=== PATIENT | female | born 1970 | race Caucasian/White ===

== ENCOUNTER → 2024-10-24 | Outpatient (CLI) | payer OTHER, SELFPAY ==
--- OUTSIDE RECORDS SUMMARY | 2024-10-24 08:54 | XMS RPT_ITS | CCD ---
Author Organization [facility] CliniSyhi Care Team Providers Care Hair Dresser Name Role Phone Dami Dawn Unavailable Unavailable Dami Dawn Unavailable Unavailable Madiha Caballero Unavailable Unavailable Madiha Caballero Unavailable Unavailable Dami Dawn Unavailable Unavailable Dami Dawn Unavailable Unavailable Dami Dawn Unavailable [phone] Dami Dawn Primary Care Provider Inocencio Ashton Unavailable Unavailable Unavailable Dami Dawn Unavailable Inocencio Ashton Unavailable Unavailable Jonathon Coronel Unavailable Inocencio Ashton CNP Primary Care Provider [phone] Stentbrigid, Parag Unavailable Inocencio Ashton CNP Primary Care Provider Inocencio Ashton Unavailable Stentz, Parag Unavailable Akash Wilburn Unavailable Unavailable KODAK VARGAS Admitting Unavailable KODAK VARGAS Referring Unavailable INOCENCIO ASHTON Primary Care Unavailable KODAK VARGAS Attending Unavailable INOCENCIO ASHTON Primary Care Unavailable INOCENCIO ASHTON Primary Care Unavailable KODAK VARGAS Attending Unavailable TASHA CAMARGO Admitting Unavailable TASHA CAMARGO Referring Unavailable BINU GRAY Attending Unavailable INOCENCIO ASHTON Primary Care Unavailable [facility], Other Primary Care Prov ider Ms. Inocencio Ashton Primary Care Unav ailable STENTZ, Mr. TUTTLE Attending Unavailable STENTZ, Mr. TUTTLE Referring Unavailable STENTZ, Mr. TUTTLE Primary Care Unavailable STENTZ, Mr. TUTTLE Referring Unavailable STENTZ, Mr. TUTTLE Attending Unavailable STENTZ, Mr. TUTTLE Primary Care Unavailable STENTZ, MrRajendra TUTTLE Referring Unavailable STENTZ, Mr. TUTTLE Attending Unavailable STENTZ, Mr. PARAG Referring Unavailable STENTZ, MrRajendra TUTTLE Attending Unavailable STENTZ, Mr. PARAG Primary Care Unavailable STENTZ, Mr. PARAG Referring Unavailable STENTZ, Mr. TUTTLE Attending Unavailable STENTZ, Mr. PARAG Primary Care Unavailable STENTZ, Mr. PARAG Referring Unavailable STENTZ, Mr. TUTTLE Attending Unavailable STENTZ, Mr. PARAG Primary Care Unavailable STENTZ, MrRajendra TUTTLE Referring Unavailable STENTZ, Mr. PARAG Primary Care Unavailable Acmargo, Ms. Tasha Francois Attending Unavailabl e STENTZ, Mr. PARAG Primary Care Unavailable Camargo, Ms. Tasha M Referring Unavailabl e Camargo, Ms. Tasha M Attending Unavailabl e STENTZ, . PARAG Primary Care Unavailable Ohliger III, Dr. Yang Attending Unavailab le Camargo, MsRajendra Cordova M Referring Unavailabl e STENTZ, Mr. TUTTLE Referring Unavailable STENTZ, Mr. TUTTLE Attending Unavailable STENTZ, Mr. TUTTLE Primary Care Unavailable Stentz Parag RAHMAN Primary Care Provider [facility], Other Primary Care Prov ider [facility], OTHER Primary Care U navailable GUTIERREZ, GURU L Referring Unavailable GUTIERREZ, GURU L Attending Unavailable GUTIERREZ, GURU L Admitting Unavailable [facility], OTHER Primary Care U navailable GUTIERREZ, GURU L Referring Unavailable GUTIERREZ, GURU L Attending Unavailable Stentz, Mr. Tuttle Attending Unavailable Stentz, Mr. Tuttle Primary Care Unavailable AKASH WILBURN Attending Unavailabl e Stentz, Mr. Tuttle Primary Care Unavailable Stentz, Mr. Tuttle Primary Care Unavailable Stentz, Mr. Tuttle Attending Unavailable SUHAS, SHARLA A Referring Unavailable [facility], OTHER Primary Care U navailable SUHAS, SHARLA A Attending Unavailable [facility], OTHER Primary Care U navailable GUTIERREZ, GURU L Attending Unavailable SUHAS, SHARLA A Referring Unavailable [facility], OTHER Primary Care U navailable SUHAS, SHARLA A Attending Unavailable SELF, SELF Referring Unavailable SUHAS, SHARLA A Referring Unavailable SUHAS, SHARLA A Attending Unavailable [facility], OTHER Primary Care U navailable SUHAS, SHARLA A Referring Unavailable SUHAS, SHARLA A Attending Unavailable [facility], OTHER Primary Care U [facility] SUHAS, SHARLA A Referring Unavailable GURU GUTIERREZ Attending Unavailable [facility], OTHER Primary Care U [facility], SHARLA A Referring Unavailable SUHAS, SHARLA A Attending Unavailable [facility], OTHER [facility], OTHER Primary Care U [facility] SUHAS, SHARLA A Referring Unavailable SUHAS, SHARLA A Attending Unavailable [facility], OTHER Primary Care U [facility] [employer] MAINTAINER OPERATOR-STORE CONSULTANT, Deion Francois Unavailable [phone] STENTZ, PARAG Primary Care Unavailable AMOL BAE Attending Unavailable STENTZ, PARAG Referring Unavailable STENTZ, PARAG Primary Care Unavailable STENTZ, PARAG Primary Care Unavailable Daisha MAINTAINER OPERATOR-STORE CONSULTANTInocencio Unavailable STENTZ, PARAG Primary Care Unavailable SALENA SMITH Attending Unavailable STENTZ, PARAG Referring Unavailable STENTZ, PARAG Primary Care Unavailable STENTZ, PARAG Referring Unavailable STENTZ, PARAG Primary Care Unavailable STENTZ, PARAG Referring Unavailable STENTZ, PARAG Primary Care Unavailable STENTZ, PARAG Referring Unavailable STENTZ, PARAG Primary Care Unavailable STENTZ, PARAG Referring Unavailable STENTZ, PARAG Primary Care Unavailable STENTZ, PARAG Referring Unavailable STENTZ, PARAG Primary Care Unavailable STENTZ, PARAG Referring Unavailable STENTZ, PARAG Primary Care Unavailable SEDRICK FLORES Attending Unavailable MACARENA SANDOVAL Referring Unavailable STENTZ, PARAG Primary Care Unavailable STENTZ, PARAG Referring Unavailable STENTZ, PARAG Primary Care Unavailable STENTZ, PARAG Referring Unavailable STENTZ, PARAG Primary Care Unavailable Stentz JOSIAH Parag Primary Care Provider Melltebarak MAINTAINER OPERATOR-STORE CONSULTANTDeion Unavailable STENTZ, PARAG Attending Unavailable STENTZ, PARAG Referring Unavailable STENTZ, PARAG Primary Care Unavailable DEION PELAYO Attending Unavailable STENTZ, PARAG Referring Unavailable STENTZ, PARAG Primary Care Unavailable STENTZ, PARAG Attending Unavailable STENTZ, PARAG Referring Unavailable STENTZ, PARAG Primary Care Unavailable STENTZ, PARAG Attending Unavailable STENTZ, PARAG Primary Care Unavailable GERALDO MARTÍNEZ Attending Unavailable STENTZ, PARAG Primary Care Unavailable GERALDO MARTÍNEZ Attending Unavailable STENTZ, PARAG Primary Care Unavailable STENTZ, PARAG Attending Unavailable STENTZ, PARAG Primary Care Unavailable CLAUDIA GIBBONS Attending Unavailable STENTZ, PARAG Primary Care Unavailable Kimberlyn Yin Attending Provider Sandi VELARDE, Dr. James Attending Provider Jacob Junior Attending Unavailable Kimberlyn Patel Attending Unavailable Allergies Allergy Classification Reported Allergen(s) Allergy Type Date of Onset Reaction(s) Facility (20 sources) Latex; Translations: [LATEX] Propensity to adverse reactions to drug 6 Rash [facility] (20 sources) ADHESIVE TAPE-SILICONES; Translations: [ADHESIVE TAPE-SILICONES] Propensity to adverse reactions to drug 6 Unknown [facility] (20 sources) NYLON; Translations: [NYLON] Propensity to adverse reactions to drug 4 [facility] (8 sources) OINTMENT BASE NO.147 (BULK); Translations: [OINTMENT BASE NO.147 (BULK)] Propensity to adverse reactions to drug 6 [facility] (20 sources) natural latex rubber Allergy to substance (finding) Rash [facility] Work Phone: (4 sources) *Adhesive Tape Propensity to adverse reactions [address] [facility] (4 sources) Nylon Propensity to adverse reactions to drug [address] [facility] (2 sources) *Sutures Propensity to adverse reactions [address] [facility] (3 sources) Adhesive Tape; Translations: [adhesive tape] Propensity to adverse reactions [address] [facility] (1 source) Latex Drug allergy (disorder) [address] [facility] Repository Medications Current Medications Medication Drug Class(es) Dates Sig (Normalized) Sig (Original) acetaminophen 325 mg / HYDROcodone bitartrate 5 mg oral tablet (15 sources) Opioid Agonist Start: 09-27-2022 End: 10-04-2022 take 1-2 tablets by mouth every four hours as needed hydroCODone-aceta minophen 5-325 MG tablet Indications: Post-op pain Take 1-2 tablets by mouth every 4 hours as needed for up to 7 days. 25 tablet 0 09/27/2022 Active Start: 02-07-2021 take 1 tablet by rebekah th every six hours HYDROcodone-acetaminophen (NORCO) 5-325 mg per tablet Take 1 tablet by mouth every 6 (six) hours . 0 02/07/2021 Active Start: 02-01-2021 End: 02-03-2021 take 1 tablet by mouth every six hours [place] 5 mg-325 mg oral tablet ; 1 tab(s) orally every 6 hours Quantity: 12 Refills: 0 Ordered: 01-Feb-2021 Jonathon Coronel Start: 01-Feb-2021 End: 03-Feb-2021 Status: Other Generic Substitution Allowed Comments: Caution federal law prohibits the transfer of this drug to any person other than the person for whom it was prescribed.May cause drowsiness. Alcohol may intensify this effect. Use care when operating dangerous machinery.This product contains acetaminophen. Do not use with any other product containing acetaminophen to prevent possible liver damage.Using more of this medication than prescribed may cause serious breathing problems. Comment on above: Caution [place] law prohibits the transfer of this drug to any person other than the person for whom it was prescribed.May cause drowsiness. Alcohol may intensify this effect. Use care when operating dangerous machinery.This product contains acetaminophen. Do not use with any other product containing acetaminophen to prevent possible liver damage.Using more of this medication than prescribed may cause serious breathing problems. 200 actuat albuterol 0.09 mg/actuat metered dose inhaler (3 sources) beta2-Adrenergic Agonist Start: 02-14-2018 albuterol (VENTOLIN HFA) 90 mcg/actuation inhaler 1-2 inhalations every 4-6 hours as needed for wheezing. Dispense spacer as needed. 0 02/14/2018 Active Start: 02-14-2018 End: 02-14-2019 albuterol (VENTOLIN HFA) 90 mcg/actuation inhaler 1-2 inhalations every 4-6 hours as needed for wheezing. Dispense spacer as needed. 02/14/2018 02/14/2019 Active Start: 02-14-2018 End: 02-06-2021 albuterol (VENTOLIN HFA) 90 mcg/actuation inhaler 1-2 inhalations every 4-6 hours as needed for wheezing. Dispense spacer as needed. 0 02/14/2018 02/06/2021 Discontinued (Discontinued by another clinician) amoxicillin 875 mg / clavulanate 125 mg oral tablet (6 sources) Penicillin-class Antibacterial Start: 03-20-2024 End: 03-30-2024 take 1 tablet by mouth twice daily amoxicillin-pot clavulanate (Augmentin) 875-125 mg tablet Indications: Acute non-recurrent pansinusitis Take 1 tablet (875 mg) by mouth 2 times a day for 10 days. 20 tablet 03/20/2024 03/30/2024 Active Start: 02-07-2024 End: 02-17-2024 take 1 tablet by mouth twice daily amoxicillin-pot clavulanate (Augmentin) 875-125 mg tablet Indications: Acute non-recurrent pansinusitis Take 1 tablet (875 mg) by mouth 2 times a day for 10 days. 20 tablet 02/07/2024 02/17/2024 Active Start: 09-07-2021 take 1 tablet by rebekah th every twelve hours Amoxicillin-Pot Clavulanate 875-125 MG Oral Tablet TAKE 1 TABLET Every twelve hours for 7 days Quantity: 14 Refills: 0 Ordered: 07-Sep-2021 Parag Herrera PA-C Start : 07-Sep-2021 Active Start: 02-25-2018 End: 02-06-2021 amoxicillin-clavulanate (AUG MENTIN) 875-125 mg per tablet Start: 02-25-2018 amoxicillin-cl avulanate (AUGMENTIN) 875-125 mg per tablet atropine sulfate 0.025 mg / diphenoxylate hydrochloride 2.5 mg oral tablet (2 sources) Anticholinergic, Cholinergic Muscarinic Antagonist, Antidiarrheal Start: 08-21-2023 End: 08-30-2023 take 1 tablet by mouth four times daily as needed for diarrhea diphenoxylate-atropine (Lomotil) 2.5-0.025 mg tablet Indications: Diarrhea, unspecified type Take 1 tablet by mouth 4 times a day as needed for diarrhea for up to 3 days. 12 tablet 08/21/2023 08/30/2023 Discontinued (Med List Cleanup) benzonatate 200 mg oral capsule (2 sources) Non-narcotic Antitussive Start: 02-04-2024 End: 03-20-2024 take 1 capsule by mouth every eight hours as needed benzonatate (Tessalon) 200 mg capsule Take 1 capsule (200 mg) by mouth every 8 hours if needed for cough. 02/04/2024 03/20/2024 Discontinued (Med List Cleanup) ciprofloxacin 500 mg oral tablet (3 sources) Quinolone Antimicrobial Start: 01-15-2022 End: 01-24-2022 take 1 tablet by mouth twice daily Cipro 500 mg oral tablet ; 1 tab(s) orally 2 times a day Quantity: 20 Refills: 0 Ordered: 15-Jan-2022 Akash Wilburn Start: 15-Jan-2022 End: 24-Jan-2022 Generic Substitution Allowed Comments: Avoid prolonged or excessive exposure to direct and/or artificial sunlight while taking this medication.Check with your doctor before becoming .Do not take dairy products, antacids, or iron preparations within one hour of this medication.Finish all this medication unless otherwise directed by prescriber.Medication should be taken with plenty of water. Start: 08-09-2017 End: 12-05-2017 take 1 tablet by mouth twice daily ciprofloxacin HCl (CIPRO) 250 MG tablet Indications: Dysuria Take 1 (one) tablet (250 mg total) by mouth 2 (two) times a day. 10 tablet 0 08/09/2017 12/05/2017 Discontinued Comment on above: Avoid prolonged or e xcessive exposure to direct and/or artificial sunlight while taking this medication.Check with your doctor before becoming .Do not take dairy products, antacids, or iron preparations within one hour of this medication.Finish all this medication unless otherwise directed by prescriber.Medication should be taken with plenty of water. cyclobenzaprine hydrochloride 10 mg oral tablet (17 sources) Muscle Relaxant Start: 08-29-19 End: 03-20-20 cyclobenzaprine (Flexeril) 10 mg tablet Indications: Chronic right-sided low back pain, unspecified whether sciatica present Take 1 tablet (10 mg) by mouth as needed at bedtime for muscle spasms. 30 tablet 1 08/30/2023 03/20/2024 Discontinued (Med List Cleanup) diclofenac sodium 0.01 mg/mg topical gel (11 sources) Nonsteroidal Anti-inflammatory Drug Start: 08-29-19 End: 03-05-20 diclofenac sodium (Voltaren) 1 % gel gel Indications: Pain of left heel Apply 4g topically 4 times daily as needed. 100 g 1 08/28/2022 03/05/2023 Discontinued (Therapy completed) Start: 08-28-2022 Diclofenac sod ium 1 % Gel gel Apply FOUR grams FOUR TIMES DAILY NEEDED 0 08/28/2022 Active Start: 08-28-2022 Diclofenac sod ium 1 % Gel gel Apply 4g topically 4 times daily as needed. 0 08/28/2022 Active Start: 11-23-2021 End: 02-21-2022 Diclofenac Sodium 1 % Manager Valuation al Gel Apply to affected area up to 4 times daily 2 grams. Quantity: 1 Refills: 1 Ordered: 23-Nov-2021 Parag Herrera PA-C Start : 23-Nov-2021 End : 21-Feb-2022 Complete estrogens, conjugated (longterm) 0.3 mg oral tablet (20 sources) Estrogen Start: 06-19-2022 End: 06-19-2023 take 1 tablet by mouth once daily estrogens, conjugated, (Premarin) 0.3 mg tablet Indications: Hot flashes, menopausal Take 1 tablet (0.3 mg) by mouth once daily. 90 tablet 3 06/19/2022 03/05/2023 Discontinued (Therapy completed) Start: 12-06-2020 End: 06-19-2022 take 1 tablet by mouth once daily estrogens, conjugated, (Premarin) 0.625 mg tablet Take 1 tablet (0.625 mg) by mouth once daily. 0 12/06/2020 06/19/2022 Discontinued (Dose adjustment) Start: 12-06-2020 take 1 tablet by rebekah th once daily Premarin 0.45 MG Oral Tablet TAKE 1 TABLET DAILY. Quantity: 90 Refills: 0 Ordered: 22-May-2022 Parag Herrera PA-C Start : 06-Dec-2020 Active Start: 12-06-2020 take 1 tablet by rebekah th once daily Premarin 0.3 MG Oral Tablet TAKE 1 TABLET DAILY DIRECTED. Quantity: 30 Refills: 2 Ordered: 06-Dec-2020 Inocencio Givens Start : 06-Dec-2020 Active ESTROGENS CONJUG ATED PO Take by mouth daily. 0 Active ESTROGENS CONJUG ATED PO Take by mouth. 0 Active Premarin Quantit y: 0 Refills: 0 Ordered: 15-Jan-2022 Rocco Alisha Generic Substitution Allowed estrogens, conju gated (PREMARIN ORAL) Take by mouth . 0 Active ferrous sulfate 325 mg oral tablet (4 sources) Start: 09-25-2024 take 1 tablet by mouth once daily Ferrous Sulfate 325 mg (65 mg iron) tablet Active 325 mg PO daily September 25, 2024 12:00am End: 04-17-2022 Ferrous Sulfate Dried (BECKA US SULFATE CR PO) Take by mouth. 0 04/17/2022 Discontinued (Medication Reconciliation (suppress cancel msg)) End: 12-05-2017 ferrous sulfate 325 (65 FE) MG tablet Take by mouth. 12/05/2017 Discontinued gabapentin 100 mg oral capsule (4 sources) Anti-epileptic Agent Start: 08-30-2023 End: 10-29-2023 take 1 capsule by mouth three times daily as needed for pain gabapentin (Neurontin) 100 mg capsule Indications: Fibromyalgia muscle pain Take 1 capsule (100 mg) by mouth 3 times a day as needed (fibro pain). 90 capsule 1 08/30/2023 10/29/2023 Active meclizine hydrochloride 25 mg oral tablet (1 source) Antiemetic Start: 07-31-2022 End: 08-10-2022 take 1 tablet by mouth three times daily as needed for dizziness meclizine (Antivert) 25 mg tablet Indications: Dizziness Take 1 tablet (25 mg) by mouth 3 times a day as needed for dizziness for up to 10 days. 30 tablet 0 07/31/2022 08/10/2022 Active meloxicam 7.5 mg oral tablet (2 sources) Nonsteroidal Anti-inflammatory Drug Start: 01-16-2024 End: 02-15-2024 take 1 tablet by mouth once daily meloxicam (Mobic) 7.5 mg tablet Indications: Strain of right shoulder, initial encounter Take 1 tablet (7.5 mg) by mouth once daily. 30 tablet 01/16/2024 02/15/2024 Active methocarbamol 500 mg oral tablet (1 source) Muscle Relaxant Start: 09-25-2024 take 1 tablet by mouth three times daily as needed for pain Methocarbamol 500 mg tablet Active 500 mg PO THREE TIMES A DAY as needed for pain/spasms September 25, 2024 12:00am Multiple Vitamin (Multi-Vitamin) tablet (3 sources) Multiple Vitamin (Multi-Vitamin) tablet Take 1 tablet by mouth. 0 Active Multivitamin Tablet (2 sources) take 1 tablet by mouth once daily multivitamin (multivitamin) per tablet Take 1 tablet by mouth daily. Active omeprazole 40 mg delayed release oral capsule (20 sources) Proton Pump Inhibitor Start: 11-28-2023 End: 11-27-2024 take 1 capsule by mouth twice daily Omeprazole 40 mg capsule,delayed release(DR/EC) Active 40 mg PO TWICE A DAY September 25, 2024 12:00am Start: 03-13-2022 End: 09-17-2024 take 1 capsule by mouth once daily in the morning, then take 1-2 capsules by mouth once daily before mealtime omeprazole (PriLOSEC) [address] capsule Indications: Gastroesophageal reflux disease, unspecified whether esophagitis present Take 1 capsule (40 mg) by mouth once daily in the morning. Take before meals. Take 1-2 capsules daily. 90 capsule 3 09/18/2023 09/17/2024 Active ondansetron 4 mg disintegrating oral tablet (6 sources) Serotonin-3 Receptor Antagonist Start: 08-30-2023 End: 10-29-2023 take 1 tablet by mouth twice daily as needed for nausea ondansetron ODT (Zofran-ODT) 4 mg disintegrating tablet Indications: Nausea and vomiting, unspecified vomiting type Take 1 tablet (4 mg) by mouth 2 times a day as needed for nausea or vomiting. 60 tablet 1 08/30/2023 10/29/2023 Active Start: 02-01-2021 take 1 tablet by [facility] three times daily for nausea and vomiting Zofran 8 mg oral tablet ; 1 tab(s) orally 3 times a day -for nausea and vomiting Quantity: 12 Refills: 0 Ordered: 01-Feb-2021 Jonathon Coronel Start: 01-Feb-2021 Status: Other Generic Substitution Allowed 24 hr oxybutynin chloride 5 mg extended release oral tablet (16 sources) Cholinergic Muscarinic Antagonist Start: 09-25-2024 take 1 tablet by mouth once daily Oxybutynin Chloride 5 mg tablet extended release 24hr Active 5 mg PO daily September 25, 2024 12:00am Start: 08-30-2023 End: 08-29-2024 take 1 tablet by mouth once daily oxybutynin XL (Ditropan-XL) 5 mg 24 hr tablet Indications: Overactive bladder Take 1 tablet (5 mg) by mouth once daily. Do not crush, chew, or split. 90 tablet 3 08/30/2023 08/29/2024 Active Start: 06-06-2023 End: 12-03-2023 take 1 tablet by mouth once daily oxybutynin XL (Ditropan-XL) 10 mg 24 hr tablet Indications: Overactive bladder Take 1 tablet (10 mg) by mouth once daily. Do not crush, chew, or split. 90 tablet 1 06/06/2023 08/30/2023 Discontinued (Reorder) Start: 03-05-2023 End: 06-06-2023 take 1 tablet by mouth once daily oxybutynin XL (Ditropan-XL) 5 mg 24 hr tablet Indications: Overactive bladder Take 1 tablet (5 mg) by mouth once daily. Do not crush, chew, or split. 90 tablet 1 04/25/2023 06/06/2023 Discontinued (Reorder) phenazopyridine hydrochlorid e 200 mg oral tablet (12 sources) Start: 02-09-2021 phenazopyridin e (PYRIDIUM) 200 MG tablet Take 1 Unspecified by mouth . 0 02/09/2021 Active Start: 02-09-2021 take 1 tablet by rebekah th three times daily as needed for pain Phenazopyridine HCl - 200 MG Oral Tablet TAKE 1 TABLET 3 TIMES DAILY NEEDED FOR PAIN. Quantity: 9 Refills: 1 Ordered: 09-Feb-2021 Addie Rosario Start : 09-Feb-2021 Active Start: 08-09-2017 End: 08-09-2018 take 1 tablet by mouth three times daily as needed phenazopyridine (PYRIDIUM) 200 MG tablet Indications: Dysuria Take 1 (one) tablet (200 mg total) by mouth 3 (three) times a day as needed. 10 tablet 0 08/09/2017 08/09/2018 Active phentermine hydrochloride 37.5 mg oral tablet (11 sources) Sympathomimetic Amine Anorectic Start: 05-05-2024 End: 06-04-2024 take 40-44.9 tablets by mouth once daily before mealtime phentermine (Adipex-P) 37.5 mg tablet Indications: Class 3 severe obesity due to excess calories without serious comorbidity with body mass index (BMI) of 40.0 to 44.9 in adult Take 1 tablet (37.5 mg) by mouth once daily in the morning. Take before meals. 30 tablet 06/02/2024 Active Start: 05-22-2022 End: 08-30-2022 take 1 tablet by mouth once daily phentermine (Adipex-P) 37.5 mg tablet Indications: Morbid obesity with BMI of 40.0-44.9, adult (CMS/[facility]) Take 1 tablet (37.5 mg) by mouth once daily. 30 tablet 0 06/19/2022 07/19/2022 Active predniSONE 10 mg oral tablet (2 sources) Start: 02-04-2024 End: 03-20-2024 take 1 tablet by mouth in the morning predniSONE (Deltasone) 10 mg tablet Take 1 tablet (10 mg) by mouth early in the morning.. 02/04/2024 03/20/2024 Discontinued (Therapy completed) semaglutide 0.25 mg or 0.5 mg (2 mg/3 mL) pen injector (7 sources) Start: 03-05-2023 inject 0.25 mg by subcutaneous injection every week, then inject 0.5 mg by subcutaneous injection every week, then inject 1 mg by subcutaneous injection every week semaglutide 0.25 mg or 0.5 mg (2 mg/3 mL) pen injector Indications: Class 2 obesity due to excess calories without serious comorbidity with body mass index (BMI) of 38.0 to 38.9 in adult Inject 0.25 mg under the skin 1 (one) time per week for 30 days, THEN 0.5 mg 1 (one) time per week for 30 days, THEN 1 mg 1 (one) time per week. 12 mL 03/05/2023 Active Start: 03-05-2023 inject 0.25 mg by crandall bcutaneous injection every week, then inject 0.5 mg by subcutaneous injection every week, then inject 1 mg by subcutaneous injection every week semaglutide 0.25 mg or 0.5 mg (2 mg/3 mL) pen injector Indications: Class 2 obesity due to excess calories without serious comorbidity with body mass index (BMI) of 38.0 to 38.9 in adult Inject 0.25 mg under the skin 1 (one) time per week for 30 days, THEN 0.5 mg 1 (one) time per week for 30 days, THEN 1 mg 1 (one) time per week. 12 mL 0 03/05/2023 Active Start: 03-05-2023 End: 06-03-2023 inject 0.25 mg by subcutaneous injection every week, then inject 0.5 mg by subcutaneous injection every week, then inject 1 mg by subcutaneous injection every week semaglutide 0.25 mg or 0.5 mg (2 mg/3 mL) pen injector Indications: Class 2 obesity due to excess calories without serious comorbidity with body mass index (BMI) of 38.0 to 38.9 in adult Inject 0.25 mg under the skin 1 (one) time per week for 30 days, THEN 0.5 mg 1 (one) time per week for 30 days, THEN 1 mg 1 (one) time per week. 12 mL 0 03/05/2023 06/03/2023 Active sulfamethoxazole 800 mg / trimethoprim 160 mg oral tablet (10 sources) Dihydrofolate Reductase Inhibitor Antibacterial, Sulfonamide Antimicrobial Start: 02-09-2021 take 1 tablet by mouth every twelve hours sulfamethoxazole-trimethoprim (BACTRIM DS,SEPTRA DS) 800-160 mg per tablet Take 1 Unspecified by mouth every 12 (twelve) hours . 0 02/09/2021 Active Start: 02-09-2021 take 1 tablet by rebekah th twice daily Sulfamethoxazole-Trimethoprim 800-160 MG Oral Tablet TAKE 1 TABLET TWICE DAILY. Quantity: 20 Refills: 1 Ordered: 09-Feb-2021 Addie Rosario Start : 09-Feb-2021 Active traZODone hydrochloride 50 mg oral tablet (16 sources) Serotonin Reuptake Inhibitor Start: 04-21-2024 End: 04-21-2025 take 1 tablet by mouth once daily at bedtime traZODone (Desyrel) 50 mg tablet Indications: Insomnia, unspecified type Take 1 tablet (50 mg) by mouth once daily at bedtime. 90 tablet 3 04/21/2024 04/21/2025 Active Start: 08-28-2022 End: 01-31-2024 take 1 tablet by mouth once daily at bedtime traZODone (Desyrel) 50 mg tablet Indications: Insomnia, unspecified type Take 1 tablet (50 mg) by mouth once daily at bedtime. 90 tablet 3 01/31/2023 Active Completed/Discontinued Medications Medication Drug Class(es) Dates Sig (Normalized) Sig (Original) acetaminophen 1000 mg oral tablet (4 sources) End: 02-06-2021 ACETAMINOPHEN (TYLENOL ORAL) Take 1,000 mg by mouth as needed . 0 02/06/2021 Discontinued (Discontinued by another clinician) amoxicillin 875 mg oral tablet (10 sources) Penicillin-class Antibacterial Start: 02-01-2021 End: 02-07-2021 take 1 tablet by mouth every twelve hours amoxicillin 875 mg oral tablet ; 1 tab(s) orally every 12 hours Quantity: 14 Refills: 0 Ordered: 01-Feb-2021 Jonathon Coronel Start: 01-Feb-2021 End: 07-Feb-2021 Status: Other Generic Substitution Allowed Comments: Finish all this medication unless otherwise directed by prescriber. Start: 02-01-2021 Amoxicillin 87 5 MG Oral Tablet Quantity: 14 Refills: 0 Ordered: 01-Feb-2021 DO Start : 01-Feb-2021 Active Comment on above: Finish all this medi cation unless otherwise directed by prescriber. clobetasol propionate 0.0005 mg/mg topical ointment (1 source) Corticosteroid Start: 09-22-2021 Clobetasol Propionate 0.05 % External Ointment APPLY AND GENTLY MASSAGE INTO AFFECTED AREA(S) TWICE DAILY. Quantity: 1 Refills: 0 Ordered: 22-Sep-2021 Parag Herrera PA-C Start : 22-Sep-2021 Active diphenhydrAMINE (20 sources) Histamine-1 Receptor Antagonist Start: 07-01-2002 End: 02-06-2021 DIPHENHYDRAMINE HCL (BENADRYL ALLERGY ORAL) as necessary 0 07/01/2002 02/06/2021 Discontinued (Discontinued by another clinician) Start: 07-01-2002 DIPHENHYDRAMIN E HCL (BENADRYL ALLERGY ORAL) as necessary 0 07/01/2002 Active Start: 07-01-2002 DIPHENHYDRAMIN E HCL (BENADRYL ALLERGY ORAL) as necessary 07/01/2002 Active End: 02-21-2022 take 1 tablet by mouth at bedtime Benadryl TABS TAKE 1 TABLET AT BEDTIME. Quantity: 0 Refills: 0 Ordered: 21-Feb-2022 DO End : 21-Feb-2022 Complete take 1 tablet by rebekah th at bedtime Benadryl TABS TAKE 1 TABLET AT BEDTIME. Quantity: 0 Refills: 0 Ordered: 06-Dec-2020 DO Active esomeprazole 20 mg delayed release oral capsule (19 sources) Proton Pump Inhibitor End: 02-21-2022 take 1 capsule by mouth once daily NexIUM 20 MG Oral Capsule Delayed Release TAKE 1 CAPSULE ONCE DAILY. Quantity: 30 Refills: 11 Ordered: 21-Feb-2022 DO End : 21-Feb-2022 Complete fluconazole 200 mg oral tablet (6 sources) Azole Antifungal Start: 02-10-2021 take 1 tablet by mouth once daily Fluconazole 200 MG Oral Tablet TAKE 1 TABLET DAILY DIRECTED. Quantity: 14 Refills: 0 Ordered: 10-Feb-2021 Inocencio Page Start : 10-Feb-2021 Active fluocinonide 0.5 mg/ml topical cream (1 source) Corticosteroid Start: 07-01-2002 End: 12-05-2017 fluocinonide (LIDEX) 0.05 % cream ,prn 07/01/2002 12/05/2017 Discontinued hydrOXYzine hydrochloride 25 mg oral tablet (1 source) Antihistamine Start: 09-22-2021 take 1 tablet by mouth four times daily as needed hydrOXYzine HCl - 25 MG Oral Tablet TAKE 1 TABLET 4 TIMES DAILY NEEDED. Quantity: 40 Refills: 0 Ordered: 22-Sep-2021 Parag Herrera PA-C Start : 22-Sep-2021 Active iohexol (OMNIPaque) 12 mg iodine/mL oral contrast 500 mL (1 source) Start: 09-17-2023 End: 09-17-2023 500 mL, oral, Once in imaging, Starting on Sat09/17/23 at 0941, For 1 dose, Administer over 20-60 minutes as directed by imaging protocol and/or imaging provider. CONTRAST - for procedural imaging use only. iohexol (OMNIPaque) 350 mg iodine/mL solution 68 mL (1 source) Start: 09-17-2023 End: 09-17-2023 68 mL, intravenous, Once in imaging, Starting on Sat09/17/23 at 0941, For 1 dose methylPREDNISolone 4 MG Oral Tablet Therapy Pack (2 sources) Start: 11-30-2021 methylPREDNISolone 4 MG Oral Tablet Therapy Pack Take daily as directed until prescription complete. Quantity: 1 Refills: 0 Ordered: 30-Nov-2021 Tasha Simpson Start : 30-Nov-2021 Active 24 hr mirabegron 50 mg extended release oral tablet (1 source) beta3-Adrenergic Agonist Start: 12-04-2016 End: 12-05-2017 take 1 tablet by mouth once daily MYRBETRIQ 50 mg Tb24 Take 1 (one) tablet (50 mg total) by mouth daily. 30 tablet 11 12/04/2016 12/05/2017 Discontinued multivitamin (multivitamin) per tablet (2 sources) End: 02-06-2021 take 1 tablet by mouth once daily multivitamin (multivitamin) per tablet Take 1 tablet by mouth daily. 0 02/06/2021 Discontinued (Discontinued by another clinician) take 1 tablet by mouth once chava y multivitamin (multivitamin) per tablet Take 1 tablet by mouth daily. 0 Active mupirocin 0.02 mg/mg topical ointment (8 sources) RNA Synthetase Inhibitor Antibacterial Start: 02-07-2021 Mupirocin 2 % External Ointment APPLY A SMALL AMOUNT 3 TIMES DAILY DIRECTED. Quantity: 1 Refills: 1 Ordered: 07-Feb-2021 Inocencio Page Start : 07-Feb-2021 Active nitrofurantoin, macrocrystals 25 mg / nitrofurantoin, monohydrate 75 mg oral capsule (1 source) Nitrofuran Antibacterial Start: 07-04-2017 End: 12-05-2017 nitrofurantoin, macrocrystal-monohydr ate, (MACROBID) 100 MG capsule PARoxetine hydrochloride 10 mg oral tablet (19 sources) Serotonin Reuptake Inhibitor Start: 12-06-2020 take 1 tablet by mouth once daily PARoxetine HCl - 10 MG Oral Tablet TAKE 1 TABLET DAILY DIRECTED. Quantity: 30 Refills: 5 Ordered: 06-Dec-2020 Inocencio Page Start : 06-Dec-2020 Active PAROXETINE HCL P O Take by mouth. 0 Active paroxetine HCl ( PAXIL ORAL) Take by mouth . 0 Active 1000 ml sodium chloride 9 mg/ml injection (1 source) Start: 09-27-2022 End: 09-27-2022 Sodium chloride 0.9% IV solu tion UNABLE TO FIND (12 sources) Start: 07-11-2023 End: 01-16-2024 UNABLE TO FIND Indications: Morbid obesity with BMI of 40.0-44.9, adult (Multi) Semaglutide/Cyanocobalamin 5mg-0.4mg/mL. Inject 0.2mL weekly for 4 weeks. Then inject 0.4mL weekly from then on. 1 each 07/11/2023 01/16/2024 Discontinued (Med List Cleanup) Start: 07-11-2023 UNABLE TO FIND Indications: Morbid obesity with BMI of 40.0- 44.9, adult (Multi) Semaglutide/Cyanocobalamin 5mg-0.4mg/mL. Inject 0.2mL weekly for 4 weeks. Then inject 0.4mL weekly from then on. 1 each 07/11/2023 Active Start: 06-06-2023 End: 01-16-2024 UNABLE TO FIND Indications: Morbid obesity with BMI of 40.0- 44.9, adult (Multi) Semaglutide/Cyanocobalamin 2mg-0.4mg/mL. Inject 0.125mL weekly for 4 weeks, then inject 0.25mL weekly for 4 weeks. 1 each 06/06/2023 01/16/2024 Discontinued (Med List Cleanup) Start: 06-06-2023 UNABLE TO FIND Indications: Morbid obesity with BMI of 40.0- 44.9, adult (Multi) Semaglutide/Cyanocobalamin 2mg-0.4mg/mL. Inject 0.125mL weekly for 4 weeks, then inject 0.25mL weekly for 4 weeks. 1 each 06/06/2023 Active Problems Active Problems Problem Classification Problem Date Documented Da te Episodic/Chronic Conditions associated with dizziness or vertigo (1 source) Dizziness; Translations: [Dizziness and giddiness] 07-31-2022 Episodic Deficiency and other anemia (2 sources) Anemia; Translations: [Anemia, unspecified] 09-25-2024 Episodic E Codes: Natural/environment (3 sources) Dog bite 02-01-2021 Comment on above: DOG BITE Esophageal disorders (20 sources) Gastroesophageal reflux disease; Translations: [Esophageal reflux] Onset: 2 05-27-2022 Chronic Genitourinary symptoms and ill-defined conditions (20 sources) Wisam hematuria; Translations: [Dysuria] Onset: 6 Resolved: 8 02-02-2018 Episodic Joint disorders and dislocations; trauma-related (3 sources) 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; Translations: [Other articular cartilage disorders, left wrist] Onset: 3 Chronic Menopausal disorders (20 sources) Menopausal flushing; Translations: [Symptomatic menopausal or female climacteric states] Onset: 3 05-27-2022 Chronic Miscellaneous mental health disorders (2 sources) Primary insomnia; Translations: [Primary insomnia] 06-06-2023 Chronic Mycoses (14 sources) Candidiasis of skin; Translations: [Candidiasis of skin and nails] Episodic Open wounds of head; neck; and trunk (20 sources) Dog bite - wound; Translations: [Open wound(s) (multiple) of unspecified site(s), without mention of complication] 02-01-2021 Episodic Other connective tissue disease (12 sources) Pain in left lower limb; Translations: [Pain in limb] Episodic Other connective tissue disease (1 source) Pain of left hand; Translations: [Pain in left hand] Episodic Other connective tissue disease (1 source) Fibromyalgia; Translations: [Fibromyalgia] 08-30-2023 Episodic Other diseases of bladder and urethra (16 sources) Overactive bladder; Translations: [Overactive bladder] Onset: 4 03-05-2023 Chronic Other diseases of bladder and urethra (1 source) Overactive bladder; Translations: [Overactive bladder] Onset: 4 Chronic Other gastrointestinal disorders (1 source) Hemorrhagic diarrhea ; Translations: [Diarrhea] Episodic Other nervous system disorders (16 sources) Bilateral carpal tunnel syndrome; Translations: [Carpal tunnel syndrome, bilateral upper limbs] Onset: 3 Chronic Other nervous system disorders (4 sources) Carpal tunnel syndrome, bilateral upper limbs; Translations: [Carpal tunnel syndrome, bilateral upper limbs] Onset: 2 Chronic Other nervous system disorders (2 sources) Other chronic pain; Translations: [Other chronic pain] Onset: 3 Chronic Other nervous system disorders (1 source) Numbness of hand; Translations: [Anesthesia of skin] Episodic Other nervous system disorders (1 source) Postoperative pain ; Translations: [Other acute postprocedural pain] 09-27-2022 Episodic Other nervous system disorders (2 sources) Other acute postprocedural pain; Translations: [Other acute postprocedural pain] Onset: 3 Episodic Other nervous system disorders (2 sources) Anesthesia of skin; Translations: [Anesthesia of skin] Onset: 3 Episodic Other non-traumatic joint disorders (6 sources) Pain in wrist; Translations: [Pain in joint, forearm] Episodic Other non-traumatic joint disorders (1 source) Bilateral wrist pain; Translations: [Pain in right wrist] Episodic Other nutritional; endocrine; and metabolic disorders (4 sources) Morbid obesity; Translations: [Obesity, Class III, BMI 40-49.9 (morbid obesity) (HCC)] Onset: 8 12-05-2017 Chronic Other nutritional; endocrine; and metabolic disorders (20 sources) Body mass index 40+ - severely obese; Translations: [Morbid (severe) obesity due to excess calories] Onset: 8 12-05-2017 Chronic Other nutritional; endocrine; and metabolic disorders (2 sources) Obesity caused by energy imbalance; Translations: [Other obesity due to excess calories] 01-31-2023 Chronic Other nutritional; endocrine; and metabolic disorders (2 sources) Other obesity due to excess calories; Translations: [Other obesity due to excess calories] Onset: 3 Chronic Other nutritional; endocrine; and metabolic disorders (2 sources) Body mass index (BMI) 39.0-39.9, adult; Translations: [Body mass index (BMI) 39.0-39.9, adult] Onset: 3 Chronic Other nutritional; endocrine; and metabolic disorders (1 source) Severe obesity; Translations: [Class 3 severe obesity due to excess calories without serious comorbidity with body mass index (BMI) of 40.0 to 44.9 in adult] 05-05-2024 Chronic Other nutritional; endocrine; and metabolic disorders (2 sources) Morbid (severe) obesity due to excess calories; Translations: [Morbid (severe) obesity due to excess calories (Multi)] Onset: 5 Chronic Other nutritional; endocrine; and metabolic disorders (2 sources) Body mass index (BMI) 40.0-44.9, adult; Translations: [Body mass index (BMI) 40.0-44.9, adult (Multi)] Onset: 5 Chronic Other nutritional; endocrine; and metabolic disorders (2 sources) Obesity, unspecified; Translations: [Obesity, unspecified] Onset: 4 Chronic Other nutritional; endocrine; and metabolic disorders (2 sources) Body mass index (BMI) 38.0-38.9, adult; Translations: [Body mass index (BMI) 38.0-38.9, adult] Onset: 4 Chronic Other skin disorders (3 sources) Localized swelling, mass and lump, lower limb; Translations: [Localized superficial swelling, mass, or lump] Episodic Other skin disorders (9 sources) Disorder of left lower extremity; Translations: [Localized superficial swelling, mass, or lump] Episodic Other skin disorders (7 sources) Eruption; Translations: [Rash and other nonspecific skin eruption] Episodic Residual codes; unclassified (1 source) H/O: injury; Translations: [Other specified health status] Episodic Residual codes; unclassified (2 sources) Other specified postprocedural states; Translations: [Other specified postprocedural states] Onset: 3 Episodic Rheumatoid arthritis and related disease (1 source) Ankylosing spondylitis of unspecified sites in spine; Translations: [Ankylosing spondylitis of unspecified sites in spine] Onset: 2 Chronic Unclassified (7 sources) Patient encounter status; Translations: [Well adult exam] Onset: 6 Resolved: 8 12-08-2015 Unclassified (2 sources) PAINFUL URINATION 01-15-2022 Comment on above: PAINFUL URINATION Unclassified (1 source) 6 MONTHS 09-07-2021 Comment on above: 6 MONTHS Unclassified (1 source) Burning with urination 01-15-2022 Unclassified (1 source) Costovertebral angle pain 01-15-2022 Unclassified (1 source) Obesity, class 3; Translations: [Obesity, class 3] Onset: 5 Unclassified (2 sources) Low back pain, unspecified; Translations: [Low back pain, unspecified] Onset: Urinary tract infections (15 sources) Urinary tract infectious disease; Translations: [Urinary tract infection, site not specified] Episodic Viral infection (1 source) Disease caused by 2019-nCoV; Translations: [Other specified viral infection] Episodic Past or Other Problems Problem Classification Problem Date Documented Da te Episodic/Chronic Abdominal pain (9 sources) Generalized abdominal pain; Translations: [Generalized abdominal pain] Onset: 08-30-2023 08-30-2023 Episodic Diabetes mellitus without complication (7 sources) Glycosuria; Translations: [Glycosuria] Onset: 01-17-2016 Resolved: 02-02-2018 02-02-2018 Episodic E Codes: Natural/environment (2 sources) Bitten by dog, initial encounter; Translations: [Bitten by dog, initial encounter] Onset: 02-22-2021 Episodic Fever of unknown origin (1 source) Fever, unspecified; Translations: [Fever, unspecified] Onset: 01-15-2022 Episodic Fracture of upper limb (20 sources) Fracture of hand; Translations: [Closed fracture of metacarpal bone(s), site unspecified] Onset: 05-27-2022 05-27-2022 Episodic Genitourinary symptoms and ill-defined conditions (7 sources) Urge incontinence of urine; Translations: [Urge incontinence] Onset: 12-08-2015 Resolved: 12-05-2017 12-05-2017 Chronic Malaise and fatigue (3 sources) Fatigue; Translations: [Other fatigue] Onset: 10-31-2023 08-05-2024 Episodic Nausea and vomiting (10 sources) Nausea and vomiting; Translations: [Nausea with vomiting, unspecified] Onset: 08-30-2023 08-30-2023 Episodic Open wounds of extremities (4 sources) Dog bite of hand; Translations: [Open bite of left hand, initial encounter] Onset: 02-22-2021 Episodic Other and unspecified benign neoplasm (1 source) Tubular adenoma of colon; Translations: [Benign neoplasm of colon, unspecified] 10-04-2023 Episodic Other connective tissue disease (2 sources) Pain in left hand; Translations: [Pain in left hand] Onset: 04-17-2022 Episodic Other connective tissue disease (13 sources) Pain of left heel; Translations: [Pain in left foot] Onset: 08-28-2022 08-28-2022 Episodic Other connective tissue disease (2 sources) Fibromyalgia; Translations: [Fibromyalgia] Onset: 08-30-2023 Episodic Other gastrointestinal disorders (4 sources) Diarrhea; Translations: [Diarrhea, unspecified] 08-21-2023 Episodic Other gastrointestinal disorders (4 sources) Diarrhea, unspecified; Translations: [Diarrhea, unspecified] Onset: 08-21-2023 Episodic Other nervous system disorders (20 sources) Paresthesia of hand ; Translations: [Disturbance of skin sensation] Onset: 05-27-2022 Episodic Other non-traumatic joint disorders (20 sources) Wrist joint pain; Translations: [Pain in joint, forearm] Onset: 05-27-2022 05-27-2022 Episodic Other non-traumatic joint disorders (3 sources) Pain in unspecified wrist; Translations: [Pain in unspecified wrist] Onset: 11-23-2021 Episodic Other non-traumatic joint disorders (1 source) Pain in left wrist; Translations: [Pain in left wrist] Onset: 11-23-2021 Episodic Other screening for suspected conditions (not mental disorders or infectious disease) (19 sources) Patient encounter status; Translations: [Encounter for screening for other suspected endocrine disorder] Onset: 03-01-2023 01-31-2023 Episodic Other upper respiratory infections (20 sources) Pharyngitis; Translations: [Sore throat symptom] Onset: 03-22-2016 Resolved: 02-02-2018 02-02-2018 Episodic Residual codes; unclassified (3 sources) Kidney donor; Translations: [Kidney donors] Onset: 08-20-2002 05-31-2022 Episodic Residual codes; unclassified (2 sources) Other specified health status; Translations: [Other specified health status] Onset: 04-17-2022 Episodic Residual codes; unclassified (14 sources) Insomnia; Translations: [Insomnia, unspecified] Onset: 08-28-2022 01-31-2023 Episodic Spondylosis; intervertebral disc disorders; other back problems (17 sources) Backache; Translations: [Backache, unspecified] Onset: 08-28-2022 01-15-2022 Episodic Sprains and strains (17 sources) Triangular fibrocartilage tear; Translations: [Other specified sprain of left wrist, initial encounter] Onset: 04-24-2022 Episodic Unclassified (15 sources) Onset: 07-31-2022 Resolved: 05-05-2024 07-31-2022 Unclassified (1 source) Obesity, class 3; Translations: [Obesity, class 3] Onset: 05-05-2024 Unclassified (1 source) Low back pain, unspecified; Translations: [Low back pain, unspecified] Onset: 08-30-2023 Results Test Name Value Interpretation Reference Range Facility L/S Spine Min 4 Viewson 09-07 L/S Spine Min 4 Views [facility] [address] [place], [place] [address] L/S Spine Min 4 Views MR#: [id number] Acct: [id number] Name: TEDDY FIGUEROA Rep #: [id number] : 1970 F 54 From: Roger Bolaños MD PCP: Status: DEP AMB Study: L/S Spine Min 4 Views Date of Exam: 09/25/24 Exam# [id number] Ordering Dr: Kimberlyn Patel EXAM: XR Lumbosacral Spine Flexion/Extension Only, 2 or 3 Views CLINICAL INDICATION: PAIN TECHNIQUE: Lateral flexion/extension views of the lumbar spine and sacrum. COMPARISON: No relevant prior studies available. FINDINGS: VERTEBRAE: Grade 1 anterior spondylolisthesis of L3 over L4. Moderate endplate degenerative changes, disc disease, and facet arthropathy of L3-S1. No acute fracture. SACRUM/COCCYX: Unremarkable as visualized. No acute fracture. DISC SPACES: No acute findings. No significant narrowing. SOFT TISSUES: Unremarkable. OTHER FINDINGS: No significant dynamic instability. RAD/L/S Spine Min 4 Views IMPRESSION: 1. No acute fracture. 2. Grade 1 anterior spondylolisthesis of L3 over L4. 3. Degenerative changes as above. 4. No significant dynamic instability. Reading Location: [id number] CC: CHUCK Anrold Roll Icer Machine: Signed Normal [facility] Orthopedic Visit Reporton Orthopedic Visit Report [facility] [address] [place] [address] OFFICE VISIT Date of Service: 09/25/24 MR#: [id number] Acct: [id number] Name: TEDDY FIGUEROA Rep #: [id number] : 1970 Provider: CHUCK Arnold Age/Sex: 54/F Location: [facility].JULI[facility] Status: Signed Intake Vital Signs 09/25/24 08:07 Height 4 ft 10 in Weight: 209 lb 6 oz BMI 43.7 Intake Visit Reasons: LUMBAR SPINE Chief Complaint: Lumbar Spine Pain Accompanied by: Self Is patient in pain?: Yes Pain scale (1-10): 3 Allergies latex Allergy (Verified 09/25/24 08:08) Other adhesive tape (plastic tape) Adverse Reaction (Verified 09/25/24 08:08) Other Medications ???Medication ???Instructions ???Recorded ???Confirmed ???Type ferrous sulfate 325 mg (65 mg 325 mg PO QDAY 09/25/24 09/25/24 H istory iron) tablet methocarbamol 500 mg tablet 500 mg PO TID PRN pain/spasms #30 09/25/24 09/25/24 Rx tabs omeprazole 40 mg capsule,delayed 40 mg PO BID 09/25/24 09/25/24 His tory release oxybutynin chloride 5 mg 5 mg PO QDAY 09/25/24 09/25/24 His tory tablet,extended release 24 hr PFSH Medical History History of rectocele Surgical History History of foot surgery History of hysterectomy History of bladder surgery History of kidney donation Family History (Updated 09/25/24 @ 08:11 by Kandi Lopez) Other Heart disease Social History (Updated 09/25/24 @ 08:11 by Kandi Lopez) household members: spouse and none Smoking Status: Never smoker alcohol intake: current alcohol intake frequency: holidays/special occasions only HPI LUMBAR SPINE Details: This documentation accurately reflects the service provided and the decisions made by , CHUCK Arnold 09/25/24 0805. Part of today???s visit was documented by Kandi Mejia ATC, acting as scribe. TEDDY FIGUEROA is a 54 year old F here today for lumbar spine pain. Patient donated a kidney in [id number] and after the surgery she noticed her back started bothering her. She states it has progressively gotten worse and it is to the point now that she can't exercise or do a lot of walking. She describes the pain over the left side of the lumbar spine and pain down the left leg. She will occasionally get numbness/tingling in the left leg down to her foot. This extends down the back of her left leg to her calf and into her foot. Occasionally she will have pain on the right side of the lumbar spine but main complaint is the left. She states she can wake up in the morning she almost loses her balance because she can't feel her leg. Sitting improves the pain. She states the pain is worse at night. She states walking long distances is really difficult, she says that when her pain increases with walking she just has to power through and walk through the pain. Her pain also increases with activity and says that she has had to stop doing what she wishes to do such as running and working out which she used to be very active due to the pain. She denies any injections and states she is not interested in them due to having personality changes from steroids. Since she donated her kidney she is unable to take Ibuprofen. Kidney removed on the left side. She will take Tylenol with only some mild improvement. She states she will only take it a few times a year. She denies any physical therapy or surgery. She has been given exercises from her family doctor. No benefit. Pain increases her pain. No cane or walker. No diabetes, no heart or lung issues, no blood thinners. Abdominal scar from kidney donation. History of MTHFR gene mutation. Ortho Exam General General: Yes no acute distress Neurologic: Yes alert and Yes oriented x3 Spine SPINE TESTING CERVICAL THORACIC LUMBAR Musculoskeletal Strength 0=absent - 5=normal Details: Neurological exam of the lower extremities shows 5x5 power. Increased low back pain with left hip flexion. Normal sensations across all dermatomes. No hyperreflexia. There is a generalized mild tenderness over the midline and paraspinal bilaterally. Coding Level of Care Code Off vis,new,level 4 Diagnoses Lumbar radiculopathy M54.16 Degenerative disc disease (DDD) of lumbar region with discogenic back pain and leg pain M51.362 Spondylolisthesis at L3-L4 level M43.16 Assessment and Plan Assessment and Plan (1) Lumbar radiculopathy: Status: Acute (2) Degenerative disc disease (DDD) of lumbar region with discogenic back pain and leg pain: Status: Acute (3) Spondylolisthesis at L3-L4 level: Status: Acute Orders: Orders L/S Spine Min 4 Views Today M54.50 - Low back pain, unspecified Spine Lumbar (Routine) Today M51.362 - Other intervertebral (more content not included)... Normal [facility] POCT UA Automated manually r esultedon 08-05-2024 Appearance (U) Clear Clear [facility] Work Phone: [phone] Glucose Test strip (U) [Mass/Vol] Negative NEGATIVE mg/dl [facility] Work Phone: [phone] Hemoglobin Ql (U) Negative NEGATIVE [facility] Work Phone: [phone] Interpretation and review of laboratory results Normal [facility] Work Phone: [phone] Leukocyte esterase Test strip Ql (U) Negative NEGATIVE [facility] Work Phone: [phone] Nitrite Ql (U) Negative NEGATIVE [facility] Work Phone: )[phone] pH (U) 6.5 [pH] No Reference Range Established [facility] Work Phone: [phone] POC Bil[facility], Urine [facility] [phone] POC Color, Urine Yellow Straw, Yellow, Light-Yellow [facility] Work Phone: )[phone] POC Ketones, Urine Negative NEGATIVE mg/dl [facility] Work Phone: [phone] POC Protein, Urine Negative NEGATIVE mg/dl [facility] Work Phone: [phone] POC Specific [place], Urine 1.010 1.005 - 1.035 [facility] Work Phone: [phone] POC Urobilinogen, Urine 0.2 0.2, 1.0 EU/DL [facility] Work Phone: [facility] Work Phone: CBC (H/H, RBC, INDICES, WBC, PLT)on 05-06-2024 Erythrocyte distribution width (RBC) [Ratio] 14.8 % Normal 11.0-15.0 [facility] Comment on above: Performed By: #### 1 7306, 927, 1759, 7600, 32774, #### [facility] [place] [address] [employer] Installer: Jaime Thapa MD Hematocrit (Bld) [Volume fraction] 39.8 % Normal 35.0-45.0 [facility] Comment on above: Performed By: #### 1 7306, 927, 1759, 7600, 49462, 66308 #### [facility] [place] [address] [employer] Installer: Jaime Thapa MD Hemoglobin (Bld) [Mass/Vol] 12.0 g/dL Normal 11.7-15.5 [facility] Comment on above: Performed By: #### 1 7306, 927, 1759, 7600, 23537, #### [facility] [place] [address] [employer] Installer: Jaime Thapa MD MCH (RBC) [Entitic mass] 26.4 pg Low 27.0-33.0 [facility] Comment on above: Performed By: #### 1 7306, 927, 1759, 7600, 74511, #### [facility] [place] [address] [employer] Installer: Jaime Thapa MD MCHC (RBC) [Mass/Vol] 30.2 g/dL Low 32.0-36.[address] [facility] Comment on above: Result Comment: For adults, a slight decrease in the calculated MCHC value (in the range of 30 to 32 g/dL) is most likely not clinically significant; however, it should be interpreted with caution in correlation with other red cell parameters and the patient's clinical condition. Performed By: #### 1 7306, 927, 1759, 7600, 31523, 57835 #### [facility] of [address], [address] [place] [address] [employer] Installer: Jaime Thapa MD MCV (RBC) [Entitic vol] 87.7 fL Normal 80.0-100.0 [facility] Comment on above: Performed By: #### 1 7306, 927, 1759, 7600, 55307, 71172 #### [facility] of [address], [address] [place] [address] [employer] Installer: Jaime Thapa MD Platelet mean volume (Bld) [Entitic vol] 9.8 fL Normal 7.5-12.5 [facility] Comment on above: Performed By: #### 1 7306, 927, 1759, 7600, 23964, 54453 #### [facility] of [address], [address] [place] [address] [employer] Installer: Jaime Thapa MD Platelets (Bld) [#/Vol] 302 10*3/uL Normal 140-400 [facility] Comment on above: Performed By: #### 1 7306, 927, 1759, 7600, 87042, 03941 #### [facility] of [address], [address] [place] [address] [employer] Installer: Jaime Thapa MD RBC (Bld) [#/Vol] 4.54 10*6/uL Normal 3.80-5.10 [facility] Comment on above: Performed By: #### 1 7306, 927, 1759, 7600, 21706, 34699 #### [facility] of [place] [address] [employer] Installer: Jaime Thapa MD WBC (Bld) [#/Vol] 6.6 10*3/uL Normal 3.8-10.8 [facility] Comment on above: Performed By: #### 1 7306, 927, 1759, 7600, 35380, 93228 #### [facility] of [place] [address] [employer] Installer: Jaime Thapa MD COMPREHENSIVE METABOLIC PANE L W/ANION GAPon 05-06-2024 Albumin [Mass/Vol] 4.1 g/dL Normal 3.6-5.1 [facility] Comment on above: Performed By: #### 1 7306, 927, 1759, 7600, 00661, 89632 #### [facility] of [place] [address] [employer] Installer: Jaime Thapa MD ALP [Catalytic activity/Vol] 113 U/L Normal 37-153 [facility] Comment on above: Performed By: #### 1 7306, 927, 1759, 7600, 05602, 96942 #### [facility] of [place] [address] [employer] Installer: Jaime Thapa MD ALT [Catalytic activity/Vol] 26 U/L Normal 6-29 [facility] Comment on above: Performed By: #### 1 7306, 927, 1759, 7600, 62995, 24444 #### [facility] of [place] [address] [employer] Installer: Jaime Thapa MD AST [Catalytic activity/Vol] 22 U/L Normal 10-35 [facility] Comment on above: Performed By: #### 1 7306, 927, 1759, 7600, 88856, 51058 #### [facility] of [place] [address] [employer] Installer: Jaime Thapa MD Bilirubin [Mass/Vol] 0.3 mg/dL Normal 0.2-1.2 [facility] Comment on above: Performed By: #### 1 7306, 927, 1759, 7600, 85303, 78266 #### [facility] of [place] [address] [employer] Installer: Jaime Thapa MD Calcium [Mass/Vol] 9.4 mg/dL Normal 8.6-10.4 [facility] Comment on above: Performed By: #### 1 7306, 927, 1759, 7600, 34390, 61019 #### [facility] [place] [address] [employer] Installer: Jaime Thapa MD Chloride [Moles/Vol] 104 mmol/L Normal 98-110 [facility] Comment on above: Performed By: #### 1 7306, 927, 1759, 7600, 82093, 86752 #### [facility] [place] [address] [employer] Installer: Jaime Thapa MD CO2 [Moles/Vol] 28 mmol/L Normal 20-32 [facility] Comment on above: Performed By: #### 1 7306, 927, 1759, 7600, 68025, 51467 #### [facility] [place] [address] [employer] Installer: Jaime Thapa MD Creatinine [Mass/Vol] 0.71 mg/dL Normal 0.50-1.[address] [facility] Comment on above: Performed By: #### 1 7306, 927, 1759, 7600, 57460, 70997 #### [facility] [place] [address] [employer] Installer: Jaime Thapa MD ELECTROLYTE BALANCE 10 mmol/L (calc) Normal 7-17 [facility] Comment on above: Performed By: #### 1 7306, 927, 1759, 7600, 17528, 44539 #### [facility] of [place] [address] [employer] Installer: Jaime Thapa MD GFR/1.73 sq M.predicted among non-blacks MDRD (S/P/Bld) [Vol rate/Area] 100 mL/min/{1.73_m2} Normal > OR = 60 [facility] Comment on above: Performed By: #### 1 7306, 927, 1759, 7600, 24375, 07490 #### [facility] of [place] [address] [employer] Installer: Jaime Thapa MD Glucose [Mass/Vol] 84 mg/dL Normal 65-99 [facility] Comment on above: Result Comment: Fasting reference interval Performed By: #### 1 7306, 927, 1759, 7600, 35128, 94018 #### [facility] of [place] [address] [employer] Installer: Jaime Thapa MD Potassium [Moles/Vol] 4.2 mmol/L Normal 3.5-5.[address] [facility] Comment on above: Performed By: #### 1 7306, 927, 1759, 7600, 67436, 57454 #### [facility] of [place] [address] [employer] Installer: Jaime Thapa MD Protein [Mass/Vol] 6.9 g/dL Normal 6.1-8.1 [facility] Comment on above: Performed By: #### 1 7306, 927, 1759, 7600, 84265, 08139 #### [facility] of [place] [address] [employer] Installer: Jaime Thapa MD Sodium [Moles/Vol] 142 mmol/L Normal 135-146 [facility] Comment on above: Performed By: #### 1 7306, 927, 1759, 7600, 23912, 98552 #### [facility] of [place] [address] [employer] Installer: Jaime Thapa MD Urea nitrogen [Mass/Vol] 12 mg/dL Normal 7-25 [facility] Comment on above: Performed By: #### 1 7306, 927, 1759, 7600, 74713, 65655 #### [facility] of [place] [address] [employer] Installer: Jaime Thapa MD LIPID PANEL, [facility] 04-09 Cholesterol [Mass/Vol] 202 mg/dL High <200 [facility] Comment on above: Performed By: #### 1 7306, 927, 1759, 7600, 40046, 39140 #### [facility] [place] [id number] [employer] Installer: Jaime Thapa MD Cholesterol in HDL [Mass/Vol] 73 mg/dL Normal > OR = 50 [facility] Comment on above: Performed By: #### 1 7306, 927, 1759, 7600, 84882, 59317 #### [facility] [place] [id number] [employer] Installer: Jaime Thapa MD Cholesterol in LDL [Mass/Vol] 108 mg/dL High [facility] Comment on above: Result Comment: Refe rence range: <100 Desirable range <100 mg/dL for primary prevention; <70 mg/dL for patients with CHD or diabetic patients with > or = 2 CHD risk factors. LDL-C is now calculated using the Rosa calculation, which is a validated novel method providing better accuracy than the Friedewald equation in the estimation of LDL-C. Rudolph CAMPUZANO et al. DENISSE. 2013;310(19): 6839-5996 (http://education.[employer]/faq/XJJ198) Performed By: #### 1 7306, 927, 1759, 7600, 02042, 63124 #### [facility] [address] [employer] Installer: Jaime Thapa MD Cholesterol.total/Choles terol in HDL [Mass ratio] 2.8 {ratio} Normal <5.0 [facility] Comment on above: Performed By: #### 1 7306, 927, 1759, 7600, 52692, 61253 #### [facility] [place] [id number] [employer] Installer: Jaime Thapa MD NON HDL CHOLESTEROL 129 mg/dL (calc) Normal <130 [facility] Comment on above: Result Comment: For patients with diabetes plus 1 major ASCVD risk factor, treating to a non-HDL-C goal of <100 mg/dL (LDL-C of <70 mg/dL) is considered a therapeutic option. Performed By: #### 1 7306, 927, 1759, 7600, 67592, 08903 #### [facility] [place] [address] [employer] Installer: Jaime Thapa MD Triglyceride [Mass/Vol] 111 mg/dL Normal <150 [facility] Comment on above: Performed By: #### 1 7306, 927, 1759, 7600, 61086, 98476 #### [facility] [place] [address] [employer] Installer: Jaime Thapa MD TSH W/REFLEX TO FT4on 2024 TSH W/REFLEX TO FT4 2.08 mIU/L Normal 0.40-4.50 [facility] Comment on above: Performed By: #### 1 7306, 927, 1759, 7600, 08400, 36925 #### [facility] [place] [address] [employer] Installer: Jaime Thapa MD VITAMIN B12on 05-06-2024 Cobalamin (Vitamin B12) [Mass/Vol] 1225 pg/mL High 200-1100 [facility] Comment on above: Performed By: #### 1 7306, 927, 1759, 7600, 11412, 34182 #### [facility] [place] [address] [employer] Installer: Jaime Thapa MD VITAMIN D,25-OH,TOTAL,IAon 0 05-06-2024 VITAMIN D,25-OH,TOTAL,IA 59 ng/mL Normal 30-100 [facility] Comment on above: Result Comment: Elizabeth min D Status 25-OH Vitamin D: Deficiency: <20 ng/mL Insufficiency: 20 - 29 ng/mL Optimal: > or = 30 ng/mL For 25-OH Vitamin D testing on patients on D2-supplementation and patients for whom quantitation of D2 and D3 fractions is required, the QuestAssureD(TM) 25-OH VIT D, (D2,D3), LC/MS/MS is recommended: order code 84504 (patients >2yrs). See Note 1 Note 1 For additional information, please refer to http://education.[employer]/faq/PTH394 (This link is being provided for informational/ educational purposes only.) Performed By: #### 1 7306, 927, 1759, 7600, 39209, 92599 #### [facility] [address] [facility], [address] [place] [address] [employer] Installer: Jaime Thapa MD COLONOSCOPYon 09-30-2023 Colonoscopy Table formatting fro m the original result was not included. Impression Mild erythematous mucosa in the terminal ileum; performed cold forceps biopsy Diverticulosis of moderate severity Small hemorrhoids Small hypertrophied anal papillae 2 subcentimeter polyps in the proximal ascending colon were removed with cold snare Performed pancolonic forceps biopsies to rule out colitis Findings Mild erythematous mucosa in the terminal ileum; performed cold forceps biopsy; Pancolonic diverticula of moderate severity with no inflammation External small hemorrhoids Small hypertrophied anal papillae Two sessile polyps measuring from 6 mm in the proximal ascending colon; performed cold snare with complete en bloc removal and retrieved specimen Performed random pancolonic forceps biopsies to rule out colitis Recommendation Await pathology results Repeat colonoscopy in 5 years Adult scope used Suspect a component of IBS, start metamucil 2 tbsp daily, gas-X 3-4 times a day as needed Indication Screening for colon cancer Staff Staff Role Amol Bae MD Proceduralist Medications See Anesthesia Record. Preprocedure A history and physical has been performed, and patient medication allergies have been reviewed. The patient's tolerance of previous anesthesia has been reviewed. The risks and benefits of the procedure and the sedation options and risks were discussed with the patient. All questions were answered and informed consent obtained. Details of the Procedure The patient underwent monitored anesthesia care, which was administered by an anesthesia professional. The patient's blood pressure, ECG, ETCO2, heart rate, level of consciousness, oxygen and respirations were monitored throughout the procedure. A digital rectal exam was performed. The scope was introduced through the anus and advanced to the terminal ileum. Retroflexion was performed in the rectum. The quality of bowel preparation was evaluated using the [place] Bowel Preparation Scale with scores of: right colon = 2, transverse colon = 3, left colon = 3. The total BBPS score was 8. Bowel prep was adequate. The patient experienced no blood loss. The procedure was not difficult. The patient tolerated the procedure well. There were no apparent adverse events. Events Procedure Events Event Event Time ENDO SCOPE IN TIME 09/18/2023 8:41 AM ENDO SCOPE OUT TIME 09/18/2023 8:49 AM ENDO SCOPE IN TIME 09/18/2023 8:53 AM ENDO CECUM REACHED 09/18/2023 8:57 AM ENDO SCOPE OUT TIME 09/18/2023 9:25 AM Specimens ID Type Source Tests Collected by Time 1 : r/o Celiac Tissue DUODENUM SECOND PART BIOPSY SURGICAL PATHOLOGY EXAM Violeta Mao MA 09/18/2023 0842 2 : Gastric Bx for H Pylori Tissue STOMACH BODY/CORPUS BIOPSY SURGICAL PATHOLOGY EXAM Violeta Mao MA 09/18/2023 0844 3 : Bx GE Junction r/o Barretts Tissue ESOPHAGOGASTRIC JUNCTION BIOPSY SURGICAL PATHOLOGY EXAM Violeta Mao MA 09/18/2023 0846 4 : Bx Ileum r/o Ileitis Tissue TERMINAL ILEUM BIOPSY SURGICAL PATHOLOGY EXAM Violeta Mao MA 09/18/2023 0859 5 : polyp x2 Tissue COLON - ASCENDING POLYP SURGICAL PATHOLOGY EXAM Cee Aguilera MA 09/18/2023 0904 6 : Bx Right Colon r/o Colitis Tissue COLON - ASCENDING BIOPSY SURGICAL PATHOLOGY EXAM Violeta Mao MA 09/18/2023 0909 7 : Bx Left Colon r/o Colitis Tissue COLON - DESCENDING BIOPSY SURGICAL PATHOLOGY EXAM Cee Aguilera MA 09/18/2023 0913 Procedure Location [facility] External Facility [facility] [id number] [facility] [address] Referring Provider Parag Herrera PA-C Procedure Provider Amol Bae MD Table formatting from the original result was not included. Impression Mild erythematous mucosa in the terminal ileum; performed cold forceps biopsy Diverticulosis of moderate severity Small hemorrhoids Small hypertrophied anal papillae 2 subcentimeter polyps in the proximal ascending colon were removed with cold snare Performed pancolonic forceps biopsies to rule out colitis Findings Mild erythematous mucosa in the terminal ileum; performed cold forceps biopsy; Pancolonic diverticula of moderate severity with no inflammation External small hemorrhoids Small hypertrophied anal papillae Two sessile polyps measuring from 6 mm in the proximal ascending colon; performed cold snare with complete en bloc removal and retrieved specimen Performed random pancolonic forceps biopsies to rule out colitis Recommendation Await pathology results Repeat colonoscopy in 7 years Adult scope used Suspect a component of IBS, start metamucil 2 tbsp daily, gas-X 3-4 times a day as needed Indication Screening for colon cancer Staff Staff Role Amol Bae MD Proceduralist Medications See Anesthesia Record. Preprocedure A history and physical has been performed, and patient medication allergies have been reviewed. The patient's tolerance of previous anesthesia has been reviewed. The risks and benefits of the procedure a (more content not included)... [facility] Colonoscopy studyon 09-18-19 24 Table formatting fro m the original result was not included. Impression Mild erythematous mucosa in the terminal ileum; performed cold forceps biopsy Diverticulosis of moderate severity Small hemorrhoids Small hypertrophied anal papillae 2 subcentimeter polyps in the proximal ascending colon were removed with cold snare Performed pancolonic forceps biopsies to rule out colitis Findings Mild erythematous mucosa in the terminal ileum; performed cold forceps biopsy; Pancolonic diverticula of moderate severity with no inflammation External small hemorrhoids Small hypertrophied anal papillae Two sessile polyps measuring from 6 mm in the proximal ascending colon; performed cold snare with complete en bloc removal and retrieved specimen Performed random pancolonic forceps biopsies to rule out colitis Recommendation Await pathology results Repeat colonoscopy in 5 years Adult scope used Suspect a component of IBS, start metamucil 2 tbsp daily, gas-X 3-4 times a day as needed Indication Screening for colon cancer Staff Staff Role Amol Bae MD Proceduralist Medications See Anesthesia Record. Preprocedure A history and physical has been performed, and patient medication allergies have been reviewed. The patient's tolerance of previous anesthesia has been reviewed. The risks and benefits of the procedure and the sedation options and risks were discussed with the patient. All questions were answered and informed consent obtained. Details of the Procedure The patient underwent monitored anesthesia care, which was administered by an anesthesia professional. The patient's blood pressure, ECG, ETCO2, heart rate, level of consciousness, oxygen and respirations were monitored throughout the procedure. A digital rectal exam was performed. The scope was introduced through the anus and advanced to the terminal ileum. Retroflexion was performed in the rectum. The quality of bowel preparation was evaluated using the [place] Bowel Preparation Scale with scores of: right colon = 2, transverse colon = 3, left colon = 3. The total BBPS score was 8. Bowel prep was adequate. The patient experienced no blood loss. The procedure was not difficult. The patient tolerated the procedure well. There were no apparent adverse events. Events Procedure Events Event Event Time ENDO SCOPE IN TIME 09/18/2023 8:41 AM ENDO SCOPE OUT TIME 09/18/2023 8:49 AM ENDO SCOPE IN TIME 09/18/2023 8:53 AM ENDO CECUM REACHED 09/18/2023 8:57 AM ENDO SCOPE OUT TIME 09/18/2023 9:25 AM Specimens ID Type Source Tests Collected by Time 1 : r/o Celiac Tissue DUODENUM SECOND PART BIOPSY SURGICAL PATHOLOGY EXAM Violeta Mao MA 09/18/2023 0842 2 : Gastric Bx for H Pylori Tissue STOMACH BODY/CORPUS BIOPSY SURGICAL PATHOLOGY EXAM Violeta Mao MA 09/18/2023 0844 3 : Bx GE Junction r/o Barretts Tissue ESOPHAGOGASTRIC JUNCTION BIOPSY SURGICAL PATHOLOGY EXAM Violeta Mao MA 09/18/2023 0846 4 : Bx Ileum r/o Ileitis Tissue TERMINAL ILEUM BIOPSY SURGICAL PATHOLOGY EXAM Violeta Mao MA 09/18/2023 0859 5 : polyp x2 Tissue COLON - ASCENDING POLYP SURGICAL PATHOLOGY EXAM Cee Aguilera MA 09/18/2023 0904 6 : Bx Right Colon r/o Colitis Tissue COLON - ASCENDING BIOPSY SURGICAL PATHOLOGY EXAM Violeta Mao MA 09/18/2023 0909 7 : Bx Left Colon r/o Colitis Tissue COLON - DESCENDING BIOPSY SURGICAL PATHOLOGY EXAM Cee Aguilera MA 09/18/2023 0913 Procedure Location [facility] External Facility [facility] [id number] [facility] [id number] Referring Provider Parag Herrera PA-C Procedure Provider Amol Bae MD [facility] Work Phone: [facility] Work Phone: Radiology Study observation (narrative) [facility] Work Phone: EGDon 09-18-2023 Esophagogastroduodenosco py Table formatting from the original result was not included. Impression Small hiatal hernia Mild erythematous mucosa; performed cold forceps biopsies The duodenal bulb, 1st part of the duodenum and 2nd part of the duodenum appeared normal. Performed random biopsy to rule out celiac disease. Findings Z-line 34 cm from the incisors Small hiatal hernia without Tylor lesions present. Hill grade II hiatal hernia Mild erythematous mucosa in the GE junction; performed cold forceps biopsy to rule out Donahue's esophagus; Mild erythematous mucosa in the body of the stomach and antrum; performed cold forceps biopsy to rule out H. pylori; The duodenal bulb, 1st part of the duodenum and 2nd part of the duodenum appeared normal. Performed random biopsy using biopsy forceps to rule out celiac disease. Recommendation Await pathology results Start omeprazole 40 mg daily 30 min before breakfast for 2 months, then as needed afterwards please elevate the head of the bed 6 to 8 inches, have an early dinner at least 3 hours before sleep, have small frequent meals (5 small meals per day), avoid lying down after meals, avoid spices juices soda tomatoes chika oranges caffeine, other caffeinated beverages, chocolate alcohol NSAIDs smoking fatty food peppermint among others Indication Nausea and vomiting, unspecified vomiting type Staff Staff Role Amol Bae MD Proceduralist Medications See Anesthesia Record. Preprocedure A history and physical has been performed, and patient medication allergies have been reviewed. The patient's tolerance of previous anesthesia has been reviewed. The risks and benefits of the procedure and the sedation options and risks were discussed with the patient. All questions were answered and informed consent obtained. Details of the Procedure The patient underwent monitored anesthesia care, which was administered by an anesthesia professional. The patient's blood pressure, ECG, ETCO2, heart rate, level of consciousness, oxygen and respirations were monitored throughout the procedure. The scope was introduced through the mouth and advanced to the second part of the duodenum. Retroflexion was performed in the cardia. The patient experienced no blood loss. The procedure was not difficult. The patient tolerated the procedure well. There were no apparent adverse events. Events Procedure Events Event Event Time ENDO SCOPE IN TIME 09/18/2023 8:41 AM ENDO SCOPE OUT TIME 09/18/2023 8:49 AM Specimens ID Type Source Tests Collected by Time 1 : r/o Celiac Tissue DUODENUM SECOND PART BIOPSY SURGICAL PATHOLOGY EXAM Violeta Mao MA 09/18/2023 0842 2 : Gastric Bx for H Pylori Tissue STOMACH BODY/CORPUS BIOPSY SURGICAL PATHOLOGY EXAM Violeta Mao MA 09/18/2023 0844 3 : Bx GE Junction r/o Barretts Tissue ESOPHAGOGASTRIC JUNCTION BIOPSY SURGICAL PATHOLOGY EXAM Violeta Mao MA 09/18/2023 0846 Procedure Location [facility] External Facility [facility] [id number] [facility] [address] Referring Provider Parag Herrera PA-C Procedure Provider Amol Bae MD [facility] EGD Study observation Narrat sasha 09-18-2023 Table formatting fro m the original result was not included. Impression Small hiatal hernia Mild erythematous mucosa; performed cold forceps biopsies The duodenal bulb, 1st part of the duodenum and 2nd part of the duodenum appeared normal. Performed random biopsy to rule out celiac disease. Findings Z-line 34 cm from the incisors Small hiatal hernia without Tylor lesions present. Hill grade II hiatal hernia Mild erythematous mucosa in the GE junction; performed cold forceps biopsy to rule out Donahue's esophagus; Mild erythematous mucosa in the body of the stomach and antrum; performed cold forceps biopsy to rule out H. pylori; The duodenal bulb, 1st part of the duodenum and 2nd part of the duodenum appeared normal. Performed random biopsy using biopsy forceps to rule out celiac disease. Recommendation Await pathology results Start omeprazole 40 mg daily 30 min before breakfast for 2 months, then as needed afterwards please elevate the head of the bed 6 to 8 inches, have an early dinner at least 3 hours before sleep, have small frequent meals (5 small meals per day), avoid lying down after meals, avoid spices juices soda tomatoes chika oranges caffeine, other caffeinated beverages, chocolate alcohol NSAIDs smoking fatty food peppermint among others Indication Nausea and vomiting, unspecified vomiting type Staff Staff Role Amol Bae MD Proceduralist Medications See Anesthesia Record. Preprocedure A history and physical has been performed, and patient medication allergies have been reviewed. The patient's tolerance of previous anesthesia has been reviewed. The risks and benefits of the procedure and the sedation options and risks were discussed with the patient. All questions were answered and informed consent obtained. Details of the Procedure The patient underwent monitored anesthesia care, which was administered by an anesthesia professional. The patient's blood pressure, ECG, ETCO2, heart rate, level of consciousness, oxygen and respirations were monitored throughout the procedure. The scope was introduced through the mouth and advanced to the second part of the duodenum. Retroflexion was performed in the cardia. The patient experienced no blood loss. The procedure was not difficult. The patient tolerated the procedure well. There were no apparent adverse events. Events Procedure Events Event Event Time ENDO SCOPE IN TIME 09/18/2023 8:41 AM ENDO SCOPE OUT TIME 09/18/2023 8:49 AM Specimens ID Type Source Tests Collected by Time 1 : r/o Celiac Tissue DUODENUM SECOND PART BIOPSY SURGICAL PATHOLOGY EXAM Violeta Mao MA 09/18/2023 0842 2 : Gastric Bx for H Pylori Tissue STOMACH BODY/CORPUS BIOPSY SURGICAL PATHOLOGY EXAM Violeta Mao MA 09/18/2023 0844 3 : Bx GE Junction r/o Barretts Tissue ESOPHAGOGASTRIC JUNCTION BIOPSY SURGICAL PATHOLOGY EXAM Violeta Mao MA 09/18/2023 0846 Procedure Location [facility] External Facility [facility] [address] [facility] [id number] Referring Provider Parag Herrera PA-C Procedure Provider Amol Bae MD [facility] Work Phone: [facility] Work Phone: Radiology Study observation (narrative) [facility] Work Phone: Surgical pathology studyon 0 09-18-2023 Surgical pathology study Pathology repor t.total SEE COMMENT Surgical Pathology Case: [id number] Authorizing Provider: Amol Bae MD Collected: 09/18/2023 0842 Ordering Location: [facility] Received: 09/19/2023 0920 Pathologist: Jacqui Katz MD Specimens: A) - DUODENUM SECOND PART BIOPSY, r/o Celiac B) - STOMACH BODY/CORPUS BIOPSY, Gastric Bx for H Pylori C) - ESOPHAGOGASTRIC JUNCTION BIOPSY, Bx GE Junction r/o Barretts D) - TERMINAL ILEUM BIOPSY, Bx Ileum r/o Ileitis E) - COLON - ASCENDING POLYP, polyp x2 F) - COLON - ASCENDING BIOPSY, Bx Right Colon r/o Colitis G) - COLON - DESCENDING BIOPSY, Bx Left Colon r/o Colitis Path report.final diagnosis SEE COMMENT A. DUODENUM SECOND PART BIOPSY: Duodenal mucosa with intact villi, no significant histopathologic abnormalities. B. STOMACH BODY/CORPUS BIOPSY: Gastric fundic type mucosa with mild chronic inflammation. Comment: No H. pylori-like organisms identified on routine sections. No intestinal metaplasia or dysplasia identified. C. ESOPHAGOGASTRIC JUNCTION BIOPSY: Squamo-gastric junctional mucosa with chronic inflammation and reactive epithelial changes. No intestinal metaplasia identified. D. TERMINAL ILEUM BIOPSY: Ileal mucosa with no diagnostic changes seen. E. COLON - ASCENDING POLYP: Tubular adenoma. Colonic mucosa with focal hyperplastic change. F. COLON - ASCENDING BIOPSY: Colonic mucosa with no significant histopathologic abnormalities. G. COLON - DESCENDING BIOPSY: Colonic mucosa with no significant histopathologic abnormalities. Laboratory comment By the signature on this report, the individual or group listed as making the Final Interpretation/Diagnos is certifies that they have reviewed this case. Path report.gross observation SEE COMMENT A: Received in formalin, labeled with the patient's name and hospital number and duodenal 2 bx r/o celiac, are multiple fragments of gray soft tissue aggregating to 1.2 x 0.3 x 0.2 cm. The specimen is wrapped in tissue paper and entirely submitted in one cassette. B: Received in formalin, labeled with the patient's name and hospital number and gastric bx for H pylori, are multiple fragments of gray soft tissue aggregating to 1.0 x 0.3 x 0.3 cm. The specimen is wrapped in tissue paper and entirely submitted in one cassette. C: Received in formalin, labeled with the patient's name and hospital number and bx GE Junction r/o Barretts, are multiple fragments of gray soft tissue aggregating to 0.9 x 0.4 x 0.2 cm. The specimen is wrapped in tissue paper and entirely submitted in one cassette. D: Received in formalin, labeled with the patient's name and hospital number and Bx Ileum r/o Ileitis, are multiple fragments of gray soft tissue aggregating to 1.1 x 0.4 x 0.2 cm. The specimen is wrapped in tissue paper and entirely submitted in one cassette. E: Received in formalin, labeled with the patient's name and hospital number and ascending polyp x2, are multiple fragments of gray soft tissue aggregating to 1.9 x 0.9 x 0.4 cm. The specimen is wrapped in tissue paper and entirely submitted in two cassettes. F: Received in formalin, labeled with the patient's name and hospital number and Bx Right Colon r/o colitis, are multiple fragments of gray soft tissue aggregating to 1.1 x 0.5 x 0.2 cm. The specimen is wrapped in tissue paper and entirely submitted in one cassette. G: Received in formalin, labeled with the patient's name and hospital number and Bx Left Colon r/o Colitis, are multiple fragments of gray soft tissue aggregating to 1.0 x 0.6 x 0.2 cm. The specimen is wrapped in tissue paper and entirely submitted in two cassettes. [facility] CT ABDOMEN PELVIS W IV CONTR Sanya 09-17-2023 CT ABDOMEN PELVIS W IV CONTRAST Interpreted By: Juan Dumas, STUDY: CT ABDOMEN PELVIS W IV CONTRAST; 09/17/2023 9:39 am INDICATION: Signs/Symptoms:abdomin al pain. COMPARISON: 09/20/2017 ACCESSION NUMBER(S): [id number] ORDERING CLINICIAN: PARAG HERRERA TECHNIQUE: Contiguous axial images were obtained through the abdomen and pelvis following the intravenous administration of 68 cc of Omnipaque 350. Coronal and sagittal reconstructions were performed. FINDINGS: LOWER CHEST: Images through the lung bases demonstrate minimal atelectasis. ABDOMEN AND PELVIS: LIVER: Within normal limits. BILE DUCTS: Not abnormally dilated. GALLBLADDER: No calcified stones. No wall thickening. PANCREAS: Appears unremarkable. SPLEEN: Appears unremarkable. ADRENAL GLANDS: Appear unremarkable. KIDNEYS, URETERS, AND BLADDER: Status post left nephrectomy. Right kidney appears unremarkable. The urinary bladder appears grossly unremarkable. BOWEL: Colonic diverticulosis. No evidence of diverticulitis. Small bowel loops appear normal in thickness and caliber. There is no evidence of a bowel obstruction. Appendix is normal in caliber. Although CT has limited sensitivity and specificity for gastric pathology, the stomach appears grossly unremarkable. RETROPERITONEUM, VESSELS: There is no aneurysmal dilatation of the abdominal aorta. The IVC is within normal limits. No pathologically enlarged retroperitoneal lymph nodes are noted. PERITONEUM: There is no evidence of pneumoperitoneum. No ascites or loculated fluid collection noted. No pathologically enlarged mesenteric lymph nodes are identified. ABDOMINAL WALL, SOFT TISSUES: Tiny fat containing umbilical hernia. Tiny fat containing inguinal hernias, larger on the left. No acute process. SKELETON: Degenerative changes. No acute process. IMPRESSION: No CT evidence of an acute intra-abdominal or pelvic process. Status post left nephrectomy. Colonic diverticulosis. MACRO: None. Signed by: Juan Dumas 09/17/2023 12:58 PM Dictation workstation: [id number] [facility] CT Abdomen and Pelvis W cont rast Mahnaz 09-17-[address] evidence of an acute intra-abdominal or pelvic process. Status post left nephrectomy. Colonic diverticulosis. MACRO: None. Signed by: Juan Dumas 09/17/2023 12:58 PM Dictation workstation: [id number] MMODAL Interpreted By: Juan Dumas, STUDY: CT ABDOMEN PELVIS W IV CONTRAST; 09/17/2023 9:39 am INDICATION: Signs/Symptoms:abdomin al pain. COMPARISON: 09/20/2017 ACCESSION NUMBER(S): [id number] ORDERING CLINICIAN: PARAG HERRERA TECHNIQUE: Contiguous axial images were obtained through the abdomen and pelvis following the intravenous administration of 68 cc of Omnipaque 350. Coronal and sagittal reconstructions were performed. FINDINGS: LOWER CHEST: Images through the lung bases demonstrate minimal atelectasis. ABDOMEN AND PELVIS: LIVER: Within normal limits. BILE DUCTS: Not abnormally dilated. GALLBLADDER: No calcified stones. No wall thickening. PANCREAS: Appears unremarkable. SPLEEN: Appears unremarkable. ADRENAL GLANDS: Appear unremarkable. KIDNEYS, URETERS, AND BLADDER: Status post left nephrectomy. Right kidney appears unremarkable. The urinary bladder appears grossly unremarkable. BOWEL: Colonic diverticulosis. No evidence of diverticulitis. Small bowel loops appear normal in thickness and caliber. There is no evidence of a bowel obstruction. Appendix is normal in caliber. Although CT has limited sensitivity and specificity for gastric pathology, the stomach appears grossly unremarkable. RETROPERITONEUM, VESSELS: There is no aneurysmal dilatation of the abdominal aorta. The IVC is within normal limits. No pathologically enlarged retroperitoneal lymph nodes are noted. PERITONEUM: There is no evidence of pneumoperitoneum. No ascites or loculated fluid collection noted. No pathologically enlarged mesenteric lymph nodes are identified. ABDOMINAL WALL, SOFT TISSUES: Tiny fat containing umbilical hernia. Tiny fat containing inguinal hernias, larger on the left. No acute process. SKELETON: Degenerative changes. No acute process. MMODAL Juan Dumas MD - 09/17/2023 Interpreted By: Juan Dumas, STUDY: CT ABDOMEN PELVIS W IV CONTRAST; 09/17/2023 9:39 am INDICATION: Signs/Symptoms:abdomin al pain. COMPARISON: 09/20/2017 ACCESSION NUMBER(S): [id number] ORDERING CLINICIAN: PARAG HERRERA TECHNIQUE: Contiguous axial images were obtained through the abdomen and pelvis following the intravenous administration of 68 cc of Omnipaque 350. Coronal and sagittal reconstructions were performed. FINDINGS: LOWER CHEST: Images through the lung bases demonstrate minimal atelectasis. ABDOMEN AND PELVIS: LIVER: Within normal limits. BILE DUCTS: Not abnormally dilated. GALLBLADDER: No calcified stones. No wall thickening. PANCREAS: Appears unremarkable. SPLEEN: Appears unremarkable. ADRENAL GLANDS: Appear unremarkable. KIDNEYS, URETERS, AND BLADDER: Status post left nephrectomy. Right kidney appears unremarkable. The urinary bladder appears grossly unremarkable. BOWEL: Colonic diverticulosis. No evidence of diverticulitis. Small bowel loops appear normal in thickness and caliber. There is no evidence of a bowel obstruction. Appendix is normal in caliber. Although CT has limited sensitivity and specificity for gastric pathology, the stomach appears grossly unremarkable. RETROPERITONEUM, VESSELS: There is no aneurysmal dilatation of the abdominal aorta. The IVC is within normal limits. No pathologically enlarged retroperitoneal lymph nodes are noted. PERITONEUM: There is no evidence of pneumoperitoneum. No ascites or loculated fluid collection noted. No pathologically enlarged mesenteric lymph nodes are identified. ABDOMINAL WALL, SOFT TISSUES: Tiny fat containing umbilical hernia. Tiny fat containing inguinal hernias, larger on the left. No acute process. SKELETON: Degenerative changes. No acute process. IMPRESSION: No CT evidence of an acute intra-abdominal or pelvic process. Status post left nephrectomy. Colonic diverticulosis. MACRO: None. Signed by: Juan Dumas 09/17/2023 12:58 PM Dictation workstation: [id number] [facility] Work Phone: Radiology Study observation (narrative) [facility] Work Phone: CT Abdomen and Pelvis W cont rast IVOrdered By: Juan Dumas on 09-17-2023 [facility] Work Phone: C reactive proteinon 024 CRP [Mass/Vol] 1.39 mg/dL High <1.00 [facility] Comment on above: Performed By: #### 1 988-5 #### MUKESH WEBB ([id number]) [facility] ([facility]) [address] [place] [address] ESR Westergren method (Bld) [Velocity]on 08-30-2023 ESR (Bld) [Velocity] 39 mm/h High 0-30 [facility] Comment on above: Performed By: #### 4 537-7 #### MUKESH WEBB ([id number]) [facility] ([facility]) [address] [place] [address]17[address] Gliadin peptide Ab.IgAon Gliadin peptide IgA IA Qn (S) <1.0 Normal <15.0 [facility] Comment on above: Result Comment: Fals e negative Deamidated Gliadin Peptide Antibody, IgA results can occur in patients already adhering to a gluten-free diet or patients with IgA deficiency. Tissue Transglutaminase Antibody, IgA is the preferred test for screening patients with suspected Celiac Disease. ??? Performed By: #### 6 3453-5 #### CEE Herron ([id number]) [facility] ([facility]) [address] [place] [address] Gliadin peptide Ab.IgGon Gliadin peptide IgG IA Qn (S) <0.56 Normal 0.00-4.99 [facility] Comment on above: Result Comment: INTE RPRETIVE INFORMATION: Deamidated Gliadin Peptide (DGP) Ab, IgG In individuals with low or deficient IgA, testing for tissue transglutaminase (tTG) and deamidated Gliadin (DGP) antibodies of the IgG isotype is performed. Positive tTG and/or DGP IgG antibody results indicate celiac disease; however, small intestinal biopsy is required to establish a diagnosis due to the lower accuracy of these markers, especially in patients without IgA deficiency. Performed By: [facility] [address] [place] [address] Field Laboratory Operator: Sherman Mc MD, PhD CLIA Number: [id number] Performed By: #### 2 4323-8 #### MUKESH WEBB ([id number]) [facility] ([facility]) [address] [place] [address] Tissue transglutaminase Ab.I gAon 08-30-2023 tTG IgA IA Qn (S) <1.0 Normal <15.0 [facility] Comment on above: Result Comment: Malina ac disease is unlikely. False negative Tissue Transglutaminase Antibody, IgA results can occur in approximately 10% of patients with celiac disease, patients already adhering to a gluten-free diet, or patients with IgA deficiency. Performed By: #### 4 6128-5 #### CEE Herron ([id number]) [facility] ([facility]) [address] [place] [address] Tissue transglutaminase Ab.I gGon 08-30-2023 tTG IgG IA Qn (S) <0.82 Normal 0.00-4.99 [facility] Comment on above: Result Comment: INTE RPRETIVE INFORMATION: Tissue Transglutaminase Ab, IgG In individuals with low or deficient IgA, testing for tissue transglutaminase (tTG) and deamidated Gliadin (DGP) antibodies of the IgG isotype is performed. Positive tTG and/or DGP IgG antibody results indicate celiac disease; however, small intestinal biopsy is required to establish a diagnosis due to the lower accuracy of these markers, especially in patients without IgA deficiency. Performed By: [facility] [address] [place] [address] Field Laboratory Operator: Sherman Mc MD, PhD CLIA Number: [id number] Performed By: #### 2 4323-8 #### MUKESH WEBB ([id number]) [facility] ([facility]) [address] [place] [address] Bacteria identifiedon 2023 Bacteria identified Cx Nom (U) Test: Urine Culture Specimen Source: Clean Catch/Voided Specimen Type: Urine Specimen Date: 08/21/2023 1235 Result Date: 08/22/2023 2318 Result Status: Final result Abnormal: No Resulting Lab: [facility] [address] [place] [address] CULTURE No significant growth Normal [facility] Comment on above: Performed By: #### 6 30-4 #### CEE Herron ([id number]) [facility] ([facility]) [id number] [place] [address] C. difficile toxin A+B tcdA+ tcdB genes RAFI+probe Ql (Stl)Ordered By: Augustina Cardoza on 08-21-2023 Interpretation and review of laboratory results Normal [facility] This test is an FDA-cleared real-time PCR assay for detection of toxigenic C. difficile DNA from unprocessed liquid or unformed stool specimens that have not undergone nucleic acid extraction in symptomatic patients with potential C. difficile infection (CDI). A positive result may indicate colonization, and clinical assessment is required for the diagnosis of CDI. This test cannot be performed on formed stools or used as a test of cure, and should not be performed more than once per 7 days. [facility] C. difficile, PCROrdered By: Augustina Cardoza on 08-21-2023 C. difficile toxin A+B tcdA+tcdB genes RAFI+probe Ql (Stl) Not detected Not Detected [facility] CBC W Auto Differential pane l (Bld)on 08-21-2023 Basophils (Bld) [#/Vol] 0.05 10*3/uL [facility] Basophils/100 WBC (Bld) 0.6 % 0.0 - 2.0 % [facility] Eosinophils (Bld) [#/Vol] 0.14 10*3/uL [facility] Eosinophils/100 WBC (Bld) 1.8 % 0.0 - 6.0 % [facility] Erythrocyte distribution width (RBC) [Ratio] 14.8 % High 11.5 - 14.5 % [facility] Hematocrit (Bld) [Volume fraction] 44.4 % 36.0 - 46.0 % [facility] Hemoglobin (Bld) [Mass/Vol] 14.4 g/dL 12.0 - 16.0 g/dL [facility] Immature granulocytes (Bld) [#/Vol] 0.02 10*3/uL [facility] Immature granulocytes/100 WBC (Bld) 0.3 % 0.0 - 0.9 % [facility] Comment on above: Immature Granulocyte Count (IG) includes promyelocytes, myelocytes and metamyelocytes but does not include bands. Percent differential counts (%) should be interpreted in the context of the absolute cell counts (cells/UL). Interpretation and review of laboratory results Abnormal [facility] Lymphocytes (Bld) [#/Vol] 3.25 10*3/uL [facility] Lymphocytes/100 WBC (Bld) 41.9 % 13.0 - 44.0 % [facility] MCH (RBC) [Entitic mass] 27.1 pg 26. 0 - 34.0 pg [facility] MCHC (RBC) [Mass/Vol] 32.4 g/dL 32.0 - 36.0 g/dL [facility] MCV (RBC) [Entitic vol] 84 fL 80 - 100 fL [facility] Monocytes (Bld) [#/Vol] 0.60 10*3/uL [facility] Monocytes/100 WBC (Bld) 7.7 % 2.0 - 10.0 % [facility] Neutrophils (Bld) [#/Vol] 3.70 10*3/uL [facility] Comment on above: Percent differential counts (%) should be interpreted in the context of the absolute cell counts (cells/uL). Neutrophils/100 WBC (Bld) 47.7 % 40.0 - 80.0 % [facility] Nucleated RBC/100 WBC (Bld) [Ratio] 0.0 % [facility] Platelets (Bld) [#/Vol] 286 10*3/uL [facility] RBC (Bld) [#/Vol] 5.32 10*6/uL [facility] WBC (Bld) [#/Vol] 7.8 10*3/uL [facility] Basophils (Bld) [#/Vol] 0.05 x10*3/uL Normal 0.00-0.10 [facility] Comment on above: Performed By: #### 5 7021-8 #### MUKESH WEBB ([id number]) [facility] ([facility]) [address] [place] [address] Basophils/100 WBC (Bld) 0.6 % Normal 0.0-2.0 [facility] Comment on above: Performed By: #### 5 7021-8 #### MUKESH WEBB ([id number]) [facility] ([facility]) [address] [place] [address] 61537 Eosinophils (Bld) [#/Vol] 0.14 x10*3/uL Normal 0.00-0.70 [facility] Comment on above: Performed By: #### 5 7021-8 #### MUKESH WEBB ([id number]) [facility] ([facility]) [address] [place] [address] 22912 Eosinophils/100 WBC (Bld) 1.8 % Normal 0.0-6.0 [facility] Comment on above: Performed By: #### 5 7021-8 #### MUKESH WEBB ([id number]) [facility] ([facility]) [address] [place] [address] 45999 Erythrocyte distribution width (RBC) [Ratio] 14.8 % High 11.5-14.5 [facility] Comment on above: Performed By: #### 5 7021-8 #### MUKESH WEBB ([id number]) [facility] ([facility]) [address] [place] [address]3760 Hematocrit (Bld) [Volume fraction] 44.4 % Normal 36.0-46.0 [facility] Comment on above: Performed By: #### 5 7021-8 #### MUKESH WEBB ([id number]) [facility] ([facility]) [address] [place] [address] 95599 Hemoglobin (Bld) [Mass/Vol] 14.4 g/dL Normal 12.0-16.0 [facility] Comment on above: Performed By: #### 5 7021-8 #### MUKESH WEBB ([id number]) [facility] ([facility]) [address] [place] [address] 53514 Immature granulocytes (Bld) [#/Vol] 0.02 x10*3/uL Normal 0.00-0.70 [facility] Comment on above: Performed By: #### 5 7021-8 #### MUKESH WEBB ([id number]) [facility] ([facility]) [address] [place] [address] 12716 Immature granulocytes/100 WBC (Bld) 0.3 % Normal 0.0-0.9 [facility] Comment on above: Result Comment: Geno ture Granulocyte Count (IG) includes promyelocytes, myelocytes and metamyelocytes but does not include bands. Percent differential counts (%) should be interpreted in the context of the absolute cell counts (cells/UL). Performed By: #### 5 7021-8 #### MUKESH WEBB ([id number]) [facility] ([facility]) [address] [place] [address] 82296 Lymphocytes (Bld) [#/Vol] 3.25 x10*3/uL Normal 1.20-4.80 [facility] Comment on above: Performed By: #### 5 7021-8 #### MUKESH WEBB ([id number]) [facility] ([facility]) [address] [place] [address] 08472 Lymphocytes/100 WBC (Bld) 41.9 % Normal 13.0-44.0 [facility] Comment on above: Performed By: #### 5 7021-8 #### MUKESH WEBB ([id number]) [facility] ([facility]) [address] [place] [address] 61638 MCH (RBC) [Entitic mass] 27.1 pg Normal 26.0-34.0 [facility] Comment on above: Performed By: #### 5 7021-8 #### MUKESH WEBB ([id number]) [facility] ([facility]) [address] [place] [address] 45766 MCHC (RBC) [Mass/Vol] 32.4 g/dL Normal 32.0-36.0 [facility] Comment on above: Performed By: #### 5 7021-8 #### MUKESH WEBB ([id number]) [facility] ([facility]) [address] [place] [address] 98012 MCV (RBC) [Entitic vol] 84 fL Normal 80-100 [facility] Comment on above: Performed By: #### 5 7021-8 #### MUKESH WEBB ([id number]) [facility] ([facility]) [address] [place] [address] 66557 Monocytes (Bld) [#/Vol] 0.60 x10*3/uL Normal 0.10-1.00 [facility] Comment on above: Performed By: #### 5 7021-8 #### MUKESH WEBB ([id number]) [facility] ([facility]) [address] [place] [address] 63322 Monocytes/100 WBC (Bld) 7.7 % Normal 2.0-10.0 [facility] Comment on above: Performed By: #### 5 7021-8 #### MUKESH WEBB ([id number]) [facility] ([facility]) [address] [place] [address] 77923 Neutrophils (Bld) [#/Vol] 3.70 x10*3/uL Normal 1.20-7.70 [facility] Comment on above: Result Comment: Perc ent differential counts (%) should be interpreted in the context of the absolute cell counts (cells/uL). Performed By: #### 5 7021-8 #### MUKESH WEBB ([id number]) [facility] ([facility]) [address] [place] [address] 36293 Neutrophils/100 WBC (Bld) 47.7 % Normal 40.0-80.0 [facility] Comment on above: Performed By: #### 5 7021-8 #### MUKESH WEBB ([id number]) [facility] ([facility]) [address] [place] [address] 06699 Nucleated RBC/100 WBC (Bld) [Ratio] 0.0 /100 WBCs Normal 0.0-0.0 [facility] Comment on above: Performed By: #### 5 7021-8 #### MUKESH WEBB ([id number]) [facility] ([facility]) [address] [place] [address] Platelets (Bld) [#/Vol] 286 x10*3/uL Normal 150-450 [facility] Comment on above: Performed By: #### 5 7021-8 #### MUKESH WEBB ([id number]) [facility] ([facility]) [address] [place] [address] RBC (Bld) [#/Vol] 5.32 x10*6/uL High 4.00-5.20 [facility] Comment on above: Performed By: #### 5 7021-8 #### MUKESH WEBB ([id number]) [facility] ([facility]) [address] [place] [address] WBC (Bld) [#/Vol] 7.8 x10*3/uL Normal 4.4-11.3 [facility] Comment on above: Performed By: #### 5 7021-8 #### MUKESH WEBB ([id number]) [facility] ([facility]) [address] [place] [address] Clostridioides difficile tox in A+B tcdA+tcdB geneson 08-21-2023 C. difficile toxin A+B tcdA+tcdB genes RAFI+probe Ql (Stl) Clostridioides difficile toxin A+B tcdA+tcdB genes Not Detected Normal Not Detected [facility] Comment on above: Order Comment: This test is an FDA-cleared real-time PCR assay for detection of toxigenic C. difficile DNA from unprocessed liquid or unformed stool specimens that have not undergone nucleic acid extraction in symptomatic patients with potential C. difficile infection (CDI). A positive result may indicate colonization, and clinical assessment is required for the diagnosis of CDI. This test cannot be performed on formed stools or used as a test of cure, and should not be performed more than once per 7 days. Performed By: #### 8 0685-1 #### MUKESH WEBB ([id number]) [facility] ([facility]) [address] [place] [address] Comprehensive metabolic 2000 panelon 08-21-2023 Albumin BCP dye [Mass/Vol] 4.2 g/dL 3.4 - 5.0 g/dL [facility] ALP [Catalytic activity/Vol] 90 U/L 33 - 110 U/L [facility] ALT With P-5'-P [Catalytic activity/Vol] 19 U/L 7 - 45 U/L [facility] Comment on above: Patients treated wit h Sulfasalazine may generate falsely decreased results for ALT. Anion gap [Moles/Vol] 10 mmol/L 10 - 2 0 mmol/L [facility] AST With P-5'-P [Catalytic activity/Vol] 19 U/L 9 - 39 U/L [facility] Bilirubin [Mass/Vol] 0.4 mg/dL 0.0 - 1 .2 mg/dL [facility] Calcium [Mass/Vol] 9.7 mg/dL 8.6 - 10. 3 mg/dL [facility] Chloride [Moles/Vol] 106 mmol/L 98 - 10 7 mmol/L [facility] CO2 [Moles/Vol] 24 mmol/L 21 - 32 mmol/L [facility] Creatinine [Mass/Vol] 0.88 mg/dL 0.50 - 1.05 mg/dL [facility] GFR/1.73 sq M.predicted among non-blacks MDRD (S/P/Bld) [Vol rate/Area] 78 mL/min/{1.73_m2} - PINF [facility] Comment on above: Calculations of salina mated GFR are performed using the 2020 CKD-EPI Study Refit equation without the race variable for the IDMS-Traceable creatinine methods. https://jasn.asnjournals.org/content//ASN.932 0820134 Glucose [Mass/Vol] 103 mg/dL High 74 - 99 mg/dL [facility] Interpretation and review of laboratory results Abnormal [facility] Potassium [Moles/Vol] 4.3 mmol/L 3.5 - 5.3 mmol/L [facility] Protein [Mass/Vol] 7.3 g/dL 6.4 - 8.2 g/dL [facility] Sodium [Moles/Vol] 136 mmol/L 136 - 145 mmol/L [facility] Urea nitrogen [Mass/Vol] 14 mg/dL 6 - 23 mg/d L [facility] Albumin BCP dye [Mass/Vol] 4.2 g/dL Normal 3.4-5.0 [facility] Comment on above: Performed By: #### 2 4323-8 #### MUKESH WEBB ([id number]) [facility] ([facility]) [address] [place] [address] ALP [Catalytic activity/Vol] 90 U/L Normal 33-110 [facility] Comment on above: Performed By: #### 2 4323-8 #### MUKESH WEBB ([id number]) [facility] ([facility]) [address] [place] [address] ALT With P-5'-P [Catalytic activity/Vol] 19 U/L Normal 7-45 [place] Comment on above: Result Comment: Sonia ents treated with Sulfasalazine may generate falsely decreased results for ALT. Performed By: #### 2 4323-8 #### MUKESH WEBB ([id number]) [facility] ([facility]) [address] [place] [address] Anion gap [Moles/Vol] 10 mmol/L Normal 10-20 [facility] Comment on above: Performed By: #### 2 432-8 #### MUKESH WEBB ([id number]) [facility] ([facility]) [address] [place] [address] 96028 AST With P-5'-P [Catalytic activity/Vol] 19 U/L Normal 9-39 [place] Comment on above: Performed By: #### 2 4323-8 #### MUKESH WEBB ([id number]) [facility] ([facility]) [address] [place], [place] [address] Bilirubin [Mass/Vol] 0.4 mg/dL Normal 0.0-1.2 [facility] Comment on above: Performed By: #### 2 4323-8 #### MUKESH WEBB ([id number]) [facility] ([facility]) [address] [place] [address] Calcium [Mass/Vol] 9.7 mg/dL Normal 8.6-10.3 [facility] Comment on above: Performed By: #### 2 4323-8 #### MUKESH WEBB ([id number]) [facility] ([facility]) [address] [place] [address] Chloride [Moles/Vol] 106 mmol/L Normal 98-107 [facility] Comment on above: Performed By: #### 2 4323-8 #### MUKESH WEBB ([id number]) [facility] ([facility]) [address] [place] [address] CO2 [Moles/Vol] 24 mmol/L Normal 21-32 [facility] Comment on above: Performed By: #### 2 4323-8 #### MUKESH WEBB ([id number]) [facility] ([facility]) [address] [place] [address] 33761 Creatinine [Mass/Vol] 0.88 mg/dL Normal 0.50-1.05 [facility] Comment on above: Performed By: #### 2 4323-8 #### MUKESH WEBB ([id number]) [facility] ([facility]) [address] [place] [address] 74780 Glomerular filtration rate/1.73 sq M.predicted 78 mL/min/1.73m*2 Normal >60 [facility] Comment on above: Result Comment: Calc ulations of estimated GFR are performed using the 2020 CKD-EPI Study Refit equation without the race variable for the IDMS-Traceable creatinine methods. https://jasn.asnjournals.org/content/early/ASN.086 1101352 Performed By: #### 2 4323-8 #### MUKESH WEBB ([id number]) [facility] ([facility]) [address] [place] [address] Glucose [Mass/Vol] 103 mg/dL High 74-99 [facility] Comment on above: Performed By: #### 2 4323-8 #### MUKESH WEBB ([id number]) [facility] ([facility]) [facility] [place] [address] Potassium [Moles/Vol] 4.3 mmol/L Normal 3.5-5.3 [facility] Comment on above: Performed By: #### 2 4323-8 #### MUKESH WEBB ([id number]) [facility] ([facility]) [address] [place] [address] 15186 Protein [Mass/Vol] 7.3 g/dL Normal 6.4-8.2 [facility] Comment on above: Performed By: #### 2 4323-8 #### MUKESH WEBB ([id number]) [facility] ([facility]) [address] [place] [address] 43032 Sodium [Moles/Vol] 136 mmol/L Normal 136-145 [facility] Comment on above: Performed By: #### 2 4323-8 #### MUKESH WEBB ([id number]) [facility] ([facility]) [address] [place] [address] 43855 Urea nitrogen [Mass/Vol] 14 mg/dL Normal 6-23 [facility] Comment on above: Performed By: #### 2 4323-8 #### MUKESH WEBB ([id number]) [facility] ([facility]) [address] [place] [address] 40256 Lactateon 08-21-2023 Lactate [Moles/Vol] 0.8 mmol/L 0.4 - 2. 0 mmol/L [facility] Lactate [Moles/Vol] 0.8 mmol/L Normal 0.4-2.0 [facility] Comment on above: Order Comment: Venip uncture immediately after or during the administration of Metamizole may lead to falsely low results. Testing should be performed immediately prior to Metamizole dosing. Performed By: #### 2 524-7 #### MUKESH WEBB ([id number]) [facility] ([facility]) [address] [place] [address] 23978 Lactate [Moles/Vol]on 2023 Interpretation and review of laboratory results Normal [facility] Venipuncture immediately after or during the administration of Metamizole may lead to falsely low results. Testing should be performed immediately prior to Metamizole dosing. [facility] Lipaseon 08-21-2023 Lipase [Catalytic activity/Vol] 32 U/L U/L [facility] Lipase [Catalytic activity/V ol]on 08-21-2023 Interpretation and review of laboratory results Normal [facility] Venipuncture immediately after or during the administration of Metamizole may lead to falsely low results. Testing should be performed immediately prior to Metamizole dosing. [facility] No Panel Informationon 08-20 Interpretation and review of laboratory results Abnormal [facility] Triacylglycerol lipaseon Lipase [Catalytic activity/Vol] 32 U/L Normal [facility] Comment on above: Order Comment: Venip uncture immediately after or during the administration of Metamizole may lead to falsely low results. Testing should be performed immediately prior to Metamizole dosing. Performed By: #### 3 040-3 #### MAYORGA JON ([id number]) [facility] ([facility]) [address] [place] [address] Urinalysis complete W Reflex Culture panel (U)on 08-21-2023 Appearance (U) Hazy Abnormal Clear [facility] Bilirubin (U) [Mass/Vol] Negative NEGATIVE [facility] Color (U) Yellow Straw, Yellow [facility] Glucose Auto test strip (U) [Mass/Vol] Negative NEGATIVE mg/dL [facility] Ketones (U) [Mass/Vol] Negative NEGAT KHOI mg/dL [facility] Leukocyte esterase Auto test strip Ql (U) TRACE Abnormal NEGATIVE [facility] Nitrite Auto test strip Ql (U) Negative NEGATIVE [facility] pH (U) 5.0 [pH] 5.0, 5.5, 6.0, 6.5, 7.0, 7.5, 8.0 [facility] Protein (U) [Mass/Vol] Negative NEGAT KHOI mg/dL [facility] RBC (U) [#/Vol] Negative NEGATIVE [facility] Specific gravity (U) [Rel density] 1.019 1.005 - 1.035 [facility] Urobilinogen (U) [Mass/Vol] mg/dL NINF - 2.0 mg/dL [facility] Appearance (U) Hazy Normal Clear [facility] Comment on above: Performed By: #### 5 8077-9 #### MUKESH WEBB ([id number]) [facility] ([facility]) [address] [place] [address] 31210 Bilirubin (U) [Mass/Vol] Negative Normal NEGATIVE [facility] Comment on above: Performed By: #### 5 8077-9 #### MUKESH WEBB ([id number]) [facility] ([facility]) [address] [place], [place] [address] Color (U) Yellow Normal Straw, Yellow [facility] Comment on above: Performed By: #### 5 8077-9 #### MUKESH WEBB ([id number]) [facility] ([facility]) [address] [place], [place] [address] Glucose Auto test strip (U) [Mass/Vol] Negative Normal NEGATIVE [facility] Comment on above: Performed By: #### 5 8077-9 #### MUKESH WEBB ([id number]) [facility] ([facility]) [address] [place] [address] 49186 Ketones (U) [Mass/Vol] Negative Normal [facility]: Performed By: #### 5 8077-9 #### MUKESH WEBB ([id number]) [facility] ([facility]) [address] [place] [address] 16321 Leukocyte esterase Auto test strip Ql (U) TRACE Abnormal NEGATIVE [facility] Comment on above: Performed By: #### 5 8077-9 #### MUKESH WEBB ([id number]) [facility] ([facility]) [address] [place] [address] 37214 Nitrite Auto test strip Ql (U) Negative Normal NEGATIVE [facility] Comment on above: Performed By: #### 5 8077-9 #### MUKESH WEBB ([id number]) [facility] ([facility]) [address] [place] [address] 28274 pH (U) 5.0 [pH] Normal 5.0, 5.5, 6.0, 6.5, 7.0, 7.5, 8.0 [facility] Comment on above: Performed By: #### 5 8077-9 #### MUKESH WEBB ([id number]) [facility] ([facility]) [address] [place], [place] [address] Protein (U) [Mass/Vol] Negative Normal NEGATIVE [facility] Comment on above: Performed By: #### 5 8077-9 #### MUKESH WEBB ([id number]) [facility] ([facility]) [address] [place] [address] RBC (U) [#/Vol] Negative Normal NEGATIVE [facility] Comment on above: Performed By: #### 5 8077-9 #### MUKESH WEBB ([id number]) [facility] ([facility]) [address] [place] [address] Specific gravity (U) [Rel density] 1.019 Normal 1.005-1.035 [facility] Comment on above: Performed By: #### 5 8077-9 #### MUKESH WEBB ([id number]) [facility] ([facility]) [address] [place] [address] Urobilinogen (U) [Mass/Vol] mg/dL Normal <2.0 [facility] Comment on above: Performed By: #### 5 8077-9 #### MUKESH WEBB ([id number]) [facility] ([facility]) [address] [place] [address] 41743 Urinalysis microscopic panel Auto Ql (U)on 08-21-2023 Bacteria Auto (Urine sed) [#/Area] 1+ Abnormal NONE SEEN /HPF [facility] Epithelial cells.squamous Auto (Urine sed) [#/Area] 1-9 (SPARSE) Reference range not established. /HPF [facility] Mucus Auto (Urine sed) [#/Area] 1+ Reference range not established. /LPF [facility] RBC Auto (Urine sed) [#/Area] 3-5 NONE, 1-2, 3-5 /HPF [facility] WBC Auto (Urine sed) [#/Area] 1-5 1-5, NONE /HPF [facility] Bacteria Auto (Urine sed) [#/Area] 1+ /HPF Abnormal NONE SEEN [facility] Comment on above: Performed By: #### 5 6635-8 #### MUKESH WEBB ([id number]) [facility] ([facility]) [address] [place] [address] Epithelial cells.squamous Auto (Urine sed) [#/Area] 1-9 (SPARSE) Normal Reference range not established. [facility] Comment on above: Performed By: #### 5 0635-8 #### MUKESH WEBB ([id number]) [facility] ([facility]) [address] [place] [address] Mucus Auto (Urine sed) [#/Area] 1+ /LPF Normal Reference range not established. [facility] Comment on above: Performed By: #### 5 7075-8 #### MUKESH WEBB ([id number]) [facility] ([facility]) [address] [place] [address] RBC Auto (Urine sed) [#/Area] 3-5 Normal NONE, 1-2, 3-5 [facility] Comment on above: Performed By: #### 5 8475-8 #### MUKESH WEBB ([id number]) [facility] ([facility]) [address] [place], [place] [address] WBC Auto (Urine sed) [#/Area] 1-5 Normal 1-5, NONE [facility] Comment on above: Performed By: #### 5 4875-8 #### MUKESH WEBB ([id number]) [facility] ([facility]) [address] [place] [address] CBC panel Auto (Bld)on 03-01 Erythrocyte distribution width (RBC) [Ratio] 14.6 % High 11.5-14.5 [facility] Comment on above: Performed By: #### 5 8410-2 #### MUKESH WEBB ([id number]) [facility] ([facility]) [address] [place] [address] 58312 Hematocrit (Bld) [Volume fraction] 39.6 % Normal 36.0-46.0 [facility] Comment on above: Performed By: #### 5 8410-2 #### MUKESH WEBB ([id number]) [facility] ([facility]) [address] [place] [address] 79533 Hemoglobin (Bld) [Mass/Vol] 12.3 g/dL Normal 12.0-16.0 [facility] Comment on above: Performed By: #### 5 8410-2 #### MUKESH WEBB ([id number]) [facility] ([facility]) [address] [place] [address] 24665 MCH (RBC) [Entitic mass] 26.5 pg Normal 26.0-34.0 [facility] Comment on above: Performed By: #### 5 8410-2 #### MUKESH WEBB ([id number]) [facility] ([facility]) [address] [place] [address] 36251 MCHC (RBC) [Mass/Vol] 31.1 g/dL Low 32.0-36.0 [facility] Comment on above: Performed By: #### 5 8410-2 #### MUKESH WEBB ([id number]) [facility] ([facility]) [address] [place] [address] 98918 MCV (RBC) [Entitic vol] 85 fL Normal 80-100 [facility] Comment on above: Performed By: #### 5 8410-2 #### MUKESH WEBB ([id number]) [facility] ([facility]) [address] [place] [address] 34649 Nucleated RBC/100 WBC (Bld) [Ratio] 0.0 /100 WBCs Normal 0.0-0.0 [facility] Comment on above: Performed By: #### 5 8410-2 #### MUKESH WEBB ([id number]) [facility] ([facility]) [address] [place] [address] 45898 Platelets (Bld) [#/Vol] 283 x10*3/uL Normal 150-450 [facility] Comment on above: Performed By: #### 5 8410-2 #### MUKESH WEBB ([id number]) [facility] ([facility]) [address] [place] [address] 15823 RBC (Bld) [#/Vol] 4.65 x10*6/uL Normal 4.00-5.20 [facility] Comment on above: Performed By: #### 5 8410-2 #### MUKESH WEBB ([id number]) [facility] ([facility]) [address] [place] [address] 52215 WBC (Bld) [#/Vol] 6.7 x10*3/uL Normal 4.4-11.3 [facility] Comment on above: Performed By: #### 5 8410-2 #### MUKESH WEBB ([id number]) [facility] ([facility]) [address] [place] [address] Calcidiolon 03-01-2023 25-hydroxyvitamin D3 [Mass/Vol] 28 ng/mL Low 30-100 [facility] Comment on above: Order Comment: Defic iency: < 20 ng/ml Insufficiency: 20-29 ng/ml Sufficiency: 30-100 ng/ml This assay accurately quantifies the sum of Vitamin D3, 25-Hydroxy and Vitamin D2,25-Hydroxy. Performed By: #### 1 989-3 #### MUKESH WEBB ([id number]) [facility] ([facility]) [address] [place] [address] 73819 Cobalaminson 03-01-2023 Cobalamin (Vitamin B12) [Mass/Vol] 272 pg/mL Normal 211-911 [facility] Comment on above: Performed By: #### 2 132-9 #### MUKESH WEBB ([id number]) [facility] ([facility]) [address] [place] [address] 77027 Comprehensive metabolic 2000 panelon 03-01-2023 Albumin BCP dye [Mass/Vol] 3.8 g/dL Normal 3.4-5.0 [facility] Comment on above: Performed By: #### 2 4323-8 #### MUKESH WEBB ([id number]) [facility] ([facility]) [address] [place] [address] ALP [Catalytic activity/Vol] 94 U/L Normal 33-110 [facility] Comment on above: Performed By: #### 2 432-8 #### MUKESH WEBB ([id number]) [facility] ([facility]) [address] [place] [address] 99486 ALT With P-5'-P [Catalytic activity/Vol] 17 U/L Normal 7-45 [facility] Comment on above: Result Comment: Sonia ents treated with Sulfasalazine may generate falsely decreased results for ALT. Performed By: #### 2 4322-8 #### MUKESH WEBB ([id number]) [facility] ([facility]) [address] [place] [address] 60807 Anion gap [Moles/Vol] 11 mmol/L Normal 10-20 [facility] Comment on above: Performed By: #### 2 4322-8 #### MUKESH WEBB ([id number]) [facility] ([facility]) [address] [place] [address] 63812 AST With P-5'-P [Catalytic activity/Vol] 18 U/L Normal 9-39 [facility] Comment on above: Performed By: #### 2 4322-8 #### MUKESH WEBB ([id number]) [facility] ([facility]) [address] [place] [address] 34326 Bilirubin [Mass/Vol] 0.3 mg/dL Normal 0.0-1.2 [facility] Comment on above: Performed By: #### 2 4322-8 #### MUKESH WEBB ([id number]) [facility] ([facility]) [address] [place] [address] 29982 Calcium [Mass/Vol] 8.9 mg/dL Normal 8.6-10.3 [facility] Comment on above: Performed By: #### 2 4322-8 #### MUKESH WEBB ([id number]) [facility] ([facility]) [address] [place] [address] Chloride [Moles/Vol] 109 mmol/L High 98-107 [facility] Comment on above: Performed By: #### 2 4323-8 #### MUKESH WEBB ([id number]) [facility] ([facility]) [address] [place] [address] CO2 [Moles/Vol] 24 mmol/L Normal 21-32 [facility] [place] Comment on above: Performed By: #### 2 4323-8 #### MUKESH WEBB ([id number]) [facility] ([facility]) [address] [place] [address]1979 Creatinine [Mass/Vol] 0.77 mg/dL Normal 0.50-1.05 [facility] Comment on above: Performed By: #### 2 4323-8 #### MUKESH WEBB ([id number]) [facility] ([facility]) [address] [place] [address] 48567 GFR/1.73 sq M.predicted MDRD (S/P/Bld) [Vol rate/Area] mL/min/{1.73_m2} Normal >60 [facility] Comment on above: Result Comment: Calc ulations of estimated GFR are performed using the 2020 CKD-EPI Study Refit equation without the race variable for the IDMS-Traceable creatinine methods. https://jasn.asnjournals.org/content//ASN.315 0476940 Performed By: #### 2 4323-8 #### MUKESH WEBB ([id number]) [facility] ([facility]) [facility] [place] [address] Glucose [Mass/Vol] 91 mg/dL Normal 74-99 [facility] Comment on above: Performed By: #### 2 4323-8 #### MUKESH WEBB ([id number]) [facility] ([facility]) [facility] [place] [address] Potassium [Moles/Vol] 4.0 mmol/L Normal 3.5-5.3 [facility] Comment on above: Performed By: #### 2 4323-8 #### MUKESH WEBB ([id number]) [facility] ([facility]) [facility] [place] [address] Protein [Mass/Vol] 6.7 g/dL Normal 6.4-8.2 [facility] Comment on above: Performed By: #### 2 4323-8 #### MUKESH WEBB ([id number]) [facility] ([facility]) [address] [place] [address] 32601 Sodium [Moles/Vol] 140 mmol/L Normal 136-145 [facility] Comment on above: Performed By: #### 2 4323-8 #### MUKESH WEBB ([id number]) [facility] ([facility]) [address] [place] [address] 77467 Urea nitrogen [Mass/Vol] 14 mg/dL Normal 6-23 [facility] Comment on above: Performed By: #### 2 4323-8 #### MUKESH WEBB ([id number]) [facility] ([facility]) [address] [place] [address] 84504 Lipid 1996 panelon 3 Cholesterol [Mass/Vol] 174 mg/dL Normal 0-199 [facility] Comment on above: Result Comment: Age Desirable Borderline High High 0-19 Y 0 - 169 170 - 199 >/= 200 20-24 Y 0 - 189 190 - 224 >/= 225 >24 Y 0 - 199 200 - 239 >/= 240 All ranges are based on fasting samples. Specific therapeutic targets will vary based on patient-specific cardiac risk. Pediatric guidelines reference:Pediatrics 2011, 128(S5).Adult guidelines reference: NCEP ATPIII Guidelines,DENISSE 2001, 258:2486-97 Venipuncture immediately after or during the administration of Metamizole may lead to falsely low results. Testing should be performed immediately prior to Metamizole dosing. Performed By: #### 2 4331-1 #### MUKESH WEBB ([id number]) [facility] ([facility]) [address] [place] [address] 66514 Cholesterol in HDL [Mass/Vol] 68.0 mg/dL Normal [facility] Comment on above: Result Comment: Age Very Low Low Normal High 0-19 Y < 35 < 40 40-45 ---- 20-24 Y ---- < 40 >45 ---- >24 Y ---- < 40 40-60 >60 Performed By: #### 2 4331-1 #### MUKESH WEBB ([id number]) [facility] ([facility]) [address] [place] [address] 93704 Cholesterol in LDL [Mass/Vol] 89 mg/dL Normal <=99 [facility] Comment on above: Result Comment: Near Borderline AGE Desirable Optimal High High Very High 0-19 Y 0 - 109 --- 110-129 >/= 130 ---- 20-24 Y 0 - 119 --- 120-159 >/= 160 ---- >24 Y 0 - 99 100-129 130-159 160-189 >/=190 Performed By: #### 2 4331-1 #### MUKESH WEBB ([id number]) [facility] ([facility]) [address] [place] [address] 72321 Cholesterol in VLDL [Mass/Vol] 17 mg/dL Normal 0-40 [facility] Comment on above: Performed By: #### 2 4331-1 #### MUKESH WEBB ([id number]) [facility] ([facility]) [address] [place] [address] 13869 CHOLESTEROL/HDL RATIO 2.6 Normal [facility] Comment on above: Result Comment: Ref Values Desirable < 3.4 High Risk > 5.0 Performed By: #### 2 4331-1 #### MUKESH WEBB ([id number]) [facility] ([facility]) [address] [place] [address] 01271 NON HDL CHOLESTEROL 106 mg/dL Normal 0-149 [facility] Comment on above: Result Comment: Age Desirable Borderline High High Very High 0-19 Y 0 - 119 120 - 144 >/= 145 >/= 160 20-24 Y 0 - 149 150 - 189 >/= 190 ---- >24 Y 30 mg/dL above LDL Cholesterol goal Performed By: #### 2 4331-1 #### MUKESH WEBB ([id number]) [facility] ([facility]) [address] [place] [address] Triglyceride [Mass/Vol] 87 mg/dL Normal 0-149 [facility] Comment on above: Result Comment: Age Desirable Borderline High High Very High 0 D-90 D 19 - 174 ---- ---- ---- 91 D- 9 Y 0 - 74 75 - 99 >/= 100 ---- 10-19 Y 0 - 89 90 - 129 >/= 130 ---- 20-24 Y 0 - 114 115 - 149 >/= 150 ---- >24 Y 0 - 149 150 - 199 200- 499 >/= 500 Venipuncture immediately after or during the administration of Metamizole may lead to falsely low results. Testing should be performed immediately prior to Metamizole dosing. Performed By: #### 2 4331-1 #### MAYORGA JON ([id number]) [facility] ([facility]) [address] [place] [address] 17182 TSH WITH REFLEX TO FREE T4 I F ABNORMALon 03-01-2023 TSH Qn 0.76 m[IU]/L Normal 0.44-3.98 [facility] Comment on above: Order Comment: TSH t esting is performed using different testing methodology at [facility] than at other [facility]. Direct result comparisons should only be made within the same method. Performed By: #### T SUMANS #### MUKESH WEBB ([id number]) [facility] ([facility]) [facility] [place] [address] HOMOCYSTEINEon 10-23-2022 HOMOCYSTEINE 10.66 umol/L Normal 5.00 - 13.90 [facility] Comment on above: Result Comment: Refe rence values apply to fasting specimens only. Non-fasting specimens produce slightly higher and likely clinically insignificant changes in homocysteine levels. Performed By: #### [facility] #### [facility] [address] [place] [address] HOMOCYSTEINEon 10-22-[address]22 Lab Spec[address] Normal [facility] Comment on above: Performed By: #### [facility] #### [facility] [address] [place] [address] METHYLENE THF REDUCTASE DEFI CIENCYon 10-22-2022 MTHFR MUTATION (C677T, [id number]) SEE COMMENT [facility] Comment on above: Result Comment: HETE ROZYGOUS for c.665C>T (C677T) NEGATIVE for c.1286A>C (N2469N) . Only two MTHFR gene variants c.665C>T ([id number]) and c.1286A>C ([id number]) are tested. Diagnostic errors can occur due to rare sequence variations. DNA was extracted from the specimen provided and analyzed using allele-specific TaqMan MGB probes following PCR. This laboratory developed test was developed and its analytical performance characteristics have been determined by [facility]. This test has not been cleared or approved by the FDA; however, the FDA has determined that such approval is not necessary. The [facility] is CAP accredited and certified under the Clinical Laboratory Improvement Amendments of 1988 (CLIA-88) as qualified to perform high complexity testing. Performed By: #### M THF2 #### [facility] [address] [place] [address] METHYLENE THF REDUCTASE DEFI [facility] 10-17-2022 Lab Specimen Source [facility] Comment on above: Performed By: #### M THF2 #### [facility] [address] [place] [address] OPIATE/OPIOID/BENZO EXTENDED PRESCRIPTION COMPLIANCEon 05-25-2022 6-ACETYLMORPHINE <25 Normal Cutoff <25 [facility] Comment on above: Performed By: #### D SBOP #### [facility] [address] [facility] [place] [address] 7-AMINOCLONAZEPAM <25 Normal Cutoff <25 [facility] [place] Comment on above: Performed By: #### D SBOP #### [facility] [address] [place] [address] ALPHA-HYDROXYALPRAZOLAM <25 Normal Cutoff <25 [facility] Comment on above: Performed By: #### D SBOP #### [facility] [address] [place] [address] ALPHA-HYDROXYMIDAZOLAM <25 Normal Cutoff <25 [facility] Comment on above: Performed By: #### D SBOP #### [facility] [address] [place] [address] ALPRAZOLAM <25 Normal Cutoff <25 [facility] Comment on above: Performed By: #### D SBOP #### [facility] [address] [place] [address] CHLORDIAZEPOXIDE <25 Normal Cutoff <25 [facility] Comment on above: Performed By: #### D SBOP #### [facility] [address] [place] [address] CLONAZEPAM <25 Normal Cutoff <25 [facility] Comment on above: Performed By: #### D SBOP #### [facility] [address] [place] [address] CODEINE <50 Normal Cutoff <50 [facility] Comment on above: Performed By: #### D SBOP #### [facility] [address] [place] [address] DIAZEPAM <25 Normal Cutoff <25 [facility] Comment on above: Performed By: #### D SBOP #### [facility] [address] [place] [address] EDDP,U <25 Normal Cutoff <25 [facility] Comment on above: Result Comment: The performance characteristics of the Methadone Confirmation, Urine has been validated by the individual laboratory site where testing is performed. It has not been cleared or approved by the FDA. However the FDA has determined that such clearance or approval is not necessary. Our Laboratory is certified under the Clinical Laboratory Improvement Amendments of 1988 (CLIA) as qualified to perform high complexity clinical laboratory testing. Performed By: #### D SBOP #### [facility] [address] [place] [address] FENTANYL CONFIRM,U <2.5 Normal Cutoff<2.5 [facility] Comment on above: Performed By: #### D SBOP #### [facility] [address] [place] [address] HYDROCODONE <25 Normal Cutoff <25 [facility] Comment on above: Performed By: #### D SBOP #### [facility] [address] [place] [address] HYDROMORPHONE <25 Normal Cutoff <25 [facility] Comment on above: Performed By: #### D SBOP #### [facility] [address] [place] [address] LORAZEPAM <25 Normal Cutoff <25 [facility] Comment on above: Performed By: #### D SBOP #### [facility] [address] [place] [address] METHADONE,U <25 Normal Cutoff <25 [facility] Comment on above: Performed By: #### D SBOP #### [facility] [address] [place] [address] MIDAZOLAM <25 Normal Cutoff <25 [facility] Comment on above: Performed By: #### D SBOP #### [facility] [address] [place] [address] MORPHINE <50 Normal Cutoff <50 [facility] Comment on above: Performed By: #### D SBOP #### [facility] [address] [place] [address] NORDIAZEPAM <25 Normal Cutoff <25 [facility] Comment on above: Performed By: #### D SBOP #### [facility] [address] [place] [address] NORFENTANYL CONFIRM,U <2.5 Normal Cutoff<2.5 [facility] Comment on above: Result Comment: The performance characteristics of the Fentanyl Confirmation, Urine has been validated by the individual laboratory site where testing is performed. It has not been cleared or approved by the FDA. However the FDA has determined that such clearance or approval is not necessary. Our Laboratory is certified under the Clinical Laboratory Improvement Amendments of 1988 (CLIA) as qualified to perform high complexity clinical laboratory testing. Performed By: #### D SBOP #### [facility] [address] [place] [address] NORHYDROCODONE <25 Normal Cutoff <25 [facility] Comment on above: Performed By: #### D SBOP #### [facility] [address] [place] [address] NOROXYCODONE <25 Normal Cutoff <25 [facility] Comment on above: Performed By: #### D SBOP #### [facility] [address] [place] [address] O-DESMETHYLTRAMADOL,U <50 Normal Cutoff <50 [facility] Comment on above: Result Comment: The performance characteristics of the Tramadol Confirmation, Urine has been validated by the individual laboratory site where testing is performed. It has not been cleared or approved by the FDA. However the FDA has determined that such clearance or approval is not necessary. Our Laboratory is certified under the Clinical Laboratory Improvement Amendments of 1988 (CLIA) as qualified to perform high complexity clinical laboratory testing. Performed By: #### D SBOP #### [facility] [address] [place] [address] OXAZEPAM <25 Normal Cutoff <25 [facility] Comment on above: Performed By: #### D SBOP #### [facility] [address] [place] [address] OXYCODONE <25 Normal Cutoff <25 [facility] Comment on above: Performed By: #### D SBOP #### [facility] [address] [place] [address] OXYMORPHONE <25 Normal Cutoff <25 [facility] Comment on above: Result Comment: The performance characteristics of the Opiate Confirmation, Urine has been validated by the individual laboratory site where testing is performed. It has not been cleared or approved by the FDA. However the FDA has determined that such clearance or approval is not necessary. Our Laboratory is certified under the Clinical Laboratory Improvement Amendments of 1988 (CLIA) as qualified to perform high complexity clinical laboratory testing. Performed By: #### D SBOP #### [facility] [address] [place] [address] TEMAZEPAM <25 Normal Cutoff <25 [facility] Comment on above: Result Comment: The performance characteristics of the Benzodiazepine Confirmation, Urine has been validated by the individual laboratory site where testing is performed. It has not been cleared or approved by the FDA. However the FDA has determined that such clearance or approval is not necessary. Our Laboratory is certified under the Clinical Laboratory Improvement Amendments of 1988 (CLIA) as qualified to perform high complexity clinical laboratory testing. Performed By: #### D SBOP #### [facility] [address] [place] [address] TRAMADOL CONFIRM,U <50 Normal Cutoff <50 [facility] Comment on above: Performed By: #### D SBOP #### [facility] [address] [place] [address] ZOLPIDEM METABOLITE[ZCA] ,U <25 Normal Cutoff <25 [facility] Comment on above: Result Comment: The performance characteristics of the Zolpidem Confirmation, Urine has been validated by the individual laboratory site where testing is performed. It has not been cleared or approved by the FDA. However the FDA has determined that such clearance or approval is not necessary. Our Laboratory is certified under the Clinical Laboratory Improvement Amendments of 1988 (CLIA) as qualified to perform high complexity clinical laboratory testing. Performed By: #### D SBOP #### [facility] [address] [place] [address] ZOLPIDEM,URINE <25 Normal Cutoff <25 [facility] Comment on above: Performed By: #### D SBOP #### [facility] [address] [place] [address] Laboratory - Chemistry and C hemistry - challengeon 05-22-2022 Creatinine (Body fld) [Mass/Vol] 172.7 mg/dL [facility] Work Phone: Comment on above: A urine creatinine r esult >= 20 mg/dL is considered valid without suspicion of dilution. Samples with results below this range will automatically reflex to specific gravity testing to verify specimen integrity. Laboratory - Drug toxicology on 05-22-2022 1-Hydroxymidazolam Confirm (U) [Mass/Vol] <25 Cutoff <25 [facility] Work Phone: 1-Enkyjwlfsw-3,5-Dimethy l-3,3-Diphenylpyrrolidin e (EDDP) Confirm (U) [Mass/Vol] <25 Cutoff <25 [facility] Work Phone: Comment on above: The performance nitza acteristics of the Methadone Confirmation, Urine has been validated by the individual laboratory site where testing is performed. It has not been cleared or approved by the FDA. However the FDA has determined that such clearance or approval is not necessary. Our Laboratory is certified under the Clinical Laboratory Improvement Amendments of 1988 (CLIA) as qualified to perform high complexity clinical laboratory testing. 6-Monoacetylmorphine (6-ROCIO) Confirm (U) [Mass/Vol] <25 Cutoff <25 [facility] Work Phone: 7-Aminoclonazepam Confirm (U) [Mass/Vol] <25 Cutoff <25 [facility] Work Phone: [phone] Alpha hydroxyalprazolam Confirm (U) [Mass/Vol] <25 Cutoff <25 [facility] Work Phone: [phone] ALPRAZolam Confirm (U) [Mass/Vol] <25 Cutoff <25 [facility] Work Phone: Amphetamines Screen Ql (U) Negative NEGATIVE [facility] Work Phone: Comment on above: CUTOFF LEVEL: 500 NG /ML Cross-reactivity has been reported with high concentrations of the following drugs: buproprion, chloroquine, chlorpromazine, ephedrine, mephentermine, fenfluramine, phentermine, phenylpropanolamine, pseudoephedrine, and propranolol. Barbiturates Screen Ql (U) Negative NEGATIVE [facility] Work Phone: Comment on above: CUTOFF LEVEL: 200 NG /ML Benzoylecgonine Screen Ql (U) Negative NEGATIVE [facility] Work Phone: Comment on above: CUTOFF LEVEL: 150 NG /ML Cannabinoids Screen Ql (U) Negative NEGATIVE [facility] Work Phone: Comment on above: CUTOFF LEVEL: 50 NG/ ML chlordiazePOXIDE Confirm (U) [Mass/Vol] <25 Cutoff <25 [facility] Work Phone: clonazePAM Confirm (U) [Mass/Vol] <25 Cutoff <25 [facility] Work Phone: [phone] Codeine Confirm (U) [Mass/Vol] <50 Cutoff <50 [facility] Work Phone: diazePAM Confirm (U) [Mass/Vol] <25 Cutoff <25 [facility] Work Phone: fentaNYL Confirm (U) [Mass/Vol] <2.5 Cutoff<2.5 [facility] Work Phone: HYDROcodone Confirm (U) [Mass/Vol] <25 Cutoff <25 [facility] Work Phone: HYDROmorphone Confirm (U) [Mass/Vol] <25 Cutoff <25 [facility] Work Phone: LORazepam Confirm (U) [Mass/Vol] <25 Cutoff <25 [facility] Work Phone: Methadone Confirm (U) [Mass/Vol] <25 Cutoff <25 [facility] Work Phone: Midazolam Confirm (U) [Mass/Vol] <25 Cutoff <25 [facility] Work Phone: Morphine Confirm (U) [Mass/Vol] <50 Cutoff <50 [facility] Work Phone: Nordiazepam Confirm (U) [Mass/Vol] <25 Cutoff <25 [facility] Work Phone: Norfentanyl Confirm (U) [Mass/Vol] <2.5 Cutoff<2.5 [facility] Work Phone: Comment on above: The performance nitza acteristics of the Fentanyl Confirmation, Urine has been validated by the individual laboratory site where testing is performed. It has not been cleared or approved by the FDA. However the FDA has determined that such clearance or approval is not necessary. Our Laboratory is certified under the Clinical Laboratory Improvement Amendments of 1988 (CLIA) as qualified to perform high complexity clinical laboratory testing. Norhydrocodone Confirm (U) [Mass/Vol] <25 Cutoff <25 [facility] Work Phone: Noroxycodone Confirm (U) [Mass/Vol] <25 Cutoff <25 [facility] Work Phone: Nortramadol (U) [Mass/Vol] <50 Cutoff <50 [facility] Work Phone: Comment on above: The performance nitza acteristics of the Tramadol Confirmation, Urine has been validated by the individual laboratory site where testing is performed. It has not been cleared or approved by the FDA. However the FDA has determined that such clearance or approval is not necessary. Our Laboratory is certified under the Clinical Laboratory Improvement Amendments of 1988 (CLIA) as qualified to perform high complexity clinical laboratory testing. Oxazepam Confirm (U) [Mass/Vol] <25 Cutoff <25 [facility] Work Phone: oxyCODONE Confirm (U) [Mass/Vol] <25 Cutoff <25 [facility] Work Phone: oxyMORphone Confirm (U) [Mass/Vol] <25 Cutoff <25 [facility] Work Phone: Comment on above: The performance nitza acteristics of the Opiate Confirmation, Urine has been validated by the individual laboratory site where testing is performed. It has not been cleared or approved by the FDA. However the FDA has determined that such clearance or approval is not necessary. Our Laboratory is certified under the Clinical Laboratory Improvement Amendments of 1988 (CLIA) as qualified to perform high complexity clinical laboratory testing. Phencyclidine Ql (U) Negative NEGATIVE [facility] Work Phone: Comment on above: CUTOFF LEVEL: 25 NG/ ML Cross-reactivity has been reported with dextromethorphan. Temazepam Confirm (U) [Mass/Vol] <25 Cutoff <25 [facility] Work Phone: Comment on above: The performance nitza acteristics of the Benzodiazepine Confirmation, Urine has been validated by the individual laboratory site where testing is performed. It has not been cleared or approved by the FDA. However the FDA has determined that such clearance or approval is not necessary. Our Laboratory is certified under the Clinical Laboratory Improvement Amendments of 1988 (CLIA) as qualified to perform high complexity clinical laboratory testing. traMADol Confirm (U) [Mass/Vol] <50 Cutoff <50 [facility] Work Phone: Zolpidem (U) [Mass/Vol] <25 Cutoff <25 [facility] Work Phone: No Panel Informationon 05-22 <25 Cutoff <25 [facility] Work Phone: Comment on above: The performance nitza acteristics of the Zolpidem Confirmation, Urine has been validated by the individual laboratory site where testing is performed. It has not been cleared or approved by the FDA. However the FDA has determined that such clearance or approval is not necessary. Our Laboratory is certified under the Clinical Laboratory Improvement Amendments of 1988 (CLIA) as qualified to perform high complexity clinical laboratory testing. SEE BELOW [facility] Work Phone: Comment on above: Drug screen results are presumptive and should not be used to assess compliance with prescribed medication. Definitive confirmatory drug testing has been added to this sample for any positive screen result and will be reported separately. .Toxicology screening results are reported qualitatively. The concentration must be greater than or equal to the cutoff to be reported as positive. The concentration at which the screening test can detect an individual drug or metabolite varies. The absence of expected drug(s) and/or drug metabolite(s) may indicate non-compliance, inappropriate timing of specimen collection relative to drug administration, poor drug absorption, diluted/adulterated urine, or limitations of testing. For medical purposes only; not valid for forensic use. .Interpretive questions should be directed to the laboratory medical directors. OPIATE/OPIOID/BENZO EXTENDED PRESCRIPTION COMPLIANCEon 05-22-2022 AMPHETAMINE SCREEN,U Negative Normal NEGATIVE [facility] Comment on above: Result Comment: CUTO FF LEVEL: 500 NG/ML Cross-reactivity has been reported with high concentrations of the following drugs: buproprion, chloroquine, chlorpromazine, ephedrine, mephentermine, fenfluramine, phentermine, phenylpropanolamine, pseudoephedrine, and propranolol. Performed By: #### D SBOP #### [facility] [address] [place] [address] BARBITURATES SCREEN,U Negative Normal NEGATIVE [facility] Comment on above: Result Comment: CUTO FF LEVEL: 200 NG/ML Performed By: #### D SBOP #### [facility] [address] [place] [address] CANNABINOIDS SCREEN,U Negative Normal NEGATIVE [facility] Comment on above: Result Comment: CUTO FF LEVEL: 50 NG/ML Performed By: #### D SBOP #### [facility] [address] [place] [address] COCAINE METABOLITE SCREEN,U Negative Normal NEGATIVE [facility] Comment on above: Result Comment: CUTO FF LEVEL: 150 NG/ML Performed By: #### D SBOP #### [facility] [address] [place] [address] Creatinine [Mass/Vol] 172.7 mg/dL Normal [facility] Comment on above: Result Comment: A ur ine creatinine result >= 20 mg/dL is considered valid without suspicion of dilution. Samples with results below this range will automatically reflex to specific gravity testing to verify specimen integrity. Performed By: #### D SBOP #### [facility] [address] [place] [address] DRUG SCREEN COMMENT. SEE BELOW Normal [facility] Comment on above: Result Comment: Drug screen results are presumptive and should not be used to assess compliance with prescribed medication. Definitive confirmatory drug testing has been added to this sample for any positive screen result and will be reported separately. . Toxicology screening results are reported qualitatively. The concentration must be greater than or equal to the cutoff to be reported as positive. The concentration at which the screening test can detect an individual drug or metabolite varies. The absence of expected drug(s) and/or drug metabolite(s) may indicate non-compliance, inappropriate timing of specimen collection relative to drug administration, poor drug absorption, diluted/adulterated urine, or limitations of testing. For medical purposes only; not valid for forensic use. . Interpretive questions should be directed to the laboratory medical directors. Performed By: #### D SBOP #### [facility] [address] [place] [address] PCP SCREEN,U Negative Normal NEGATIVE [facility] Comment on above: Result Comment: CUTO FF LEVEL: 25 NG/ML Cross-reactivity has been reported with dextromethorphan. Performed By: #### D SBOP #### [facility] [address] [place] [address] Office Visit (Family [facility] ivey)on 05-22-2022 Follow-up visit Diagnoses/Problems Morbid obesity with BMI of 40.0-44.9, adult (278.01,V85.41) (E66.01,Z68.41) GERD (gastroesophageal reflux disease) (530.81) (K21.9) Hot flashes, menopausal (627.2) (N95.1) Left hand paresthesia (782.0) (R20.2) Orders GERD (gastroesophageal reflux disease) Renew: Omeprazole 40 MG Oral Capsule Delayed Release; TAKE 1-2 CAPSULES DAILY Hot flashes, menopausal Renew: Premarin 0.45 MG Oral Tablet; TAKE 1 TABLET DAILY Morbid obesity with BMI of 40.0-44.9, adult Start: Phentermine HCl - 37.5 MG Oral Tablet; TAKE 1 TABLET DAILY Follow-up visit in 1 month Outpatient Follow-up Status: Hold For - Scheduling Requested for: [id number] OPIATE/OPIOID/BENZO [EXTENDED] PRESCRIPTION COMPLIANCE; Status:In Progress - Specimen/Data Collected; Done: [id number] Provider Impressions Decrease premarin to 0.45mg daily. Start Adipex, [place]RS reviewed and appropriate, urine drug screen obtained, controlled substance agreement signed. Weight check in 1 month. Chief Complaint 2 month med check, GERD. History of Present Illness I have personally reviewed the [place]AR[place] report for TEDDY FIGUEROA. I have considered the risks of abuse, dependence, addiction and diversion. Last urine drug screening date/ordered today: 05/22/22 Controlled Substance Agreement: I have printed this form and reviewed each line item with the patient and the patient has verbalized understanding. Date of the last Controlled Substance Agreement: 05/22/22 [place] What is the patient?s goal of therapy? weight loss. Before starting treatment: I have assessed the patient?s continuing efforts to lose weight, I have assessed the patient?s dedication to the treatment program and the response to treatment and I have assessed the presence or absence of contraindications, adverse effects, and indicators of possible substance abuse that would necessitate cessation of treatment utilizing controlled substance. For continuation treatment: TEDDY has demonstrated continued efforts to lose weight, is dedicated to the treatment program and the response to treatment and I have assessed for the presence or absence of contraindications, adverse effects, and indicators of possible substance abuse that would necessitate cessation of treatment utilizing controlled substance. Activities of Daily Living: Yes, it is my opinion that this patient is benefitting from anorexiant therapy . Physical functioning: Better Family relationships: Better Social relationships: Better Mood: Better Sleep patterns: Better Overall functioning: Better 52 YOF presents for follow up. MENOPAUSAL HOT FLASHES: Premarin effective, stable. Would like to start weaning off of this. WRIST PAIN: Has seen Dr. Matt Blackman following. Currently casted for ulnar nerve entrapment, will operate if not relief after casting. GERD: Omeprazole effective, usually only taking 40mg daily. Upper GI normal 03/20/22. OBESITY: Counts calories, less than 2000 daily. Paints and cleans for exercise, has not been able to lose weight with current regimen. Hx of nephrectomy 19 years ago. She does not get mammograms. She does not want Shingrix. She does not want colon cancer screening at this time. 05/28/22: Urine drug screen results as expected.1 1 Amended By: Parag Herrera; May 28 2022 7:22 AM ESTReview of Systems Review of Systems: Constitutional: no fever, no unintentional weight change Eye: no recent visual problem Respiratory: no shortness of breath Cardiac: no chest pain GI: no reflux, no nausea, no vomiting, no diarrhea, no constipation, no heartburn, no abdominal pain Neurological: no headache Active Problems Arthralgia of left wrist (719.43) (M25.532) GERD (gastroesophageal reflux disease) (530.81) (K21.9) Hot flashes, menopausal (627.2) (N95.1) Left hand fracture (815.00) (S62.92XA) Left hand paresthesia (782.0) (R20.2) Morbid obesity with BMI of 40.0-44.9, adult (278.01,V85.41) (E66.01,Z68.41) Right hand paresthesia (782.0) (R20.2) Surgical History History of Bladder surgery 43, 45, 47 History of Hernia repair History of Hysterectomy 47 yr History of Kidney donation procedure History of Nose surgery 16 yrs History of Rectocele repair 47 yr Family History Family history of congenital heart disease (V19.5) (Z82.79) Family history of hypertension (V17.49) (Z82.49) Family history of liver cancer (V16.0) (Z80.0) Social History Never a smoker No advance directives (V49.89) (Z78.9) Allergies Latex Rash; Recorded By: Brook Galdamez; 12/06/2020 1:34:59 PM Current Meds Medication NameInstructionReason Omeprazole 40 MG Oral Capsule Delayed ReleaseTAKE 1-2 CAPSULES DAILY.GERD (gastroesophageal reflux disease) Premarin 0.625 MG Oral TabletTAKE 1 TABLET DAILY.Hot flashes, menopausal Vitals Vital Signs Recorded: [id number] 08:43AM Heart Rate80 Oplkokxb912 Nzcxtizcz99 Height4 ft 11 in Ggtycj851 lb 15.86 oz BMI Calculat (more content not included)... Normal [employer] Tobacco Screening.on 023 Adult depression screening assessment No [facility] Work Phone: Fall risk assessment a) No falls within the last year [facility] Work Phone: Tobacco use status [facility] b) No [facility] Work Phone[facility] Follow-up visit Diagnoses/Problems COVID (079.89) (U07.1) Bloody diarrhea (787.91) (R19.7) Orders COVID Stop: Paxlovid (300/100) 20 x 150 MG AND 10 x 100MG Oral Tablet Therapy Pack Provider Impressions She is feeling better today than yesterday in regards to GI symptoms. Since this is a virtual visit I am unable to examine her, I advised her if symptoms/bloody diarrhea persists to go to the emergency room to be evaluated. I offered stool testing and labs, but she is self isolating d/t COVID infection currently. Follow up prn. Chief Complaint pt c/o having rectal bleeding with every BM, abdominal pain, temp 100 f, sore throat. An interactive audio and video telecommunication system which permits real time communications between the patient (at the originating site) and provider (at the distant site) was utilized to provide this telehealth service. History of Present Illness 52 YOF presents virtually for acute visit. COVID: Started Paxlovid 03/27/22, 1 day later diarrhea started, there is mucous/blood in stool, 15 episodes of diarrhea yesterday, about 5 episodes today. She did have one episode last night of near syncope/diaphoresis, and she thinks she may have had hypotension. She has a low grad fever as well and some mild diffuse abdominal pain. She stopped taking the Paxlovid yesterday. Never had colonoscopy, has never had hemorrhoids in the past. Review of Systems Review of Systems: Constitutional: low grade fever, no unintentional weight change Eye: no recent visual problem Respiratory: no shortness of breath Cardiac: no chest pain GI: no reflux, no nausea, no vomiting, diarrhea, no constipation, no heartburn, abdominal pain Neurological: no headache Active Problems Arthralgia of left wrist (719.43) (M25.532) COVID (079.89) (U07.1) Dog bite, initial encounter (879.8,E906.0) (W54.0XXA) GERD (gastroesophageal reflux disease) (530.81) (K21.9) Hot flashes, menopausal (627.2) (N95.1) Left hand fracture (815.00) (S62.92XA) Left hand paresthesia (782.0) (R20.2) Morbid obesity with BMI of 40.0-44.9, adult (278.01,V85.41) (E66.01,Z68.41) Right hand paresthesia (782.0) (R20.2) Surgical History History of Bladder surgery 43, 45, 47 History of Hernia repair History of Hysterectomy 47 yr History of Kidney donation procedure History of Nose surgery 16 yrs History of Rectocele repair 47 yr Family History Family history of congenital heart disease (V19.5) (Z82.79) Family history of hypertension (V17.49) (Z82.49) Family history of liver cancer (V16.0) (Z80.0) Social History Never a smoker No advance directives (V49.89) (Z78.9) Allergies Latex Rash; Recorded By: Brook Galdamez; 12/06/2020 1:34:59 PM Current Meds Medication NameInstructionReason Paxlovid (300/100) 20 x 150 MG AND 10 x 100MG Oral Tablet Therapy Pack1 dose twice daily for 5 days.COVID Omeprazole 40 MG Oral Capsule Delayed ReleaseTAKE 1-2 CAPSULES DAILY.GERD (gastroesophageal reflux disease) Premarin 0.625 MG Oral TabletTAKE 1 TABLET DAILY.Hot flashes, menopausal Physical Exam Unable to perform d/t nature of visit. 'Scores and Scales' Signatures Electronically signed by : Parag Herrera PA-C; Mar 29 2022 2:23PM EST (Author) Normal [facility] Office Visit ([facility])on 03-27-2022 Follow-up visit Diagnoses/Problems COVID (079.89) (U07.1) Rx Paxlovid Advised continue otc symtpomatic control, rest, hydrate Advised self isolate for 10 days Follow up prn Orders COVID Start: Paxlovid (300/100) 20 x 150 MG AND 10 x 100MG Oral Tablet Therapy Pack; 1 dose twice daily for 5 days Chief Complaint pt started having elevated temp yesterday 103.5, tested positive for COVID , c/o sinus pain, teeth hurt, JACKMAN, low grade fever. An interactive audio and video telecommunication system which permits real time communications between the patient (at the originating site) and provider (at the distant site) was utilized to provide this telehealth service. History of Present Illness 52 YOF presents virtually for acute visit. COVID: Home positive test yesterday. Symptoms started 1 day ago and include fever, nausea, sinus pressure, JACKMAN, congestion. Tylenol has been able to bring fever down from 103.5 to 100. Not COVID vaccinated. She seems to be doing better today than yesterday. Review of Systems Review of Systems: Constitutional: no fever, no unintentional weight change Eye: no recent visual problem Respiratory: no shortness of breath Cardiac: no chest pain GI: no reflux, nausea, no vomiting, no diarrhea, no constipation, no heartburn, no abdominal pain Neurological: headache Active Problems Arthralgia of left wrist (719.43) (M25.532) Dog bite, initial encounter (879.8,E906.0) (W54.0XXA) GERD (gastroesophageal reflux disease) (530.81) (K21.9) Hot flashes, menopausal (627.2) (N95.1) Left hand fracture (815.00) (S62.92XA) Left hand paresthesia (782.0) (R20.2) Morbid obesity with BMI of 40.0-44.9, adult (278.01,V85.41) (E66.01,Z68.41) Right hand paresthesia (782.0) (R20.2) Surgical History History of Bladder surgery 43, 45, 47 History of Hernia repair History of Hysterectomy 47 yr History of Kidney donation procedure History of Nose surgery 16 yrs History of Rectocele repair 47 yr Family History Family history of congenital heart disease (V19.5) (Z82.79) Family history of hypertension (V17.49) (Z82.49) Family history of liver cancer (V16.0) (Z80.0) Social History Never a smoker No advance directives (V49.89) (Z78.9) Allergies Latex Rash; Recorded By: Brook Galdamez; 12/06/2020 1:34:59 PM Current Meds Medication NameInstructionReason Omeprazole 40 MG Oral Capsule Delayed ReleaseTAKE 1-2 CAPSULES DAILY.GERD (gastroesophageal reflux disease) Premarin 0.625 MG Oral TabletTAKE 1 TABLET DAILY.Hot flashes, menopausal Physical Exam Unable to per d/t nature of visit. 'Scores and Scales' Signatures Electronically signed by : Parag Herrera PA-C; Mar 27 2022 1:04PM EST (Author) Normal [facility] GI TRACT, UPPER W/KUBon - GI TRACT, UPPER W/KUB Patient Name: TEDDY FIGUEROA STUDY: GI TRACT, UPPER W/KUB; ; 03/20/2022 9:34 am INDICATION: gerd K21.9: GERD (gastroesophageal reflux disease). COMPARISON: None. ACCESSION NUMBER(S): [id number] ORDERING CLINICIAN: PARAG HERRERA TECHNIQUE: The patient was examined in the upright and prone positions under fluoroscopy followed by overhead spot films. Fluoroscopic time: 1.5 minutes. FINDINGS: The swallowing mechanism is normal. The esophagus normal in size, peristalsis and mucosal pattern. No hiatal hernia or gastroesophageal reflux. The stomach and duodenum are normal in size, peristalsis and mucosal pattern. No ulceration is seen. The duodenal bulb is normal in size and shape. The mucosa of the visualized jejunum is also within limits.. IMPRESSION: Normal upper GI series. Electronically signed by: DAY NIELSON MD Normal [facility] No Panel Informationon 03-20 Normal [facility] Work Phone: CBC AND DIFFERENTIALon 03-13 % AUTOMATED IMMATURE GRAN 0.1 % Normal 0.0 - 0.9 [facility] Comment on above: Result Comment: Geno ture Granulocyte Count (IG) includes promyelocytes, myelocytes and metamyelocytes but does not include bands. Percent differential counts (%) should be interpreted in the context of the absolute cell counts (cells/L). Performed By: #### C BCDF #### [address] [address] Basophils (Bld) [#/Vol] 0.05 10*3/uL Normal 0.00 - 0.1 0 [facility] Comment on above: Performed By: #### C BCDF #### [address] [address] Basophils/100 WBC (Bld) 0.6 % Normal 0.0 - 2.0 [facility] Comment on above: Performed By: #### C BCDF #### [address] [address] Eosinophils (Bld) [#/Vol] 0.17 10*3/uL Normal 0.00 - 0.70 [facility] Comment on above: Performed By: #### C BCDF #### [address] [address] Eosinophils/100 WBC (Bld) 2.2 % Normal 0.0 - 6.0 [facility] Comment on above: Performed By: #### C BCDF #### [address] [address] Erythrocyte distribution width (RBC) [Ratio] 14.2 % Normal 11.5 - 14.5 [facility] Comment on above: Performed By: #### C BCDF #### [address] [address] Hematocrit (Bld) [Volume fraction] 42.1 % Normal 36.0 - 46.0 [facility] Comment on above: Performed By: #### C BCDF #### [address] [address] Hemoglobin (Bld) [Mass/Vol] 12.9 g/dL Normal 12.0 - 16.0 [facility] Comment on above: Performed By: #### C BCDF #### [address] [address] Lymphocytes (Bld) [#/Vol] 3.06 10*3/uL Normal 1.20 - 4.80 [facility] Comment on above: Performed By: #### C BCDF #### [address] [address] Lymphocytes/100 WBC (Bld) 38.9 % Normal 13.0 - 44.0 [facility] Comment on above: Performed By: #### C BCDF #### [address] [address] MCHC (RBC) [Mass/Vol] 30.6 g/dL Low 32.0 - 36.0 [facility] Comment on above: Performed By: #### C BCDF #### [address] [address] MCV (RBC) [Entitic vol] 86 fL Normal 80 - 100 [facility] Comment on above: Performed By: #### C BCDF #### [address] [address] Monocytes (Bld) [#/Vol] 0.55 10*3/uL Normal 0.10 - 1.0 0 [facility] Comment on above: Performed By: #### C BCDF #### [address] [address] Monocytes/100 WBC (Bld) 7.0 % Normal 2.0 - 10.0 [facility] Comment on above: Performed By: #### C BCDF #### [address] [address] Neutrophils (Bld) [#/Vol] 4.02 10*3/uL Normal 1.20 - 7.70 [facility] Comment on above: Result Comment: Perc ent differential counts (%) should be interpreted in the context of the absolute cell counts (cells/L). Performed By: #### C BCDF #### [address] [address] Neutrophils/100 WBC (Bld) 51.2 % Normal 40.0 - 80.0 [facility] Comment on above: Performed By: #### C BCDF #### [address] [address] Platelets (Bld) [#/Vol] 352 10*3/uL Normal 150 - 450 [facility] Comment on above: Performed By: #### C BCDF #### [address] [address] RBC 4.87 x10E12/L Normal 4.00 - 5.20 [facility] Comment on above: Performed By: #### C BCDF #### [address] [address] WBC (Bld) [#/Vol] 7.9 10*3/uL Normal 4.4 - 11.3 [facility] Comment on above: Performed By: #### C BCDF #### [address] [address] COMPREHENSIVE PANELon 2021 Albumin [Mass/Vol] 3.8 g/dL Normal 3.4 - 5.0 [facility] Comment on above: Performed By: #### C MP #### [address] [address] ALP [Catalytic activity/Vol] 102 U/L Normal 33 - 110 [facility] Comment on above: Performed By: #### C MP #### [address] [address] ALT [Catalytic activity/Vol] 16 U/L Normal 7 - 45 [facility] Comment on above: Result Comment: Sonia ents treated with Sulfasalazine may generate falsely decreased results for ALT. Performed By: #### C MP #### [address] [address] Anion gap [Moles/Vol] 11 mmol/L Normal 10 - 20 [facility] Comment on above: Performed By: #### C MP #### [address] [address] AST [Catalytic activity/Vol] 17 U/L Normal 9 - 39 [facility] Comment on above: Performed By: #### C MP #### [address] [address] Bilirubin [Mass/Vol] 0.2 mg/dL Normal 0.0 - 1.2 [facility] Comment on above: Performed By: #### C MP #### [address] [address] Calcium [Mass/Vol] 9.6 mg/dL Normal 8.6 - 10.3 [facility] Comment on above: Performed By: #### C MP #### [address] [address] Chloride [Moles/Vol] 102 mmol/L Normal 98 - 107 [facility] Comment on above: Performed By: #### C MP #### [address] [address] Creatinine [Mass/Vol] 0.80 mg/dL Normal 0.50 - 1.05 [facility] Comment on above: Performed By: #### C MP #### [address] [address] GFR/1.73 sq M.predicted among non-blacks MDRD (S/P/Bld) [Vol rate/Area] 87 mL/min/{1.73_m2} Normal >90 [facility] Comment on above: Result Comment: CALC ULATIONS OF ESTIMATED GFR ARE PERFORMED USING THE 2020 CKD-EPI STUDY REFIT EQUATION WITHOUT THE RACE VARIABLE FOR THE IDMS-TRACEABLE CREATININE METHODS. https://jasn.asnjournals.org/content//ASN.926 6340063 Performed By: #### C MP #### [address] [address] Glucose [Mass/Vol] 87 mg/dL Normal 74 - 99 [facility] Comment on above: Performed By: #### C MP #### [address] [address] HCO3 (Bld) [Moles/Vol] 30 mmol/L Normal 21 - 32 [facility] Comment on above: Performed By: #### C MP #### [address] [address] Potassium [Moles/Vol] 4.0 mmol/L Normal 3.5 - 5.3 [facility] Comment on above: Performed By: #### C MP #### [address] [address] Protein [Mass/Vol] 7.0 g/dL Normal 6.4 - 8.2 [facility] Comment on above: Performed By: #### C MP #### [address] [address] Sodium [Moles/Vol] 139 mmol/L Normal 136 - 145 [facility] Comment on above: Performed By: #### C MP #### [address] [address] Urea nitrogen [Mass/Vol] 16 mg/dL Normal 6 - 23 [facility] Comment on above: Performed By: #### C MP #### [address] [address] Complete Blood Count + Diffe alexandr 03-13-2022 Basophils/100 WBC (Bld) 0.6 % 0.0 - 2.0 [facility] Work Phone: [phone] Erythrocyte distribution width (RBC) [Ratio] 14.2 % See Below [facility] Work Phone: [phone] Comment on above: Reference Range: 11. 5 - 14.5 Hematocrit (Bld) [Volume fraction] 42.1 % See Below [facility] Work Phone: [phone] Comment on above: Reference Range: 36. 0 - 46.0 Hemoglobin (Bld) [Mass/Vol] 12.9 g/dL See Below [facility] Work Phone: [phone] Comment on above: Reference Range: 12. 0 - 16.0 Lymphocytes/100 WBC (Bld) 38.9 % See Below [facility] Work Phone: [phone] Comment on above: Reference Range: 13. 0 - 44.0 MCHC (RBC) [Mass/Vol] 30.6 g/dL below low threshold See Below [facility] Work Phone: [phone] Comment on above: Reference Range: 32. 0 - 36.0 MCV (RBC) [Entitic vol] 86 fL 80 - 100 [facility] Work Phone: [phone] Monocytes/100 WBC (Bld) 7.0 % 2.0 - 10.0 [facility] Work Phone: [phone] Neutrophils/100 WBC (Bld) 51.2 % See Below [facility] Work Phone: [phone] Comment on above: Reference Range: 40. 0 - 80.0 Platelets (Bld) [#/Vol] 352 10*3/uL 150 - 450 [facility] Work Phone: [phone] RBC (Bld) [#/Vol] 4.87 {x10E12/L} See Below [facility] Work Phone: [phone] Comment on above: Reference Range: 4.0 0 - 5.20 WBC (Bld) [#/Vol] 7.9 10*3/uL 4.4 - 11.3 [facility] Work Phone: [phone] Complete Blood Count + Differential 0.05 {x10E9/L} See Below [facility] Work Phone: [phone] Comment on above: Reference Range: 0.0 0 - 0.10 Complete Blood Count + Differential 0.17 {x10E9/L} See Below [facility] Work Phone: [phone] Comment on above: Reference Range: 0.0 0 - 0.70 Complete Blood Count + Differential 0.55 {x10E9/L} See Below [facility] Work Phone: Comment on above: Reference Range: 0.1 0 - 1.00 Complete Blood Count + Differential 3.06 {x10E9/L} See Below [facility] Work Phone: Comment on above: Reference Range: 1.2 0 - 4.80 Complete Blood Count + Differential 4.02 {x10E9/L} See Below [facility] Work Phone: Comment on above: Reference Range: 1.2 0 - 7.70 Percent differential counts (%) should be interpreted in the context of the absolute cell counts (cells/L). Complete Blood Count + Differential 2.2 % 0.0 - 6.0 [facility] Work Phone: Complete Blood Count + Differential 0.1 % 0.0 - 0.9 [facility] Work Phone: Comment on above: Immature Granulocyte Count (IG) includes promyelocytes, myelocytes and metamyelocytes but does not include bands. Percent differential counts (%) should be interpreted in the context of the absolute cell counts (cells/L). LIPID PANEL (CORONARY RISK 2 )on 03-13-2022 Cholesterol [Mass/Vol] 173 mg/dL Normal 0 - 199 [facility] Comment on above: Result Comment: . AGE DESIRABLE BORDERLINE HIGH HIGH 0-19 Y 0 - 169 170 - 199 >/= 200 20-24 Y 0 - 189 190 - 224 >/= 225 >24 Y 0 - 199 200 - 239 >/= 240 All ranges are based on fasting samples. Specific therapeutic targets will vary based on patient-specific cardiac risk. . Pediatric guidelines reference:Pediatrics 2011, 128(S5). Adult guidelines reference: NCEP ATPIII Guidelines, DENISSE 2001, 258:2486-97 . Venipuncture immediately after or during the administration of Metamizole may lead to falsely low results. Testing should be performed immediately prior to Metamizole dosing. Performed By: #### L IPID #### [place] [address] Cholesterol in HDL [Mass/Vol] 72.0 mg/dL Normal [facility] Comment on above: Result Comment: . AGE VERY LOW LOW NORMAL HIGH 0-19 Y < 35 < 40 40-45 ---- 20-24 Y ---- < 40 >45 ---- >24 Y ---- < 40 40-60 >60 . Performed By: #### L IPID #### [address] [address] Cholesterol in LDL [Mass/Vol] 69 mg/dL Normal 0 - 99 [facility] Comment on above: Result Comment: . NEAR BORD AGE DESIRABLE OPTIMAL HIGH HIGH VERY HIGH 0-19 Y 0 - 109 --- 110-129 >/= 130 ---- 20-24 Y 0 - 119 --- 120-159 >/= 160 ---- >24 Y 0 - 99 100-129 130-159 160-189 >/=190 . Performed By: #### L IPID #### [address] [address] Cholesterol in VLDL [Mass/Vol] 32 mg/dL Normal 0 - 40 [facility] Comment on above: Performed By: #### L IPID #### [address] [address] Cholesterol.total/Choles terol in HDL [Mass ratio] 2.4 {ratio} Normal [facility] Comment on above: Result Comment: REF VALUES DESIRABLE < 3.4 HIGH RISK > 5.0 Performed By: #### L IPID #### [address] [address] Triglyceride [Mass/Vol] 159 mg/dL High 0 - 149 [facility] Comment on above: Result Comment: . AGE DESIRABLE BORDERLINE HIGH HIGH VERY HIGH 0 D-90 D 19 - 174 ---- ---- ---- 91 D- 9 Y 0 - 74 75 - 99 >/= 100 ---- 10-19 Y 0 - 89 90 - 129 >/= 130 ---- 20-24 Y 0 - 114 115 - 149 >/= 150 ---- >24 Y 0 - 149 150 - 199 200- 499 >/= 500 . Venipuncture immediately after or during the administration of Metamizole may lead to falsely low results. Testing should be performed immediately prior to Metamizole dosing. Performed By: #### L IPID #### [facility] [address] [place] [address] Laboratory - Chemistry and C hemistry - challengeon 03-13-2022 Albumin BCP dye [Mass/Vol] 3.8 g/dL 3.4 - 5.0 [facility] Work Phone: [phone] ALP [Catalytic activity/Vol] 102 U/L 33 - 110 [facility] Work Phone: [phone] ALT With P-5'-P [Catalytic activity/Vol] 16 U/L 7 - 45 [facility] Work Phone: [phone] Comment on above: Patients treated wit h Sulfasalazine may generate falsely decreased results for ALT. Anion gap [Moles/Vol] 11 mmol/L 10 - 20 [facility] Work Phone: [phone] AST With P-5'-P [Catalytic activity/Vol] 17 U/L 9 - 39 [facility] Work Phone: [phone] Bilirubin [Mass/Vol] 0.2 mg/dL 0.0 - 1.2 [facility] Work Phone: [phone] Calcium [Mass/Vol] 9.6 mg/dL 8.6 - 10.3 [facility] Work Phone: [phone] Chloride [Moles/Vol] 102 mmol/L 98 - 107 [facility] Work Phone: [phone] CO2 [Moles/Vol] 30 mmol/L 21 - 32 [facility] Work Phone: [phone] Creatinine [Mass/Vol] 0.80 mg/dL See Below [facility] Work Phone: [phone] Comment on above: Reference Range: 0.5 0 - 1.05 Glucose [Mass/Vol] 87 mg/dL 74 - 99 [facility] Work Phone: [phone] Potassium [Moles/Vol] 4.0 mmol/L 3.5 - 5.3 [facility] Work Phone: Protein [Mass/Vol] 7.0 g/dL 6.4 - 8.2 [facility] Work Phone: Sodium [Moles/Vol] 139 mmol/L 136 - 145 [facility] Work Phone: TSH Qn 1.31 m[IU]/L See Below [facility] Work Phone: Comment on above: Reference Range: 0.4 4 - 3.98 TSH testing is performed using different testing methodology at [facility] than at other [facility]. Direct result comparisons should only be made within the same method. Urea nitrogen [Mass/Vol] 16 mg/dL 6 - 23 [facility] Work Phone: Lipid Panelon 03-13-2022 Cholesterol [Mass/Vol] 173 mg/dL 0 - 199 [facility] Work Phone: Comment on above: . AGE DESIRABLE BORD BENITO HIGH HIGH 0-19 Y 0 - 169 170 - 199 >/= 200 20-24 Y 0 - 189 190 - 224 >/= 225 >24 Y 0 - 199 200 - 239 >/= 240 All ranges are based on fasting samples. Specific therapeutic targets will vary based on patient-specific cardiac risk.. Pediatric guidelines reference:Pediatrics 2011, 128(S5). Adult guidelines reference: NCEP ATPIII Guidelines, DENISSE 2001, 258:2486-97. Venipuncture immediately after or during the administration of Metamizole may lead to falsely low results. Testing should be performed immediately prior to Metamizole dosing. Cholesterol in HDL [Mass/Vol] 72.0 mg/dL [facility] Work Phone: Comment on above: . AGE VERY LOW LOW N ORMAL HIGH 0-19 Y < 35 < 40 40-45 ---- 20-24 Y ---- < 40 >45 ---- >24 Y ---- < 40 40-60 >60. Cholesterol in LDL [Mass/Vol] 69 mg/dL 0 - 99 [facility] Work Phone: Comment on above: . NEAR BORD AGE SHADY RABLE OPTIMAL HIGH HIGH VERY HIGH 0-19 Y 0 - 109 --- 110-129 >/= 130 ---- 20-24 Y 0 - 119 --- 120-159 >/= 160 ---- >24 Y 0 - 99 100-129 130-159 160-189 >/=190. Cholesterol.total/Choles terol in HDL [Mass ratio] 2.4 {ratio} [facility] Work Phone: Comment on above: REF VALUESDESIRABLE < 3.4HIGH RISK > 5.0 Triglyceride [Mass/Vol] 159 mg/dL above hi gh threshold 0 - 149 [facility] Work Phone: Comment on above: . AGE DESIRABLE BORD BENITO HIGH HIGH VERY HIGH 0 D-90 D 19 - 174 ---- ---- ----91 D- 9 Y 0 - 74 75 - 99 >/= 100 ---- 10-19 Y 0 - 89 90 - 129 >/= 130 ---- 20-24 Y 0 - 114 115 - 149 >/= 150 ---- >24 Y 0 - 149 150 - 199 200- 499 >/= 500. Venipuncture immediately after or during the administration of Metamizole may lead to falsely low results. Testing should be performed immediately prior to Metamizole dosing. Lipid Panel 32 mg/dL 0 - 40 [facility] Work Phone: No Panel Informationon 03-13 87 {mL/min/1.73m2} >90 [facility] Work Phone: Comment on above: CALCULATIONS OF SALINA MATED GFR ARE PERFORMED USING THE 2020 CKD-EPI STUDY REFIT EQUATION WITHOUT THE RACE VARIABLE FOR THE IDMS-TRACEABLE CREATININE METHODS.https://jasn.asnjournals.org/content/ /ASN.7286952983 Office Visit (Family Bronson ivey)on 03-13-2022 Follow-up visit Diagnoses/Problems Hot flashes, menopausal (627.2) (N95.1) Morbid obesity with BMI of 40.0-44.9, adult (278.01,V85.41) (E66.01,Z68.41) GERD (gastroesophageal reflux disease) (530.81) (K21.9) Left hand paresthesia (782.0) (R20.2) Right hand paresthesia (782.0) (R20.2) Orders GERD (gastroesophageal reflux disease) Start: Omeprazole 40 MG Oral Capsule Delayed Release; TAKE 1-2 CAPSULES DAILY Xray Upper GI with KUB; Status:Hold For - Scheduling; Requested for:[id number]; Radiologist to Determine Optimal Study : Y What are the patient's signs and symptoms? : gerd Follow-up visit in 2 months Outpatient Follow-up Status: Hold For - Scheduling Requested for: [id number] Hot flashes, menopausal Renew: Premarin 0.625 MG Oral Tablet; TAKE 1 TABLET DAILY Morbid obesity with BMI of 40.0-44.9, adult Complete Blood Count + Differential; Status:Active; Requested for:[id number]; Comprehensive Metabolic Panel; Status:Active; Requested for:[id number]; Lipid Panel; Status:Active; Requested for:[id number]; TSH WITH REFLEX TO FREE T4 IF ABNORMAL; Status:Active; Requested for:[id number]; Unlinked Orthopedic - General Referral Evaluation and Treatment Evaluate AND Treat Status: Canceled Pt does not wish to schedule appointment at this time. ORDER GIVEN TO PT TO SCHEDULE Provider Impressions Refilled premarin. Rx omeprazole 40mg 1-2 daily, Upper GI ordered, will reassess after this results Continue w/ortho for L wrist pain Fasting labs ordered today Follow up 2 months or sooner prn. Chief Complaint 6 month med check, would like to discuss GERD sx. History of Present Illness 52 YOF presents for med check. MENOPAUSAL HOT FLASHES: Premarin effective, needs refill. WRIST PAIN: Has seen ortho for L wrist pain, EMG was done BL, R side showed abnormality, surgeon would like to do R carpal tunnel release, her pain is mainly L wrist, she is getting second opinion [facility]. GERD: Taking Nexium otc 20mg daily, some days she needs 40mg d/t breakthrough symptoms. Has not tried raising HOB, she does know her trigger foods and tries to avoid them. - heartburn: Y - regurgitation: Y - chest pain: N - dysphagia: Sometimes - odynophagia: N - hypersalivation/water brash: Sometimes - globus sensation: N - cough: N - hoarseness: N - wheezing: N - nausea: N - persistent vomiting: N - hematemesis, melena, hematochezia; N Hx of nephrectomy 19 years ago. She does not get mammograms. She does not want Shingrix. She does not want colon cancer screening at this time. 03/20/22: Upper GI unremarkable. Will continue with omeprazole and if still having symptoms may consider scope.1 1 Amended By: Parag Herrera; Mar 20 2022 1:10 PM ESTReview of Systems Review of Systems: Constitutional: no fever, no unintentional weight change Eye: no recent visual problem Respiratory: no shortness of breath Cardiac: no chest pain GI: no reflux, no nausea, no vomiting, no diarrhea, no constipation, no heartburn, no abdominal pain Neurological: no headache Active Problems Arthralgia of left wrist (719.43) (M25.532) Dog bite, initial encounter (879.8,E906.0) (W54.0XXA) Hot flashes, menopausal (627.2) (N95.1) Left hand fracture (815.00) (S62.92XA) Left hand paresthesia (782.0) (R20.2) Morbid obesity with BMI of 40.0-44.9, adult (278.01,V85.41) (E66.01,Z68.41) Right hand paresthesia (782.0) (R20.2) Surgical History History of Bladder surgery 43, 45, 47 History of Hernia repair History of Hysterectomy 47 yr History of Kidney donation procedure History of Nose surgery 16 yrs History of Rectocele repair 47 yr Family History Family history of congenital heart disease (V19.5) (Z82.79) Family history of hypertension (V17.49) (Z82.49) Family history of liver cancer (V16.0) (Z80.0) Social History Never a smoker No advance directives (V49.89) (Z78.9) Allergies Latex Rash; Recorded By: Brook Galdamez; 12/06/2020 1:34:59 PM Current Meds Medication NameInstructionReason Premarin 0.625 MG Oral TabletTAKE 1 TABLET DAILY.Hot flashes, menopausal Vitals Vital Signs Recorded: [id number] 09:05AM Heart Rate72 Uiqgtedf035 Lgpxpuwkz51 Height4 ft 11 in Wnqwhb465 lb 15.98 oz BMI Kesgycmqys75.22 kg/m2 BSA Calculated1.9 Tobacco Useb) No Falls Screening (Age 18+)a) No falls within the last year Physical Exam General: Alert and oriented. No acute distress Eye: Normal conjunctiva HENT: Normocephalic, oral mucosa is moist, no pharyngeal erythema, neck supple, no LAD, no thyromegaly Respiratory: Lungs clear to auscultation, respirations not labored Cardiovascular: Normal rate, regular rhythm, no murmur, no gallop, no edema Gastrointestinal: Soft, nontender, normal bowel sounds, nondistended Genitourinary: No costovertebral angle tenderness Integumentary: Warm, dry, pink Psychiatric: Cooperative, good affect, eye contact, judgment, insight, voice 'Scores and Scales' Signatures (more content not included)... Normal [facility] TSH WITH REFLEX TO FREE T4 I F ABNORMALon 03-13-2022 TSH Qn 1.31 m[IU]/L Normal 0.44 - 3.98 [facility] Comment on above: Result Comment: TSH testing is performed using different testing methodology at [facility] than at other [facility]. Direct result comparisons should only be made within the same method. Performed By: #### T HYDS #### [facility] [address] [place] [address] Tobacco Screening.on 022 Fall risk assessment a) No falls within the last year [facility] Work Phone: Tobacco use status [facility] b) No M [facility] Work Phone: Tobacco Screening.on 022 Fall risk assessment a) No falls within the last year [facility] 300 Work Phone: Tobacco use status [facility] b) No M [facility] Orth[facility] 300 Work Phone: Provider Note - ED v3on 01-06 Provider Note - ED v3 Provider Note: Chart Review ED NOTES ED NOTES: Patient presents for evaluation of fever, dysuria, hematuria and CVA tenderness that has been ongoing for the past few days. Patient states she has a history of kidney infections. States she only has 1 kidney. Denies vaginal discharge/lesions, n/v/d, fatigue, body aches, abdominal pains, chest pains, sob or any other associated symptoms or complaints. HISTORY OF PRESENTING ILLNESS TEDDY is a 51 year old Female and was seen by me at 15-Jan-2022 13:11. Triage Information: Most recent Vital Sign Value Date PAST MEDICAL HISTORY ALLERGIES/INTOLERANCES : No Known Allergies HEALTH HISTORY: No documented data. OUTPATIENT MEDICATIONS: Home Medications Review Status for Reconciliation: Complete Med Status: Patient Currently Takes Medications Drug Name: Premarin Instructions: null Drug Name: Cipro 500 mg oral tablet Instructions: 1 tab(s) orally 2 times a day SIGNIFICANT EVENTS: Immunizations Description:Tdap Past Medical History Description:Hysterecto my [employer] WORK[employer]: Is : no Is : no REVIEW OF SYSTEMS All other systems reviewed and are negative REVIEW OF SYSTEMS: Comments See HPI PHYSICAL EXAM CONSTITUTIONAL: Well appearing, well nourished, awake, alert, oriented to person, place, time/situation and in no apparent distress. GASTROINTESTINAL: Abdomen soft, non-distended, no rebound, no guarding, no suprapubic tenderness. Bowel sounds normal in all 4 quadrants. GENITOURINARY: No discharge, no lesions per pt report. Bilateral CVA tenderness on exam. NEUROLOGICAL: Alert and oriented, no focal deficits, no motor or sensory deficits. SKIN: Skin normal color for race, warm, dry and intact. No evidence of trauma. PSYCHIATRIC: Alert and oriented to person, place, time/situation. normal mood and affect. No apparent risk to self or others. CRITICAL CARE VITAL SIGNS: T PRBP SpO2O2(LPM) %FiO2 Method 15-Jan-2022 13:08:[id number] 4 96 MDM MDM/ED COURSE: Differential Diagnosis: pelvic inflammatory disease, pyelonephritis and urinary tract infection Discussed Findings with: patient Data Reviewed: vital signs Treatment Plan: Rx Cipro. Urinalysis with small leukocytes, positive nitrites, urobilinogen 0.2, protein 100 mg/dL, pH 6.0, large blood, 1.025 specific gravity, negative ketones, negative bilirubin, negative glucose. Urine sent for culture. Encouraged patient increase water intake, avoid caffeine/energy drinks, void after intercourse, wipe front to back after voiding and bowel movements, avoid baths/hot tubs/pools, avoid tight fitting garments, empty bladder frequently. Patient's clinical presentation is otherwise unremarkable at this time. Patient is discharged with instructions to follow-up with primary care or seek emergency medical attention for worsening symptoms or any new concerns. DISPOSITION Diagnosis/Annotation: ED Dx Name:Burning with urination Code:R30.0 Name:Costovertebral angle pain Code:M54.9 Disposition: discharged Type: home CONSULT CRITICAL CARE TIME Is this a critically ill patient: no Electronic Signatures for Addendum Section: Laurie Meyers ([facility]) (Signed Addendum 20-Jan-2022 14:41) Reviewed urine culture result with patient - infection sensitive to Cipro. Patient states is feeling a lot better, although sxs not completely resolved yet - still has a little frequency/urgency. Advised should finish antibiotic as discussed, push fluids, and f/u with PCP if sxs not resolving over the next 2-3 days. Patient stated understanding; no questions/concerns verbalized. Electronic Signatures: Akash Wilburn ([facility]) (Signed 15-Jan-2022 13:25) Authored: ED Notes, HPI, PMH, ROS, PE, Results/Vital Signs, MDM/ED Course, Clinical Impression, Attestation, Chart Review, Scores Laurie Meyers ([facility]) (Signature Pending) Authored: PE, Attestation Last Updated: 20-Jan-2022 14:41 by Laurie Meyers ([facility]) Normal [facility] Provider Note - ED v3 This report has be en cancelled. Normal [facility] URINE CULTURE,BACTERIALon URINE CULTURE,BACTERIAL PATIENT: TEDDY FIGUEROA LOCATION: [facility] BILL#: [id number] : 66 AGE: SEX: F ORDERED BY: AKASH WILBURN SOURCE: URINE COLLECTED: 01/15/22 13:22 ANTIBIOTICS AT TREVON.: RECEIVED : 01/16/22 00:22 SITE: Clean Catch/Voided R E S U L T S URINE CULTURE,BACTERIAL FINAL 01/18/22 11:17 ISOLATE1 : Escherichia coli >100,000 CFU/ML Organism E coli Antibiotic BP INTRP Ampicillin S Ceftriaxone S Cefazolin S Ciprofloxacin S Nitrofurantoin S Gentamicin S Levofloxacin S Piperc/Tazobact S Trimeth/Sulfa S S=SUSCEPTIBLE I=INTERMEDIATE R=RESISTANT SDD=SUSCEPTIBLE DOSE DEPENDENT NS=NONSUSCEPTIBLE X=REPORTED IN ERROR Normal [facility] Comment on above: Performed By: #### [facility] #### [facility] [address] [place] [address] Established Visit (Orthopaed ic Surgery)on 12-14-2021 Established Visit (Orthopaedic Surgery) Diagnoses/Problems Assessed Right hand paresthesia (782.0) (R20.2) Left hand paresthesia (782.0) (R20.2) Wrist pain (719.43) (M25.539) Orders Left hand paresthesia, Right hand paresthesia, Wrist pain EMG and Nerve Conduction; Status:Hold For - Scheduling; Requested for:14Dec2021; Electrodiagnostic Physician to determine whether Neuromuscular Ultrasound to be performed for optimal study : Yes Electrodiagnostic Physician to determine optimal study : Yes Patient is unable to stand or is >300lbs? : No Additional Clinical Information: : sx x several yrs, progressively worse, losing strength L hand Laterality : Bilateral EMG Indication : Carpal Tunnel Syndrome (CTS) Patient Discussion/Summary Discussed continuing home exercises most days of the week and shaking hands and wrists out for numb tingling and pain. Patient instructed on Tylenol on a as needed basis And diclofenac gel. Discussed obtaining EMG for further diagnostic of level of involvement of the wrists, patient is interested in pursuing this at this time. I will request EMG studies of bilateral upper extremities. I did advise her if insurance declines for any reason, we will start formal OT for strengthening and I will offer cortisone injection for symptom control. She is agreeable with this plan of care. Plan is to follow-up after EMG complete to review findings. And sooner for any changes or concerns. This note was generated using [employer] software. It may contain errors in wording, punctuation or spelling. Provider Impressions Hx bilateral carpal tunnel with Left wrist flare. Patient is wishing to pursue surgical intervention. Chief Complaint Follow-up) for re-evaluation of left wrist pain and left hand paresthesia. She states she is still symptomatic at this time. Condition is relatively unchanged. History of Present Illness Agree with CC as documented per GABBIE. Keyur is a pleasant 51-year-old female here for follow-up of bilateral hand paresthesias with left being more symptomatic. Patient states she feels she is about 50% improved in strength versus her last visit here, she did get some relief with the Medrol Dosepak. She is bracing at night and on occasion with repetitive activity. Patient states she has not noticed any improvement in pain or paresthesias that occur both day and nighttime with awakening. Patient states she is had bilateral numbness and tingling for years with the left one being more severe than the right. She has sought out massage therapy for treatment up till recently, she is interested in further intervention. Review of Systems Constitutional: no fever, no chills, not feeling tired, no recent weight gain, no recent weight loss and not feeling poorly. Eyes: no eyesight problems. ENT: no nosebleeds. Cardiovascular: no chest pain. Respiratory: no shortness of breath and no cough. Gastrointestinal: no abdominal pain, no nausea, no vomiting and no diarrhea. The patient presents with complaints of bilateral wrist arthralgias. Integumentary: no rashes and no skin wound. Neurological: no headache. Psychiatric: no depression and no sleep disturbances. Endocrine: no muscle weakness and no muscle cramps. Hematologic/Lymphatic: swollen glands, but no tendency for easy bruising. Active Problems Problems Arthralgia of left wrist (719.43) (M25.532) Cutaneous candidiasis (112.3) (B37.2) Dog bite, initial encounter (879.8,E906.0) (W54.0XXA) Hot flashes, menopausal (627.2) (N95.1) Left hand fracture (815.00) (S62.92XA) Left hand paresthesia (782.0) (R20.2) Localized swelling, mass, or lump of left lower extremity (782.2) (R22.42) Morbid obesity with BMI of 40.0-44.9, adult (278.01,V85.41) (E66.01,Z68.41) Pain in posterior left lower extremity (729.5) (M79.605) Rash (782.1) (R21) URI, acute (465.9) (J06.9) Urinary urgency (788.63) (R39.15) UTI (urinary tract infection) (599.0) (N39.0) Wrist pain (719.43) (M25.539) Surgical History Problems History of Bladder surgery 43, 45, 47 History of Hernia repair History of Hysterectomy 47 yr History of Kidney donation procedure History of Nose surgery 16 yrs History of Rectocele repair 47 yr Family History Father Family history of congenital heart disease (V19.5) (Z82.79) Family history of hypertension (V17.49) (Z82.49) Maternal Grandmother Family history of liver cancer (V16.0) (Z80.0) Social History Problems Never a smoker No advance directives (V49.89) (Z78.9) Allergies NonMedication Latex Rash; Recorded By: Brook Galdamez; 12/06/2020 1:34:59 PM Current Meds Medication NameInstruction Benadryl TABSTAKE 1 TABLET AT BEDTIME. Diclofenac Sodium 1 % External GelApply to affected area up to 4 times daily 2 grams. NexIUM 20 MG Oral Capsule Delayed ReleaseTAKE 1 CAPSULE ONCE DAILY. Premarin 0.625 MG Oral TabletTAKE 1 TABLET DAILY. Vitals Vital Signs Recorded: 14Dec2021 08:06AM Qmfhhqomjqz26.4 C Height4 ft 11 in Qrqfuf413 l (more content not included)... Normal [facility] Tobacco Screening.on Fall risk assessment a) No falls within the last year [facility] 300 Work Phone: [phone] Tobacco use status [facility] b) No M [facility] 300 Work Phone: [phone] Initial Visit (Orthopaedic S urgery)on 11-30-2021 Initial Visit (Orthopaedic Surgery) Diagnoses/Problems Assessed Arthralgia of left wrist (719.43) (M25.532) Left hand paresthesia (782.0) (R20.2) Orders Arthralgia of left wrist, Left hand paresthesia Start: methylPREDNISolone 4 MG Oral Tablet Therapy Pack; Take daily as directed until prescription complete Patient Discussion/Summary We discussed attempting conservative measures for treatment including Medrol Dosepak (which has been tolerated well in the past), bracing at night and as needed daytime for symptom aggravation as well as home exercise sheet was provided for use most days of the week. Also instructed on stretching and shaking it out motions for symptom control. Discussed conservative measures of OT and or home exercises, patient is going to perform the home exercises at this time to start. We did discuss additional testing such as EMG if symptoms fail to improve or worsen. Patient was discussing how soon a surgery could take place, she was advised that our surgeon, Dr. Vega, will be leaving the practice in February of this year and I can offer referral to either another Ortho surgeon or hand specialist at any time. Patient does wish to pursue treatment here locally, plan will be to follow-up here in 2 to 3 weeks, sooner for changes or concerns to monitor effect of conservative measures. If there is no symptom improvement or any worsening, we will pursue the EMG for further diagnostic. She is agreeable with this plan of care. This note was generated using [employer] software. It may contain errors in wording, punctuation or spelling. Provider Impressions Hx bilateral carpal tunnel with Left wrist flare. Patient is wishing to pursue surgical intervention. Chief Complaint \ PT HERE FOR LEFT WRIST PAIN. STATES DOG BITE 10 MTHS AGO. HAS NOTICED INCREASED PAIN OVER THE PAST WEEK. NUMBNESS AND TINGLING ARE CONSTANT. DIFFICULTY GRASPING OBJECTS. SWELLING IS MAINLY ON THE OUTSIDE OF THE WRIST. CLICKING AND POPPING. XRAYS DONE. REFERRED PARAG HERRERA. History of Present Illness Teddy is a pleasant 51-year-old female presenting today with left wrist pain with numbness and tingling. Patient states she did have a dog bite injury where she broke her hand approximately 10 months ago. She was supposed to have a surgery for debriding but did conservative care on her own; patient states she was treated in a half cast to allow for frequent wound care and dressing changes. Patient states she had numb and tingling sensations prior to this episode and symptoms are about the same as they were. Patient states she believes she has bilateral carpal tunnel syndrome over the last 2 years, she has been doing conservative measures and massage therapy. Patient does use an Gideon wrap at night with minimal relief. She notices pain is worse with lifting and is able to modify her activity. She does get intermittent swelling. She is right-hand dominant. Pain is rated as moderate at a 4 out of 10 at the worst. Patient is using OTC Tylenol and attempted ice x1 but did not help, unable to take NSAIDs due to single kidney (history of kidney donation). Patient was referred by her PCP for evaluation. Patient is interested in pursuing carpal tunnel work-up and surgical release if that is an option. Review of Systems Constitutional: no fever, no chills, not feeling tired, no recent weight gain, no recent weight loss and not feeling poorly. Eyes: no eyesight problems. ENT: no nosebleeds. Cardiovascular: no chest pain. Respiratory: no shortness of breath and no cough. Gastrointestinal: no abdominal pain, no nausea, no vomiting and no diarrhea. The patient presents with complaints of bilateral wrist arthralgias. Integumentary: no rashes and no skin wound. Neurological: no headache. Psychiatric: no depression and no sleep disturbances. Endocrine: no muscle weakness and no muscle cramps. Hematologic/Lymphatic: no swollen glands and no tendency for easy bruising. All other systems have been reviewed and are negative for complaint. Active Problems Problems Cutaneous candidiasis (112.3) (B37.2) Dog bite, initial encounter (879.8,E906.0) (W54.0XXA) Hot flashes, menopausal (627.2) (N95.1) Left hand fracture (815.00) (S62.92XA) Localized swelling, mass, or lump of left lower extremity (782.2) (R22.42) Morbid obesity with BMI of 40.0-44.9, adult (278.01,V85.41) (E66.01,Z68.41) Pain in posterior left lower extremity (729.5) (M79.605) Rash (782.1) (R21) URI, acute (465.9) (J06.9) Urinary urgency (788.63) (R39.15) UTI (urinary tract infection) (599.0) (N39.0) Wrist pain (719.43) (M25.539) Surgical History Problems History of Bladder surgery 43, 45, 47 History of Hernia repair History of Hysterectomy 47 yr History of Kidney donation procedure History of Nose surgery 16 yrs History of Rectocele repair 47 yr Family History Father Family history of congenital heart disease (V19.5) (Z82.79) Family history of hypertension (V17.49) (Z82.49) Maternal Grandmother (more content not included)... Normal [facility] CBC AND DIFFERENTIALon 11-23 Basophils (Bld) [#/Vol] 0.10 10*3/uL Normal 0.00 - 0.1 0 [facility] Comment on above: Performed By: #### C BCDF #### [address] [address] Basophils/100 WBC (Bld) 0.7 % Normal 0.0 - 2.0 [facility] Comment on above: Performed By: #### C BCDF #### [address] [address] Eosinophils (Bld) [#/Vol] 0.20 10*3/uL Normal 0.00 - 0.70 [facility] Comment on above: Performed By: #### C BCDF #### [address] [address] Eosinophils/100 WBC (Bld) 2.3 % Normal 0.0 - 6.0 [facility] Comment on above: Performed By: #### C BCDF #### [address] [address] Erythrocyte distribution width (RBC) [Ratio] 15.9 % High 11.5 - 14.5 [facility] Comment on above: Performed By: #### C BCDF #### [address] [address] Hematocrit (Bld) [Volume fraction] 39.6 % Normal 36.0 - 46.0 [facility] Comment on above: Performed By: #### C BCDF #### [address] [address] Hemoglobin (Bld) [Mass/Vol] 12.7 g/dL Normal 12.0 - 16.0 [facility] Comment on above: Performed By: #### C BCDF #### [address] [address] Lymphocytes (Bld) [#/Vol] 3.10 10*3/uL Normal 1.20 - 4.80 [facility] Comment on above: Performed By: #### C BCDF #### [address] [address] Lymphocytes/100 WBC (Bld) 35.3 % Normal 13.0 - 44.0 [facility] Comment on above: Performed By: #### C BCDF #### [address] [address] MCHC (RBC) [Mass/Vol] 32.0 g/dL Normal 32.0 - 36.0 [facility] Comment on above: Performed By: #### C BCDF #### [address] [address] MCV (RBC) [Entitic vol] 83 fL Normal 80 - 100 [facility] Comment on above: Performed By: #### C BCDF #### [address] [address] Monocytes (Bld) [#/Vol] 0.60 10*3/uL Normal 0.10 - 1.0 0 [facility] Comment on above: Performed By: #### C BCDF #### [address] [address] Monocytes/100 WBC (Bld) 7.0 % Normal 2.0 - 10.0 [facility] Comment on above: Performed By: #### C BCDF #### [address] [address] Neutrophils (Bld) [#/Vol] 4.80 10*3/uL Normal 1.20 - 7.70 [facility] Comment on above: Result Comment: Perc ent differential counts (%) should be interpreted in the context of the absolute cell counts (cells/L). Performed By: #### C BCDF #### [address] [address] Neutrophils/100 WBC (Bld) 54.7 % Normal 40.0 - 80.0 [facility] Comment on above: Performed By: #### C BCDF #### [address] [address] Platelets (Bld) [#/Vol] 303 10*3/uL Normal 150 - 450 [facility] Comment on above: Performed By: #### C BCDF #### [address] [address] RBC 4.75 x10E12/L Normal 4.00 - 5.20 [facility] Comment on above: Performed By: #### C BCDF #### [address] [address] WBC (Bld) [#/Vol] 8.8 10*3/uL Normal 4.4 - 11.3 [facility] Comment on above: Performed By: #### C BCDF #### [address] [address] Complete Blood Count + Diffe roney 11-23-2021 Basophils/100 WBC (Bld) 0.7 % 0.0 - 2.0 [facility] Work Phone: Erythrocyte distribution width (RBC) [Ratio] 15.9 % above high threshold See Below [facility] Work Phone: [phone] Comment on above: Reference Range: 11. 5 - 14.5 Hematocrit (Bld) [Volume fraction] 39.6 % See Below [facility] Work Phone: [phone] Comment on above: Reference Range: 36. 0 - 46.0 Hemoglobin (Bld) [Mass/Vol] 12.7 g/dL See Below [facility] Work Phone: [phone] Comment on above: Reference Range: 12. 0 - 16.0 Lymphocytes/100 WBC (Bld) 35.3 % See Below [facility] Work Phone: [phone] Comment on above: Reference Range: 13. 0 - 44.0 MCHC (RBC) [Mass/Vol] 32.0 g/dL See Below [facility] Work Phone: [phone] Comment on above: Reference Range: 32. 0 - 36.0 MCV (RBC) [Entitic vol] 83 fL 80 - 100 M [facility] Work Phone: [phone] Monocytes/100 WBC (Bld) 7.0 % 2.0 - 10.0 [facility] Work Phone: [phone] Neutrophils/100 WBC (Bld) 54.7 % See Below [facility] Work Phone: [phone] Comment on above: Reference Range: 40. 0 - 80.0 Platelets (Bld) [#/Vol] 303 10*3/uL 150 - 450 [facility] Work Phone: [phone] RBC (Bld) [#/Vol] 4.75 {x10E12/L} See Below [facility] Work Phone: [phone] Comment on above: Reference Range: 4.0 0 - 5.20 WBC (Bld) [#/Vol] 8.8 10*3/uL 4.4 - 11.3 [facility] Work Phone: [phone] Complete Blood Count + Differential 0.10 {x10E9/L} See Below [facility] Work Phone: [phone] Comment on above: Reference Range: 0.0 0 - 0.10 Complete Blood Count + Differential 0.20 {x10E9/L} See Below [facility] Work Phone: Comment on above: Reference Range: 0.0 0 - 0.70 Complete Blood Count + Differential 0.60 {x10E9/L} See Below [facility] Work Phone: Comment on above: Reference Range: 0.1 0 - 1.00 Complete Blood Count + Differential 3.10 {x10E9/L} See Below [facility] Work Phone: Comment on above: Reference Range: 1.2 0 - 4.80 Complete Blood Count + Differential 4.80 {x10E9/L} See Below [facility] Work Phone: Comment on above: Reference Range: 1.2 0 - 7.70 Percent differential counts (%) should be interpreted in the context of the absolute cell counts (cells/L). Complete Blood Count + Differential 2.3 % 0.0 - 6.0 [facility] Work Phone: Office Visit ([facility])on 11-23-2021 Follow-up visit Diagnoses/Problems Wrist pain (719.43) (M25.539) Xray L wrist CBC Volteran gel prn, advised to wear wrist splint, ice, rest Referral to Dr. Vega's office and thank you Orders Wrist pain Start: Diclofenac Sodium 1 % External Gel; Apply to affected area up to 4 times daily 2 grams Complete Blood Count + Differential; Status:Active; Requested for:[id number]; Orthopedic - General Referral Evaluation and Treatment Evaluate AND Treat Status: Active Requested for: [id number] Pt does not wish to schedule appointment at this time. ORDER GIVEN TO PT TO SCHEDULE Xray Wrist Complete Min 3 View; Status:Hold For - Scheduling; Requested for:[id number]; Laterality : Left Radiologist to Determine Optimal Study : Y What are the patient's signs and symptoms? : pain Chief Complaint pt c/o left hand pain, hx of dog bite 10 months ago. History of Present Illness 51 YOF presents for acute visit. WRIST PAIN: History of severe dog bite 10 months ago to L hand which caused fractures and numerous lacerations, it was suggested she have surgery, but surgery was never performed. Currently 2 days of L wrist pain on the medial side, opposite side of original fracture from dog bite. No injury/trauma to area currently. She did get a wrist massage, but this did not help. She has not iced/heat/wrap. She does endorse some mild warmth to the area as well as edema, no color change, there is some clicking in her wrist when she moves it certain ways. She does not tolerate NSAIDS d/t solitary kidney. No other concerns. 11/27/21: CBC showed white count WNL, Xray wrist was unremarkable. Continue with current plan.1 1 Amended By: Parag Herrera; Nov 27 2021 7:19 AM ESTReview of Systems Review of Systems: Constitutional: no fever, no unintentional weight change Eye: no recent visual problem Respiratory: no shortness of breath Cardiac: no chest pain GI: no reflux, no nausea, no vomiting, no diarrhea, no constipation, no heartburn, no abdominal pain Neurological: no headache Active Problems Cutaneous candidiasis (112.3) (B37.2) Dog bite, initial encounter (879.8,E906.0) (W54.0XXA) Hot flashes, menopausal (627.2) (N95.1) Left hand fracture (815.00) (S62.92XA) Localized swelling, mass, or lump of left lower extremity (782.2) (R22.42) Morbid obesity with BMI of 40.0-44.9, adult (278.01,V85.41) (E66.01,Z68.41) Pain in posterior left lower extremity (729.5) (M79.605) Rash (782.1) (R21) URI, acute (465.9) (J06.9) Urinary urgency (788.63) (R39.15) UTI (urinary tract infection) (599.0) (N39.0) Surgical History History of Bladder surgery 43, 45, 47 History of Hernia repair History of Hysterectomy 47 yr History of Kidney donation procedure History of Nose surgery 16 yrs History of Rectocele repair 47 yr Family History Family history of congenital heart disease (V19.5) (Z82.79) Family history of hypertension (V17.49) (Z82.49) Family history of liver cancer (V16.0) (Z80.0) Social History Never a smoker No advance directives (V49.89) (Z78.9) Allergies Latex Rash; Recorded By: Brook Galdamez; 12/06/2020 1:34:59 PM Current Meds Medication NameInstructionReason Benadryl TABSTAKE 1 TABLET AT BEDTIME.Health Maintenance NexIUM 20 MG Oral Capsule Delayed ReleaseTAKE 1 CAPSULE ONCE DAILY.Health Maintenance Premarin 0.625 MG Oral TabletTAKE 1 TABLET DAILY.Hot flashes, menopausal Vitals Vital Signs Recorded: [id number] 01:49PM Gkjoqxsfytr51.56 C Heart Rate80 Petccymh540 Usiakyfxx28 Height4 ft 11 in Ataalz713 lb 15.79 oz BMI Ykcnvpmdhg62.42 kg/m2 BSA Calculated1.88 Tobacco Useb) No PHQ-2 #1. Over the last 2 weeks have you felt down, depressed or hopeless? (If yes, answer PHQ-9 below)No PHQ-2 #2. Over the last 2 weeks have you felt little interest or pleasure in doing things? (If yes, answer PHQ-9 below)No Falls Screening (Age 18+)a) No falls within the last year Physical Exam General: Alert and oriented. No acute distress Eye: Normal conjunctiva HENT: Normocephalic Respiratory: Respirations not labored Cardiovascular: Normal rate, no edema Gastrointestinal: Nondistended MSK: L wrist mild pain with wrist flexion/extension/abdu ction/adduction, mild edema noted to ulnar side of wrist, there is clicking felt during palpation and movement of ulnar aspect of wrist, no color change noted, mild warmth to area Integumentary: Warm, dry, pink Psychiatric: Cooperative, good affect, eye contact, judgment, insight, voice 'Scores and Scales' Signatures Electronically signed by : Parag Herrera PA-C; Nov 27 2021 7:19AM EST (Author) Normal [facility] 11-[facility]2021 XR Wrist - bilateral 3 Views Please click on the link to view the study images Normal [facility] Work Phone: XR Wrist - bilateral 3 Views Normal [facility] [address] Work Phone: Tobacco Screening.on 022 Adult depression screening assessment No [facility] Work Phone: Fall risk assessment a) No falls within the last year [facility] Work Phone: Tobacco use status [facility] b) No M [facility] Work Phone: WRIST COMPLT MIN 3 VIEWSon 0 11-23-2021 WRIST COMPLT MIN 3 VIEWS Patient Name: TEDDY FIGUEROA STUDY: WRIST COMPLT; MIN 3 VIEWS INDICATION: pain M25.539: Wrist pain. COMPARISON: None ACCESSION NUMBER(S): [id number] ORDERING CLINICIAN: PARAG HERRERA FINDINGS: No osseous, articular, or soft tissue abnormality. IMPRESSION: Normal radiographs left wrist. Electronically signed by: ABBEY HERRING MD Normal [facility] Office Visit ([facility])on 09-22-2021 Follow-up visit Diagnoses/Problems Rash (782.1) (R21) Most likely reactive dermatitis Clobetasol ointment Hydroxyzine for pruritis Advised to call if rash worsens or does not improve Follow up prn Orders Rash Start: Clobetasol Propionate 0.05 % External Ointment; APPLY AND GENTLY MASSAGE INTO AFFECTED AREA(S) TWICE DAILY Start: hydrOXYzine HCl - 25 MG Oral Tablet; TAKE 1 TABLET 4 TIMES DAILY NEEDED Chief Complaint pt c/o itchy rash on shoulders and back x2 days. History of Present Illness 51 YOF presents for acute visit. 2 days ago noticed her shoulder was itching, when she got out of shower this morning she noticed a very itchy rash upper back shoulders chest and some spots on her arms. No recent travel, exposures out of the normal. No changes in detergent or soap recently. Was at her cousins recently and endorses thinking some no see ums or small bugs bit her arms. She took a Benadryl last night which helped a mildly with the itching. Review of Systems Review of Systems: Constitutional: no fever, no unintentional weight change Eye: no recent visual problem Respiratory: no shortness of breath Cardiac: no chest pain GI: no reflux, no nausea, no vomiting, no diarrhea, no constipation, no heartburn, no abdominal pain Neurological: no headache Active Problems Cutaneous candidiasis (112.3) (B37.2) Dog bite, initial encounter (879.8,E906.0) (W54.0XXA) Hot flashes, menopausal (627.2) (N95.1) Left hand fracture (815.00) (S62.92XA) Localized swelling, mass, or lump of left lower extremity (782.2) (R22.42) Morbid obesity with BMI of 40.0-44.9, adult (278.01,V85.41) (E66.01,Z68.41) Pain in posterior left lower extremity (729.5) (M79.605) URI, acute (465.9) (J06.9) Urinary urgency (788.63) (R39.15) UTI (urinary tract infection) (599.0) (N39.0) Surgical History History of Bladder surgery 43, 45, 47 History of Hernia repair History of Hysterectomy 47 yr History of Kidney donation procedure History of Nose surgery 16 yrs History of Rectocele repair 47 yr Family History Family history of congenital heart disease (V19.5) (Z82.79) Family history of hypertension (V17.49) (Z82.49) Family history of liver cancer (V16.0) (Z80.0) Social History Never a smoker No advance directives (V49.89) (Z78.9) Allergies Latex Rash; Recorded By: Brook Galdamez; 12/06/2020 1:34:59 PM Current Meds Medication NameInstructionReason Benadryl TABSTAKE 1 TABLET AT BEDTIME.Health Maintenance NexIUM 20 MG Oral Capsule Delayed ReleaseTAKE 1 CAPSULE ONCE DAILY.Health Maintenance Premarin 0.625 MG Oral TabletTAKE 1 TABLET DAILY.Hot flashes, menopausal Vitals Vital Signs Recorded: 22Sep2021 03:40PM Ueclusbdtqb63.56 C Heart Rate72 Pzzgskjy011 Qmcrjaile93 Height4 ft 11 in Nwfwah343 lb 15.82 oz BMI Sooeufhloi25.81 kg/m2 BSA Calculated1.87 Tobacco Useb) No Physical Exam General: Alert and oriented. No acute distress Eye: Normal conjunctiva HENT: Normocephalic Respiratory: Respirations not labored Cardiovascular: Normal rate, no edema Gastrointestinal: Nondistended Integumentary: Warm, dry, pink. Upper back, bilateral shoulders, bilateral upper extremities, upper chest with erythematous papular rash, she is scratching rash during visit, no dermatomal delineation noted, Psychiatric: Cooperative, good affect, eye contact, judgment, insight, voice 'Scores and Scales' Signatures Electronically signed by : Parag Herrera PA-C; Sep 22 2021 4:05PM EST (Author) Normal [facility] Tobacco Screening.on 022 Tobacco use status [facility] b) No M [facility] Work Phone: [facility] Visit ([facility])on 09-07-2021 Follow-up visit Diagnoses/Problems URI, acute (465.9) (J06.9) Hot flashes, menopausal (627.2) (N95.1) Morbid obesity with BMI of 40.0-44.9, adult (278.01,V85.41) (E66.01,Z68.41) Orders Hot flashes, menopausal Stop: PARoxetine HCl - 10 MG Oral Tablet Renew: Premarin 0.625 MG Oral Tablet; TAKE 1 TABLET DAILY URI, acute Start: Amoxicillin-Pot Clavulanate 875-125 MG Oral Tablet; TAKE 1 TABLET Every twelve hours for 7 days Follow-up visit in 6 months Outpatient Follow-up Status: Hold For - Scheduling Requested for: 07Sep2021 Provider Impressions URI: Augmentin x7 days, flonase, otc antihistamine HOT FLASHES: Increase Premarin to 0.625mg daily. Continue 5mg paxel every other day for 2 weeks, then discontinue. Follow up 6 months or sooner prn. Chief Complaint med check, pt c/o cough, sneezing,fatigue 1 week. History of Present Illness 51 YOF presents for med check. Just got back from [place], has been sick, has been running low grade fever for about a week, sore throat in morning but improves as day goes, 2 negative home COVID tests, mild nonproductive cough, ear fullness, sinus congestion, runny nose. Has Flonase at home, does benadryl at bedtime. Still with sever hot flashes at nighttime, wakes up soaked with sweat, menopausal symptoms controlled well on premarin throughout the day. Would like increase in premarin. She feels paroxetine has made her feel weird she would like to discontinue, she has been taking 5mg daily for 6 months now. She would not like an alternative SSRI at this time. Review of Systems Review of Systems: Constitutional: no fever, no unintentional weight change Eye: no recent visual problem Respiratory: no shortness of breath Cardiac: no chest pain GI: no reflux, no nausea, no vomiting, no diarrhea, no constipation, no heartburn, no abdominal pain Neurological: no headache Active Problems Cutaneous candidiasis (112.3) (B37.2) Dog bite, initial encounter (879.8,E906.0) (W54.0XXA) Hot flashes, menopausal (627.2) (N95.1) Left hand fracture (815.00) (S62.92XA) Localized swelling, mass, or lump of left lower extremity (782.2) (R22.42) Pain in posterior left lower extremity (729.5) (M79.605) Urinary urgency (788.63) (R39.15) UTI (urinary tract infection) (599.0) (N39.0) Surgical History History of Bladder surgery 43, 45, 47 History of Hernia repair History of Hysterectomy 47 yr History of Kidney donation procedure History of Nose surgery 16 yrs History of Rectocele repair 47 yr Family History Family history of congenital heart disease (V19.5) (Z82.79) Family history of hypertension (V17.49) (Z82.49) Family history of liver cancer (V16.0) (Z80.0) Social History Never a smoker No advance directives (V49.89) (Z78.9) Allergies Latex Rash; Recorded By: Brook Galdamez; 12/06/2020 1:34:59 PM Current Meds Medication NameInstructionReason Benadryl TABSTAKE 1 TABLET AT BEDTIME.Health Maintenance NexIUM 20 MG Oral Capsule Delayed ReleaseTAKE 1 CAPSULE ONCE DAILY.Health Maintenance PARoxetine HCl - 10 MG Oral TabletTAKE 1 TABLET DAILY DIRECTED.Hot flashes, menopausal Premarin 0.45 MG Oral TabletTAKE 1 TABLET DAILY.Hot flashes, menopausal Vitals Vital Signs Recorded: 07Sep2021 01:00PM Dxgakongrkn88.17 C Heart Rate72 Uiwdwboh591 Mdlpdalad13 Height4 ft 11 in Nqnqev292 lb 15.82 oz BMI Kbpbwucbiq01.81 kg/m2 BSA Calculated1.87 Tobacco Useb) No PHQ-2 #1. Over the last 2 weeks have you felt down, depressed or hopeless? (If yes, answer PHQ-9 below)No PHQ-2 #2. Over the last 2 weeks have you felt little interest or pleasure in doing things? (If yes, answer PHQ-9 below)No Fall Screeninga) No falls within the last year Physical Exam General: Alert and oriented. No acute distress Eye: Normal conjunctiva HENT: Normocephalic, oral mucosa is moist, no pharyngeal erythema, neck supple, no LAD, no thyromegaly Respiratory: Lungs clear to auscultation, respirations not labored Cardiovascular: Normal rate, regular rhythm, no murmur, no gallop, no edema Gastrointestinal: Soft, nontender, normal bowel sounds, nondistended Genitourinary: No costovertebral angle tenderness Integumentary: Warm, dry, pink Psychiatric: Cooperative, good affect, eye contact, judgment, insight, voice 'Scores and Scales' Signatures Electronically signed by : Parag Herrera PA-C; Sep 07 2021 1:27PM EST (Author) Normal [facility] Tobacco Screening.on Adult depression screening assessment No [facility] Work Phone: Fall risk assessment a) No falls within the last year [facility] Work Phone: Tobacco use status [facility] b) No M [facility] Work Phone: XR FINGER(S) LEFT 2+ VIEWSon 02-22-2021 XR FINGER(S) LEFT 2+ VIEWS EXAMINATION: XR FINGER(S) LEFT 2+ VIEWS. HISTORY: ORDERING SYSTEM PROVIDED HISTORY: Dog bite. TECHNOLOGIST PROVIDED HISTORY: Injury/Trauma Reason for exam: Dog bite with pain AND swelling late Jan 2021 Cancer History: u Surgery, RadiationHistory: u Encounter Type: Subsequent/Follow-up Mechanism of injury: Dog bite with pain AND swelling late Jan 2021 ORDERING SYSTEM PROVIDED DIAGNOSIS CODES: W54.0XXA Dog bite COMPARISON: 10/25/2020. FINDINGS: Three views of the left thumb. Questionable nondisplaced fracture at the ulnar aspect of the 1st metatarsal shaft. No additional fractures. Normal joint alignment. No radiopaque foreign body. No soft tissue emphysema. IMPRESSION: Questionable nondisplaced fracture of the 1st metatarsal shaft. Short-term follow-up could be considered. No soft tissue emphysema or radiopaque foreign body. ST/alt Workstation ID: [id number] Dictated by: NEMO THIBODEAUX on SatFeb 24, 2021 3:49:38 PM EST Transcribed by: SALLIE BRASWELL on SatFeb 24, 2021 4:00:10 PM EST Finalized by: NEMO THIBODEAUX on SatFeb 24, 2021 9:41:08 PM EST Normal [facility] Comment on above: Order Comment: Injur y/Trauma or Illness?:Injury/Trauma How long have you had these symptoms (acute/chronic)?:Acute Reason for exam?:dog bite with pain AND swelling late jan 2021 History of cancer?:u Surgeries, chemotherapy, or radiation?:u Type of Exam?:Subsequent/Follow-up Mechanism of injury?:dog bite with pain AND swelling late jan 2021 Tobacco Screening.on 021 Tobacco use status [facility] b) No M [facility] Work Phone: [phone] Cult, Urineon 02-09-2021 Bacteria identified Cx Nom (U) Abnormal [facility] Work Phone: IO UA (automated w/o microsc opy)on 02-09-2021 Protein (U) [Mass/Vol] 300 mg/dL [facility] Work Phone: [phone] IO UA (automated w/o microscopy) (+++)large - 80 [facility] Work Phone: [phone] IO UA (automated w/o microscopy) Positive [facility] Work Phone: [phone] IO UA (automated w/o microscopy) 4 mg/dl [facility] Work Phone: [phone] IO UA (automated w/o microscopy) 5.0 1 [facility] Work Phone: IO UA (automated w/o microscopy) (++)moderate - 40 [facility] Work Phone: IO UA (automated w/o microscopy) 1.020 1 [facility] Work Phone: IO UA (automated w/o microscopy) (+)small - 15 [facility] Work Phone: IO UA (automated w/o microscopy) (++)moderate [facility] Work Phone: [phone] IO UA (automated w/o microscopy) 250 mg/dl [facility] Work Phone: IO UA (automated w/o microscopy) Clear [facility] Work Phone: IO UA (automated w/o microscopy) Other [facility] Work Phone: Tobacco Screening.on Tobacco use status [facility] b) No M [facility] Work Phone: Cult, Misc + smearon Bacteria identified Cx Nom (Unsp spec) Abnormal [facility] Work Phone: Tobacco Screening.on Tobacco use status [facility] b) No M [facility] Work Phone: No Panel Informationon 02-01 Normal [facility] Work Phone: Radiologyon 02-01-2021 XR Hand 3 Views Normal [facility] Work Phone: Tobacco Screening.on Tobacco use status [facility] b) No M [facility] Work Phone: Laboratory - Chemistry and C hemistry - challengeon 12-06-2020 Albumin BCP dye [Mass/Vol] 4.4 g/dL 3.4 - 5.0 [facility] Work Phone: ALP [Catalytic activity/Vol] 102 U/L 33 - 110 [facility] Work Phone: ALT With P-5'-P [Catalytic activity/Vol] 18 U/L 7 - 45 [facility] Work Phone: [phone] Comment on above: Patients treated wit h Sulfasalazine may generate falsely decreased results for ALT. Anion gap [Moles/Vol] 12 mmol/L 10 - 20 [facility] Work Phone: AST With P-5'-P [Catalytic activity/Vol] 20 U/L 9 - 39 [facility] Work Phone: [phone] Bilirubin [Mass/Vol] 0.4 mg/dL 0.0 - 1.2 [facility] Work Phone: [phone] Calcium [Mass/Vol] 9.6 mg/dL 8.6 - 10.3 [facility] Work Phone: Chloride [Moles/Vol] 103 mmol/L 98 - 107 [facility] Work Phone: CO2 [Moles/Vol] 28 mmol/L 21 - 32 [facility] Work Phone: Creatinine [Mass/Vol] 0.87 mg/dL See Below [facility] Work Phone: [phone] Comment on above: Reference Range: 0.5 0 - 1.05 Glucose [Mass/Vol] 86 mg/dL 74 - 99 [facility] Work Phone: [phone] Potassium [Moles/Vol] 4.2 mmol/L 3.5 - 5.3 [facility] Work Phone: [phone] Protein [Mass/Vol] 7.7 g/dL 6.4 - 8.2 [facility] Work Phone: [phone] Sodium [Moles/Vol] 139 mmol/L 136 - 145 [facility] Work Phone: [phone] TSH Qn 0.86 m[IU]/L See Below [facility] Work Phone: Comment on above: Reference Range: 0.4 4 - 3.98 TSH testing is performed using different testing methodology at [facility] than at other [facility]. Direct result comparisons should only be made within the same method. Urea nitrogen [Mass/Vol] 14 mg/dL 6 - 23 [facility] Work Phone: Lipid Panelon 12-06-2020 Cholesterol [Mass/Vol] 200 mg/dL above hig h threshold 0 - 199 [facility] Work Phone: Comment on above: . AGE DESIRABLE BORD BENITO HIGH HIGH 0-19 Y 0 - 169 170 - 199 >/= 200 20-24 Y 0 - 189 190 - 224 >/= 225 >24 Y 0 - 199 200 - 239 >/= 240 All ranges are based on fasting samples. Specific therapeutic targets will vary based on patient-specific cardiac risk.. Pediatric guidelines reference:Pediatrics 2011, 128(S5). Adult guidelines reference: NCEP ATPIII Guidelines, DENISSE 2001, 258:2486-97. Venipuncture immediately after or during the administration of Metamizole may lead to falsely low results. Testing should be performed immediately prior to Metamizole dosing. Cholesterol in HDL [Mass/Vol] 63.0 mg/dL [facility] Work Phone: Comment on above: . AGE VERY LOW LOW N ORMAL HIGH 0-19 Y < 35 < 40 40-45 ---- 20-24 Y ---- < 40 >45 ---- >24 Y ---- < 40 40-60 >60. Cholesterol in LDL [Mass/Vol] 118 mg/dL above high threshold 0 - 99 [facility] Work Phone: Comment on above: . NEAR BORD AGE SHADY RABLE OPTIMAL HIGH HIGH VERY HIGH 0-19 Y 0 - 109 --- 110-129 >/= 130 ---- 20-24 Y 0 - 119 --- 120-159 >/= 160 ---- >24 Y 0 - 99 100-129 130-159 160-189 >/=190. Cholesterol.total/Choles terol in HDL [Mass ratio] 3.2 {ratio} [facility] Work Phone: Comment on above: REF VALUESDESIRABLE < 3.4HIGH RISK > 5.0 Triglyceride [Mass/Vol] 95 mg/dL 0 - 149 [facility] Work Phone: Comment on above: . AGE DESIRABLE BORD BENITO HIGH HIGH VERY HIGH 0 D-90 D 19 - 174 ---- ---- ----91 D- 9 Y 0 - 74 75 - 99 >/= 100 ---- 10-19 Y 0 - 89 90 - 129 >/= 130 ---- 20-24 Y 0 - 114 115 - 149 >/= 150 ---- >24 Y 0 - 149 150 - 199 200- 499 >/= 500. Venipuncture immediately after or during the administration of Metamizole may lead to falsely low results. Testing should be performed immediately prior to Metamizole dosing. Lipid Panel 19 mg/dL 0 - 40 [facility] Work Phone: No Panel Informationon 12-06 >60 >60 [facility] Work Phone: Comment on above: CALCULATIONS OF SALINA MATED GFR ARE PERFORMED USING THE MDRD STUDY EQUATION FOR THE IDMS-TRACEABLE CREATININE METHODS. CLIN CHEM 2007;53:766-72 Tobacco Screening.on 021 Tobacco use status [facility] b) No M [facility] Work Phone: Auto Diffon 12-16-2018 Basophils (Bld) [#/Vol] 0.1 E3/mcL Normal 0.0-0.2 [facility] Comment on above: Order Comment: Order Added by Discern Expert. Performed By: #### 2 [id number] #### [employer] [address] [place] [address] Basophils/100 WBC (Bld) 0.7 % Normal 0.0-2.0 [facility] Comment on above: Order Comment: Order Added by Discern Expert. Performed By: #### 2 [id number] #### [employer] [address] [place] [address] Eos Absolute 0.2 E3/mcL Normal 0.0-0.7 [facility] Comment on above: Order Comment: Order Added by Discern Expert. Performed By: #### 2 [id number] #### [employer] [address] [place] [address] Eosinophils/100 WBC (Bld) 2.2 % Normal 0.0-11.0 [facility] Comment on above: Order Comment: Order Added by Discern Expert. Performed By: #### 2 [id number] #### [employer] [address] [place] [address] Lymphocytes (Bld) [#/Vol] 2.8 E3/mcL Normal 1.2-3.4 [facility] Comment on above: Order Comment: Order Added by Discern Expert. Performed By: #### 2 [id number] #### [employer] [address] [place] [address] Lymphocytes/100 WBC (Bld) 35.5 % Normal 20.0-55.0 [facility] Comment on above: Order Comment: Order Added by Discern Expert. Performed By: #### 2 680245 #### [facility] [address] [place] [address] [place] Absolute 0.5 E3/mcL Normal 0.0-0.7 [facility] Comment on above: Order Comment: Order Added by Discern Expert. Performed By: #### 2 [id number] #### [employer] [address] [place] [address] Monocytes/100 WBC (Bld) 6.5 % Normal 0.0-10.0 [facility] Comment on above: Order Comment: Order Added by Discern Expert. Performed By: #### 2 [id number] #### [facility] [address] [place] [address] Neutro Absolute 4.3 E3/mcL Normal 1.4-6.5 [facility] Comment on above: Order Comment: Order Added by Discern Expert. Performed By: #### 2 [id number] #### [facility] [address] [place] [address] Neutro Auto 55.1 % Normal 37.0-75.0 [facility] Comment on above: Order Comment: Order Added by Discern Expert. Performed By: #### 2 536552 #### [employer] [address] [place] [address] CBC w/ Auto Diffon 9 Erythrocyte distribution width (RBC) [Ratio] 14.6 % High 11.5-14.5 [facility] Comment on above: Performed By: #### 2 [id number] #### [employer] [address] [place] [address] Hematocrit (Bld) [Volume fraction] 40.2 % Normal 36.0-48.0 [facility] Comment on above: Performed By: #### 2 [id number] #### [employer] [address] [place] [address] Hemoglobin (Bld) [Mass/Vol] 13.3 g/dL Normal 12.0-16.0 [facility] Comment on above: Performed By: #### 2 959526 #### [facility] [employer] [facility] [place] [address] MCH (RBC) [Entitic mass] 28.2 pg Normal 27.0-31.0 [facility] Comment on above: Performed By: #### 2 061375 #### [facility] [employer] [facility] [place] [address] MCHC (RBC) [Mass/Vol] 33.0 g/dL Normal 33.0-37.0 [facility] Comment on above: Performed By: #### 2 691514 #### [facility] [employer] [facility] [place] [address] MCV (RBC) [Entitic vol] 85.6 fL Normal 78.0-100.0 [facility] Comment on above: Performed By: #### 2 615185 #### [employer] [address] [place] [address] Platelet mean volume (Bld) [Entitic vol] 7.9 fL Normal 7.4-11.0 [facility] Comment on above: Performed By: #### 2 457070 #### [employer] [address] [place] [address] Platelets (Bld) [#/Vol] 305 E3/mcL Normal 130-400 [facility] Comment on above: Performed By: #### 2 104267 #### [employer] [address] [place] [address] RBC (Bld) [#/Vol] 4.69 E6/mcL Normal 3.90-5.40 [facility] Comment on above: Performed By: #### 2 339702 #### [facility] [employer] [facility] [place] [address] WBC (Bld) [#/Vol] 7.9 E3/mcL Normal 3.6-11.0 [facility] Comment on above: Performed By: #### 2 353845 #### [employer] [address] [place] [address] CMPon 12-16-2018 Albumin [Mass/Vol] 4.0 g/dL Normal 3.4-5.0 [facility] Comment on above: Performed By: #### 2 [id number] #### [employer] [address] [place], [place] [id number] Albumin/Globulin [Mass ratio] 1.4 {ratio} Normal 1.1-1.9 [facility] Comment on above: Performed By: #### 2 163461 #### [facility] [employer] [address] [place] [address] Alk Phos 96 Int._Unit/L Normal 33-110 [facility] Comment on above: Performed By: #### 2 174084 #### [employer] [address] [place] [address] ALT [Catalytic activity/Vol] 15 Int._Unit/L Normal 7-45 [facility] Comment on above: Performed By: #### 2 658106 #### [employer] [address] [place] [address] Anion gap [Moles/Vol] 10 mmol/L Normal 10-20 [facility] Comment on above: Performed By: #### 2 780931 #### [facility] [employer] [address] [place] [address] AST [Catalytic activity/Vol] 15 Int._Unit/L Normal 9-39 [facility] Comment on above: Performed By: #### 2 269356 #### [facility] [employer] [address] [place], [place] [id number] Bili Total 0.44 mg/dL Normal 0.00-1.20 [facility] Comment on above: Performed By: #### 2 552982 #### [employer] [address] [place] [address] Calcium [Mass/Vol] 9.1 mg/dL Normal 8.6-10.3 [facility] Comment on above: Performed By: #### 2 198892 #### [employer] [address] [place] [address] Chloride [Moles/Vol] 107 mmol/L Normal 98-107 [facility] Comment on above: Performed By: #### 2 023240 #### [employer] [address] [place] [address] CO2 [Moles/Vol] 27.0 mmol/L Normal 21.0-32.0 [facility] Comment on above: Performed By: #### 2 621163 #### [employer] [address] [place] [address] Creatinine [Mass/Vol] 0.8 mg/dL Normal 0.5-1.1 [facility] Comment on above: Performed By: #### 2 826528 #### [employer] [address] [place] [address] Globulin (S) [Mass/Vol] 3.0 g/dL Normal 2.0-4.0 [facility] Comment on above: Performed By: #### 2 576186 #### [employer] [address] [place] [address] Glucose [Mass/Vol] 90 mg/dL Normal 70-99 [facility] Comment on above: Performed By: #### 2 331134 #### [employer] [address] [place] [address] Potassium [Moles/Vol] 3.5 mmol/L Normal 3.5-5.3 [facility] Comment on above: Performed By: #### 2 659658 #### [employer] [address] [place] [address] Protein [Mass/Vol] 6.9 g/dL Normal 6.4-8.2 [facility] Comment on above: Performed By: #### 2 691846 #### [employer] [address] [place] [address] Sodium [Moles/Vol] 140 mmol/L Normal 136-145 [facility] Comment on above: Performed By: #### 2 656935 #### [facility] [facility] [place] [address] Urea nitrogen [Mass/Vol] 12 mg/dL Normal 6-23 [facility] Comment on above: Performed By: #### 2 105854 #### [employer] [address] [place] [address] Urea nitrogen/Creatinine [Mass ratio] 15.0 ratio Normal 5.4-30.0 [facility] Comment on above: Performed By: #### 2 402696 #### [employer] [address] [place] [address] Lipid Profileon 12-16-2018 Cholesterol [Mass/Vol] 201 mg/dL High 0-199 [facility] Comment on above: Result Comment: TOTA L CHOLEESTEROL: <200 NORMAL 200 - 239 BORDERLINE HIGH >240 HIGH Performed By: #### 3 [id number] #### [employer] [address] [place] [address] Cholesterol in HDL [Mass/Vol] 63 mg/dL High 40-60 [facility] Comment on above: Performed By: #### 3 [id number] #### [employer] [address] [place] [address] Cholesterol in LDL [Mass/Vol] 120 mg/dL Normal 0-130 [facility] Comment on above: Result Comment: <100 OPTIMAL 100-129 NEAR / ABOVE OPTIMAL 130-159 BORDERLINE HIGH 160-189 HIGH >190 VERY HIGH CALC LDL NOT VALID WHEN TRIGLYCERIDE IS >400 MG/DL Performed By: #### 3 [id number] #### [employer] [address] [place] [address] Cholesterol in VLDL [Mass/Vol] 18 mg/dL Normal 0-40 [facility] Comment on above: Performed By: #### 3 [id number] #### [facility] [employer] [facility] [place] [address] Triglyceride [Mass/Vol] 91 mg/dL Normal 0-149 [facility] Comment on above: Result Comment: AGE DESIRABLE BORDERLINE HIGH 91 D - 9 Y 0 - 74 75 - 99 > 100 10 - 19 Y 0 - 89 90 - 129 > 130 20 -24 Y 0 - 114 115 - 149 > 150 > 25 0 - 149 150 - 199 200 - 499 Performed By: #### 3 [id number] #### [facility] [address] [place] [address] TSHon 12-16-2018 TSH Qn 1.48 mcIU/mL Normal 0.30-5.60 [facility] Comment on above: Performed By: #### 2 318991 #### [facility] [employer] [address] [place] [address] eGFRon 12-16-2018 GFR/1.73 sq M predicted among non-blacks MDRD (S/P/Bld) [Vol rate/Area] mL/min/{1.73_m2} Normal [facility] Comment on above: Order Comment: Order added by Discern Expert. Performed By: #### 1 [id number] #### [facility] [employer] [facility] [place] [address] Basic Metabolic Panelon Calcium mass conc 8.7 mg/dL Normal 8.4-10.2 [facility] Comment on above: Performed By: #### C HEM8, LIPID ####Unless otherwise noted, all testing performed by [address] [phone]: [id number] Director: Sherman Blum M.D. Chloride molar conc 107 mmol/L Normal 98-108 [facility] Comment on above: Performed By: #### C HEM8, LIPID ####Unless otherwise noted, all testing performed by [address] [phone]: [id number] Director: Sherman Blum M.D. CO2 molar conc 24 mmol/L Normal 21-32 [facility] Comment on above: Performed By: #### C HEM8, LIPID ####Unless otherwise noted, all testing performed by [place] [address] [address] [facility].[place], [place] [phone]: [id number] Director: Sherman Blum M.D. Creatinine mass conc 0.81 mg/dL Normal 0.40-1.10 [facility] Comment on above: Performed By: #### C HEM8, LIPID ####Unless otherwise noted, all testing performed by [address], [place] [phone]: [id number] Director: Sherman Blum M.D. GFR/1.73 sq M predicted among blacks MDRD vol rate/area (S/P/Bld) mL/min/{1.73_m2} Normal [facility] Comment on above: Result Comment: Afri can Mongolian GFR Calc Performed By: #### C HEM8, LIPID ####Unless otherwise noted, all testing performed by [address] [phone]: [id number] Director: Sherman Blum M.D. GFR/1.73 sq M predicted among non-blacks MDRD vol rate/area (S/P/Bld) mL/min/{1.73_m2} Normal [facility] Comment on above: Result Comment: Non- GFR CalceGFR is an estimated Glomerular Filtration Rate based on the valueof the patient's serum creatinine. In outpatients, eGFR should be usedas a helpful tool in screening for CKD. In inpatients or patients withacute renal failure, eGFR represents the GFR at the moment of the drawand should be used with caution. Performed By: #### C HEM8, LIPID ####Unless otherwise noted, all testing performed by [place] [address], [place] [phone]: [id number] Director: Sherman Blum M.D. Glucose mass conc 85 mg/dL Normal 70-99 [facility] Comment on above: Result Comment: This test result might be falsely depressed or falsely elevated onsamples drawn from patients taking Sulfasalazine and Sulfapyridine.Venipuncture should occur prior to taking either of these drugs. Performed By: #### C HEM8, LIPID ####Unless otherwise noted, all testing performed by [address] [phone]: [id number] Director: Sherman Blum M.D. Potassium molar conc 4.1 mmol/L Normal 3.5-5.1 [facility] Comment on above: Performed By: #### C HEM8, LIPID ####Unless otherwise noted, all testing performed by [address] [phone]: [id number] Director: Sherman Blum M.D. Sodium molar conc 141 mmol/L Normal 135-145 [facility] Comment on above: Performed By: #### C HEM8, LIPID ####Unless otherwise noted, all testing performed by [address] [phone]: [id number] Director: Sherman Blum M.D. Urea nitrogen mass conc 16 mg/dL Normal 8-25 [facility] Comment on above: Performed By: #### C HEM8, LIPID ####Unless otherwise noted, all testing performed by [address] [phone]: [id number] Director: Sherman Blum M.D. Lipid Panelon 12-10-2017 Cholesterol in HDL mass conc 53 mg/dL Normal 40-59 [facility] Comment on above: Performed By: #### C HEM8, LIPID ####Unless otherwise noted, all testing performed by [address] [phone]: [id number] Director: Sherman Blum M.D. Cholesterol in LDL mass conc 116 mg/dL Normal 10-150 [facility] Comment on above: Performed By: #### C HEM8, LIPID ####Unless otherwise noted, all testing performed by [address] [phone]: [id number] Director: Sherman Blum M.D. Cholesterol in VLDL mass conc 24 mg/dL Normal 5-40 [facility] Comment on above: Performed By: #### C HEM8, LIPID ####Unless otherwise noted, all testing performed by [address] [phone]: [id number] Director: Sherman Blum M.D. Cholesterol mass conc 193 mg/dL Normal 100-199 [facility] Comment on above: Performed By: #### C HEM8, LIPID ####Unless otherwise noted, all testing performed by [address] [phone]: [id number] Director: Sherman Blum M.D. Cholesterol.total/Choles terol in HDL mass ratio 3.6 {ratio} Normal 3.2-5.0 [facility] Comment on above: Result Comment: Fema le Coronary Heart Disease Risk Factor (CHDRF):Average risk= 4.41/2 Average risk= 3.32 times Average risk= 7.1 Performed By: #### C HEM8, LIPID ####Unless otherwise noted, all testing performed by [address] [phone]: [id number] Director: Sherman Blum M.D. Triglyceride mass conc 120 mg/dL Normal 25-[address] [facility] Comment on above: Performed By: #### C HEM8, LIPID ####Unless otherwise noted, all testing performed by [address] [phone]: [id number] Director: Sherman Blum M.D. Culture, Urineon 08-08-2017 Culture, Urine Test Name: Culture, Urine Culture Status: Final Culture Report: No significant growth. Micro Source: Urine - clean catch Normal [facility] Comment on above: Performed By: #### U RCUL ####Unless otherwise noted, all testing performed by [address] [phone]: [id number] Director: Sherman Blum M.D. CBC with Diffon 02-09-2017 Basophils Auto #/vol (Bld) 0.0 K/mcL Normal 0-0.2 [facility] Comment on above: Performed By: #### C BCDIF ####Unless otherwise noted, all testing performed by [address] [phone]: [id number] Director: Sherman Blum M.D. Basophils/100 WBC Auto (Bld) 0.2 % Normal [facility] Comment on above: Performed By: #### C BCDIF ####Unless otherwise noted, all testing performed by [address], [place] [phone]: [id number] Director: Sherman Blum M.D. Eosinophils Auto #/vol (Bld) 0.0 K/mcL Normal 0-0.5 [facility] Comment on above: Performed By: #### C BCDIF ####Unless otherwise noted, all testing performed by [address] [phone]: [id number] Director: Sherman Blum M.D. Eosinophils/100 WBC Auto (Bld) 0.2 % Normal [facility] Comment on above: Performed By: #### C BCDIF ####Unless otherwise noted, all testing performed by [place] [phone]: [id number] Director: Sherman Blum M.D. Erythrocyte distribution width Auto Ratio (RBC) 13.3 % Normal 10.0-14.4 [facility] [facility] Comment on above: Performed By: #### C BCDIF ####Unless otherwise noted, all testing performed by [place] [id number]: [id number] Director: Sherman Blum M.D. Hematocrit Auto Volume Fraction (Bld) 35.2 % Normal 34.4-44.8 [facility] Comment on above: Performed By: #### C BCDIF ####Unless otherwise noted, all testing performed by [address] [id number]: [id number] Director: Sherman Blum M.D. Hemoglobin mass conc (Bld) 11.8 g/dL Normal 11.6-15.4 [facility] Comment on above: Performed By: #### C BCDIF ####Unless otherwise noted, all testing performed by [address] [id number]: [id number] Director: Sherman Blum M.D. Lymphocytes Auto #/vol (Bld) 2.0 K/mcL Normal 1.0-3.7 [facility] Comment on above: Performed By: #### C BCDIF ####Unless otherwise noted, all testing performed by [address] [phone]: [id number] Director: Sherman Blum M.D. Lymphocytes/100 WBC Auto (Bld) 17.9 % Normal [facility] Comment on above: Performed By: #### C BCDIF ####Unless otherwise noted, all testing performed by [address] [id number]: [id number] Director: Sherman Blum M.D. MCH Auto Entitic mass (RBC) 29.4 pg Normal 27.9-33.9 [facility] Comment on above: Performed By: #### C BCDIF ####Unless otherwise noted, all testing performed by [address] [id number]: [id number] Director: Sherman Blum M.D. MCHC Auto mass conc (RBC) 33.6 g/dL Normal 33.1-35.1 [facility] Comment on above: Performed By: #### C BCDIF ####Unless otherwise noted, all testing performed by [facility] [address] [phone]: [id number] Director: Sherman Blum M.D. MCV Auto Entitic volume (RBC) 87.5 fL Normal 82.6-98.9 [facility] Comment on above: Performed By: #### C BCDIF ####Unless otherwise noted, all testing performed by [address] [phone]: [id number] Director: Sherman Blum M.D. Monocytes Auto #/vol (Bld) 0.9 K/mcL High 0.1-0.6 [facility] Comment on above: Performed By: #### C BCDIF ####Unless otherwise noted, all testing performed by [address] [id number]: [id number] Director: Sherman Blum M.D. Monocytes/100 WBC Auto (Bld) 8.2 % Normal [facility] Comment on above: Performed By: #### C BCDIF ####Unless otherwise noted, all testing performed by [address] [id number]: [id number] Director: Sherman Blum M.D. Neutrophils Auto #/vol (Bld) 8.0 K/mcL High 1.2-6.9 [facility] Comment on above: Performed By: #### C BCDIF ####Unless otherwise noted, all testing performed by [address] [id number]: [id number] Director: Sherman Blum M.D. Platelet mean volume Auto Entitic volume (Bld) 7.2 fL Normal 7.0-10.6 [facility] Comment on above: Performed By: #### C BCDIF ####Unless otherwise noted, all testing performed by [address] [phone]: [id number] Director: Sherman Blum M.D. Platelets Auto #/vol (Bld) 271 K/mcL Normal 162-402 [facility] Comment on above: Performed By: #### C BCDIF ####Unless otherwise noted, all testing performed by [address] [id number]: [id number] Director: Sherman Blum M.D. RBC Auto #/vol (Bld) 4.03 M/mcL Normal 3.7-5.0 [facility] Comment on above: Performed By: #### C BCDIF ####Unless otherwise noted, all testing performed by [address] [phone]: [id number] Director: Sherman Blum M.D. Segmented Neut % 73.5 % Normal [facility] Comment on above: Performed By: #### C BCDIF ####Unless otherwise noted, all testing performed by [address] [phone]: [id number] Director: Sherman Blum M.D. WBC Auto #/vol (Bld) 10.9 K/mcL High 3.4-10.6 [facility] Comment on above: Performed By: #### C BCDIF ####Unless otherwise noted, all testing performed by [place] [address], [place] [phone]: [id number] Director: Sherman Blum M.D. Operation-Procedureon 2016 Operation-Procedure [place] [address], [place] [address]ZPXBTEDDY AMAYA [facility] [id number] 1970DATE 02/08/2017OPERATIVE REPORT / PROCEDURE NOTESURGEON EMERY CABALLERO, SIGRIDREOPERATIVE DIAGNOSISPelvic prolapse.POSTOPERATIVE DIAGNOSES1. Uterine prolapse.2. Cystocele.3. Rectocele.ASSISTANTEli abdirahman Gonzalez MD.PROCEDURESVaginal hysterectomy with anterior repair and posterior repair.ANESTHESIAGener al.COMPLICATIONSNone.E STIMATED BLOOD ZUDI445 mL.FINDINGSOn examination there is a 2nd degree uterine prolapse, 1st to 2nd degreecystocele and a 2nd to 3rd degree rectocele. The uterus is normal size. Thetubes and ovaries appeared to be unremarkable.PROCEDURE IN DETAILWhat was done, the patient was prepped and draped in the dorsal lithotomyposition, after which a Farrell catheter was placed, and the circumference ofthe cervix was injected with dilute Pitressin solution for hemostasis.Circumferen tial incision was made around the cervix and the vaginal mucosa isbluntly and sharply dissected upwards until the anterior and posterior cul-de-sacs are entered. Lateral pedicles were clamped, cut, and suture ligatedusing #1 chromic in a sequential fashion until the upper pedicles are reachedand the utero-ovarian pedicles are clamped, cut, and doubly suture ligated.All pedicles were found to be hemostatic after the uterus was removed from thefield, and at this point, the anterior repair was begun by injected withdilute Pitressin solution, and then, undermining and incising the vaginalmucosa in a vertical fashion from the cuff to the urethrovesical angle. Theendopelvic fascia was bluntly and sharply dissected away from the vaginalmucosa, and then, reapproximated midline using 0 chromic on a needle untilthe cystocele defect is reduced. The vaginal mucosa was trimmed, and then,reapproximated in midline using 2-0 chromic in a running locking fashion. Thevaginal cuff was then closed using running suture of #1 chromic in a lockingfashion across top of the cuff. At this point, the posterior repair was begunby removing a small piece of tissue at the fourchette, injecting with dilutePitressin solution, and then undermining and incising the vaginal mucosa fromthis area to near the top of the vagina, near the vaginal cuff. Theendopelvic fascia was bluntly and sharply dissected away from the vaginalmucosa, and then, reapproximated midline using 0 chromic on a needle.Digital rectal exam after these sutures were in place shows the rectum to notbe compromised by the suture nor pierced, and at this point, the vaginalmucosa is trimmed and reapproximated using 2-0 chromic in a running lockingfashion. The vagina was then packed with an antibiotic pack and the patientwas taken to the recovery room in good condition.AURA SO 02/08/2017 11:03 [id number] 02/08/2017 11:19 AHW/MODLElectronically Signed By Chandana Caballero M.D. on 14 Feb 2017 12:05:38 GMT Normal [facility] SURGon 02-08-2017 SURG Name: TEDDY FIGUEROA AResubmission due to incomplete transmission of the original reportSource Uterus, Cervix and Anterior/Posterior Vaginal Tissue Clinical History Pelvic Prolapse Diagnosis Uterus: Endometriosis. Weakly proliferative endometrium. Cervix with mild chronic inflammation. Negative for malignancy. Vaginal mucosa: Parakeratosis. Gross Description The specimen is received in formalin designated uterus, cervix, anterior/posterior vaginal tissue and consists of a uterus with attached cervix. Numerous strips of pink-gray vaginal mucosa are also submitted. The uterus weighs 123 g and measures 9.4 cm from ectocervix to fundus, 5.0 cm from cornu to cornu and 4.3 cm in the anterior-posterior dimension. The serosa is focally covered by adhesions. The ectocervical mucosa is wrinkled and pink-gray. The endocervical mucosa is mildly hyperemic. The cut surface of the cervix contains multiple Nabothian cysts measuring up to 0.5 cm in greatest dimension. The triangular endometrial cavity measures 4.4 x 3.6 x 0.2 cm. The cavity is lined by smooth gray tissue. No discrete endometrial lesions are identified. The myometrium does not contain any discrete lesions. The strips of wrinkled pink-gray vaginal mucosa range in size from 1.2 x 1.1 x 0.3 cm up to 5.3 x 1.7 x 0.4 cm. No discrete vaginal mucosal lesions are identified. Cassette 1 contains arborist representative anterior cervix. Cassette 2 contains arborist representative posterior cervix. Cassette 3 contains arborist representative anterior uterine wall. Cassette 4 contains arborist representative posterior uterine wall. Cassette 5 contains arborist representative serosal adhesions. Cassette 6 contains arborist representative vaginal mucosa. IT;lat (JSF/lt) Electronically Signed By Vincent Burch DO , Pathologist (Case signed 02/11/2017) [facility] Vital Signs Date Time Vital Sign Value Performing Clinician Facility 09-25-2024 08:07-0400 Body height 147.32 cm [employer] Work Phone: [facility] 09-25-2024 08:07-0400 Body mass index (BMI) [Ratio] 43.7 kg/m2 Burstly PA Work Phone: [facility] 09-25-2024 08:07-0400 Body weight 94.97 kg Burstly PA Work Phone: [facility] 08-05-2024 11:47-0400 Body mass index (BMI) [Ratio] 41.99 kg/m2 Claudia Gibbons MAINTAINER OPERATOR-STORE CONSULTANT Work Phone: [facility] 08-05-2024 11:47-0400 Body temperature 98.2 [degF] Claudia Gibbons MAINTAINER OPERATOR-STORE CONSULTANT Work Phone: [facility] 08-05-2024 11:47-0400 Body weight 91.13 kg Claudia Gibbons MAINTAINER OPERATOR-STORE CONSULTANT Work Phone: [facility] 08-05-2024 11:47-0400 Diastolic blood pressure 88 mm[Hg] Claudia Gibbons MAINTAINER OPERATOR-STORE CONSULTANT Work Phone: [facility] 08-05-2024 11:47-0400 Heart rate 86 /min Claudia Gibbons MAINTAINER OPERATOR-STORE CONSULTANT Work Phone: [facility] 08-05-2024 11:47-0400 SaO2% (BldA) [Mass fraction] 98 % Claudia Gibbons MAINTAINER OPERATOR-STORE CONSULTANT Work Phone: [facility] 08-05-2024 11:47-0400 Systolic blood pressure 130 mm[Hg] Claudia Gibbons MAINTAINER OPERATOR-STORE CONSULTANT Work Phone: [facility] 05-05-2024 07:37-0500 Body height 147.3 cm Parag Stentz PA-C Work Phone: [facility] 05-05-2024 07:37-0500 Body mass index (BMI) [Ratio] 41.17 kg/m2 Parag Stentz PA-C Work Phone: [facility] 05-05-2024 07:37-0500 Body weight 89.36 kg Parag Stentz PA-C Work Phone: [facility] 05-05-2024 07:37-0500 Diastolic blood pressure 80 mm[Hg] Parag Stentz PA-C Work Phone: [facility] 05-05-2024 07:37-0500 Heart rate 95 /min Parag Stentz PA-C Work Phone: [facility] 05-05-2024 07:37-0500 SaO2% (BldA) [Mass fraction] 98 % Parag Stentz PA-C Work Phone: [facility] 05-05-2024 07:37-0500 Systolic blood pressure 124 mm[Hg] Parag Stentz PA-C Work Phone: [facility] 03-20-2024 11:51-0500 Body height 147.3 cm Geraldo Martínez MAINTAINER OPERATOR-STORE CONSULTANT Work Phone: [facility] 03-20-2024 11:51-0500 Body mass index (BMI) [Ratio] 39.73 kg/m2 Geraldo Martínez MAINTAINER OPERATOR-STORE CONSULTANT Work Phone: [facility] 03-20-2024 11:51-0500 Body temperature 98.2 [degF] Geraldo Martínez MAINTAINER OPERATOR-STORE CONSULTANT Work Phone: [facility] 03-20-2024 11:51-0500 Body weight 86.23 kg Geraldo Martínez MAINTAINER OPERATOR-STORE CONSULTANT Work Phone: [facility] 03-20-2024 11:51-0500 Diastolic blood pressure 88 mm[Hg] Geraldo Martínez MAINTAINER OPERATOR-STORE CONSULTANT Work Phone: [facility] 03-20-2024 11:51-0500 Heart rate 104 /min Geraldo Martínez MAINTAINER OPERATOR-STORE CONSULTANT Work Phone: [facility] 03-20-2024 11:51-0500 SaO2% (BldA) [Mass fraction] 94 % Geraldo Martínez MAINTAINER OPERATOR-STORE CONSULTANT Work Phone: [facility] 03-20-2024 11:51-0500 Systolic blood pressure 124 mm[Hg] Geraldo Martínez MAINTAINER OPERATOR-STORE CONSULTANT Work Phone: [facility] 02-07-2024 10:57-0400 Body height 147.3 cm Geraldo Martínez MAINTAINER OPERATOR-STORE CONSULTANT Work Phone: [facility] 02-07-2024 10:57-0400 Body mass index (BMI) [Ratio] 38.81 kg/m2 Geraldo Martínez MAINTAINER OPERATOR-STORE CONSULTANT Work Phone: [facility] 02-07-2024 10:57-0400 Body temperature 98.2 [degF] Geraldo Martínez MAINTAINER OPERATOR-STORE CONSULTANT Work Phone: [facility] 02-07-2024 10:57-0400 Body weight 84.23 kg Geraldo Martínez MAINTAINER OPERATOR-STORE CONSULTANT Work Phone: [facility] 02-07-2024 10:57-0400 Diastolic blood pressure 79 mm[Hg] Geraldo Martínez MAINTAINER OPERATOR-STORE CONSULTANT Work Phone: [facility] 02-07-2024 10:57-0400 Heart rate 90 /min Geraldo Martínez MAINTAINER OPERATOR-STORE CONSULTANT Work Phone: [facility] 02-07-2024 10:57-0400 SaO2% (BldA) [Mass fraction] 94 % Geraldokeren Martínez MAINTAINER OPERATOR-STORE CONSULTANT Work Phone: [facility] 02-07-2024 10:57-0400 Systolic blood pressure 118 mm[Hg] Geraldo Martínez MAINTAINER OPERATOR-STORE CONSULTANT Work Phone: [facility] 01-16-2024 15:21-0400 Body mass index (BMI) [Ratio] 37.87 kg/m2 Parag Stentz PA-C Work Phone: [facility] 01-16-2024 15:21-0400 Body weight 82.19 kg Parag Stentz PA-C Work Phone: [facility] 01-16-2024 15:21-0400 Diastolic blood pressure 80 mm[Hg] Parag Stentz PA-C Work Phone: [facility] 01-16-2024 15:21-0400 Heart rate 90 /min Parag Stentz PA-C Work Phone: [facility] 01-16-2024 15:21-0400 SaO2% (BldA) [Mass fraction] 97 % Parag Stentz PA-C Work Phone: [facility] 01-16-2024 15:21-0400 Systolic blood pressure 110 mm[Hg] Parag Stentz PA-C Work Phone: [facility] 09-18-2023 09:48-0400 Diastolic blood pressure 73 mm[Hg] Amol Bae MD Work Phone: [facility] 09-18-2023 09:48-0400 Heart rate 60 /min Amol Bae MD Work Phone: [facility] 09-18-2023 09:48-0400 Respiratory rate 14 /min Amol Bae MD Work Phone: [facility] 09-18-2023 09:48-0400 SaO2% (BldA) [Mass fraction] 98 % Amol Bae MD Work Phone: [facility] 09-18-2023 09:48-0400 Systolic blood pressure 119 mm[Hg] Amol Bae MD Work Phone: [facility] 09-18-2023 09:28-0400 Body temperature 97.7 [degF] Amol Bae MD Work Phone: [facility] 09-18-2023 08:17-0400 Body height 147.3 cm Amol Bae MD Work Phone: [facility] 09-18-2023 08:17-0400 Body mass index (BMI) [Ratio] 37.62 kg/m2 Amol Bae MD Work Phone: [facility] 09-18-2023 08:17-0400 Body weight 81.65 kg Amol Bae MD Work Phone: [facility] 08-30-2023 10:08-0400 Body height 147.3 cm Parag Stentz PA-C Work Phone: [facility] 08-30-2023 10:08-0400 Body mass index (BMI) [Ratio] 38.04 kg/m2 Parag Stentz PA-C Work Phone: [facility] 08-30-2023 10:08-0400 Body temperature 98.01 [degF] Parag Stentz PA-C Work Phone: [facility] 08-30-2023 10:08-0400 Body weight 82.56 kg Parag Stentz PA-C Work Phone: [facility] 08-30-2023 10:08-0400 Diastolic blood pressure 72 mm[Hg] Parag Stentz PA-C Work Phone: [facility] 08-30-2023 10:08-0400 Heart rate 72 /min Parag Stentz PA-C Work Phone: [facility] 08-30-2023 10:08-0400 SaO2% (BldA) [Mass fraction] 98 % Parag Stentz PA-C Work Phone: [facility] 08-30-2023 10:08-0400 Systolic blood pressure 118 mm[Hg] Parag Stentz PA-C Work Phone: [facility] 08-21-2023 13:39-0400 Heart rate 74 /min Salena Smith DO Work Phone: 5(549)287-470788 [place] [address] 08-21-2023 13:39-0400 Respiratory rate 16 /min Salena Smith DO Work Phone: 6(231)109-405488 [place] [address] 08-21-2023 13:39-0400 SaO2% (BldA) [Mass fraction] 100 % Salena Smith DO Work Phone: 7(344)010-945788 [place] [address] 08-21-2023 11:34-0400 Diastolic blood pressure 85 mm[Hg] Salena Murilloersen DO Work Phone: 8(213)755-864088 [place] [address] 08-21-2023 11:34-0400 Systolic blood pressure 129 mm[Hg] Salena Smith DO Work Phone: 4(763)907-556788 [place] [address] 08-21-2023 11:20-0400 Body height 147.3 cm Salena Murilloersen DO Work Phone: 1(527)918-131488 [place] [address] 08-21-2023 11:20-0400 Body mass index (BMI) [Ratio] 37.62 kg/m2 Salena Murilloersen DO Work Phone: 4(351)992-304637 [place] [address] 08-21-2023 11:20-0400 Body temperature 98.01 [degF] Salena Smith DO Work Phone: 5(836)585-173088 [place] [address] 08-21-2023 11:20-0400 Body weight 81.65 kg Salena Smith DO Work Phone: [facility] 06-06-2023 08:46-0500 Body height 149.9 cm Parag Stentz PA-C Work Phone: [facility] 06-06-2023 08:46-0500 Body mass index (BMI) [Ratio] 40.19 kg/m2 Parag Stentz PA-C Work Phone: [facility] 06-06-2023 08:46-0500 Body weight 90.27 kg Parag Stentz PA-C Work Phone: [facility] 06-06-2023 08:46-0500 Diastolic blood pressure 78 mm[Hg] Parag Stentz PA-C Work Phone: [facility] 06-06-2023 08:46-0500 Heart rate 76 /min Parag Stentz PA-C Work Phone: [facility] 06-06-2023 08:46-0500 SaO2% (BldA) [Mass fraction] 96 % Parag Stentz PA-C Work Phone: [facility] 06-06-2023 08:46-0500 Systolic blood pressure 128 mm[Hg] Parag Stentz PA-C Work Phone: [facility] 03-05-2023 08:10-0500 Body height 149.9 cm Parag Stentz PA-C Work Phone: [facility] 03-05-2023 08:10-0500 Body mass index (BMI) [Ratio] 38.58 kg/m2 Parag Stentz PA-C Work Phone: [facility] 03-05-2023 08:10-0500 Body weight 86.64 kg Parag Stentz PA-C Work Phone: [facility] 03-05-2023 08:10-0500 Diastolic blood pressure 82 mm[Hg] Parag Stentz PA-C Work Phone: [facility] 03-05-2023 08:10-0500 Heart rate 85 /min Parag Stentz PA-C Work Phone: [facility] 03-05-2023 08:10-0500 Systolic blood pressure 128 mm[Hg] Parag Stentz PA-C Work Phone: [facility] 01-31-2023 08:36-0400 Body height 149.9 cm Parag Stentz PA-C Work Phone: [facility] 01-31-2023 08:36-0400 Body mass index (BMI) [Ratio] 39.18 kg/m2 Parag Stentz PA-C Work Phone: [facility] 01-31-2023 08:36-0400 Body weight 88 kg Parag Stentz PA-C Work Phone: [facility] 01-31-2023 08:36-0400 Diastolic blood pressure 82 mm[Hg] Parag Stentz PA-C Work Phone: [facility] 01-31-2023 08:36-0400 Heart rate 70 /min Parag Stentz PA-C Work Phone: [facility] 01-31-2023 08:36-0400 Systolic blood pressure 124 mm[Hg] Parag Stentz PA-C Work Phone: [facility] 10-11-2022 10:30-0400 Body height 147.3 cm Sharla Dai PA-C Work Phone: [facility] 10-11-2022 10:30-0400 Body mass index (BMI) [Ratio] 41.79 kg/m2 Sharla Dai [facility]-C [facility] 10-11-2022 10:30-0400 Body temperature 97.59 [degF] Sharla Dai PA-C Work Phone: [facility] 10-11-2022 10:30-0400 Body weight 90.7 kg Sharla Dai PA-C Work Phone: [facility] 09-27-2022 08:24-0400 Diastolic blood pressure 74 mm[Hg] Guru Gutierrez MD Work Phone: [facility] 09-27-2022 08:24-0400 Heart rate 73 /min Guru Gutierrez MD Work Phone: [facility] 09-27-2022 08:24-0400 Respiratory rate 19 /min Guru Gutierrez MD Work Phone: [facility] 09-27-2022 08:24-0400 SaO2% (BldA) [Mass fraction] 98 % Guru Gutierrez MD Work Phone: [facility] 09-27-2022 08:24-0400 Systolic blood pressure 125 mm[Hg] Guru Gutierrez MD Work Phone: [facility] 09-27-2022 07:54-0400 Body temperature 97.11 [degF] Guru Gutierrez MD Work Phone: [facility] 09-27-2022 06:45-0400 Body height 147.3 cm Guru Gutierrez MD Work Phone: [facility] 09-27-2022 06:45-0400 Body mass index (BMI) [Ratio] 41.8 kg/m2 Guru Gutierrez MD Work Phone: [facility] 09-27-2022 06:45-0400 Body weight 90.72 kg Guru Gutierrez MD Work Phone: [facility] 07-31-2022 08:42-0400 Body height 149.9 cm Parag Stentz PA-C Work Phone: [facility] 07-31-2022 08:42-0400 Body mass index (BMI) [Ratio] 42.01 kg/m2 Parag Stentz PA-C Work Phone: [facility] 07-31-2022 08:42-0400 Body weight 94.35 kg Parag Stentz PA-C Work Phone: [facility] 07-31-2022 08:42-0400 Diastolic blood pressure 78 mm[Hg] Parag Stentz PA-C Work Phone: [facility] 07-31-2022 08:42-0400 Heart rate 84 /min Parag Stentz PA-C Work Phone: [facility] 07-31-2022 08:42-0400 Systolic blood pressure 126 mm[Hg] Parag Stentz PA-C Work Phone: [facility] 07-12-2022 08:09-0400 Body height 149.9 cm Sharla Suhas PA-C Work Phone: [facility] 07-12-2022 08:09-0400 Body mass index (BMI) [Ratio] 43.83 kg/m2 Sharla Birmingham PA-C Work Phone: [facility] 07-12-2022 08:09-0400 Body temperature 97.5 [degF] Sharla Suhas PA-C Work Phone: [facility] 07-12-2022 08:09-0400 Body weight 98.43 kg Sharla Birmingham PA-C Work Phone: [facility] 06-19-2022 09:20-0400 Body height 149.9 cm Parag Stentz PA-C Work Phone: [facility] 06-19-2022 09:20-0400 Body mass index (BMI) [Ratio] 42.41 kg/m2 Parag Stentz PA-C Work Phone: [facility] 06-19-2022 09:20-0400 Body weight 95.25 kg Parag Stentz PA-C Work Phone: [facility] 06-19-2022 09:20-0400 Diastolic blood pressure 78 mm[Hg] Parag Stentz PA-C Work Phone: [facility] 06-19-2022 09:20-0400 Heart rate 78 /min Parag Stentz PA-C Work Phone: [facility] 06-19-2022 09:20-0400 Systolic blood pressure 118 mm[Hg] Parag Stentz PA-C Work Phone: [facility] 05-22-2022 08:43-0500 Body height 149.86 cm Parag Stentz Work Phone: -[facility] Work Phone: 05-22-2022 08:43-0500 Body mass index (BMI) [Ratio] 43.43 kg/m2 Parag Stentz Work Phone: -[facility] Work Phone: 05-22-2022 08:43-0500 Body surface area Derived from formula 1.9 m2 Parag Stentz Work Phone: -[facility] Work Phone: 05-22-2022 08:43-0500 Body weight 97.52 kg Parag Stentz Work Phone: -[facility] Work Phone: 05-22-2022 08:43-0500 Diastolic blood pressure 80 mm[Hg] Parag Stentz Work Phone: -[facility] Work Phone: 05-22-2022 08:43-0500 Heart rate 80 /min Parag Stentz Work Phone: -[facility] Work Phone: 05-22-2022 08:43-0500 Systolic blood pressure 124 mm[Hg] Parag Stentz Work Phone: -[facility] Work Phone: 04-17-2022 13:21-0500 Body height 149.9 cm Sharla Dai PA-C Work Phone: [facility] 04-17-2022 13:21-0500 Body mass index (BMI) [Ratio] 43.91 kg/m2 Sharla WOODS-C Work Phone: [facility] 04-17-2022 13:21-0500 Body temperature 97.81 [degF] Sharla WOODS-C Work Phone: [facility] 04-17-2022 13:21-0500 Body weight 98.61 kg Sharla WOODS-C Work Phone: [facility] 04-17-2022 13:21-0500 Respiratory rate 18 /min Sharla WOODS-C Work Phone: [facility] 03-13-2022 09:05-0500 Body height 149.86 cm Parag Stentz Work Phone: [facility] Work Phone: 03-13-2022 09:05-0500 Body mass index (BMI) [Ratio] 43.22 kg/m2 Parag Stentz Work Phone: [facility] Work Phone: 03-13-2022 09:05-0500 Body surface area Derived from formula 1.9 m2 Parag Stentz Work Phone: [facility] Work Phone: 03-13-2022 09:05-0500 Body weight 97.07 kg Parag Stentz Work Phone: [facility] Work Phone: 03-13-2022 09:05-0500 Diastolic blood pressure 78 mm[Hg] Parag Stentz Work Phone: [facility] Work Phone: 03-13-2022 09:05-0500 Heart rate 72 /min Parag Stentz Work Phone: [facility] Work Phone: 03-13-2022 09:05-0500 Systolic blood pressure 118 mm[Hg] Parag Stentz Work Phone: [facility] Work Phone: 02-21-2022 13:08-0500 Body temperature 207.86 [degF] Parag Stentz Work Phone: [facility] 300 Work Phone: 01-15-2022 15:08-0400 Body height 147.3 cm Dami Dawn Other Phone: [facility] 01-15-2022 15:08-0400 Body temperature 97.7 [degF] Dami Dawn Other Phone: [facility] 01-15-2022 15:08-0400 Diastolic blood pressure 94 mm[Hg] Dami Dawn Other Phone: [facility] 01-15-2022 15:08-0400 Heart rate 95 /min Dami Dawn Other Phone: [facility] 01-15-2022 15:08-0400 Respiratory rate 18 /min Dami Dawn Other Phone: [facility] 01-15-2022 15:08-0400 SaO2% (BldA) [Mass fraction] 96 % Dami Dawn Other Phone: [facility] 01-15-2022 15:08-0400 Systolic blood pressure 141 mm[Hg] Dami Dawn Other Phone: [facility] 12-14-2021 08:06-0400 Body height 149.86 cm Parag Stentz Work Phone: [facility] 300 Work Phone: 12-14-2021 08:06-0400 Body mass index (BMI) [Ratio] 42.62 kg/m2 Parag Stentz Work Phone: [facility] 300 Work Phone: 12-14-2021 08:06-0400 Body surface area Derived from formula 1.89 m2 Parag Stentz Work Phone: [facility] 300 Work Phone: 12-14-2021 08:06-0400 Body temperature 207.32 [degF] Parag Stentz Work Phone: [facility] 300 Work Phone: 12-14-2021 08:06-0400 Body weight 95.71 kg Parag Stentz Work Phone: [facility] 300 Work Phone: 11-30-2021 11:33-0400 Body height 149.86 cm Parag Stentz Work Phone: [facility] 300 Work Phone: 11-30-2021 11:33-0400 Body mass index (BMI) [Ratio] 42.64 kg/m2 Parag Stentz Work Phone: [facility] 300 Work Phone: 11-30-2021 11:33-0400 Body surface area Derived from formula 1.89 m2 Parag Stentz Work Phone: [facility] 300 Work Phone: 11-30-2021 11:33-0400 Body temperature 207.5 [degF] Parag Stentz Work Phone: [facility] 300 Work Phone: 11-30-2021 11:33-0400 Body weight 95.77 kg Parag Stentz Work Phone: [facility] 300 Work Phone: 11-23-2021 13:49-0400 Body height 149.86 cm Parag Stentz Work Phone: [facility] Work Phone: 11-23-2021 13:49-0400 Body mass index (BMI) [Ratio] 42.42 kg/m2 Parag Stentz Work Phone: [facility] Work Phone: 11-23-2021 13:49-0400 Body surface area Derived from formula 1.88 m2 Parag Stentz Work Phone: [facility] Work Phone: 11-23-2021 13:49-0400 Body temperature 97.81 [degF] Parag Stentz Work Phone: [facility] Work Phone: 11-23-2021 13:49-0400 Body weight 95.25 kg Parag Stentz Work Phone: [facility] Work Phone: 11-23-2021 13:49-0400 Diastolic blood pressure 78 mm[Hg] Parag Stentz Work Phone: [facility] Work Phone: 11-23-2021 13:49-0400 Heart rate 80 /min Parag Stentz Work Phone: [facility] Work Phone: 11-23-2021 13:49-0400 Systolic blood pressure 118 mm[Hg] Parag Stentz Work Phone: [facility] Work Phone: 09-22-2021 15:40-0400 Body height 149.86 cm Parag Stentz Work Phone: [facility] Work Phone: 09-22-2021 15:40-0400 Body mass index (BMI) [Ratio] 41.81 kg/m2 Parag Stentz Work Phone: [facility] Work Phone: 09-22-2021 15:40-0400 Body surface area Derived from formula 1.87 m2 Parag Stentz Work Phone: [facility] Work Phone: 09-22-2021 15:40-0400 Body temperature 97.81 [degF] Parag Stentz Work Phone: [facility] Work Phone: 09-22-2021 15:40-0400 Body weight 93.89 kg Parag Stentz Work Phone: [facility] Work Phone: 09-22-2021 15:40-0400 Diastolic blood pressure 78 mm[Hg] Parag Stentz Work Phone: [facility] Work Phone: 09-22-2021 15:40-0400 Heart rate 72 /min Parag Stentz Work Phone: [facility] Work Phone: 09-22-2021 15:40-0400 Systolic blood pressure 120 mm[Hg] Parag Stentz Work Phone: [facility] Work Phone: 09-07-2021 13:00-0400 Body height 149.86 cm Parag Stentz Work Phone: [facility] Work Phone: 09-07-2021 13:00-0400 Body mass index (BMI) [Ratio] 41.81 kg/m2 Parag Stentz Work Phone: [facility] Work Phone: 09-07-2021 13:00-0400 Body surface area Derived from formula 1.87 m2 Parag Stentz Work Phone: [facility] Work Phone: 09-07-2021 13:00-0400 Body temperature 97.11 [degF] Parag Stentz Work Phone: [facility] Work Phone: 09-07-2021 13:00-0400 Body weight 93.89 kg Parag Stentz Work Phone: [facility] Work Phone: 09-07-2021 13:00-0400 Diastolic blood pressure 78 mm[Hg] Parag Stentz Work Phone: [facility] Work Phone: 09-07-2021 13:00-0400 Heart rate 72 /min Parag Stentz Work Phone: [facility] Work Phone: 09-07-2021 13:00-0400 Systolic blood pressure 122 mm[Hg] Parag Stentz Work Phone: [facility] Work Phone: 02-13-2021 10:42-0500 Body height 149.86 cm Inocencio Ashton Work Phone: [facility] Work Phone: 02-13-2021 10:42-0500 Body mass index (BMI) [Ratio] 42.91 kg/m2 Inocencio Ashton Work Phone: [facility] Work Phone: 02-13-2021 10:42-0500 Body surface area Derived from formula 1.89 m2 Inocencio Ashton Work Phone: [facility] Work Phone: 02-13-2021 10:42-0500 Body weight 96.36 kg Inocencio Ashton Work Phone: [facility] Work Phone: 02-13-2021 10:42-0500 Diastolic blood pressure 70 mm[Hg] Inocencio Ashton Work Phone: [facility] Work Phone: 02-13-2021 10:42-0500 Heart rate 72 /min Inocencio Ashton Work Phone: [facility] Work Phone: 02-13-2021 10:42-0500 Systolic blood pressure 122 mm[Hg] Inocencio Ashton Work Phone: [facility] Work Phone: 02-09-2021 08:35-0400 Body height 149.86 cm Inocencio Ashton Work Phone: [facility] Work Phone: 02-09-2021 08:35-0400 Body mass index (BMI) [Ratio] 42.91 kg/m2 Inocencio Ashton Work Phone: [facility] Work Phone: 02-09-2021 08:35-0400 Body surface area Derived from formula 1.89 m2 Inocencio Ashton Work Phone: [facility] Work Phone: 02-09-2021 08:35-0400 Body weight 96.36 kg Inocencio Ashton Work Phone: [facility] Work Phone: 02-09-2021 08:35-0400 Diastolic blood pressure 74 mm[Hg] Inocencio Ashton Work Phone: [facility] Work Phone: 02-09-2021 08:35-0400 Heart rate 88 /min Inocencio Ashton Work Phone: [facility] Work Phone: 02-09-2021 08:35-0400 Systolic blood pressure 122 mm[Hg] Inocencio Ashton Work Phone: [facility] Work Phone: 02-07-2021 15:16-0400 Body height 149.86 cm Inocencio Ashton Work Phone: [facility] Work Phone: 02-07-2021 15:16-0400 Body mass index (BMI) [Ratio] 42.82 kg/m2 Inocencio Ashton Work Phone: [facility] Work Phone: 02-07-2021 15:16-0400 Body surface area Derived from formula 1.89 m2 Inocencio Ashton Work Phone: [facility] Work Phone: 02-07-2021 15:16-0400 Body weight 96.16 kg Inocencio Ashton Work Phone: [facility] Work Phone: 02-07-2021 15:16-0400 Diastolic blood pressure 80 mm[Hg] Inocencio Ashton Work Phone: [facility] Work Phone: 02-07-2021 15:16-0400 Heart rate 72 /min Inocencio Ashton Work Phone: [facility] Work Phone: 02-07-2021 15:16-0400 Systolic blood pressure 122 mm[Hg] Inocencio Ashton Work Phone: [facility] Work Phone: 02-06-2021 15:37-0400 Body height 149.9 cm Kodak Vargas MD Work Phone: [facility] 02-06-2021 15:37-0400 Body mass index (BMI) [Ratio] 40.4 kg/m2 Kodak Vargas MD Work Phone: [facility] 02-06-2021 15:37-0400 Body weight 90.72 kg Kodak Vargas MD Work Phone: [facility] 02-01-2021 19:30-0400 Heart rate 84 /min Dami Dawn Other Phone: [facility] 02-01-2021 19:30-0400 Respiratory rate 16 /min Dami Dawn Other Phone: [facility] 02-01-2021 19:30-0400 SaO2% (BldA) [Mass fraction] 98 % Dami Dawn Other Phone: [facility] 02-01-2021 17:57-0400 Diastolic blood pressure 64 mm[Hg] Dami Dawn Other Phone: [facility] 02-01-2021 17:57-0400 Systolic blood pressure 106 mm[Hg] Dami Dawn Other Phone: [facility] 02-01-2021 12:27-0400 Body temperature 98.06 [degF] Dami Dawn Other Phone: [facility] 02-01-2021 12:27-0400 Body weight 91 kg Dami Dawn Other Phone: [facility] 01-03-2021 15:51-0400 Body height 149.86 cm Inocencio Ashton Work Phone: [facility] Work Phone: 01-03-2021 15:51-0400 Body mass index (BMI) [Ratio] 43.02 kg/m2 Inocencio Ashton Work Phone: [facility] Work Phone: 01-03-2021 15:51-0400 Body surface area Derived from formula 1.89 m2 Inocencio Ashton Work Phone: [facility] Work Phone: 01-03-2021 15:51-0400 Body weight 96.61 kg Inocencio Ashton Work Phone: [facility] Work Phone: 01-03-2021 15:51-0400 Diastolic blood pressure 80 mm[Hg] Inocencio Ashton Work Phone: [facility] Work Phone: 01-03-2021 15:51-0400 Heart rate 80 /min Inocenciolorena Ashton Work Phone: [facility] Work Phone: 01-03-2021 15:51-0400 Systolic blood pressure 120 mm[Hg] Inocencio Ashton Work Phone: [facility] Work Phone: 12-06-2020 13:37-0400 Body height 149.86 cm Inocencio Ashton Work Phone: [facility] Work Phone: 12-06-2020 13:37-0400 Body mass index (BMI) [Ratio] 42.21 kg/m2 Inocencio Ashton Work Phone: [facility] Work Phone: 12-06-2020 13:37-0400 Body surface area Derived from formula 1.88 m2 Inocencio Ashton Work Phone: [facility] Work Phone: 12-06-2020 13:37-0400 Body weight 94.8 kg Inocencio Ashton Work Phone: [facility] Work Phone: 12-06-2020 13:37-0400 Diastolic blood pressure 80 mm[Hg] Inocencio Ashton Work Phone: [facility] Work Phone: 12-06-2020 13:37-0400 Heart rate 80 /min Inocencio Ashton Work Phone: [facility] Work Phone: 12-06-2020 13:37-0400 Systolic blood pressure 122 mm[Hg] Inocencio Ashton Work Phone: [facility] Work Phone: 02-25-2018 11:13-0500 BMI (Body Mass Index) 42.03 kg/m2 [facility] 02-25-2018 11:13-0500 Body Temperature 98.29 [degF] [facility] 02-25-2018 11:13-0500 BP Diastolic 83 mm[Hg] [facility] 02-25-2018 11:13-0500 BP Systolic 128 mm[Hg] [facility] 02-25-2018 11:13-0500 Height 148 cm [facility] 02-25-2018 11:13-0500 Pulse (Heart Rate) 84 /min [facility] 02-25-2018 11:13-0500 Pulse Oximetry 94 % [facility] 02-25-2018 11:13-0500 Respiratory Rate 18 /min [facility] 02-25-2018 11:13-0500 Weight 92.08 kg [facility] 12-05-2017 14:00-0400 BMI (Body Mass Index) 41.81 kg/m2 [facility] 12-05-2017 14:00-0400 Body Temperature 98.49 [degF] [facility] 12-05-2017 14:00-0400 BP Diastolic 72 mm[Hg] [facility] 12-05-2017 14:00-0400 BP Systolic 102 mm[Hg] [facility] 12-05-2017 14:00-0400 Height 148 cm [facility] 12-05-2017 14:00-0400 Pulse (Heart Rate) 77 /min [facility] 12-05-2017 14:00-0400 Pulse Oximetry 97 % [facility] 12-05-2017 14:00-0400 Respiratory Rate 16 /min [facility] 12-05-2017 14:00-0400 Weight 91.58 kg [facility] Encounters Encounter Date Encounter Type Care Provider Facility Start: 09-25-2024 End: 09-25-[address] Jacob Junior MD [facility] Start: 09-25-2024 End: 09-25-2024 ambulatory Kimberlyn Patel [facility] Work Phone: Start: 08-05-2024 End: 08-05-2024 Office outpatient visit 15 minutes Claudia Gibobns APRN-STORE CONSULTANT Work Phone: [facility] Comment on above: Other fatigue (Prima ry Dx); Sensation of pressure in bladder area Start: 08-05-2024 End: 08-05-2024 ambulatory CLAUDIA Davies [facility] Ambulatory Start: 05-05-2024 End: 05-05-2024 Office outpatient visit 25 minutes Parag Herrera PA-C Work Phone: [facility] Comment on above: Class 3 severe obesi ty due to excess calories without serious comorbidity with body mass index (BMI) of 40.0 to 44.9 in adult (Primary Dx); Gastroesophageal reflux disease without esophagitis; Right shoulder strain, subsequent encounter; Primary insomnia; Overactive bladder Start: 05-05-2024 End: 05-05-2024 ambulatory [facility] Start: 03-24-2024 End: 03-24-2024 ambulatory [facility] Start: 03-20-2024 End: 03-20-2024 ambulatory [facility] Ambulatory Start: 03-20-2024 End: 03-20-2024 Office outpatient visit 15 minutes Geraldo Martínez MAINTAINER OPERATOR-STORE CONSULTANT Work Phone: [facility] Comment on above: Acute non-recurrent pansinusitis (Primary Dx) Start: 03-10-2024 End: 03-10-2024 ambulatory [facility] Start: 03-03-2024 End: 03-03-2024 ambulatory SEDRICK Francois [facility] Start: 2024 End: 2024 ambulatory [facility] Start: 02-18-2024 End: 02-18-2024 ambulatory [facility] Start: 02-13-2024 End: 02-13-2024 ambulatory [facility] Start: 02-07-2024 End: 02-07-2024 Office outpatient visit 15 minutes Geraldo Martínez MAINTAINER OPERATOR-STORE CONSULTANT Work Phone: [facility] Comment on above: Acute non-recurrent pansinusitis (Primary Dx) Start: 02-07-2024 End: 02-07-2024 ambulatory [facility] Ambulatory Start: 01-30-2024 End: 01-30-2024 ambulatory [facility] Start: 01-28-2024 End: 01-28-2024 ambulatory [facility] Start: 01-23-2024 End: 01-23-2024 ambulatory [facility] Start: 01-16-2024 End: 01-16-2024 Office outpatient visit 15 minutes Parag Stentz PA-C Work Phone: [facility] Comment on above: Strain of right ricardo hussein, initial encounter (Primary Dx) Start: 01-16-2024 End: 01-16-2024 ambulatory [facility] Start: 10-31-2023 End: 10-31-2023 ambulatory [facility] Start: 10-04-2023 End: 10-04-2023 Office outpatient visit 15 minutes Deion Franocis [employer] MAINTAINER OPERATOR-STORE CONSULTANT Work Phone: [facility] Comment on above: Tubular adenoma of c olon (Primary Dx); Generalized abdominal pain; Nausea and vomiting, unspecified vomiting type; Diarrhea, unspecified type Start: 10-04-2023 End: 10-04-2023 ambulatory [facility] Start: 09-18-2023 End: 09-18-2023 Subsequent hospital visit by physician Amol Bae MD Work Phone: [facility] Comment on above: Screening for colon cancer; Nausea and vomiting, unspecified vomiting type; Gastroesophageal reflux disease, unspecified whether esophagitis present Start: 09-18-2023 End: 09-18-2023 ambulatory AMOL BAE [facility] Start: 09-17-2023 End: 09-17-2023 Subsequent hospital visit by physician Mello Ricketts [facility] Comment on above: Generalized abdomina l pain; Nausea and vomiting, unspecified vomiting type; Diarrhea, unspecified type Start: 09-17-2023 End: 09-17-2023 ambulatory [facility] Start: 08-30-2023 End: 08-30-2023 Office outpatient visit 25 minutes Parag Stentz PA-C Work Phone: [facility] Comment on above: Generalized abdomina l pain (Primary Dx); Chronic right-sided low back pain, unspecified whether sciatica present; Screening for colon cancer; Nausea and vomiting, unspecified vomiting type; Diarrhea, unspecified type; Overactive bladder; Fibromyalgia muscle pain; Gastroesophageal reflux disease without esophagitis Start: 08-30-2023 End: 08-30-2023 ambulatory [facility] Start: 08-21-2023 End: 08-21-2023 Emergency department patient visit Salena Naatlie Smith DO Work Phone: [facility] Comment on above: Diarrhea, unspecifie d type (Primary Dx) Start: 06-06-2023 End: 06-06-2023 Office outpatient visit 25 minutes [employer] Work Phone: [facility] Comment on above: Gastroesophageal ref lux disease without esophagitis (Primary Dx); Chronic right-sided low back pain, unspecified whether sciatica present; Overactive bladder; Primary insomnia; Morbid obesity with BMI of 40.0-44.9, adult ([facility]) Start: 03-05-2023 End: 03-05-2023 Office outpatient visit 25 minutes [employer] Work Phone: [facility] Comment on above: Class 2 obesity due to excess calories without serious comorbidity with body mass index (BMI) of 38.0 to 38.9 in adult (Primary Dx); Chronic right-sided low back pain, unspecified whether sciatica present; Gastroesophageal reflux disease, unspecified whether esophagitis present; Overactive bladder Start: 03-01-2023 End: 03-01-2023 ambulatory [facility] Start: 01-31-2023 End: 01-31-2023 Office outpatient visit 25 minutes [employer] Work Phone: [facility] Comment on above: Screening for thyroi d disorder (Primary Dx); Insomnia, unspecified type; Screening for cholesterol level; Encounter for vitamin deficiency screening; Class 2 obesity due to excess calories without serious comorbidity with body mass index (BMI) of 39.0 to 39.9 in adult; Gastroesophageal reflux disease without esophagitis; Bilateral carpal tunnel syndrome Start: 11-20-2022 ambulatory [facility] Start: 10-11-2022 ambulatory [facility] Start: 10-11-2022 End: 10-11-2022 Postop follow up visit related to original px Sharla Dai PA-C Work Phone: [facility] Comment on above: S/p bilateral carpal tunnel release (Primary Dx) Start: 09-27-2022 End: 09-27-2022 ambulatory [facility] Start: 09-27-2022 End: 09-27-2022 Subsequent hospital visit by physician Guru Gutierrez MD Work Phone: [facility] Comment on above: Carpal tunnel syndro me on right Start: 09-11-2022 [facility] Start: 09-11-2022 Encounter for other preprocedural examination GURU GUTIERREZ [facility] Start: 08-28-2022 [facility] Start: 07-31-2022 End: 07-31-2022 Office outpatient visit 15 minutes Parag Stentz PA-C Work Phone: [facility] Comment on above: Dizziness (Primary D x); Morbid obesity with BMI of 40.0-44.9, adult ([facility]) Start: 07-12-2022 [facility] Start: 07-12-2022 End: 07-12-2022 Office outpatient visit 15 minutes Sharla Dai PA-C Work Phone: [facility] Comment on above: Bilateral hand numbn ess (Primary Dx); 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 PARAG Mae [id number] Start: 05-22-2022 Office outpatient vi sit 25 minutes Parag Herrera Work Phone: [facility] Work Phone: Start: 04-24-2022 ambulatory [facility] Chandana [facility] Start: 04-17-2022 ambulatory SHARLA A [facility] Start: 04-17-2022 End: 04-17-2022 Office outpatient new 30 minutes Sharla Dai JOSIAH Work Phone: [facility] Comment on above: Pain of left hand (P rimary Dx); Carpal tunnel syndrome, bilateral; History of dog bite; Complex tear of triangular fibrocartilage of left wrist, initial encounter Start: 03-29-2022 Online digital e/m s vc est pt <7 d 11-20 minutes Parag Herrera Work Phone: [facility] Work Phone: Start: 03-29-2022 ambulatory Mr. PARAG Mae [id number] Start: 03-27-2022 ambulatory Mr. PARAG Mae [id number] Start: 03-20-2022 ambulatory Mr. Parag Mae [id number] Start: 03-13-2022 Office outpatient vi sit 25 minutes Parag Herrera Work Phone: [facility] Work Phone: Start: 03-13-2022 ambulatory Mr. PARAG Mae [id number] Start: 02-21-2022 Patient encounter procedure Parag Herrera Work Phone: [facility] 300 Work Phone: Start: 02-21-2022 ambulatory Mr. PARAG Mae [id number] Start: 02-15-2022 End: 02-15-2022 ambulatory TASHA CAMARGO [facility] Ambulatory Start: 02-15-2022 End: 02-15-2022 Patient encounter procedure Tasha Camargo STORE CONSULTANT Work Phone: [facility] Comment on above: Carpal tunnel syndro me, bilateral (Primary Dx) Start: 01-15-2022 End: 01-15-2022 Emergency department patient visit Akash Wilburn [facility] Start: 12-26-2021 Transcribe Orders Tasha crabtree STORE CONSULTANT Work Phone: [facility] Comment on above: Left hand paresthesi a (Primary Dx); Right hand paresthesia; Pain in both wrists Start: 12-14-2021 Office outpatient vi sit 10 minutes Parag Herrera Work Phone: [facility] [facility] 300 Work Phone: Start: 12-14-2021 ambulatory Mr. PARAG Mae ity:[id number] Start: 11-30-2021 Office outpatient ne w 45 minutes Parag Stentz Work Phone: [facility] 300 Work Phone: Start: 11-30-2021 Patient encounter procedure Parag Herrera Work Phone: [facility] 300 Work Phone: Start: 11-30-2021 ambulatory Mr. PARAG HERRERA Facil ity:[id number] Start: 11-24-2021 Chart Update Parag Herrera Work Phone: [facility] Work Phone: Start: 11-23-2021 Office outpatient vi sit 15 minutes Parag Stentz Work Phone: [facility] Work Phone: Start: 11-23-2021 ambulatory Mr. PARAG Mae ity:[id number] Start: 09-22-2021 Office outpatient vi sit 15 minutes Parag Stentz Work Phone: [facility] Work Phone: Start: 09-22-2021 ambulatory Mr. PARAG HERRERA [facility] ity:[id number] Start: 09-07-2021 EPV, Provider: FernandoParag, Status: Pen, Time: 12:45 PM Inocencio Ashton Work Phone: [facility] Work Phone: Start: 09-07-2021 Office outpatient vi sit 25 minutes Parag Herrera Work Phone: [facility] Work Phone: Start: 09-07-2021 ambulatory Ms. Inocencio Ashton Facility:[id number] Start: 09-05-2021 AUDIT Inocencio mejia Work Phone: [facility] Work Phone: Start: 02-22-2021 End: 02-26-2021 ambulatory KODAK VARGAS [facility] Ambulatory Start: 2021 End: 2021 ambulatory INOCENCIO ASHTON [facility] Ambulatory Start: 2021 End: 2021 Office outpatient visit 10 minutes Kodak Vargas MD Work Phone: [facility] Comment on above: Dog bite, hand, left , initial encounter (Primary Dx) Start: 02-15-2021 AUDIT Inocencio mejia Work Phone: [facility] Work Phone: Start: 02-14-2021 Chart Update Inocencio mejia Work Phone: [facility] Work Phone: Start: 02-13-2021 Office outpatient vi sit 15 minutes Inocencio Ashton Work Phone: [facility] Work Phone: Start: 02-10-2021 Chart Update Inocencio mejia Work Phone: [facility] Work Phone: Start: 02-09-2021 Office outpatient vi sit 15 minutes Inocencio Ashton Work Phone: [facility] Work Phone: Start: 02-07-2021 Office outpatient vi sit 40 minutes Inocencio Ashton Work Phone: [facility] Work Phone: Start: 02-06-2021 End: 02-06-2021 Office outpatient new 30 minutes Kodak Vargas MD Work Phone: [facility] Comment on above: Dog bite, hand, left , initial encounter (Primary Dx) Start: 02-01-2021 End: 02-01-2021 Emergency department patient visit Jonathon Coronel [facility] Emergency Start: 01-03-2021 Office outpatient vi sit 15 minutes Inocencio Ashton Work Phone: [facility] Work Phone: Start: 12-08-2020 Chart Update Inocencio mejia Work Phone: [facility] Work Phone: Start: 12-06-2020 Office outpatient ne w 45 minutes Inocencio Ashton Work Phone: [facility] Work Phone: Start: 06-22-2020 End: 06-22-2020 Orders Only Bella Rose Veena Work Phone: [facility] Start: 02-25-2018 End: 02-25-2018 Office outpatient visit 15 minutes Gracie Montana Work Phone: [facility] Comment on above: Sore throat Start: 12-10-2017 Patient encounter Dami winslowy:Loretta Start: 12-05-2017 End: 02-02-2018 Patient encounter status Kodak Vargas MD Work Phone: [facility] Start: 12-05-2017 End: 12-05-2017 Periodic preventive med est patient 40-64yrs Dami Dawn Work Phone: [facility] Comment on above: Well adult exam (Avelina susan Dx); Obesity, Class III, BMI 40-49.9 (morbid obesity) ([facility]) Start: 08-08-2017 Patient encounter Dami Mae ity:Loretta Start: 02-08-2017 End: 02-09-2017 Patient encounter Madiha Caballero Facility:[place] Start: 12-08-2015 Patient encounter status Dora Vargas MD Work Phone: [facility] Work Phone: Procedures Date Procedure Procedure Detail Performing Clinician Start: 08-05-2024 Urnls dip stick/tabl et rgnt auto w/o microscopy Claudia Gibbons MAINTAINER OPERATOR-[employer] Work Phone: Start: 05-05-2024 Lipid 1996 panel - S tal or Plasma Claudia Gibbons MAINTAINER OPERATOR-STORE CONSULTANT Work Phone: Start: 09-30-2023 Colonoscopy Deion Mell telean MAINTAINER OPERATOR-STORE CONSULTANT Work Phone: Start: 09-18-2023 Colonoscopy w/biopsy single/multiple Parag Stentz PA-C Work Phone: Start: 09-18-2023 Egd transoral biopsy single/multiple Parag Stentz PA-C Work Phone: Start: 09-18-2023 Colonoscopy Amol elizondo MD Work Phone: Start: 09-17-2023 Ct abdomen & pelvis w/contrast material Parag Stentz PA-C Work Phone: Start: 08-21-2023 DISCHARGE PATIENT JUSTI N STENTZ Start: 08-21-2023 C. DIFFICILE, PCR JUSTI N STENTZ Start: 08-21-2023 Bacteria identified in Urine by Culture PARAG STENTZ Start: 08-21-2023 EXTRA URINE NEAL TUBE J USTIN STENTZ Start: 08-21-2023 MICROSCOPIC ONLY, URINE PARAG STENTZ Start: 08-21-2023 URINALYSIS WITH REFL EX CULTURE AND MICROSCOPIC PARAG STENTZ Start: 08-21-2023 CBC W Auto Different ial panel - Blood PARAG STENTZ Start: 08-21-2023 Comprehensive metabo lic 2000 panel - Serum or Plasma PARAG STENTZ Start: 08-21-2023 Lactate [Moles/volum e] in Serum or Plasma PARAG STENTZ Start: 08-21-2023 Lipase [Enzymatic activity/volume] in Serum or Plasma PARAG STENTZ Start: 08-21-2023 ORTHOSTATIC BLOOD PRESSURE PARAG STENTZ Start: 08-21-2023 Inf agent det nuclei c acid clostridium amp probe Salena Smith DO Work Phone: Start: 08-21-2023 Urinalysis microscop ic panel - Urine Qualitative by Automated Salena Smith DO Work Phone: Start: 08-21-2023 Urnls dip stick/tabl et reagent auto microscopy Salena Smith DO Work Phone: Start: 08-21-2023 Comprehensive metabo lic panel Salena Smith DO Work Phone: Start: 03-01-2023 CBC panel - Blood by Automated count PARAG STENTZ Start: 03-01-2023 Comprehensive metabo lic 2000 panel - Serum or Plasma PARAG STENTZ Start: 03-01-2023 Cyanocobalamin vitam in b-12 PARAG STENTZ Start: 03-01-2023 Lipid panel PARAG AADM NTZ Start: 03-01-2023 TSH WITH REFLEX TO F REE T4 IF ABNORMAL PARAG STENTZ Start: 03-01-2023 VITAMIN D 25-HYDROXY,TOTAL PARAG STENTZ Start: 03-01-2023 Lipid 1996 panel - S tal or Plasma Parag Stentz PA-C Work Phone: Start: 03-13-2022 Lipid 1996 panel - S tal or Plasma Parag Stentz PA-C Work Phone: Start: 02-25-2018 Adult depression scr eening assessment Kodak Vargas MD Work Phone: Start: 11-23-2015 Microscopic observat ion [Identifier] in Cervix by Cyto stain Gracie Montana Donor nephrectomy Inocencio stringer Work Phone: Hernia repair Inocencio mejia Work Phone: History of decompres manda of median nerve S/p bilateral carpal tunnel release Sharla Dai PA-C Work Phone: Hysterectomy Inocencio Ashton Work Phone: Comment on above: 47 yr; Operation on bladder Inocencio Ashton Work Phone: Comment on above: 43, 45, 47; Operation on nose Inocencio stringer Work Phone: Comment on above: 16 yrs; Repair of rectocele Inocencio Ashton Work Phone: Comment on above: 47 yr; Plan of Treatment Date Care Activity Detail Author Start: 02-01-2031 DTaP/Tdap/Td Vaccines (3 - Td or Tdap) DTaP/Tdap/Td Vaccines (3 - Td or Tdap) [facility] Start: 02-01-2031 Tetanus vaccination [facility] Start: 08-11-2029 Screening for malignant neoplasm of breast Mammogram [facility] Comment on above: Postponed from 2008 (Other Patient Reasons) Start: 05-05-2029 Lipid panel Lipid Panel [facility] Start: 09-28-2028 Screening for malignant neoplasm of colon [facility] Start: 09-16-2028 Screening for malignant neoplasm of colon [facility] Start: 03-01-2028 Lipid panel Lipid Panel [facility] Start: 03-13-2027 Lipid panel Lipid Panel [facility] Start: 12-07-2024 Influenza vaccination Influenza Vaccine (Season Ended) [facility] Start: 11-03-2024 End: 11-03-2024 Patient encounter procedure [facility] Start: 09-25-2024 X-ray of lumbosacral spine L/S Spine Min [address] [facility] Start: 09-25-2024 XR Spine Lumbar and Sacrum GE [address] [facility] Start: 08-05-2024 End: 08-05-2025 CBC W Auto Differential panel - Blood CBC and Auto Differential Lab Routine Other fatigue Expected: 08/05/2024 (Approximate), Expires: 08/05/2025 [facility] Service Area Work Phone: Comment on above: Expected: 08/05/2024 (Approximate), Expi res: 08/05/2025 Start: 08-05-2024 End: 08-05-2025 Comprehensive metabolic 2000 panel - Serum or Plasma Comprehensive metabolic panel Lab Routine Other fatigue Expected: 08/05/2024 (Approximate), Expires: 08/05/2025 [facility] Work Phone: Comment on above: Expected: 08/05/2024 (Approximate), Expi res: 08/05/2025 Start: 08-05-2024 End: 08-05-2025 Ferritin [Mass/volume] in Serum or Plasma Ferritin Lab Routine Other fatigue Expected: 08/05/2024 (Approximate), Expires: 08/05/2025 [facility] Work Phone: Comment on above: Expected: 08/05/2024 (Approximate), Expi res: 08/05/2025 Start: 08-05-2024 End: 08-05-2025 Iron and Iron binding capacity panel - Serum or Plasma Iron and TIBC Lab Routine Other fatigue Expected: 08/05/2024 (Approximate), Expires: 08/05/2025 [facility] Work Phone: Comment on above: Expected: 08/05/2024 (Approximate), Expi res: 08/05/2025 Start: 07-20-2024 DTaP/Tdap/Td Vaccines (2 - Td or Tdap) DTaP/Tdap/Td Vaccines (2 - Td or Tdap) [facility] Start: 07-20-2024 Tetanus vaccination [facility] Start: 05-05-2024 End: 05-05-2024 Patient encounter procedure 05/05/2024 7:30 AM EST Off ice Visit [facility] [address] [place] [id number] Parag Herrera PA-C [address] [facility], [address] [place] [address] [facility] Start: 03-26-2024 End: 03-26-2024 ambulatory 03/26/2024 8:30 AM EST Treatment [address] [phone] Malena Travis, LIBRARY ASSOCIATE [address] [place] [address] [facility] Start: 03-24-2024 End: 03-24-2024 ambulatory 03/24/2024 8:30 AM EST Treatment [address] [phone] Malena Travis, LIBRARY ASSOCIATE [address] [place] [address] [facility] Start: 2024 End: 2024 ambulatory 2024 10:00 AM EST Treatment [address] [phone] [place] [address] [place], [place] [phone] [facility] Start: 02-18-2024 End: 02-18-2024 ambulatory 02/18/2024 8:30 AM EST Treatment [address] [phone] Kathy Neal, LIBRARY ASSOCIATE [address] [place] [phone] [facility] Start: 02-13-2024 End: 02-13-2024 ambulatory 02/13/2024 10:00 AM EST Treatment [address] [phone] Efrain So, PT [address] [place] [address] [facility] Start: 02-11-2024 End: 02-11-2024 ambulatory 02/11/2024 9:15 AM EST Treatment [facility] [address] [place] [phone] Kathy Neal, LIBRARY ASSOCIATE [address] [facility] [place] [phone] [facility] Start: 01-23-2024 End: 01-23-2024 ambulatory 01/23/2024 11:30 AM EDT Evaluation [facility] [address] [place] [address] Efrain So, PT [address] [place] [address] [facility] Start: 12-08-2023 COVID-19 Vaccine ( season) COVID-19 Vaccine ( season) [facility] Start: 12-08-2023 COVID-19 Vaccine ( season) COVID-19 Vaccine ( season) [facility] Start: 12-08-2023 Influenza vaccination [facility] Start: 10-31-2023 End: 10-31-2023 Patient encounter procedure 10/31/2023 7:30 AM EDT Off [place] Visit [facility] [address] [place] [phone] Parag Herrera PA-C [address] [facility], [address] [place] [phone] [facility] Start: 10-22-2023 End: 10-22-2023 Patient encounter procedure 10/22/2023 8:30 AM EDT [place] [facility] [address] [place] [address] Deion Pelayo, MAINTAINER OPERATOR-STORE CONSULTANT [address] [facility] [address] [place] [address] [facility] Start: 09-18-2023 End: 09-18-2023 Patient encounter procedure 09/18/2023 8:50 AM EDT Appointment [facility] [address] [place] [phone] Amol Bae MD [address] [facility] [address] [place] [address] [facility] Start: 09-05-2023 End: 09-05-2023 Patient encounter procedure 09/05/2023 8:00 AM EDT Off ice Visit [facility] [address] [place] [address] Parag Herrera PA-C [address] [facility] [address] [place] [address] [facility] Start: 08-30-2023 End: 08-29-2024 C reactive protein [Mass/volume] in Serum or Plasma [facility] Work Phone: Comment on above: Expected: 08/30/2023 (Approximate), Expi res: 08/29/2024 Start: 08-30-2023 End: 08-29-2024 Celiac Panel [facility] Service Area Work Phone: Comment on above: Expected: 08/30/2023 (Approximate), Expi res: 08/29/2024 Start: 08-30-2023 End: 08-29-2024 Colonoscopy study Colonoscopy Screening; Average Risk Patient Endoscopy Routine Screening for colon cancer Expected: 08/30/2023, Expires: 08/29/2024 [facility] Work Phone: Comment on above: Expected: 08/30/2023, Expires: Start: 08-30-2023 End: 08-29-2024 CT Abdomen and Pelvis W contrast IV CT abdomen pelvis w IV contrast Imaging Routine Generalized abdominal pain Nausea and vomiting, unspecified vomiting type Diarrhea, unspecified type Expected: 08/30/2023, Expires: 08/29/2024 [facility] Work Phone: Comment on above: Expected: 08/30/2023, Expires: Start: 08-30-2023 End: 08-29-2024 Erythrocyte sedimentation rate [facility] Work Phone: Comment on above: Expected: 08/30/2023 (Approximate), Expi res: 08/29/2024 Start: 08-30-2023 End: 08-29-2024 Esophagogastroduodenoscopy Esophagogastroduodenoscopy (EGD) Endoscopy Routine Nausea and vomiting, unspecified vomiting type Expected: 08/30/2023 (Approximate), Expires: 08/29/2024 [facility] Work Phone: Comment on above: Expected: 08/30/2023 (Approximate), Expi res: 08/29/2024 Start: 08-30-2023 End: 08-30-2023 Patient encounter procedure 08/30/2023 10:00 AM EDT Office Visit [facility] [address] [facility] [address] [place] [address] Parag Herrera PA-C [address] [facility], [facility] [address] [place] [address] [facility] Start: 06-06-2023 End: 06-06-2023 Patient encounter procedure 06/06/2023 8:30 AM EST Off [place] Visit [facility] [address] [facility] [address] [place] [phone] Parag Herrera PA-C [address] [facility], [address] [place] [address] [facility] Start: 01-31-2023 End: 02-01-2024 25-hydroxyvitamin D3 [Mass/volume] in Serum or Plasma Vitamin D 25-Hydroxy,Total (for eval of Vitamin D levels) Lab Routine Encounter for vitamin deficiency screening Expected: 01/31/2023 (Approximate), Expires: 02/01/2024 [facility] Work Phone: Comment on above: Expected: 01/31/2023 (Approximate), Expi res: 02/01/2024 Start: 01-31-2023 End: 02-01-2024 CBC panel - Blood by Automated count CBC Lab Routine Class 2 obesity due to excess calories without serious comorbidity with body mass index (BMI) of 39.0 to 39.9 in adult Expected: 01/31/2023 (Approximate), Expires: 02/01/2024 [facility] Service Area Work Phone: Comment on above: Expected: 01/31/2023 (Approximate), Expi res: 02/01/2024 Start: 01-31-2023 End: 02-01-2024 Cobalamin (Vitamin B12) [Mass/volume] in Serum or Plasma Vitamin B12 Lab Routine Encounter for vitamin deficiency screening Expected: 01/31/2023 (Approximate), Expires: 02/01/2024 [facility] Work Phone: Comment on above: Expected: 01/31/2023 (Approximate), Expi res: 02/01/2024 Start: 01-31-2023 End: 02-01-2024 Comprehensive metabolic 2000 panel - Serum or Plasma Comprehensive Metabolic Panel Lab Routine Class 2 obesity due to excess calories without serious comorbidity with body mass index (BMI) of 39.0 to 39.9 in adult Expected: 01/31/2023 (Approximate), Expires: 02/01/2024 [facility] Work Phone: Comment on above: Expected: 01/31/2023 (Approximate), Expi res: 02/01/2024 Start: 01-31-2023 End: 02-01-2024 Lipid 1996 panel - Serum or Plasma Lipid Panel Lab Routine Screening for cholesterol level Expected: 01/31/2023 (Approximate), Expires: 02/01/2024 [facility] Work Phone: Comment on above: Expected: 01/31/2023 (Approximate), Expi res: 02/01/2024 Start: 01-31-2023 End: 02-01-2024 TSH with reflex to Free T4 if abnormal TSH with reflex to Free T4 if abnormal Lab Routine Screening for thyroid disorder Expected: 01/31/2023 (Approximate), Expires: 02/01/2024 [facility] Work Phone: Comment on above: Expected: 01/31/2023 (Approximate), Expi res: 02/01/2024 Start: 12-07-2022 COVID-19 Vaccine () COVID-19 Vaccine () [facility] Start: 12-07-[address] [facility] Start: 11-20-2022 End: 11-20-2022 Patient encounter procedure 11/20/2022 2:30 PM EDT Off ice Visit [facility] [address] [place] [phone] Guru Gutierrez MD [address] [place] [address] [facility] Start: 10-11-2022 End: 10-11-2022 Patient encounter procedure 10/11/2022 10:30 AM EDT Office Visit [facility] [address] [place] [address] Sharla Dai PA-C [address] [place] [address] [facility] Start: 09-27-2022 End: 09-27-2022 Neuroplasty &/transpos median nrv carpal tunne DECOMPRESSION TRANSPOSITION MEDIAN NERVE Carpal tunnel syndrome on right Carpal tunnel syndrome on left 09/27/2022 7:20 AM EDT RETA [facility] Start: 07-31-2022 End: 07-31-2022 Patient encounter procedure 07/31/2022 8:30 AM EDT Off ice Visit [facility] [address] [place] [address] Parag Herrera PA-C [address] [facility], [address] [place] [address] [facility] Start: 06-19-2022 FUV, Provider: Parag Herrera, Status: Pen, Time: 9:00 AM FUV, Provider: Parag Herrera, Status: Pen, Time: 9:00 AM [facility] Work Phone: Start: 05-31-2022 End: 05-31-2022 Patient encounter procedure 05/31/2022 Office Visit Orthopaedics Sharla Dai PA-C [address] [place] [address] [facility] Start: 05-15-2022 EPV, Provider: Parag Herrera, Status: Pen, Time: 8:00 AM EPV, Provider: Parag Herrera, Status: Pen, Time: 8:00 AM [facility] Work Phone: Start: 03-08-2022 EPV, Provider: Parag Herrera, Status: Pen, Time: 9:00 AM EPV, Provider: Parag Herrera, Status: Pen, Time: 9:00 AM [facility] Work Phone: Start: 03-08-2022 Patient encounter procedure [facility] Start: 02-15-2022 End: 02-15-2022 Patient encounter procedure 02/15/2022 Procedure visit Neurology Tasha Camargo, STORE CONSULTANT [address] [place] [address] Binu Gray MD [facility] Marcus Odonnell [address] [address] [facility] Start: 12-14-2021 FUV, Provider: Tasha Camargo, Status: Pen, Time: 8:00 AM FUV, Provider: Tasha Camargo, Status: Pen, Time: 8:00 AM [facility] [address] Work Phone: Start: 12-07-2021 Influenza vaccination [facility] Start: 11-30-2021 NPV, Provider: Tasha Camargo, Status: Pen, Time: 11:30 AM NPV, Provider: Tasha Camargo, Status: Pen, Time: 11:30 AM [facility] Work Phone: Start: 2021 End: 2021 Patient encounter procedure 2021 Office Visit Sports Medicine Kodak Vargas MD [address] [place] [address] [facility] Start: 01-03-2021 FUV, Provider: Inocencio Ashton, Status: Pen, Time: 3:45 PM FUV, Provider: Inocencio Ashton, Status: Pen, Time: 3:45 PM [facility] Work Phone: Start: 12-07-2020 Influenza vaccination Sequential Influenza Vaccine (#1) [facility] Start: 12-08-2019 Influenza vaccination given Sequential Influenza Vacci ne (#1) [facility] Start: 02-25-2019 Depression screening using PHQ-9 (Patient Health Questionnaire 9) score Depression Screening (PHQ-2/9) [facility] Start: 12-05-2018 History and physical examination, annual for health maintenance Wellness Visit [facility] Start: 11-22-2018 Screening for malignant neoplasm of cervix PAP SMEAR [facility] Start: 02-19-2018 Administration of herpes zoster vaccine Zoster Vaccines (1 of 2) [facility] Start: 02-19-2018 Pneumococcal vaccination Pneumococcal Vaccine (1 of 1 - PCV) [facility] Start: 02-19-2018 Screening for malignant neoplasm of colon [facility] Start: 02-19-2018 Zoster vaccine hzv live for subcutaneous use ZOSTER (SHINGLES) VACCINE (1 of 2) [facility] Start: 02-19-2018 Zoster Vaccines (1 of 2) Zoster Vaccines (1 of 2) [facility] Start: 12-07-2017 Influenza vaccination SEQUENTIAL INFLUENZA VACCINE (#1) [facility] Start: 02-19-2013 Screening for malignant neoplasm of colon COLORECTAL CANCER SCREENING DISCUSSION [facility] Start: 2008 Lipid panel LIPID SCREENING [facility] Start: 2008 Screening for malignant neoplasm of breast [facility] Start: 02-19-1989 Screening for malignant neoplasm of cervix [facility] Start: 02-19-1987 Hepatitis B Vaccines (1 of 3 - 19+ 3-dose series) Hepatitis B Vaccines (1 of 3 - 19+ 3-dose series) [facility] Start: 02-19-1986 COVID-19 Vaccine (#1) COVID-19 Vaccine (#1) [facility] Start: 02-19-1986 Diabetes mellitus screening Diabetes Screening [facility] Start: 02-19-1986 Hepatitis C antibody, confirmatory test Hepatitis C Screening [facility] Start: 02-19-1986 Hepatitis C screening Hepatitis C Screening [facility] Start: 1984 COVID-19 Vaccine (1 of 2) COVID-19 Vaccine (1 of 2) [facility] Start: 02-19-1983 HIV screening [facility] Start: 1980 Adolescent depression screening assessment Depression Screening (PHQ9) [facility] Start: 1980 COVID-19 Vaccine (1) COVID-19 Vaccine (1) [facility] Start: 02-19-1975 DTaP/Tdap/Td Vaccines (1 - Tdap) DTaP/Tdap/Td Vaccines (1 - Tdap) [facility] Start: 02-19-1969 MMR Vaccines (1 of 1 - Standard series) MMR Vaccines (1 of 1 - Standard series) [facility] Start: 1968 COVID-19 Vaccine (#1) COVID-19 Vaccine (#1) [facility] Start: 1968 Hepatitis B Vaccines (1 of 3 - 3-dose series) Hepatitis B Vaccines (1 of 3 - 3-dose series) [facility] Start: 1968 Hepatitis C screening HEPATITIS C VIRUS SCREENING [facility] Start: 1968 HIV screening HIV Screening [facility] Start: 1968 Screening colonoscopy COLONOSCOPY [facility] Start: 1968 Screening for malignant neoplasm of colon [facility] Start: 1968 Screening mammography Mammogram [facility] Start: 1968 Yearly Adult Physical Yearly Adult Physical [facility] End: 08-21-2023 Bacteria identified in Urine by Culture [facility] Work Phone: Comment on above: Once (Lab) for 1 Occurrences starting until 08/21/2023 End: 12-05-2018 Basic metabolic 2000 panel Basic Metabolic Panel Routi ne Well adult exam 1 Occurrences starting 12/05/2017 until 12/05/2018 [facility] Comment on above: 1 Occurrences starting 12/05/2017 until 12/05/2018 End: 09-18-2023 Choriogonadotropin ( test) [Presence] in Urine POCT , urine manually resulted Point of Care Testing Routine Once (Lab) for 1 Occurrences starting 09/18/2023 until 09/18/2023 [facility] Work Phone: Comment on above: Once (Lab) for 1 Occurrences starting until 09/18/2023 End: 08-21-2023 Extra Urine Neal Tube [facility] Work Phone: Comment on above: Once for 1 Occurrences starting 08/21/19 until 08/21/2023 End: 12-05-2018 Lipid 1996 panel Lipid Panel Routine Well adult exam 1 Occurrences starting 12/05/2017 until 12/05/2018 [facility] Comment on above: 1 Occurrences starting 12/05/2017 until 12/05/2018 End: 09-18-2023 Moderate Sedation Moderate Sedation Procedures Routine Once for 1 Occurrences starting 09/18/2023 until 09/18/2023 [facility] Work Phone: Comment on above: Once for 1 Occurrences starting 09/18/19 until 09/18/2023 End: 09-18-2023 Pulse oximetry, continuous Pulse oximetry, continuous Respiratory Care Routine Continuous until discontinued starting 09/18/2023 [facility] Work Phone: Comment on above: Continuous until discontinued starting 0 09/18/2023 End: 09-18-2023 Pulse oximetry, spot Pulse oximetry, spot Respiratory Care Routine Once for 1 Occurrences starting 09/18/2023 until 09/18/2023 [facility] Work Phone: Comment on above: Once for 1 Occurrences starting 09/18/19 until 09/18/2023 Surgical pathology study Surgica l Pathology Exam Pathology and Cytology Timed Screening for colon cancer Nausea and vomiting, unspecified vomiting type Release Upon Ordering for 1 Occurrences starting 09/18/2023 [facility] Work Phone: Comment on above: Release Upon Ordering for 1 Occurrences starting 09/18/2023 End: 08-21-2023 Urinalysis complete W Reflex Culture panel - Urine [facility] Work Phone: Comment on above: STAT (Lab) for 1 Occurrences starting until 08/21/2023 Immunizations Immunization Date Immunization Notes Care Provider Caridad mott 01-15-2023 measles, mumps and rubella virus vaccine Parag Herrera PA-C Work Phone: [facility] Work Phone: 02-01-2021 tetanus toxoid, redu chu diphtheria toxoid, and acellular pertussis vaccine, adsorbed Dami Nereyda Other Phone: [facility] 07-20-2014 measles, mumps and rubella virus vaccine Dami Nereyda [facility] 07-20-2014 tetanus toxoid, redu chu diphtheria toxoid, and acellular pertussis vaccine, adsorbed Dami Dawn [facility] 02-15-2009 novel [id number], preservative-free, injectable Parag Herrera PA-C Work Phone: [facility] Work Phone: 02-15-2009 influenza virus vaccine, unspecified formulation Sharla Dai PA-C Work Phone: [facility] Payers Date Payer Category Payer Self-pay 2024 Unknown [id number] 2022 Managed Care (Private) [id number] 2022 Private Health Insurance [id number] 2022 Private Health Insurance [id number] 2020 Unknown 2020 Unknown [id number] 2017 Private Health Insurance CLAUDE ESTRADA HMO/NTWK/OACCESS/OA+/ POS [id number] 2017-Present [id number]. [id number] 1968 Unknown [id number] 2.16.840.1.894943.3.579.2.90 3 1968 Unknown [id number] 2.16.840.1.334192.3.579.2.90 3 1968 Unknown [id number] 2.16.840.1.995181.3.579.2.90 3 1968 Unknown [id number] 2.16.840.1.823707.3.579.2.90 3 1968 Unknown [id number] 2.16.840.1.535287.3.579.2.35 6 1968 Unknown [id number] 2.16.840.1.731493.3.579.2.35 6 1968 Unknown [id number] 2.16.840.1.671097.3.579.2.35 6 1968 Unknown [id number] 2.16.840.1.599290.3.579.2.35 6 1968 Unknown [id number] 2.16.840.1.347335.3.579.2.35 6 1968 Unknown [id number] 2.16.840.1.332587.3.579.2.35 6 1968 Unknown [id number] 2.16.840.1.864509.3.579.2.35 6 1968 Unknown [id number] 2.16.840.1.802904.3.579.2.35 6 1968 Unknown [id number] 2.16.840.1.923075.3.579.2.35 6 1968 Unknown [id number] 2.16.840.1.384782.3.579.2.35 6 1968 Unknown [id number] 2.16.840.1.547881.3.579.2.98 3 1968 Unknown [id number] 2.16.840.1.955003.3.579.2.98 3 1968 Unknown [id number] 2.16.840.1.703163.3.579.2.10 69 1968 Unknown [id number] 2.16.840.1.581359.3.579.2.10 69 1968 Unknown [id number] 2.16.840.1.870780.3.579.2.10 69 1968 Unknown [id number] 2.16.840.1.147605.3.579.2.98 3 1968 Unknown [id number] 2.16.840.1.079273.3.579.2.98 3 1968 Unknown [id number] 2.16.840.1.834110.3.579.2.98 3 1968 Unknown [id number] 2.16.840.1.703181.3.579.2.98 3 1968 Unknown [id number] 2.16.840.1.151189.3.579.2.98 3 1968 Unknown [id number] 2.16.840.1.835578.3.579.2.98 3 1968 Unknown [id number] 2.16.840.1.370260.3.579.2.98 3 1968 Unknown [id number] 2.16.840.1.769886.3.579.2.98 3 1968 Unknown [id number] 2.16.840.1.714776.3.579.2.98 3 1968 Unknown [id number] 2.16.840.1.666606.3.579.2.12 45 1968 Unknown [id number] 2.16.840.1.095252.3.579.2.12 45 1968 Unknown [id number] 2.16.840.1.567960.3.579.2.12 45 1968 Unknown [id number] 2.16.840.1.102269.3.579.2.12 43 1968 Unknown [id number] 2.16.840.1.823480.3.579.2.12 43 1968 Unknown [id number] 2.16.840.1.720240.3.579.2.12 43 1968 Unknown [id number] 2.16.840.1.286903.3.579.2.12 43 1968 Unknown [id number] 2.16.840.1.900029.3.579.2.12 43 1968 Unknown [id number] 2.16.840.1.560410.3.579.2.12 43 1968 Unknown [id number] 2.16.840.1.712372.3.579.2.12 43 1968 Unknown [id number] 2.16.840.1.328292.3.579.2.12 43 1968 Unknown [id number] 2.16.840.1.331732.3.579.2.12 43 1968 Unknown [id number] 2.16.840.1.818264.3.579.2.12 43 1968 Unknown [id number] 2.16.840.1.451662.3.579.2.12 44 1968 Unknown [id number] 2.16.840.1.522254.3.579.2.12 44 1968 Unknown [id number] 2.16.840.1.139897.3.579.2.12 44 1968 Unknown [id number] 2.16.840.1.556596.3.579.2.12 44 1968 Unknown [id number] 2.16.840.1.487785.3.579.2.12 44 1968 Unknown [id number] 2.16.840.1.789261.3.579.2.12 44 1968 Unknown [id number] 2.16.840.1.970102.3.579.2.12 44 1968 Unknown [id number] 2.16.840.1.421189.3.579.2.12 44 Unknown [id number] Unknown [id number] 2.16.840.1.117089.3.579.2.46 2 Unknown [id number] 2.16.840.1.491938.3.579.2.46 2 Social History Date Type Detail Facility Start: 12-05-2017 End: 09-25-2024 Tobacco smoking status CAIS Never smoker [facility] Start: 1970 Sex Assigned At Not on file [facility] Start: 02-11-2018 End: 06-19-2022 Tobacco use and exposure Never used [facility] Start: 02-11-2018 End: 10-11-2022 Alcohol intake Current drinker of alcohol (finding) [facility] Start: 12-08-2015 Alcohol Comment occasionally/wine [facility] Start: 06-19-2022 End: 05-05-2024 Never a smoker Never a smoker [facility] Work Phone: Tobacco smoking consumption unknown [facility] Start: 02-05-2022 End: 08-05-2024 Exposure to SARS-CoV-2 (event) Not sure [facility] Start: 04-17-2022 Alcohol Comment occ. [facility] Start: 06-19-2022 End: 05-05-2024 Tobacco use panel [facility] Work Phone: Start: 01-16-2024 End: 08-05-2024 Alcoholic beverage intake Ex-drinker (finding) [facility] Work Phone: Start: 1970 [facility]-2020 to 08-05-2024 Claudia Gibbons, [facility] - 08/05/2024 11:40 AM EDTParag Herrera PA-C - 05/05/2024 7:30 AM Tracie Martínez, [facility] - 03/20/2024 11:40 AM Tracie Martínez, [facility] - 02/07/2024 11:00 AM EDT Note Date & Type Note Facility 08-05-2024 History of Presen t illness Narrative Subjective Patient ID: Teddy Figueroa is a 54 y.o. female who presents for norovirus (3 weeks still not feeling well) and UTI (Pressure in abdomen). 54 yo female presents today with complaints of just not feeling well. States she had norovirus approximately 3 weeks ago and she still feels fatigued and wore out. States all her GI symptoms have resolved except for a little bit of pressure in her lower abd. UA was negative for UTI. Pt very vague regarding her symptoms. UTI Pertinent negatives include no chills, nausea or vomiting. Review of Systems Constitutional: Positive for fatigue. Negative for chills and fever. HENT: Negative. Respiratory: Negative for cough, shortness of breath and wheezing. Cardiovascular: Negative for chest pain and palpitations. Gastrointestinal: Negative for abdominal distention, abdominal pain, constipation, diarrhea, nausea and vomiting. Genitourinary: Negative. Objective Physical Exam Vitals and nursing note reviewed. Constitutional: General: She is not in acute distress. Appearance: She is not ill-appearing. HENT: Head: Normocephalic. Right Ear: Tympanic membrane normal. Left Ear: Tympanic membrane normal. Nose: No congestion or rhinorrhea. Mouth/Throat: Mouth: Mucous membranes are moist. Cardiovascular: Rate and Rhythm: Normal rate and regular rhythm. Pulses: Normal pulses. Heart sounds: Normal heart sounds. No murmur heard. No friction rub. No gallop. Pulmonary: Effort: Pulmonary effort is normal. Breath sounds: Normal breath sounds. No wheezing, rhonchi or rales. Abdominal: General: Bowel sounds are normal. There is no distension. Palpations: Abdomen is soft. Tenderness: There is no right CVA tenderness. Comments: States she has slight tenderness on palpation of upper quadrants Musculoskeletal: Right lower leg: No edema. Left lower leg: No edema. Lymphadenopathy: Cervical: No cervical adenopathy. Skin: General: Skin is warm and dry. Neurological: Mental Status: She is alert. Psychiatric: Mood and Affect: Mood normal. BP 130/88 Pulse 86 Temp 36.8 C (98.2 F) Wt 91.1 kg (200 lb 14.4 oz) SpO2 98% BMI 41.99 kg/m Current Medications[1] Medical History[2] Surgical History[3] Family History[4] Assessment/Plan Problem List Items Addressed This Visit None Visit Diagnoses Other fatigue - Primary Relevant Orders CBC and Auto Differential Iron and TIBC Ferritin Comprehensive metabolic panel Sensation of pressure in bladder area Relevant Orders POCT UA Automated manually resulted (Completed) Get labs. Increase fluids and rest. She will return if worsen or no improvement. [1] Current Outpatient Medications: omeprazole (PriLOSEC) [address] capsule, Take 1 capsule (40 mg) by mouth 2 times a day before meals., Disp: 180 capsule, Rfl: 3 oxybutynin XL (Ditropan-XL) 5 mg 24 hr tablet, Take 1 tablet (5 mg) by mouth once daily. Do not crush, chew, or split., Disp: 90 tablet, Rfl: 3 phentermine (Adipex-P) 37.5 mg tablet, Take 1 tablet (37.5 mg) by mouth once daily in the morning. Take before meals., Disp: 30 tablet, Rfl: 0 traZODone (Desyrel) 50 mg tablet, Take 1 tablet (50 mg) by mouth once daily at bedtime., Disp: 90 tablet, Rfl: 3 [2] History reviewed. No pertinent past medical history. [3] Past Surgical History: Procedure Laterality Date CARPAL TUNNEL RELEASE Bilateral OTHER SURGICAL HISTORY 12/06/2020 Nose surgery OTHER SURGICAL HISTORY 12/06/2020 Bladder surgery OTHER SURGICAL HISTORY 12/06/2020 Rectocele repair OTHER SURGICAL HISTORY 12/06/2020 Kidney donation procedure OTHER SURGICAL HISTORY 12/06/2020 Hernia repair OTHER SURGICAL HISTORY 12/06/2020 Hysterectomy [4] Family History Problem Relation Name Age of Onset Congenital heart disease Mother Hypertension Mother Liver cancer Maternal Grandmother documented in this encounter [facility] Work Phone: 05-05-2024 History of Presen t illness Narrative Subjective Patient ID: Teddy Figueroa is a 54 y.o. female who presents for pt here for 6 month med check. HPI OBESITY: Stopped Ozempic d/t GI issue and cost. Will check with other [facility] pharmacies and/or insurance company for coverage. Has been successful with Adipex in the past. OVERACTIVE BLADDER: Oxybutynin effective, stable. GERD: PPI effective, stable, no SE. BACK PAIN: Chronic, Flexeril prn effective in the past. INSOMNIA: Trazodone effective intermittently. No SE. PT almost completely effective for R shoulder strain. Colonoscopy 2023, due again 2028. Review of Systems Constitutional: Negative. Respiratory: Negative. Cardiovascular: Negative. Gastrointestinal: Negative. Objective BP 124/80 Pulse 95 Ht 1.473 m (4' 10) Wt 89.4 kg (197 lb) SpO2 98% BMI 41.17 kg/m Physical Exam Constitutional: General: She is not in acute distress. Appearance: Normal appearance. She is not ill-appearing. HENT: Head: Normocephalic and atraumatic. Eyes: Extraocular Movements: Extraocular movements intact. Conjunctiva/sclera: Conjunctivae normal. Cardiovascular: Rate and Rhythm: Normal rate. Pulmonary: Effort: Pulmonary effort is normal. Abdominal: General: There is no distension. Musculoskeletal: General: Normal range of motion. Cervical back: Normal range of motion. Skin: General: Skin is warm and dry. Neurological: General: No focal deficit present. Mental Status: She is alert and oriented to person, place, and time. Psychiatric: Mood and Affect: Mood normal. Behavior: Behavior normal. Thought Content: Thought content normal. Judgment: Judgment normal. Assessment/Plan Never got labs, will get them today. Rx Adipex. No other medication changes today. Follow up 3 months or sooner prn. documented in this encounter [facility] Work Phone: 03-20-2024 History of Presen t illness Narrative Subjective Patient ID: Teddy Figueroa is a 54 y.o. female who presents for sick (Pt is here today for a sick visit. Reports she had a fever of 103 then 101 and today she reports she has not had a fever today. ). Patient presents with complaints of acute upper respiratory/sinus infection. Sinusitis: Has had similar symptoms and treated before 6 weeks ago. The infection did resolve at that time with treatment from Augmentin. Similar symptoms today with fever prior to coming in, she is afebrile on arrival. 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 Her employer required her to come in for evaluation. She is comfortable with repeat treatment with Augmentin. She will call us in 3 days if she is not improved. Her lungs are clear throughout, bilateral ears are not erythematous. Sore throat with no erythema. Does have rhinorrhea and postnasal drip. Denies chills or myalgias. Review of Systems Constitutional: Positive for fever. Negative for chills, diaphoresis, fatigue and unexpected weight change. HENT: Positive for ear pain, postnasal drip, rhinorrhea, sinus pain and sore throat. Negative for dental problem, tinnitus and trouble swallowing. Eyes: Negative for visual disturbance. Respiratory: Negative for chest tightness and shortness of breath. Cardiovascular: Negative for chest pain, palpitations and leg swelling. Gastrointestinal: Negative for abdominal pain, constipation, diarrhea, nausea and rectal pain. Endocrine: Negative for polydipsia, polyphagia and polyuria. Genitourinary: Negative for difficulty urinating, frequency and urgency. Musculoskeletal: Negative for arthralgias and myalgias. Skin: Negative for pallor and wound. Neurological: Negative for syncope, weakness, numbness and headaches. Psychiatric/Behavioral: Negative for suicidal ideas. The patient is not nervous/anxious. Objective BP 124/88 Pulse 104 Temp 36.8 C (98.2 F) Ht 1.473 m (4' 10) Wt 86.2 kg (190 lb 1.6 oz) SpO2 94% BMI 39.73 kg/m Physical Exam Vitals and nursing note reviewed. Constitutional: General: She is not in acute distress. Appearance: Normal appearance. She is normal weight. HENT: Head: Normocephalic. Right Ear: Tympanic membrane, ear canal and external ear normal. There is no impacted cerumen. Left Ear: Tympanic membrane, ear canal and external ear normal. There is no impacted cerumen. Nose: Congestion and rhinorrhea present. Mouth/Throat: Mouth: Mucous membranes are moist. Pharynx: Oropharynx is clear. No posterior oropharyngeal erythema. Eyes: General: No scleral icterus. Pupils: Pupils are equal, round, and reactive to light. Cardiovascular: Rate and Rhythm: Normal rate and regular rhythm. Pulses: Normal pulses. Heart sounds: Normal heart sounds. Pulmonary: Effort: Pulmonary effort is normal. Breath sounds: Normal breath sounds. Abdominal: General: Bowel sounds are normal. Palpations: Abdomen is soft. Musculoskeletal: General: Normal range of motion. Cervical back: Normal range of motion. Skin: General: Skin is warm and dry. Capillary Refill: Capillary refill takes less than 2 seconds. Neurological: General: No focal deficit present. Mental Status: She is alert and oriented to person, place, and time. Mental status is at baseline. Psychiatric: Mood and Affect: Mood normal. Behavior: Behavior normal. Thought Content: Thought content normal. Judgment: Judgment normal. Assessment/Plan Diagnoses and all orders for this visit: Acute non-recurrent pansinusitis - amoxicillin-pot clavulanate (Augmentin) 875-125 mg tablet; Take 1 tablet (875 mg) by mouth 2 times a day for 10 days. documented in this encounter [facility] Work Phone: 02-07-2024 History of Presen t illness Narrative Subjective Patient ID: Teddy Figueroa is a 53 y.o. female who presents for Sick (PT is here today for a sick visit, reports fever, cough and body aches, congestion, sore throat and ear pain, denies N/V. Did take tylenol. Reports this is day 9 of sx. Reports she was given cough pearls and steroids. Also lost her voice. Denies taking COVID or flu test. Highest her fever was 101.0 reports that was at night. ). Patient complains of acute respiratory illness for the last 9 days. She has had intermittent fever, cough, sore throat, ear fullness, congestion. Has treated fever with [id number] Tylenol. Did try prescription steroid and Tessalon without effectiveness. 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 Body aches only occur when her fever is elevated, no chills, no rigors. Vital signs not reflective of systemic infection. Given the length of time of illness I feel it is unlikely this is viral, she does have some fluid level of her left tympanic membrane, no erythema, some cobblestoning of her posterior oropharynx. Complains of postnasal drip. Lungs are clear. Will prescribe Augmentin for pansinusitis. Instructed the patient that if not improved after 4 days to call for possible change of antibiotic to Doxy/Zithromax. She was agreeable to this course of treatment. I did discuss possible swab for influenza and COVID, I do not feel that the results of either of these would change the course of treatment and the patient agreed. Review of Systems Constitutional: Positive for fever. Negative for chills and diaphoresis. HENT: Positive for congestion, postnasal drip, rhinorrhea, sinus pressure and sore throat. Negative for tinnitus, trouble swallowing and voice change. Eyes: Negative. Respiratory: Positive for cough. Negative for chest tightness, shortness of breath, wheezing and stridor. Cardiovascular: Negative for chest pain and palpitations. Gastrointestinal: Negative. Endocrine: Negative. Genitourinary: Negative. Musculoskeletal: Negative. Skin: Negative. Allergic/Immunologic: Negative. Neurological: Negative. Hematological: Negative. Psychiatric/Behavioral: Negative. Objective BP 118/79 Pulse 90 Temp 36.8 C (98.2 F) Ht 1.473 m (4' 10) Wt 84.2 kg (185 lb 11.2 oz) SpO2 94% BMI 38.81 kg/m Physical Exam Constitutional: General: She is not in acute distress. Appearance: Normal appearance. She is normal weight. She is ill-appearing. HENT: Head: Normocephalic. Mouth/Throat: Mouth: Mucous membranes are moist. Pharynx: Oropharynx is clear. No posterior oropharyngeal erythema. Eyes: Pupils: Pupils are equal, round, and reactive to light. Cardiovascular: Rate and Rhythm: Normal rate and regular rhythm. Pulmonary: Effort: Pulmonary effort is normal. No respiratory distress. Breath sounds: Normal breath sounds. No stridor. No wheezing, rhonchi or rales. Musculoskeletal: General: Normal range of motion. Skin: General: Skin is warm. Neurological: General: No focal deficit present. Mental Status: She is alert and oriented to person, place, and time. Mental status is at baseline. Psychiatric: Mood and Affect: Mood normal. Behavior: Behavior normal. Thought Content: Thought content normal. Judgment: Judgment normal. Assessment/Plan Diagnoses and all orders for this visit: Acute non-recurrent pansinusitis - amoxicillin-pot clavulanate (Augmentin) 875-125 mg tablet; Take 1 tablet (875 mg) by mouth 2 times a day for 10 days. documented in this encounter [facility] Work Phone: 01-16-2024 History of Presen t illness Narrative Subjective Patient ID: Teddy Figueroa is a 53 y.o. female who presents for Shoulder Injury (PT is here today for a shoulder injury (right side) that she just woke up with on Saturday with. Has tried heat and ice and reports the ice does help. OTC pain meds are helping as well. ). Shoulder Injury Shoulder pain for about 6 days now, worse at night, Flexeril somewhat helpful, Tylenol and ibuprofen mildly helpful. Ice helps. Review of Systems Constitutional: Negative. Respiratory: Negative. Cardiovascular: Negative. Gastrointestinal: Negative. Objective BP 110/80 Pulse 90 Wt 82.2 kg (181 lb 3.2 oz) SpO2 97% BMI 37.87 kg/m Physical Exam Constitutional: General: She is not in acute distress. Appearance: Normal appearance. She is not ill-appearing. HENT: Head: Normocephalic and atraumatic. Eyes: Extraocular Movements: Extraocular movements intact. Conjunctiva/sclera: Conjunctivae normal. Cardiovascular: Rate and Rhythm: Normal rate. Pulmonary: Effort: Pulmonary effort is normal. Abdominal: General: There is no distension. Musculoskeletal: General: Tenderness present. Cervical back: Normal range of motion. Comments: Pain with all shoulder special tests Skin: General: Skin is warm and dry. Neurological: General: No focal deficit present. Mental Status: She is alert and oriented to person, place, and time. Psychiatric: Mood and Affect: Mood normal. Behavior: Behavior normal. Thought Content: Thought content normal. Judgment: Judgment normal. Assessment/Plan Referral to PT and thank you Rx meloxicam, continue ice/Flexeril/Tylenol prn Follow up at mi check documented in this encounter [facility] Work Phone: 10-04-2023 History of Presen t illness Narrative Subjective Patient ID: Teddy Figueroa is a 53 y.o. female who presents for Follow-up (To review endoscopy results. ). HPI Background: Her PCP placed orders for upper and lower endoscopic investigations. These tests for nausea/vomiting x 1 month, diarrhea x 6 months. Belching, low-grade fever and fatigue. During this time she had an ED visit. Infectious stool studies returned negative. Taking PPI with suboptimal response to her upper GI complaints. She also endorsed generalized abdominal pain. During this time she was taking Ozempic, per her PCPs note from 08/30/2023. However, the patient reports that she stopped Ozempic 1 month prior to her GI symptoms. -> EGD: Z-line 34 cm from the incisors Small hiatal hernia without Tylor lesions present. Hill grade II hiatal hernia Mild erythematous mucosa in the GE junction; performed cold forceps biopsy to rule out Donahue's esophagus; Mild erythematous mucosa in the body of the stomach and antrum; performed cold forceps biopsy to rule out H. pylori; The duodenal bulb, 1st part of the duodenum and 2nd part of the duodenum appeared normal. Performed random biopsy using biopsy forceps to rule out celiac disease. ->Colonoscopy: Mild erythematous mucosa in the terminal ileum; performed cold forceps biopsy; Pancolonic diverticula of moderate severity with no inflammation External small hemorrhoids Small hypertrophied anal papillae Two sessile polyps measuring from 6 mm in the proximal ascending colon; performed cold snare with complete en bloc removal and retrieved specimen Performed random pancolonic forceps biopsies to rule out colitis Currently the patient offers no GI complaints. She is no longer taking Ozempic. No nausea/vomiting or diarrhea. No abdominal pain. No GERD or dysphagia. No melena or hematochezia. Current Outpatient Medications on File Prior to Visit Medication Sig Dispense Refill cyclobenzaprine (Flexeril) 10 mg tablet Take 1 tablet (10 mg) by mouth as needed at bedtime for muscle spasms. 30 tablet 1 gabapentin (Neurontin) 100 mg capsule Take 1 capsule (100 mg) by mouth 3 times a day as needed (fibro pain). 90 capsule 1 omeprazole (PriLOSEC) [address] capsule Take 1 capsule (40 mg) by mouth once daily in the morning. Take before meals. Take 1-2 capsules daily. 90 capsule 3 ondansetron ODT (Zofran-ODT) 4 mg disintegrating tablet Take 1 tablet (4 mg) by mouth 2 times a day as needed for nausea or vomiting. 60 tablet 1 oxybutynin XL (Ditropan-XL) 5 mg 24 hr tablet Take 1 tablet (5 mg) by mouth once daily. Do not crush, chew, or split. 90 tablet 3 semaglutide 0.25 mg or 0.5 mg (2 mg/3 mL) pen injector Inject 0.25 mg under the skin 1 (one) time per week for 30 days, THEN 0.5 mg 1 (one) time per week for 30 days, THEN 1 mg 1 (one) time per week. 12 mL 0 traZODone (Desyrel) 50 mg tablet Take 1 tablet (50 mg) by mouth once daily at bedtime. 90 tablet 3 UNABLE TO FIND Semaglutide/Cyanocobalamin 2mg-0.4mg/mL. Inject 0.125mL weekly for 4 weeks, then inject 0.25mL weekly for 4 weeks. 1 each 0 UNABLE TO FIND Semaglutide/Cyanocobalamin 5mg-0.4mg/mL. Inject 0.2mL weekly for 4 weeks. Then inject 0.4mL weekly from then on. 1 each 0 No current facility-administered medications on file prior to visit. Review of Systems All other systems reviewed and are negative. Objective Physical Exam Constitutional: General: She is awake. She is not in acute distress. Appearance: Normal appearance. She is well-developed. She is not ill-appearing, toxic-appearing or diaphoretic. HENT: Head: Normocephalic and atraumatic. Eyes: General: No scleral icterus. Pupils: Pupils are equal, round, and reactive to light. Pulmonary: Effort: Pulmonary effort is normal. No respiratory distress. Musculoskeletal: General: Normal range of motion. Skin: Coloration: Skin is not cyanotic, jaundiced or pale. Neurological: General: No focal deficit present. Mental Status: She is alert and oriented to person, place, and time. Psychiatric: Behavior: Behavior is cooperative. There were no vitals taken for this visit. Lab Results Component Value Date WBC 7.8 08/21/2023 HGB 14.4 08/21/2023 HCT 44.4 08/21/2023 MCV 84 08/21/2023 PLT 286 08/21/2023 No lab exists for component: LABALBU No results found for: AFP Lab Results Component Value Date TSH 0.76 03/01/2023 Assessment/Plan Diagnoses and all orders for this visit: 53-year-old female status post EGD and colonoscopy, detailed in the HPI. She had a constellation of GI complaints of unknown etiology. It appears at some point she was taking semaglutide injections, not sure if this was the cause of her symptoms or if this was viral/postinfectious IBS. However, she offers no GI complaints at this time. No red flag symptoms noted. EGD and colonoscopy results reviewed with the patient. She will need to return in 5 years for surveillance, due to tubular adenoma. Deion Pelayo CNP documented in this encounter [facility] Work Phone: 09-18-2023 Note Formatting of this n ote might be different from the original. at bedside [facility] 09-18-2023 Miscellaneous Notes at bedside documented in this encounter [facility] Work Phone: 09-18-2023 Attending History and physical note H&P reviewed. The patient was examined and there are no changes to the H&P. ASA II airway II Source Note - Parag Herrera PA-C - 08/30/2023 10:00 AM EDT Subjective Patient ID: Teddy Figueroa is a 53 y.o. female who presents for pt here due to vomiting x 1 month, diarrhea x 6 months (Pt also having painful burps, low grade fever, brain fog and all over pain and fatigue). HPI OBESITY: Ozempic from [facility], has lost about 20 pounds, has not been taking for about 1 month d/t increase in worley. OVERACTIVE BLADDER: Oxybutynin effective, has had a couple of UTIs recently, would like to go back down to 5mg dose to see if improvement in UTI frequency. GERD: PPI effective, stable, no SE. BACK PAIN: Chronic, Flexeril prn effective. INSOMNIA: Trazodone effective intermittently. No SE. ER visit 9 days ago for diarrhea. C. Diff and labs unremarkable. Endorses about 5-6 months of diarrhea most days, for the past month has been vomiting after most meals, she is burping which is new for her. Still taking PPI and tums at times. Daily generalized abdominal pain. Has stopped taking Ozempic. Difficult to correlate to diet, but she does feel vomiting began after eating bruschetta her friend made, thinks may have correlation with gluten. Endorses pain all over, clothes hurt, brushing hair hurts, Tylenol does not help, fam hx fibromyalgia. Review of Systems Constitutional: Negative. Respiratory: Negative. Cardiovascular: Negative. Gastrointestinal: Positive for abdominal pain, diarrhea and vomiting. Objective BP 118/72 Pulse 72 Temp 36.7 C (98 F) Ht 1.473 m (4' 10) Wt 82.6 kg (182 lb) SpO2 98% BMI 38.04 kg/m Physical Exam Constitutional: General: She is not in acute distress. Appearance: Normal appearance. She is not ill-appearing. HENT: Head: Normocephalic and atraumatic. Eyes: Extraocular Movements: Extraocular movements intact. Conjunctiva/sclera: Conjunctivae normal. Cardiovascular: Rate and Rhythm: Normal rate. Pulmonary: Effort: Pulmonary effort is normal. Abdominal: General: There is no distension. Musculoskeletal: General: Normal range of motion. Cervical back: Normal range of motion. Skin: General: Skin is warm and dry. Neurological: General: No focal deficit present. Mental Status: She is alert and oriented to person, place, and time. Psychiatric: Mood and Affect: Mood normal. Behavior: Behavior normal. Thought Content: Thought content normal. Judgment: Judgment normal. Assessment/Plan CT abdomen w/contrast Referral to Dr. Major for workup/EGD/colonoscopy and thank you. Rx Zofran prn. Rx gabapentin fibro type pain. Reduce oxybutynin to 5mg daily. Inflammatory labs and celiac panel. Advised maintain hydration. Follow up 2 months or sooner prn. [facility] Work Phone: 09-18-2023 History and physical note H&P reviewed. The patient was examined and there are no changes to the H&P. ASA II airway II Source Note - Parag Herrera PA-C - 08/30/2023 10:00 AM EDT Subjective Patient ID: Teddy Figueroa is a 53 y.o. female who presents for pt here due to vomiting x 1 month, diarrhea x 6 months (Pt also having painful burps, low grade fever, brain fog and all over pain and fatigue). HPI OBESITY: [facility]empic [facility], has lost about 20 pounds, has not been taking for about 1 month d/t increase in [place]. OVERACTIVE BLADDER: Oxybutynin effective, has had a couple of UTIs recently, would like to go back down to 5mg dose to see if improvement in UTI frequency. GERD: PPI effective, stable, no SE. BACK PAIN: Chronic, Flexeril prn effective. INSOMNIA: Trazodone effective intermittently. No SE. ER visit 9 days ago for diarrhea. C. Diff and labs unremarkable. Endorses about 5-6 months of diarrhea most days, for the past month has been vomiting after most meals, she is burping which is new for her. Still taking PPI and tums at times. Daily generalized abdominal pain. Has stopped taking Ozempic. Difficult to correlate to diet, but she does feel vomiting began after eating bruschetta her friend made, thinks may have correlation with gluten. Endorses pain all over, clothes hurt, brushing hair hurts, Tylenol does not help, fam hx fibromyalgia. Review of Systems Constitutional: Negative. Respiratory: Negative. Cardiovascular: Negative. Gastrointestinal: Positive for abdominal pain, diarrhea and vomiting. Objective BP 118/72 Pulse 72 Temp 36.7 C (98 F) Ht 1.473 m (4' 10) Wt 82.6 kg (182 lb) SpO2 98% BMI 38.04 kg/m Physical Exam Constitutional: General: She is not in acute distress. Appearance: Normal appearance. She is not ill-appearing. HENT: Head: Normocephalic and atraumatic. Eyes: Extraocular Movements: Extraocular movements intact. Conjunctiva/sclera: Conjunctivae normal. Cardiovascular: Rate and Rhythm: Normal rate. Pulmonary: Effort: Pulmonary effort is normal. Abdominal: General: There is no distension. Musculoskeletal: General: Normal range of motion. Cervical back: Normal range of motion. Skin: General: Skin is warm and dry. Neurological: General: No focal deficit present. Mental Status: She is alert and oriented to person, place, and time. Psychiatric: Mood and Affect: Mood normal. Behavior: Behavior normal. Thought Content: Thought content normal. Judgment: Judgment normal. Assessment/Plan CT abdomen w/contrast Referral to Dr. Major for workup/EGD/colonoscopy and thank you. Rx Zofran prn. Rx gabapentin fibro type pain. Reduce oxybutynin to 5mg daily. Inflammatory labs and celiac panel. Advised maintain hydration. Follow up 2 months or sooner prn. documented in this encounter [facility] Work Phone: 09-18-2023 Hospital Discharg e instructions Amol Bae MD - 09/18/2023 8:27 AM EDT Patient Instructions after an endoscopy or colonoscopy The anesthetics, sedatives or narcotics which were given to you today will be acting in your body for the next 24 hours, so you might feel a little sleepy or groggy. This feeling should slowly wear off. Carefully read and follow the instructions. You received sedation today: - Do not drive or operate any machinery or power tools of any kind. - No alcoholic beverages today, not even beer or wine. - Do not make any important decisions or sign any legal documents. - No over the counter medications that contain alcohol or that may cause drowsiness. - Do not make any important decisions or sign any legal documents. While it is common to experience mild to moderate abdominal distention, gas, or belching after your procedure, if any of these symptoms occur following discharge from the GI Lab or within one week of having your procedure, call the [facility] to be advised whether a visit to your nearest Urgent Care or Emergency Department is indicated. Take this paper with you if you go. - If you develop an allergic reaction to the medications that were given during your procedure such as difficulty breathing, rash, hives, severe nausea, vomiting or lightheadedness.- If you experience chest pain, shortness of breath, severe abdominal pain, fevers and chills. -If you develop signs and symptoms of bleeding such as blood in your spit, if your stools turn black, tarry, or bloody - If you have not urinated within 8 hours following your procedure.- If your IV site becomes painful, red, inflamed, or looks infected. documented in this encounter [facility] Work Phone: 08-30-2023 History of Presen t illness Narrative Subjective Patient ID: Teddy Figueroa is a 53 y.o. female who presents for pt here due to vomiting x 1 month, diarrhea x 6 months (Pt also having painful burps, low grade fever, brain fog and all over pain and fatigue). HPI OBESITY: Ozempic from [facility], has lost about 20 pounds, has not been taking for about 1 month d/t increase in [place]. OVERACTIVE BLADDER: Oxybutynin effective, has had a couple of UTIs recently, would like to go back down to 5mg dose to see if improvement in UTI frequency. GERD: PPI effective, stable, no SE. BACK PAIN: Chronic, Flexeril prn effective. INSOMNIA: Trazodone effective intermittently. No SE. ER visit 9 days ago for diarrhea. C. Diff and labs unremarkable. Endorses about 5-6 months of diarrhea most days, for the past month has been vomiting after most meals, she is burping which is new for her. Still taking PPI and tums at times. Daily generalized abdominal pain. Has stopped taking Ozempic. Difficult to correlate to diet, but she does feel vomiting began after eating bruschetta her friend made, thinks may have correlation with gluten. Endorses pain all over, clothes hurt, brushing hair hurts, Tylenol does not help, fam hx fibromyalgia. Review of Systems Constitutional: Negative. Respiratory: Negative. Cardiovascular: Negative. Gastrointestinal: Positive for abdominal pain, diarrhea and vomiting. Objective BP 118/72 Pulse 72 Temp 36.7 C (98 F) Ht 1.473 m (4' 10) Wt 82.6 kg (182 lb) SpO2 98% BMI 38.04 kg/m Physical Exam Constitutional: General: She is not in acute distress. Appearance: Normal appearance. She is not ill-appearing. HENT: Head: Normocephalic and atraumatic. Eyes: Extraocular Movements: Extraocular movements intact. Conjunctiva/sclera: Conjunctivae normal. Cardiovascular: Rate and Rhythm: Normal rate. Pulmonary: Effort: Pulmonary effort is normal. Abdominal: General: There is no distension. Musculoskeletal: General: Normal range of motion. Cervical back: Normal range of motion. Skin: General: Skin is warm and dry. Neurological: General: No focal deficit present. Mental Status: She is alert and oriented to person, place, and time. Psychiatric: Mood and Affect: Mood normal. Behavior: Behavior normal. Thought Content: Thought content normal. Judgment: Judgment normal. Assessment/Plan CT abdomen w/contrast Referral to Dr. Major for workup/EGD/colonoscopy and thank you. Rx Zofran prn. Rx gabapentin fibro type pain. Reduce oxybutynin to 5mg daily. Inflammatory labs and celiac panel. Advised maintain hydration. Follow up 2 months or sooner prn. documented in this encounter [facility] Work Phone: 08-21-2023 Reason for referr al (narrative) Specialty Diagnoses / Procedures Referred By Ty wong Referred To Contact Family Medicine / Primary Care Salena Smith, [address] [place] [address] Referral ID Status Reason Start Date Expiration Date Visits Requested Visits Authorized [id number] Authorized Specialty Services Required 08/21/2023 08/20/2024 1 1 [facility] Work Phone: 1(803) 458-767102-29-2024 History of Present illness Narrative* Parag Herrera PA-C - 06/06/2023 8:30 AM EST Subjective Patient ID: Teddy Figueroa is a 53 y.o. female who presents for pt here for 3 month med check . HPI OBESITY: Has been struggling to lose weight for years. Trials of low caloric diet and exercise and still with no sustained weight loss. Has tried Adipex in the past which has helped, but will gain weight back. Rx Ozempic last visit, insurance will not cover, cannot get approved for discount program. OVERACTIVE BLADDER: Chronic conditions for about 25 years, never been treated. Hx of 3 cystoceles and 1 rectocele. Mostly during the day with urgency and overactive bladder. Would like to start in study with [facility] but they are requiring trial of medication first. Oxybutynin effective, noSE, but still with urgency. GERD: PPI effective, stable, no SE. BACK PAIN: Chronic, Flexeril prn effective. INSOMNIA: Trazodone effective intermittently. No SE. Denies age appropriate screenings and vaccinations at this time. Review of Systems Constitutional: Negative. Respiratory: Negative. Cardiovascular: Negative. Gastrointestinal: Negative. Objective BP 128/78 Pulse 76 Ht 1.499 m (4' 11) Wt 90.3 kg (199 lb) SpO2 96% BMI 40.19 kg/m Physical Exam Constitutional: General: She is not in acute distress. Appearance: Normal appearance. She is not ill-appearing. HENT: Head: Normocephalic and atraumatic. Eyes: Extraocular Movements: Extraocular movements intact. Conjunctiva/sclera: Conjunctivae normal. Cardiovascular: Rate and Rhythm: Normal rate. Pulmonary: Effort: Pulmonary effort is normal. Abdominal: General: There is no distension. Musculoskeletal: General: Normal range of motion. Cervical back: Normal range of motion. Skin: General: Skin is warm and dry. Neurological: General: No focal deficit present. Mental Status: She is alert and oriented to person, place, and time. Psychiatric: Mood and Affect: Mood normal. Behavior: Behavior normal. Thought Content: Thought content normal. Judgment: Judgment normal. Assessment/Plan Increase oxybutynin to 10mg. [facility] semaglutide. No other medication changes today. Follow up 3 months or sooner prn, will get labs then documented in this [facility] Work Phone: 1([phone]) 384-990111-28-2023 History of Present illness Narrative* Parag Herrera PA-C - 03/05/2023 8:00 AM EST Subjective Patient ID: Teddy Figueroa is a 53 y.o. female who presents for 1 month f/u discuss adipex (Pt would like to discuss med for urine urgency ). HPI OBESITY: Has been struggling to lose weight for years. Trials of low caloric diet and exercise and still with no sustained weight loss. Has tried Adipex in the past which has helped, but will gain weight back. OVERACTIVE BLADDER: Chronic conditions for about 25 years, never been treated. Hx of 3 cystoceles and 1 rectocele. Mostly during the day with urgency and overactive bladder. Would like to start in study with [facility] but they are requiring trial of medication first. GERD: PPI effective, stable, no SE. BACK PAIN: Chronic, Flexeril prn effective. Review of Systems Constitutional: Negative. Respiratory: Negative. Cardiovascular: Negative. Gastrointestinal: Negative. Objective BP 128/82 Pulse 85 Ht 1.499 m (4' 11) Wt 86.6 kg (191 lb) BMI 38.58 kg/m Physical Exam Constitutional: General: She is not in acute distress. Appearance: Normal appearance. She is not ill-appearing. HENT: Head: Normocephalic and atraumatic. Eyes: Extraocular Movements: Extraocular movements intact. Conjunctiva/sclera: Conjunctivae normal. Cardiovascular: Rate and Rhythm: Normal rate. Pulmonary: Effort: Pulmonary effort is normal. Abdominal: General: There is no distension. Musculoskeletal: General: Normal range of motion. Cervical back: Normal range of motion. Skin: General: Skin is warm and dry. Neurological: General: No focal deficit present. Mental Status: She is alert and oriented to person, place, and time. Psychiatric: Mood and Affect: Mood normal. Behavior: Behavior normal. Thought Content: Thought content normal. Judgment: Judgment normal. Assessment/Plan Rx Ozempic for weight loss Rx oxybutynin daily for OB No other medication changes today Follow up 3 months or sooner prn documented in this [facility] Work Phone: [phone]) 504-979810-26-2023 History of Present illness Narrative* Parag Herrera PA-C - 01/31/2023 8:30 AM EDT Subjective Patient ID: Teddy Figueroa is a 52 y.o. female who presents for 6 month med check . HPI MENOPAUSAL SYMPTOMS: Premarin effective, stable. Need to start weaning off of this d/t MTHFR positive mutation. CARPAL TUNNEL: BL. BL release per Dr. Gutierrez about 6 months ago. Doing very well now, no issue. GERD: Stable on Prilosec, no SE. INSOMNIA: Trazodone effective. Stable, no SE. MTHFR positive for only one factor. Denies mammogram and Cologuard at this time. Review of Systems Constitutional: Negative. Respiratory: Negative. Cardiovascular: Negative. Gastrointestinal: Negative. Objective BP 124/82 Pulse 70 Ht 1.499 m (4' 11) Wt 88 kg (194 lb) BMI 39.18 kg/m Physical Exam Constitutional: General: She is not in acute distress. Appearance: Normal appearance. She is not ill-appearing. HENT: Head: Normocephalic and atraumatic. Eyes: Extraocular Movements: Extraocular movements intact. Conjunctiva/sclera: Conjunctivae normal. Cardiovascular: Rate and Rhythm: Normal rate. Pulmonary: Effort: Pulmonary effort is normal. Abdominal: General: There is no distension. Musculoskeletal: General: Normal range of motion. Cervical back: Normal range of motion. Skin: General: Skin is warm and dry. Neurological: General: No focal deficit present. Mental Status: She is alert and oriented to person, place, and time. Psychiatric: Mood and Affect: Mood normal. Behavior: Behavior normal. Thought Content: Thought content normal. Judgment: Judgment normal. Assessment/Plan Chronic conditions stable. No medication changes today. Fasting labs soon. Follow up 1 month to discuss restarting Adipex. documented in this [facility] Work Phone: 1(543) 792-448007-06-2023 History of Present illness Narrative* Kerri Cannon - 10/11/2022 10:30 AM EDT Review of Systems Constitutional: Negative for chills and fever. HENT: Negative for hearing loss. Eyes: Negative for visual disturbance. Respiratory: Negative for shortness of breath. Cardiovascular: Negative for chest pain. Gastrointestinal: Negative for abdominal pain and blood in stool. Endocrine: Negative for polydipsia. Genitourinary: Negative for hematuria. Musculoskeletal: Positive for myalgias. Negative for arthralgias. Neurological: Negative for dizziness, seizures and numbness. Hematological: Does not bruise/bleed easily. Psychiatric/Behavioral: Negative for dysphoric mood. * Sharla Dai PA-C - 10/11/2022 10:30 AM EDT 10/11/22 HPI: Teddy Figueroa presents to the office today 2 weeks status post Bilateral carpal tunnel release, doing well. She has had complaints. Her numbness and tingling has resolved. She is complaining of cramping of her left hand in the ulnar nerve distribution. PE: Bilateral hand incision is clean and dry and healing well. She is able to make a composite fist. Brisk capillary refill. Skin is warm and dry. Two point Discrimination (mm): 1- Thumb 2- Index 3- Long 4- Ring 5- Small Right 7 7 7 7/7 7 Left 7 7 7 7/7 7 Assessment: S/P Bilateral CTR. Plan: Sutures were removed in the office today. I discussed scar massage. There are no restrictions, she can progress activity as tolerated. We discussed the ulnar nerve symptoms she is having on herleft hand. I am hopeful that it will resolve as the swelling resolves in her wrist. If not it may be worth looking into that further for cubital tunnel syndrome. She will follow up in [address] Gutierrez to discuss that further. documented in this [facility]06-22-2023 Nurse Note* Regine Perdomo RN - 09/27/2022 8:29 AM EDT Discharged at this time via wheelchair and OFFICE SERVICES ASSISTANT to car at this time. Pt is stable. Pt denies further questions or needs at this time. * Regine Perdomo RN - 09/27/2022 8:18 AM EDT Discharge instructions reviewed with pt and spouse at this time. Pt gives verbal acknowledgement atthis time. Both deny further questions or needs at this time. Pain script given to at this time. * Sarina Castillo RN - 09/27/2022 7:54 AM EDT Patient taken to PACU PHASE II via cart with this RN and HOUSE WORKER. Report given to SALIMA Weiner. * Sarina Castillo RN - 09/27/2022 7:13 AM EDT OR temp 66.8deg F OR humidity 41% [facility]* Regine Perdomo RN - 09/27/2022 8:29 AM EDT Discharged at this time via wheelchair and OFFICE SERVICES ASSISTANT to car at this time. Pt is stable. Pt denies further questions or needs at this time. [facility]06-22-2023 Nurse Surgical operation note* Regine Perdomo RN - 09/27/2022 8:18 AM EDT Discharge instructions reviewed with pt and spouse at this time. Pt gives verbal acknowledgement atthis time. Both deny further questions or needs at this time. Pain script given to at this time. [facility]06-22-2023 Nurse Surgical operation note* Sarina Castillo RN - 09/27/2022 7:54 AM EDT Patient taken to PACU PHASE II via cart with this RN and HOUSE WORKER. Report given to SALIMA Weiner. T [facility]06-22-2023 Surgery Postoperative evaluation and management note* Op Note - Guru Gutierrez MD - 09/27/2022 7:49 AM EDT DATE: 09/27/2022 Patient: Teddy Figueroa Pre-Op Dx: Carpal tunnel syndrome on right [G56.01] Carpal tunnel syndrome on left [G56.02] Post-Op Dx: Carpal tunnel syndrome on right [G56.01] Carpal tunnel syndrome on left [G56.02] Procedure: Procedure(s) (LRB): CARPAL TUNNEL RELEASE (Bilateral) CPT CODE Surgeon: Surgeon(s) and Role: * Guru Gutierrez MD - Primary Pathology Laboratory Technologist: * No surgical staff found * ANESTHESIA TYPE: Monitor Anesthesia Care ESTIMATED BLOOD LOSS: Minimal. COMPLICATIONS: None. DISPOSITION: To the recovery room in stable. INDICATIONS: Teddy Figueroa is 52 y.o. years old. Teddy presented to my office with symptomsof Carpal tunnel syndrome on right [G56.01] Carpal tunnel syndrome on left [G56.02] and has failed non operative management. The risk and benefits of the procedure have been discussed in detail as well as non surgical options and Teddy doeswish to proceed. OPERATIVE TECHNIQUE: After properly identifying the patient, the patient extremity, and obtaining informed consent, the patient is taken to the operating room and placed on the table in the supine position where IV sedation is induced. Once induced, 10 cc of one percent Lidocaine and 10 cc of .5% marcaine are infiltrated in the vicinity of the both carpal tunnels. The patient has a well padded forearm tourniquets applied to both forearms. At this point both arms are prepped and draped in the standard surgical fashion. Once prepped and draped, an Esmarch bandage is used to exsanguinate the right limb and the tourniquet inflated to 250 mm of mercury. Once inflated, a 2 cm incision is carried out through skin and subcutaneous tissue. The subcutaneous fat is excised and the superficial palmarfascia is identified. This is identified and 2 Jessa retractors are placed into the wound. Once placed, the transverse carpal ligament is identified, it is inspected for a transligamentous motor branch and none are identified. Blunt dissection is carried out over the distal most aspect of the transverse carpal ligament and subsequently this is incised. Once incised the median nerve is visualized, once visualized the KMI safeguard is placed between the median nerve and the transverse carpal ligament. It is passed from proximal to distal. It is felt to pass approximately 1 cm distal to the wristcrease and on the ulnar side of palmaris longus. Once passed, the blade is run along the safeguard track and the transverse carpal ligament is released. Once released, both the KMI safeguard and blade are removed. The median nerve is inspected. There is noted to be evidence of compression. The compression is completely released from 1 cm proximal to the wrist crease to the superficial arch. Thereis no evidence of iatrogenic injury. At this point in time, the wound is copiously irrigated. The skin is closed with two interrupted 4-0 Nylon sutures. After the right carpal tunnel is performed, attention is turned to the left upper extremity, The esmarch bandage is used to exsanguinate the left arm and the tourniquet is inflated to 250 mm of Hg. Once inflated, a 2 cm incision is carried out through skin and subcutaneous tissue. The subcutaneous fat is excised and the superficial palmar fascia is identified. This is identified and 2 Jessa retractors are placed into the wound. Once placed, the transverse carpal ligament is identified, it is inspected for a transligamentous motor branch and none are identified. Blunt dissection is carried out over the distal most aspect of the transverse carpal ligament and subsequently this is incised. Onceincised the median nerve is visualized, once visualized the KMI safeguard is placed between the median nerve and the transverse carpal ligament. It is passed from proximal to distal. It is felt to pass approximately 1 cm distal to the wrist crease and on the ulnar side of palmaris longus. Once passed, the blade is run along the safeguard track and the transverse carpal ligament is released. Once r eleased, both the KMI safeguard and blade are removed. The median nerve is inspected. There is noted to be evidence of compression. The compression is completely released from 1 cm proximal to the wrist crease to the superficial arch. There is no evidence of iatrogenic injury. At this point in time, the wound is copiously irrigated. The skin is closed with two interrupted 4-0 Nylon sutures. A circumferential sterile dressing is applied and the tourniquet is deflated. The patient is next awakened and transported to the recovery room in stable condition having tolerated the procedure well. [facility]06-22-2023 Surgery Postoperative evaluation and management note* Brief Op Note - Guru Gutierrez MD - 09/27/2022 7:49 AM EDT DATE: 09/27/2022 Patient: Teddy Figueroa Pre-Op Dx: Carpal tunnel syndrome on right [G56.01] Carpal tunnel syndrome on left [G56.02] Post-Op Dx: Carpal tunnel syndrome on right [G56.01] Carpal tunnel syndrome on left [G56.02] Procedure: Procedure(s) (LRB): CARPAL TUNNEL RELEASE (Bilateral) Surgeon: Surgeon(s) and Role: * Guru Gutierrez MD - Primary Pathology Laboratory Technologist: * No surgical staff found * ANESTHESIA TYPE: Monitor Anesthesia Care INTRAVENOUS FLUIDS: Per anesthesia record ESTIMATED BLOOD LOSS: Per anesthesia record Specimens: * No specimens in log * Implants: * No implants in log * COMPLICATIONS: * No complications entered in OR log * DISPOSITION: To the recovery room in stable condition [facility]06-22-2023 Miscellaneous Notes* Op Note - Guru Gutierrez MD - 09/27/2022 7:49 AM EDT DATE: 09/27/2022 Patient: Teddy Figueroa Pre-Op Dx: Carpal tunnel syndrome on right [G56.01] Carpal tunnel syndrome on left [G56.02] Post-Op Dx: Carpal tunnel syndrome on right [G56.01] Carpal tunnel syndrome on left [G56.02] Procedure: Procedure(s) (LRB): CARPAL TUNNEL RELEASE (Bilateral) CPT CODE Surgeon: Surgeon(s) and Role: * Guru Gutierrez MD - Primary Pathology Laboratory Technologist: * No surgical staff found * ANESTHESIA TYPE: Monitor Anesthesia Care ESTIMATED BLOOD LOSS: Minimal. COMPLICATIONS: None. DISPOSITION: To the recovery room in stable. INDICATIONS: Teddy Figueroa is 52 y.o. years old. Teddy presented to my office with symptomsof Carpal tunnel syndrome on right [G56.01] Carpal tunnel syndrome on left [G56.02] and has failed non operative management. The risk and benefits of the procedure have been discussed in detail as well as non surgical options and Teddy carcamo to proceed. OPERATIVE TECHNIQUE: After properly identifying the patient, the patient extremity, and obtaining informed consent, the patient is taken to the operating room and placed on the table in the supine position where IV sedation is induced. Once induced, 10 cc of one percent Lidocaine and 10 cc of .5% marcaine are infiltrated in the vicinity of the both carpal tunnels. The patient has a well padded forearm tourniquets applied to both forearms. At this point both arms are prepped and draped in the standard surgical fashion. Once prepped and draped, an Esmarch bandage is used to exsanguinate the right limb and the tourniquet inflated to 250 mm of mercury. Once inflated, a 2 cm incision is carried out through skin and subcutaneous tissue. The subcutaneous fat is excised and the superficial palmarfascia is identified. This is identified and 2 Jessa retractors are placed into the wound. Once placed, the transverse carpal ligament is identified, it is inspected for a transligamentous motor branch and none are identified. Blunt dissection is carried out over the distal most aspect of the transverse carpal ligament and subsequently this is incised. Once incised the median nerve is visualized, once visualized the KMI safeguard is placed between the median nerve and the transverse carpal ligament. It is passed from proximal to distal. It is felt to pass approximately 1 cm distal to the wristcrease and on the ulnar side of palmaris longus. Once passed, the blade is run along the safeguard track and the transverse carpal ligament is released. Once released, both the KMI safeguard and blade are removed. The median nerve is inspected. There is noted to be evidence of compression. The compression is completely released from 1 cm proximal to the wrist crease to the superficial arch. Thereis no evidence of iatrogenic injury. At this point in time, the wound is copiously irrigated. The skin is closed with two interrupted 4-0 Nylon sutures. After the right carpal tunnel is performed, attention is turned to the left upper extremity, The esmarch bandage is used to exsanguinate the left arm and the tourniquet is inflated to 250 mm of Hg. Once inflated, a 2 cm incision is carried out through skin and subcutaneous tissue. The subcutaneous fat is excised and the superficial palmar fascia is identified. This is identified and 2 Jessa retractors are placed into the wound. Once placed, the transverse carpal ligament is identified, it is inspected for a transligamentous motor branch and none are identified. Blunt dissection is carried out over the distal most aspect of the transverse carpal ligament and subsequently this is incised. Onceincised the median nerve is visualized, once visualized the KMI safeguard is placed between the median nerve and the transverse carpal ligament. It is passed from proximal to distal. It is felt to pass approximately 1 cm distal to the wrist crease and on the ulnar side of palmaris longus. Once passed, the blade is run along the safeguard track and the transverse carpal ligament is released. Once r eleased, both the KMI safeguard and blade are removed. The median nerve is inspected. There is noted to be evidence of compression. The compression is completely released from 1 cm proximal to the wrist crease to the superficial arch. There is no evidence of iatrogenic injury. At this point in time, the wound is copiously irrigated. The skin is closed with two interrupted 4-0 Nylon sutures. A circumferential sterile dressing is applied and the tourniquet is deflated. The patient is next awakened and transported to the recovery room in stable condition having tolerated the procedure well. * Brief Op Note - Guru Gutierrez MD - 09/27/2022 7:49 AM EDT DATE: 09/27/2022 Patient: Teddy Figueroa Pre-Op Dx: Carpal tunnel syndrome on right [G56.01] Carpal tunnel syndrome on left [G56.02] Post-Op Dx: Carpal tunnel syndrome on right [G56.01] Carpal tunnel syndrome on left [G56.02] Procedure: Procedure(s) (LRB): CARPAL TUNNEL RELEASE (Bilateral) Surgeon: Surgeon(s) and Role: * Guru Gutierrez MD - Primary Pathology Laboratory Technologist: * No surgical staff found * ANESTHESIA TYPE: Monitor Anesthesia Care INTRAVENOUS FLUIDS: Per anesthesia record ESTIMATED BLOOD LOSS: Per anesthesia record Specimens: * No specimens in log * Implants: * No implants in log * COMPLICATIONS: * No complications entered in OR log * DISPOSITION: To the recovery room in stable condition documented in this [facility]06-22-2023 Hospital Discharge instructions* Discharge Instructions* Marissa Romero RN - 09/27/2022 7:34 AM EDT Images from the original note were not included. [place] 09/27/2022 GURU GUTIERREZ M.D. HOME INSTRUCTIONS FOR OUTPATIENT HAND SURGERY: Following your surgery, you will have a dressing on your arm or hand. Depending on the type of surgery, it may be a soft gauze dressing, gideon bandage, cast or a combination of these. It is important to keep this dressing clean and dry, as it is meant to stay in place until you follow-up with the doctor or therapist. The surgeon may inform you or your family on the day of surgery if these instructions may be modified. In the setting of many small hand procedures, the wrap can be replaced with another type of bandage. If advised that it is ok, another wrap or even a waterproof band aide can be used over your incision. In all cases avoid getting the incision wet and observe it for any drainage that may appear. Your bandage should not be tight or rub you in a way that is problematic. Sometimes swelling can change this and cause a problem. If it should become tight or rub you in a way that is causing excessive discomfort in most situations loosening the wrap is the first step and can be done without concern. However, in the setting of a fracture or tendon repair please notify surgeon before unwrapping your surgical wound. Please do not apply neosporin or any other ointment on your incision until after the sutures have been removed. If you note a large amount of drainage, please contact your doctor. There will be some discomfort or pain at the operative site. This can be lessened by the use of an ice pack, elevating your hand above the level of your heart, and by the use of pain medication as needed. After the first 24 hours, you should use the operated hand to the extent your dressing will allow and make a fist 20 times an hour. This will help decrease swelling, especially in the fingers, and aid in lessening stiffness following surgery. Avoid lifting anything heavier than a gallon of milk with your surgical hand until you sutures are removed. This is most important if the surgical incision is on your palm. Lifting something too heavy could lead to the tearing out of your sutures and result wound complications. In addition, you may be instructed to begin a therapy program in the days following your surgery. If this is the case, you will be notified. If there are any questions or problems, please feel free to contact your physician by calling [phone] ([phone]). If it is after hours you can contact the environmental protection officer doctor by calling [facility] at [phone]. Prescription refills will only be done during normal business hours. Please allow 48 hours for yourprescription to be refilled. There are certain restrictions that apply to the first 24 hours following surgery, especially afterhaving a generalor regional anesthetic: 1. Do not operate power equipment today (including cars, motorcycles, power saws, drills, etc.) 2. Do not sign any legal documents today. 3. Advance diet slowly, starting with liquids. No alcoholic beverages for at least 24 hours (longer if you are taking prescription pain medication). 4. You should be accompanied by an adult for the next 24 hours. If you do not have a post-operative appointment scheduled with your doctor please call the office on the next business day for an appointment at [phone]) Anesthesia Precautions & Expectations: After anesthesia, rest for [address], drink alcoholic beverages or make any important decisions during this time. General anesthesia may cause a sore throat, jaw discomfort or muscle aches. These symptoms can last for one or two days. [facility] note* Sairna Castillo RN - 09/27/2022 7:13 AM EDT OR temp 66.8deg F OR humidity 41% [facility]06-22-2023 Attending History and physical note* Guru Gutierrez MD - 09/27/2022 6:07 AM EDT I have examined the patient and reviewed the previous H&P and there are no changes. Guru Gutierrez MD 09/27/2022 6:07 AM Source Note - Guru Gutierrez MD - 08/28/2022 8:45 AM EDT 08/28/22 Chief Complaint Patient presents with Right Hand - Consult Left Hand - Consult Left Forearm - Consult HPI: Teddy is here today in follow up of her bilateral hand numbness and tingling as well as hand weakness. It bothers her daily. She states she drives to [place] for work and states her hands are always going numb and tingly. No past medical history on file. No past surgical history on file. Current Outpatient Medications: ESTROGENS CONJUGATED PO, Take by mouth., Disp: , Rfl: Multiple Vitamin (Multi-Vitamin) tablet, Take 1 tablet by mouth., Disp: , Rfl: omeprazole [address] capsule, TAKE 1 TO 2 CAPSULES BY MOUTH EVERY DAY, Disp: , Rfl: PAROXETINE HCL PO, Take by mouth., Disp: , Rfl: phentermine 37.5 MG tablet, 1 tablet daily., Disp: , Rfl: Allergies Allergen Reactions *Adhesive Tape blisters Nylon blisters blisters Latex Rash Social History Socioeconomic History Marital status: Spouse name: Not on file Number of children: Not on file Years of education: Not on file Highest education level: Not on file Occupational History Not on file Tobacco Use Smoking status: Never Smokeless tobacco: Never Vaping Use Vaping Use: Not on file Substance and Sexual Activity Alcohol use: Yes Comment: occ. Drug use: Never Sexual activity: Yes Partners: Male Other Topics Concern Not on file Social History Narrative Not on file Social Determinants of Health Financial Resource Strain: Not on file Food Insecurity: Not on file Transportation Needs: Not on file Physical Activity: Not on file Stress: Not on file Social Connections: Not on file Intimate Partner Violence: Not on file Housing Stability: Not on file Family History Family history unknown: Yes Review of Systems Constitutional: Negative for chills, fatigue and fever. Eyes: Negative for visual disturbance. Respiratory: Negative for shortness of breath. Cardiovascular: Negative for chest pain. Gastrointestinal: Negative for abdominal pain and blood in stool. Endocrine: Negative for polydipsia. Genitourinary: Negative for hematuria. Musculoskeletal: Negative for arthralgias and myalgias. Neurological: Negative for seizures. Hematological: Does not bruise/bleed easily. Psychiatric/Behavioral: Negative for dysphoric mood. All other systems reviewed and are negative. Physical Examination: Vitals: 08/28/22 0907 Temp: 97.4 degrees F (36.3 degrees C) Weight: 98.4 kg (216 lb 14.9 oz) Height: 1.499 m (4' 11) A&O x3 Lungs: Clear to auscultation Heart: Regular Rate and Rhythm Abdomen: Normoactive Bowel sounds Extremity: Examination today demonstrates positive Tinel's and Phalen's. Negative elbow flexion test. Normal 2-point discrimination. Skin is warm and dry. Brisk capillary refill. No significant thenar atrophy. There is scarring on the left hand from prior dog bite. Diagnostic Studies: Nerve studies performed of her hands elsewhere demonstrate she has bilateral carpal tunnel syndrome. Assessment: 1. Bilateral carpal tunnel syndrome. Plan: She desires surgical release. Risks and benefits of surgical intervention were reviewed. She understands the risks and benefits, and does wish to proceed. She will be placed on the schedule in the near future. [facility]06-22-2023 History and physical note* Guru Gutierrez MD - 09/27/2022 6:07 AM EDT I have examined the patient and reviewed the previous H&P and there are no changes. Guru Gutierrez MD 09/27/2022 6:07 AM Source Note - Guru Gutierrez MD - 08/28/2022 8:45 AM EDT 08/28/22 Chief Complaint Patient presents with Right Hand - Consult Left Hand - Consult Left Forearm - Consult HPI: Teddy is here today in follow up of her bilateral hand numbness and tingling as well as hand weakness. It bothers her daily. She states she drives to [place] for work and states her hands are always going numb and tingly. No past medical history on file. No past surgical history on file. Current Outpatient Medications: ESTROGENS CONJUGATED PO, Take by mouth., Disp: , Rfl: Multiple Vitamin (Multi-Vitamin) tablet, Take 1 tablet by mouth., Disp: , Rfl: omeprazole [address] capsule, TAKE 1 TO 2 CAPSULES BY MOUTH EVERY DAY, Disp: , Rfl: PAROXETINE HCL PO, Take by mouth., Disp: , Rfl: phentermine 37.5 MG tablet, 1 tablet daily., Disp: , Rfl: Allergies Allergen Reactions *Adhesive Tape blisters Nylon blisters blisters Latex Rash Social History Socioeconomic History Marital status: Spouse name: Not on file Number of children: Not on file Years of education: Not on file Highest education level: Not on file Occupational History Not on file Tobacco Use Smoking status: Never Smokeless tobacco: Never Vaping Use Vaping Use: Not on file Substance and Sexual Activity Alcohol use: Yes Comment: occ. Drug use: Never Sexual activity: Yes Partners: Male Other Topics Concern Not on file Social History Narrative Not on file Social Determinants of Health Financial Resource Strain: Not on file Food Insecurity: Not on file Transportation Needs: Not on file Physical Activity: Not on file Stress: Not on file Social Connections: Not on file Intimate Partner Violence: Not on file Housing Stability: Not on file Family History Family history unknown: Yes Review of Systems Constitutional: Negative for chills, fatigue and fever. Eyes: Negative for visual disturbance. Respiratory: Negative for shortness of breath. Cardiovascular: Negative for chest pain. Gastrointestinal: Negative for abdominal pain and blood in stool. Endocrine: Negative for polydipsia. Genitourinary: Negative for hematuria. Musculoskeletal: Negative for arthralgias and myalgias. Neurological: Negative for seizures. Hematological: Does not bruise/bleed easily. Psychiatric/Behavioral: Negative for dysphoric mood. All other systems reviewed and are negative. Physical Examination: Vitals: 08/28/22 0907 Temp: 97.4 degrees F (36.3 degrees C) Weight: 98.4 kg (216 lb 14.9 oz) Height: 1.499 m (4' 11) A&O x3 Lungs: Clear to auscultation Heart: Regular Rate and Rhythm Abdomen: Normoactive Bowel sounds Extremity: Examination today demonstrates positive Tinel's and Phalen's. Negative elbow flexion test. Normal 2-point discrimination. Skin is warm and dry. Brisk capillary refill. No significant thenar atrophy. There is scarring on the left hand from prior dog bite. Diagnostic Studies: Nerve studies performed of her hands elsewhere demonstrate she has bilateral carpal tunnel syndrome. Assessment: 1. Bilateral carpal tunnel syndrome. Plan: She desires surgical release. Risks and benefits of surgical intervention were reviewed. She understands the risks and benefits, and does wish to proceed. She will be placed on the schedule in the near future. documented in this [facility]04-25-2023 History of Present illness Narrative* Parag Herrera PA-C - 07/31/2022 8:30 AM EDT Subjective Patient ID: Teddy Figueroa is a 52 y.o. female who presents for 1 month med check (Pt having issues with vertigo ). HPI Here for weight check, Adipex for 2 months now, no SE, has lost a few pounds, still not with enoughcardio exercise, she will try and incorporate some. Endorses recent bout with vertigo for about 3 weeks, denies tinnitus/hearing loss. Worse while laying down, some mild nausea. Review of Systems Constitutional: Negative. Respiratory: Negative. Cardiovascular: Negative. Gastrointestinal: Negative. Objective BP 126/78 Pulse 84 Ht 1.499 m (4' 11) Wt 94.3 kg (208 lb) BMI 42.01 kg/m Physical Exam Constitutional: General: She is not in acute distress. Appearance: Normal appearance. She is not ill-appearing. HENT: Head: Normocephalic and atraumatic. Eyes: Extraocular Movements: Extraocular movements intact. Conjunctiva/sclera: Conjunctivae normal. Cardiovascular: Rate and Rhythm: Normal rate. Pulmonary: Effort: Pulmonary effort is normal. Abdominal: General: There is no distension. Musculoskeletal: General: Normal range of motion. Cervical back: Normal range of motion. Skin: General: Skin is warm and dry. Neurological: General: No focal deficit present. Mental Status: She is alert and oriented to person, place, and time. Psychiatric: Mood and Affect: Mood normal. Behavior: Behavior normal. Thought Content: Thought content normal. Judgment: Judgment normal. Assessment/Plan Last fill on Adipex Handout given on BPPV and Shanta maneuver, Rx for meclizine prn dizziness Follow up 6 months or sooner prn documented in this [facility] Work Phone: 1(211) 525-516004-06-2023 History of Present illness Narrative* Li Levine - 07/12/2022 8:00 AM EDT Review of Systems Constitutional: Negative for chills and fever. HENT: Negative for hearing loss. Eyes: Negative for visual disturbance. Respiratory: Negative for shortness of breath. Cardiovascular: Negative for chest pain. Gastrointestinal: Negative for abdominal pain and blood in stool. Endocrine: Negative for polydipsia. Genitourinary: Negative for hematuria. Musculoskeletal: Negative for arthralgias and myalgias. Neurological: Negative for dizziness, seizures and numbness. Hematological: Does not bruise/bleed easily. Psychiatric/Behavioral: Negative for dysphoric mood. * Sharla Dai PA-C - 07/12/2022 8:00 AM EDT 07/12/22 HPI: Teddy presents to the file office today in follow-up of her left wrist TFCC tear and bilateral carpal tunnel syndrome. The wrist really seems to be doing better after the treatment with a [place] splint for 6 weeks. She is disappointed in the cost of that splint. However that pain really does seem to be resolved. Her biggest complaint today is that of weakness. She has worn splints at night in those do help her some but despite that the weakness is still there. 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 Physical Examination: Visit Vitals Temperature 97.5 F (36.4 C) (Temporal) Height 1.499 m (4' 11) Weight 98.4 kg (217 lb) Body Mass Index 43.83 kg/m A&O x3 Extremity: on exam today of her left wrist she has no tenderness over the fovea. Forced supination.She has good wrist motion and good finger motion. She has a positive Tinel's and positive Phalen's.She has brisk cap refill and skin is warm and dry. Two point Discrimination (mm): 1- Thumb 2- Index 3- Long 4- Ring 5- Small Right N/a Left 7 7 7 7 7 Diagnostic Studies: her nerve conduction study test previously done demonstrates borderline left carpal tunnel syndrome and mild right carpal tunnel syndrome. Assessment: 1. Bilateral hand numbness 2. 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 I do think the weakness is likely due to the carpal tunnel syndrome. It could certainly be because of being in a splint as well for 6 weeks. We discussed the options. She does think at some point she would like to have the carpal tunnel fixed however is not sure when she would like to do that. She is going to discuss that with her family and contact the office when she decides how she would like to proceed. I also did offer her an appointment with Dr. Gutierrez preoperatively to discuss things with him as well. She is going to think about that as well. [facility] History of Present illness Narrative* Parag Herrera PA-C - 06/19/2022 9:00 AM EDT Subjective Patient ID: Teddy Figueroa is a 52 y.o. female who presents for 1 month med check . HPI Start Adipex 1 month ago, weight was 215, this visit 210. No SE to medication, compliant. Here for refill. Endorses 0.45mg dose of premarin very expensive, would like to go to 0.3mg. Has been painting and cleaning frequently for exercise. Review of Systems Constitutional: Negative. Respiratory: Negative. Cardiovascular: Negative. Gastrointestinal: Negative. Objective BP 118/78 Pulse 78 Ht 1.499 m (4' 11) Wt 95.3 kg (210 lb) BMI 42.41 kg/m Physical Exam Constitutional: General: She is not in acute distress. Appearance: Normal appearance. She is not ill-appearing or toxic-appearing. HENT: Head: Normocephalic and atraumatic. Eyes: Extraocular Movements: Extraocular movements intact. Cardiovascular: Rate and Rhythm: Normal rate. Pulmonary: Effort: Pulmonary effort is normal. Abdominal: General: There is no distension. Musculoskeletal: General: Normal range of motion. Cervical back: Neck supple. Right lower leg: No edema. Left lower leg: No edema. Skin: General: Skin is warm and dry. Findings: No erythema or rash. Neurological: General: No focal deficit present. Mental Status: She is alert and oriented to person, place, and time. Mental status is at baseline. Psychiatric: Mood and Affect: Mood normal. Behavior: Behavior normal. Thought Content: Thought content normal. Judgment: Judgment normal. Assessment/Plan Refilled Adipex for another month. Decreased Rx for premarin to 0.3mg daily. Follow up 1 month or sooner prn. documented in this [facility] Work Phone: 1(571) 475-838102-14-2023 History of Present illness Narrative* I have personally reviewed the OARRS report for TEDDY FIGUEROA. I have considered the risks of abuse, dependence, addiction and diversion. * Last urine drug screening date/ordered today: 05/22/22 * Controlled Substance Agreement: * I have printed this form and reviewed each line item with the patient and the patient has verbalized understanding. * Date of the last Controlled Substance Agreement: 05/22/22 * ANOREXIANTS * What is the patient s goal of therapy? weight loss. * Before starting treatment: I have assessed the patient s continuing efforts to lose weight, I have assessed the patient s dedication to the treatment program and the response to treatment and I have assessed the presence or absence of contraindications, adverse effects, and indicators of possible crandall bstance abuse that would necessitate cessation of treatment utilizing controlled substance. * For continuation treatment: TEDDY has demonstrated continued efforts to lose weight, is dedicated to the treatment program and the response to treatment and I have assessed for the presence or absence of contraindications, adverse effects, and indicators of possible substance abuse that would necessitate cessation of treatment utilizing controlled substance. * Activities of Daily Living: * Yes, it is my opinion that this patient is benefitting from anorexiant therapy . * Physical functioning: Better * Family relationships: Better * Social relationships: Better * Mood: Better * Sleep patterns: Better * Overall functioning: Better * 52 YOF presents for follow up. * MENOPAUSAL HOT FLASHES: Premarin effective, stable. Would like to start weaning off of this. * WRIST PAIN: Has seen Dr. Matt Blackman following. Currently casted for ulnar nerve entrapment, will operate if not relief after casting. * GERD: Omeprazole effective, usually only taking 40mg daily. Upper GI normal 03/20/22. * OBESITY: Counts calories, less than 2000 daily. Paints and cleans for exercise, has not been able to lose weight with current regimen. * Hx of nephrectomy 19 years ago. * She does not get mammograms. * She does not want Shingrix. * She does not want colon cancer screening at this time. -[facility] Work Phone: [phone]) 224-706002-14-2023 History of Present illness Narrative* I have personally reviewed the OARRS report for TEDDY FIGUEROA. I have considered the risks of abuse, dependence, addiction and diversion. * Last urine drug screening date/ordered today: 05/22/22 * Controlled Substance Agreement: * I have printed this form and reviewed each line item with the patient and the patient has verbalized understanding. * Date of the last Controlled Substance Agreement: 05/22/22 * ANOREXIANTS * What is the patient s goal of therapy? weight loss. * Before starting treatment: I have assessed the patient s continuing efforts to lose weight, I have assessed the patient s dedication to the treatment program and the response to treatment and I have assessed the presence or absence of contraindications, adverse effects, and indicators of possible crandall bstance abuse that would necessitate cessation of treatment utilizing controlled substance. * For continuation treatment: TEDDY has demonstrated continued efforts to lose weight, is dedicated to the treatment program and the response to treatment and I have assessed for the presence or absence of contraindications, adverse effects, and indicators of possible substance abuse that would necessitate cessation of treatment utilizing controlled substance. * Activities of Daily Living: * Yes, it is my opinion that this patient is benefitting from anorexiant therapy . * Physical functioning: Better * Family relationships: Better * Social relationships: Better * Mood: Better * Sleep patterns: Better * Overall functioning: Better * 52 YOF presents for follow up. * MENOPAUSAL HOT FLASHES: Premarin effective, stable. Would like to start weaning off of this. * WRIST PAIN: Has seen Dr. Matt Blackman following. Currently casted for ulnar nerve entrapment, will operate if not relief after casting. * GERD: Omeprazole effective, usually only taking 40mg daily. Upper GI normal 03/20/22. * OBESITY: Counts calories, less than 2000 daily. Paints and cleans for exercise, has not been able to lose weight with current regimen. * Hx of nephrectomy 19 years ago. * She does not get mammograms. * She does not want Shingrix. * She does not want colon cancer screening at this time. * 05/28/22: Urine drug screen results as expected. [facility] Work Phone: [phone]) [phone] History of Present illness Narrative* Jaquelin Madrigal - 04/17/2022 1:20 PM EST Nurse Note: Review of Systems Constitutional: Negative for chills and fever. HENT: Positive for hearing loss. Eyes: Negative for visual disturbance. Respiratory: Negative for shortness of breath. Cardiovascular: Negative for chest pain. Gastrointestinal: Negative for abdominal pain and blood in stool. Endocrine: Negative for polydipsia. Genitourinary: Negative for hematuria. Musculoskeletal: Negative for arthralgias and myalgias. Neurological: Negative for dizziness, seizures and numbness. Hematological: Does not bruise/bleed easily. Psychiatric/Behavioral: Negative for dysphoric mood. All other systems reviewed and are negative. * Sharla Dai PA-C - 04/17/2022 1:20 PM EST 04/17/22 Chief Complaint: Chief Complaint Patient presents with Left Hand - Consult HPI: Teddy is a 52-year-old white female presents to the office today chief complaint of left wrist pain that she has had for quite some time. She was originally injured by a dog bite in January 2021. Those wounds all improved and she did well for a while but then she developed ulnar sided wristpain. It hurts with lifting and opening jars. She has weakness. She denies any numbness or tingling. She was given oral steroids with that helped short-term. She wears a night splint with some relief. She is right-hand dominant. Past Medical History: No past medical history on file. Past Surgical History: No past surgical history on file. ROS: Nurse Note: Review of Systems Constitutional: Negative for chills and fever. HENT: Positive for hearing loss. Eyes: Negative for visual disturbance. Respiratory: Negative for shortness of breath. Cardiovascular: Negative for chest pain. Gastrointestinal: Negative for abdominal pain and blood in stool. Endocrine: Negative for polydipsia. Genitourinary: Negative for hematuria. Musculoskeletal: Negative for arthralgias and myalgias. Neurological: Negative for dizziness, seizures and numbness. Hematological: Does not bruise/bleed easily. Psychiatric/Behavioral: Negative for dysphoric mood. All other systems reviewed and are negative. Physical Exam: Vitals: 04/17/22 1321 Resp: 18 Temp: 97.8 degrees F (36.6 degrees C) TempSrc: Temporal Weight: 98.6 kg (217 lb 6.4 oz) Height: 1.499 m (4' 11) Awake, alert, and oriented x3 Extremity: on exam today she has tenderness over the fovea. No tenderness over the radiocarpal joint Scapholunate interval. She has good wrist motion in all planes. She has minimal pain with supination. She is able make a composite fist. She is neurovascularly intact. There is no tenderness over the ECU tendon. Diagnostic Studies: radiographs of her hand previously taken 2020 were reviewed today which demonstrated no evidence of fracture, dislocation, the bony abnormality. She also had a nerve conduction study test previously done which demonstrated mild right carpal tunnel syndrome and borderline left carpal tunnel syndrome. Assessment: left wrist TFCC tear Plan: have discussed natural history and the treatment options with her. At this point she elects aMunster splint. That is made for her by her hand therapist today. She is instructed to wear that atall times for the next 6 weeks. She can take it on and off to shower and wash her hand but otherwise should wear it all the time. She can use ice, Tylenol anti-inflammatories as needed for pain. I migdalia l see her back in 6 weeks to see how she is progressing. At that point she still having a hard timewe can also consider either a steroid injection or an MRI of the wrist. [facility] History of Present illness Narrative* 52 YOF presents virtually for acute visit. * COVID: Started Paxlovid 03/27/22, 1 day later diarrhea started, there is mucous/blood in stool, 15 episodes of diarrhea yesterday, about 5 episodes today. She did have one episode last night of near syncope/diaphoresis, and she thinks she may have had hypotension. She has a low grad fever as well and some mild diffuse abdominal pain. She stopped taking the Paxlovid yesterday. Never had colonoscopy, has never had hemorrhoids in the past. [facility] Work Phone: [phone] NoteChief Complaint Follow-up) for review and discussion of EMG/NCS of BUE findings. Surgical consultation today. History of Present Illness History of Present Illness: The patient presents today for evaluation of right hand pain. The patient endorses numbness and tingling (predominantly radial three digits). There is no current neck pain or cervical spine issues. The patient has tried to the following interventions thus far: Splinting rest. The patient notes the pain is worse with activity and at night. The patient denies any recent trauma. The pain is sharp, electrical in nature. Patient had an EMG that showed mild to moderate compression of the median nerve in the right hand negative findings in the left hand. Review of Systems GENERAL: Negative for malaise, significant weight loss, fever MUSCULOSKELETAL: see HPI NEURO: Negative Physical Examination: No tenderness to palpation cervical spine Good ROM of neck Negative Spurlings test Right wrist/hand: No obvious swelling or masses Thenar eminence muscle mass: Supple No atrophy noted of hypothenar eminence Equivocal Tinel's at carpal tunnel + Median nerve compression test + Phalen's test Decreased sensation to light touch and 2 point discrimination in median nerve distribution Motor exam within normal limits Good capillary refill Imaging: No fractures or degenerative changes Assessment: Patient with right carpal tunnel syndrome Plan: We reviewed the disease process with the patient. We discussed the role for electrodiagnostic testing, immobilization, and injections. We discussed surgical intervention reviewing the risks (neurologic injury, wound issues including infection, pillar pain, and recurrence) and benefits. The patient elected for: Open carpal tunnel release. She is not interested in proceeding with an injection. We will schedule her surgery at her earliest convenience. Based on history and physical exam as well as imaging findings recommend surgical intervention to include open carpal tunnel release. Risk benefits and alternatives to treatment were discussed. Particular risks of the surgery include infection, pillar pain, continued paresthesias. Despite these risks, patient wishes to proceed. Operative benefits include removal of paresthesias/pain postoperativerestrictions and limitations were reviewed in detail. Patient will schedule surgery at their earliest convenience. The risks of surgery were discussed including but not limited to the risks of medications given forsurgery, the risk of blood loss during and after surgery that can lead to the need for blood products in certain situations, infection, damage to normal structures that can lead to chcf problemsof pain or dysfunction, wound healing complications, the possibility of nonunion/malunion of any osteotomies and late or chronic pain as a result of the surgical intervention. In addition potentiallylife threatening complications that can occur at the time of surgery and after surgery were discussed including but not limited to deep vein thrombosis, pulmonary embolism, myocardial infarction, stro ke and . . Active Problems Problems Arthralgia of left wrist (719.43) (M25.532) Cutaneous candidiasis (112.3) (B37.2) Dog bite, initial encounter (879.8,E906.0) (W54.0XXA) Hot flashes, menopausal (627.2) (N95.1) Left hand fracture (815.00) (S62.92XA) Left hand paresthesia (782.0) (R20.2) Localized swelling, mass, or lump of left lower extremity (782.2) (R22.42) Morbid obesity with BMI of 40.0-44.9, adult (278.01,V85.41) (E66.01,Z68.41) Pain in posterior left lower extremity (729.5) (M79.605) Rash (782.1) (R21) Right hand paresthesia (782.0) (R20.2) URI, acute (465.9) (J06.9) Urinary urgency (788.63) (R39.15) UTI (urinary tract infection) (599.0) (N39.0) Wrist pain (719.43) (M25.539) Surgical History Problems History of Bladder surgery 43, 45, 47 History of Hernia repair History of Hysterectomy 47 yr History of Kidney donation procedure History of Nose surgery 16 yrs History of Rectocele repair 47 yr Family History Father Family history of congenital heart disease (V19.5) (Z82.79) Family history of hypertension (V17.49) (Z82.49) Maternal Grandmother Family history of liver cancer (V16.0) (Z80.0) Social History Problems Never a smoker No advance directives (V49.89) (Z78.9) Allergies NonMedication Latex Rash; Recorded By: Brook Galdamez; 12/06/2020 1:34:59 PM Current Meds Medication NameInstruction Diclofenac Sodium 1 % External GelApply to affected area up to 4 times daily 2 grams. Premarin 0.625 MG Oral TabletTAKE 1 TABLET DAILY. Vitals Vital Signs Recorded: 21Feb2022 01:08PM Nkmtefxbjss21.7 C Tobacco Useb) No Falls Screening (Age 18+)a) No falls within the last year Signatures Electronically signed by : Trey Gomez III, MD; Feb 21 2022 5:06PM EST (Author)[id number] History of Present illness Narrative* Binu Gray MD - 02/15/2022 8:54 AM EST Images from the original note were not included. [facility]rology [address], [facility] [address]nd [place] [address] Nerve Conduction & EMG Report Patient: Teddy Figueroa Sex: Female Date of : 1970 Visit Date: 02/15/2022 8:50 AM Age: 51 Years Examining MD: Binu Gray MD Referred by: SUZIE Camargo Temperature: 33.1 Current Height: 4 feet 10 inch Referred for: BUE pain, paresthesias and weakness. No DM. No neck pain. Plan: The study is design to evaluate for radiculopathy, plexopathy, entrapment neuropathy, median or ulnar neuropathy. Indication, risk, side effects, and alternatives were explained. Patient agreedto proceed. Patient was instructed to clean the puncture site with soap and water and put some ice pack for bruising. EMG Summary: The right median motor nerve conduction study was normal. The right median sensory nerve conduction study showed prolonged distal latency and normal amplitude. The left median motor nerve conduction study was normal. The left median sensory nerve conduction study showed borderline latency and normal amplitude. The bilateral ulnar motor and sensory nerve conduction studies was normal. The bilateral radial sensory nerve conduction study were normal. Needle EMG of the muscles tested showed no abnormal spontaneous activity. Normal motor unit action potentials and recruitment patterns were seen. Impression: This is an abnormal EMG. There is electrodiagnostic evidence of a mild right median nerve entrapment at the wrist without axonal damage at this time. There is also electrodiagnostic evidence of a borderline left median nerve entrapment at the wrist without axonal damage. There is NO electrodiagnostic evidence of bilateral cervical radiculopathy, brachial plexopathy or ulnar neuropathyat this time. Binu Gray MD Diplomate, ABPN, NBPAS Clinical Neurophysiology, Neurology, Vascular Neurology and Sleep Medicine [facility] [place] [phone] Motor NCS Nerve / Sites Muscle Latency Amplitude Distance Velocity ms mV cm m/s R Median - APB Wrist APB 4.48 14.3 7 Elbow APB 7.67 14.3 18.5 58.0 L Median - APB Wrist APB 3.69 14.7 7 Elbow APB 6.75 13.6 18 58.8 R Ulnar - ADM Wrist ADM 2.71 7.4 6.5 B.Elbow ADM 5.65 7.6 18.5 63.0 A.Elbow ADM 7.46 6.8 11 60.7 L Ulnar - ADM Wrist ADM 2.44 10.5 6.5 B.Elbow ADM 5.31 9.0 19 66.1 A.Elbow ADM 7.19 8.0 11 58.7 Sensory NCS Nerve / Sites Peak Amp Amp.2-3 Distance Velocity ms V V cm m/s R Median - Digit II Wrist 4.85 21.2 44.1 13 33 L Median - Digit II Wrist 3.69 41.8 75.5 13 47 R Ulnar - Digit V Wrist 2.73 52.8 79.0 11 57 L Ulnar - Digit V Wrist 2.75 29.7 41.5 11 57 R Radial - Snuff Forearm 2.00 28.7 31.9 10 70 L Radial - Snuff Forearm 2.00 40.3 44.1 10 67 EMG Summary Table Spontaneous Activity Amplitude Duration Recruitment Polyphasia Comment Muscle Ins Act Fib PSW Fasc - - - - - L. Deltoid Normal 0 0 0 Normal Normal Normal Normal Normal L. Triceps brachii Normal 0 0 0 Normal Normal Normal Normal Normal L. Biceps brachii Normal 0 0 0 Normal Normal Normal Normal Normal L. Pronator teres Normal 0 0 0 Normal Normal Normal Normal Normal L. Extensor digitorum communis Normal 0 0 0 Normal Normal Normal Normal Normal L. First dorsal interosseous Normal 0 0 0 Normal Normal Normal Normal Normal L. Abductor pollicis brevis Normal 0 0 0 Normal Normal Normal Normal Normal R. Deltoid Normal 0 0 0 Normal Normal Normal Normal Normal R. Triceps brachii Normal 0 0 0 Normal Normal Normal Normal Normal R. Biceps brachii Normal 0 0 0 Normal Normal Normal Normal Normal R. Pronator teres Normal 0 0 0 Normal Normal Normal Normal Normal R. Extensor digitorum communis Normal 0 0 0 Normal Normal Normal Normal Normal R. First dorsal interosseous Normal 0 0 0 Normal Normal Normal Normal Normal R. Abductor pollicis brevis Normal 0 0 0 Normal Normal Normal Normal Normal documented in this [id number] History of Present illness Narrative* 51 YOF presents for acute visit. * 2 days ago noticed her shoulder was itching, when she got out of shower this morning she noticed a very itchy rash upper back shoulders chest and some spots on her arms. No recent travel, exposures out of the normal. No changes in detergent or soap recently. Was at her cousins recently and endorses thinking some no see ums or small bugs bit her arms. She took a Benadryl last night which helped a mildly with the itching. -[facility] Work Phone: [phone]) [phone] History of Present illness Narrative* 51 YOF presents for med check. * Just got back from [place], has been sick, has been running low grade fever for about aweek, sore throat in morning but improves as day goes, 2 negative home COVID tests, mild nonproductive cough, ear fullness, sinus congestion, runny nose. Has Flonase at home, does benadryl at bedtime. * Still with sever hot flashes at nighttime, wakes up soaked with sweat, menopausal symptoms controlled well on premarin throughout the day. Would like increase in premarin. She feels paroxetine has made her feel weird she would like to discontinue, she has been taking 5mg daily for 6 months now. She would not like an alternative SSRI at this time. -[facility] Work Phone: 1([phone]) [phone] History of Present illness Fpuiefszv89 y.o. female presents d/t a hard lump felt on the back of her left thigh s/p dog bite. She noticed the area 2 days ago. She denies fever, pain, redness or warmth to the area. It is behind her leg so she cannot assess the area well. Denies CP or SOB.[facility] Work Phone: 1([phone]) 479-886611-03-2021 History of Present illness Narrative* Here with UTI symptoms since yesterday * Frequency and urgency. No dysuria. * History of getting UTI's easily/frequently. Has seen Dr. Gamino in the past. This is her second one int he past 6 months, so will likely schedule an appointment with him * Had been doing baths BID with recent dog bites/ER visit 02/01/21. * Currently on Amoxicillin. Took last one this morning. [facility] Work Phone: 1(203) 783-347911-01-2021 History of Present illness Narrative* Kodak Vargas MD - 02/06/2021 4:00 PM EDT (Incomplete)This note is in progress. Dictation on: 02/06/2021 4:04 PM by: KODAK VARGAS [[id number]] documented in this [id number] History of Present illness NarrativeTeddy is a pleasant 51-year-old female presenting today with left wrist pain with numbness and tingling. Patient states she did have a dog bite injury where she broke her hand approximately 10 months ago. She was supposed to have a surgery for debriding but did conservative care on her own; patient states she was treated in a half cast to allow for frequent wound care and dressing changes. Patient states she had numb and tingling sensations prior to this episode and symptoms are about the same as they were. Patient states she believes she has bilateral carpal tunnel syndrome over the last 2 years, she has been doing conservative measures and massage therapy. Patient does use an Gideon wrap at night with minimal relief. She notices pain is worse with lifting and is able to modify her activity. She does get intermittent swelling. She is right- hand dominant. Pain is rated as moderate at a 4 out of 10 at the worst. Patient is using OTC Tylenol and attempted ice x1 but did not help, unableto take NSAIDs due to single kidney (history of kidney donation). Patient was referred by her PCP for evaluation. Patient is interested in pursuing carpal tunnel work-up and surgical release if that is an option.[facility] Work Phone: [phone] 131-991510-27-2021 History of Present illness NarrativePatient is here for follow-up from an ER visit. She was seen in [facility] ER on 02/01/2021 following virus dog bites. She reports that she was in the shower when she heard her dog and her foster dog fighting she went out to break up the fight and she sustained several bites to herleft hand left forearm and left leg from her foster dog. Her dog licked 1 small puncture roger on her right hand. She was diagnosed with a fracture of the left hand in the emergency room in a soft splint was applied she was given IV antibiotics and 7 days worth of amoxicillin for the bite wound she sustained. She was also given 3 days of hydrocodone for pain. she saw Dr. Vargas on 02/06. Follows up in [address] Vargas removed the splint and just left her hand wrapped in Kerlix and an Gideon wrap. She has been applying OTC antibiotic ointment to her bite wounds. She reports that she is having considerable pain at night when she tries to sleep. The pain in her left hand is worse at night and painin her left leg is worse during the day. Reports yellow drainage [facility] [phone]) 675-270910-23-2021 History of Present illness Narrative* 51 YOF presents for acute visit. * WRIST PAIN: History of severe dog bite 10 months ago to L hand which caused fractures and numerous lacerations, it was suggested she have surgery, but surgery was never performed. Currently 2 days ofL wrist pain on the medial side, opposite side of original fracture from dog bite. No injury/traumato area currently. She did get a wrist massage, but this did not help. She has not iced/heat/wrap. She does endorse some mild warmth to the area as well as edema, no color change, there is some clicking in her wrist when she moves it certain ways. She does not tolerate NSAIDS d/t solitary kidney. * No other concerns. [facility] Work Phone: [phone] History of Present illness Narrative* Teddy is here for follow up menopausal symptoms. She was seen one month ago and started on paroxetine and Premarin for her symptoms. * paroxetine- feels like she can control her emotions again. Does not feel aggressive any more. Sleeping well at night. * Premarin- taking 0.3 mg once daily. hot flashes have diminished at night, but continues to have hotflashes during the day. If she gets overheated it takes her a long time to cool down. * She has not had any unwanted side effects. * Reports that her family has noticed a significant improvement in her moods. [facility] Work Phone: chief complaint Narrative - ReportedFollow-up) for re- evaluation of left wrist pain and left hand paresthesia. She states she is still symptomatic at this time. Condition is relatively unchanged.[facility] [address] Work Phone: chief complaint Narrative - ReportedFollow-up) for review and discussion of EMG/NCS of BUE findings. Surgical consultation today. [facility] [address] Work Phone: Evaluation note* Diagnosis Dog bite, hand, left, initial encounter- [facility], hand, left, initial encounter- [facility] Diagnosis Left hand paresthesia- Primary Disturbance of skin sensation Right hand paresthesia Disturbance of skin sensation Pain in both wrists [facility] Diagnosis Carpal tunnel syndrome, bilateral- Primary Carpal tunnel syndrome [facility] Pain of left hand- Primary Pain in limb Carpal tunnel syndrome, bilateral Carpal tunnel syndrome History of dog bite Complex tear of triangular fibrocartilage of left wrist, initial encounter [facility] Bilateral hand numbness- Primary Disturbance of skin sensation 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 [facility] Diagnosis Dizziness- Primary Dizziness and giddiness Morbid obesity with BMI of 40.0-44.9, adult ([facility]) documented in this encounter [facility] Work Phone: Evaluation note* Diagnosis Post-op pain- Primary Other acute postoperative pain [facility] Diagnosis S/p bilateral carpal tunnel release- Primary [facility] this [facility]* Diagnosis Screening for thyroid disorder- Primary Insomnia, unspecified type Screening for cholesterol level Encounter for vitamin deficiency screening Class 2 obesity due to excess calories without serious comorbidity with body mass index (BMI) of 39.0 to 39.9 in adult Gastroesophageal reflux disease without esophagitis Esophageal reflux Bilateral carpal tunnel syndrome Carpal tunnel syndrome documented in this encounter [facility] Work Phone: Evaluation note* Diagnosis Class 2 obesity due to excess calories without serious comorbidity with body mass index (BMI) of 38.0 to 38.9 in adult- Primary Chronic right-sided low back pain, unspecified whether sciatica present Gastroesophageal reflux disease, unspecified whether esophagitis present Overactive bladder Hypertonicity of bladder documented in this encounter [facility] Work Phone: Evaluation note* Diagnosis Gastroesophageal reflux disease without esophagitis- Primary Esophageal reflux Chronic right-sided low back pain, unspecified whether sciatica present Overactive bladder Hypertonicity of bladder Primary insomnia Persistent disorder of initiating or maintaining sleep Morbid obesity with BMI of 40.0-44.9, adult ([facility]) documented in this encounter [facility] Work Phone: [phone] note* Diagnosis Diarrhea, unspecified type- Primary documented in this encounter [facility] Work Phone: [phone] note* Diagnosis Generalized abdominal pain- Primary Abdominal pain, generalized Chronic right-sided low back pain, unspecified whether sciatica present Screening for colon cancer Special screening for malignant neoplasms, colon Nausea and vomiting, unspecified vomiting type Diarrhea, unspecified type Overactive bladder Hypertonicity of bladder Fibromyalgia muscle pain Gastroesophageal reflux disease without esophagitis Esophageal reflux documented in this encounter [facility] Work Phone: [phone] note* Diagnosis Generalized abdominal pain Abdominal pain, generalized Nausea and vomiting, unspecified vomiting type Diarrhea, unspecified type documented in this encounter [facility] Work Phone: [phone] note* Diagnosis Screening for colon cancer Special screening for malignant neoplasms, colon Nausea and vomiting, unspecified vomiting type Gastroesophageal reflux disease, unspecified whether esophagitis present documented in this encounter [facility] Work Phone: [phone] note* Diagnosis Strain of right shoulder, initial encounter- Primary documented in this encounter [facility] Work Phone: [phone] note* Diagnosis Acute non-recurrent pansinusitis- Primary documented in this encounter [facility] Work Phone: [phone] note* Diagnosis Tubular adenoma of colon- Primary Benign neoplasm of colon Generalized abdominal pain Abdominal pain, generalized Nausea and vomiting, unspecified vomiting type Diarrhea, unspecified type documented in this encounter [facility] Work Phone: [phone] note* Diagnosis Acute non-recurrent pansinusitis- Primary documented in this encounter [facility] Work Phone: [phone] note* Diagnosis Hot flashes, menopausal- Primary Symptomatic menopausal or female climacteric states Morbid obesity with BMI of 40.0-44.9, adult ([facility]) documented in this encounter [facility] Work Phone: Evaluation note* Diagnosis Class 3 severe obesity due to excess calories without serious comorbidity with body mass index (BMI) of 40.0 to 44.9 in adult- Primary Gastroesophageal reflux disease without esophagitis Esophageal reflux Right shoulder strain, subsequent encounter Primary insomnia Persistent disorder of initiating or maintaining sleep Overactive bladder Hypertonicity of bladder documented in this encounter [facility] Work Phone: Evaluation note* Diagnosis Other fatigue- Primary Sensation of pressure in bladder area documented in this encounter [facility] Work Phone: Evaluation noteNo assessment information available [facility] Work Phone: History of Present illness Narrative* The patient is being seen for initial evaluation of menopause. Symptoms: hot flashes, night sweats,mood changes, breast tenderness and leg cramps, but no urinary incontinence, no irregular menses, no depression, no vaginal dryness, no dyspareunia and no fluid retention. The patient is currently experiencing symptoms. Onset was gradual 3 month(s) ago. The symptoms occur constantly. She describes this as severe and worsening. Exacerbating factors: hot environment. Relieving factors: cool environment. Associated symptoms: sleep disturbance, irritability, headaches, forgetfulness, fatigue, weight change and anxiety, but no vaginal irritation and no loss of libido. The patient is not currently being treated for this problem. Family history: no breast cancer, no ovarian cancer and no coronary artery disease. She is experiencing surgical menopause. * Patient also new patient here wanting to discuss menopausal symptoms. She reports that she had a partial hysterectomy at age 47 for a prolapsed uterus she does have her ovaries left in place. She hasnoticed worsening symptoms of hot flashes, irritability, anxiety and insomnia over the past 3 months. She reports that the insomnia and hot flashes are drastically affecting her lifestyle. She is afraid to go anywhere or do anything due to the hot flashes and only prefers to sit inside in the AC. * She donated a kidney approximately 18 years ago and that she has no other chronic conditions. -[facility] Work Phone: History of Present illness NarrativeAgree with CC as documented per Keyur is a pleasant 51-year-old female here for follow-up of bilateral hand paresthesias with left being more symptomatic. Patient states she feels she is about 50% improved in strength versus her last visit here, she did get some relief with the Medrol Dosepak. She is bracing at night and on occasion with repetitive activity. Patient states she has not noticedany improvement in pain or paresthesias that occur both day and nighttime with awakening. Patient states she is had bilateral numbness and tingling for years with the left one being more severe than the right. She has sought out massage therapy for treatment up till recently, she is interested in further intervention.[facility] [address] Work Phone: History of Present illness Narrative* History of Present Illness: * The patient presents today for evaluation of right hand pain. The patient endorses numbness and tingling (predominantly radial three digits). There is no current neck pain or cervical spine issues. The patient has tried to the following interventions thus far: Splinting rest. The patient notes the pain is worse with activity and at night. * The patient denies any recent trauma. The pain is sharp, electrical in nature. * Patient had an EMG that showed mild to moderate compression of the median nerve in the right hand negative findings in the left hand. * Review of Systems * GENERAL: Negative for malaise, significant weight loss, fever * MUSCULOSKELETAL: see HPI * NEURO: Negative * Physical Examination: * No tenderness to palpation cervical spine * Good ROM of neck * Negative Spurlings test * Right wrist/hand: * No obvious swelling or masses * Thenar eminence muscle mass: Supple * No atrophy noted of hypothenar eminence * Equivocal Tinel's at carpal tunnel * + Median nerve compression test * + Phalen's test * Decreased sensation to light touch and 2 point discrimination in median nerve distribution * Motor exam within normal limits * Good capillary refill * Imaging: No fractures or degenerative changes * Assessment: Patient with right carpal tunnel syndrome * Plan: * We reviewed the disease process with the patient. We discussed the role for electrodiagnostic testing, immobilization, and injections. * We discussed surgical intervention reviewing the risks (neurologic injury, wound issues including infection, pillar pain, and recurrence) and benefits. * The patient elected for: Open carpal tunnel release. She is not interested in proceeding with an injection. We will schedule her surgery at her earliest convenience. * Based on history and physical exam as well as imaging findings recommend surgical intervention to include open carpal tunnel release. Risk benefits and alternatives to treatment were discussed. Particular risks of the surgery include infection, pillar pain, continued paresthesias. Despite these risks, patient wishes to proceed. Operative benefits include removal of paresthesias/pain postoperativerestrictions and limitations were reviewed in detail. Patient will schedule surgery at their earliest convenience. * The risks of surgery were discussed including but not limited to the risks of medications given forsurgery, the risk of blood loss during and after surgery that can lead to the need for blood products in certain situations, infection, damage to normal structures that can lead to superintendent marine oil terminal problemsof pain or dysfunction, wound healing complications, the possibility of nonunion/malunion of any osteotomies and late or chronic pain as a result of the surgical intervention. In addition potentiallylife threatening complications that can occur at the time of surgery and after surgery were discussed including but not limited to deep vein thrombosis, pulmonary embolism, myocardial infarction, stroke and . * . -[facility] [address] Work Phone: History of Present illness Narrative* 52 YOF presents for med check. * MENOPAUSAL HOT FLASHES: Premarin effective, needs refill. * WRIST PAIN: Has seen ortho for L wrist pain, EMG was done BL, R side showed abnormality, surgeon would like to do R carpal tunnel release, her pain is mainly L wrist, she is getting second opinion [facility]. * GERD: Taking Nexium otc 20mg daily, some days she needs 40mg d/t breakthrough symptoms. Has not tried raising HOB, she does know her trigger foods and tries to avoid them. * - heartburn: Y * - regurgitation: Y * - chest pain: N * - dysphagia: Sometimes * - odynophagia: N * - hypersalivation/water brash: Sometimes * - globus sensation: N * - cough: N * - hoarseness: N * - wheezing: N * - nausea: N * - persistent vomiting: N * - hematemesis, melena, hematochezia; N * Hx of nephrectomy 19 years ago. * She does not get mammograms. * She does not want Shingrix. * She does not want colon cancer screening at this time. [facility] Work Phone: Hospital Discharge instructions* Attachments The following attachments cannot be sent through Care Everywhere. * Diarrhea, Adult ED (Sl[place]) [facility]: reason for referral (narrative)* Consultation (Routine) - Authorized Specialty Diagnoses / Procedures Referred By Contnickolas t Referred To Contact Primary Care Procedures Follow Up In Primary Care Parag Herrera PA-C [address] [facility], [place] [phone] Referral ID Status Reason Start Date Expiration Date V isits Requested Visits Authorized [id number] Authorized 07/31/2022 01/27/[address] [facility] Work Phone: reason for referral (narrative)* Consultation (Routine) - Authorized Specialty Diagnoses / Procedures Referred By Ty wong Referred To Contact Primary Care Procedures Follow Up In Primary Care - Established Parag Herrera PA-C [address] [facility], [place] [phone] Referral ID Status Reason Start Date Expiration Date V isits Requested Visits Authorized [id number] Authorized 01/31/2023 01/31/[address] [facility] Work Phone: reason for referral (narrative)* Consultation (Routine) - Authorized Specialty Diagnoses / Procedures Referred By Contnickolas t Referred To Contact Primary Care Procedures Follow Up In Primary Care - Established Parag Herrera PA-C [address] [facility], [place] [phone] Referral ID Status Reason Start Date Expiration Date V isits Requested Visits Authorized [id number] Authorized 03/05/2023 03/04/2024 1 1 [facility] Work Phone: reason for referral (narrative)* Consultation (Routine) - Authorized Specialty Diagnoses / Procedures Referred By Contac t Referred To Contact Primary Care Procedures Follow Up In Primary Care - Established Parag Herrera PA-C [address] [facility], [place] [phone] Referral ID Status Reason Start Date Expiration Date V isits Requested Visits Authorized [id number] Authorized 06/06/2023 06/05/2024 1 1 [facility] Work Phone: reason for referral (narrative)* Consultation (Routine) - Authorized Specialty Diagnoses / Procedures Referred By Contac t Referred To Contact Primary Care Procedures Follow Up In Primary Care - Established Parag Herrera PA-C [address] [facility], [place] [phone] Referral ID Status Reason Start Date Expiration Date V isits Requested Visits Authorized [id number] Authorized 08/30/2023 08/29/2024 1 1 * Consultation (Routine) - Authorized Specialty Diagnoses / Procedures Referred By Contac t Referred To Contact Gastroenterology Diagnoses Generalized abdominal pain Nausea and vomiting, unspecified vomiting type Diarrhea, unspecified type Parag Herrera PA-C [address] [facility], [address] [address] Referral ID Status Reason Start Date Expiration Date Visits Requested Visits Authorized [id number] Authorized Specialty Services Required 08/30/2023 08/29/2024 [address] Major * Imaging (Routine) - Pending Review Specialty Diagnoses / Procedures Referred By Contac t Referred To Contact Radiology Diagnoses Generalized abdominal pain Nausea and vomiting, unspecified vomiting type Diarrhea, unspecified type Procedures CT abdomen pelvis w IV contrast Parag Herrera PA-C [address] [facility], [place] [address] Referral ID Status Reason Start Date Expiration Date Visits Requested Visits Authorized [id number] Pending Review Perform Procedure 08/30/2023 08/29/2024 1 1 * Endoscopy (Routine) - Pending Review Specialty Diagnoses / Procedures Referred By Contact Referred To Contact Gastroenterology Diagnoses Nausea and vomiting, unspecified vomiting type Procedures Esophagogastroduodenoscopy (EGD) ND ESOPHAGOGASTRODUODENOSCOPY TRANSORAL DIAGNOSTIC ND EGD TRANSORAL BIOPSY SINGLE/MULTIPLE Parag Herrera PA-C [address] [facility], [place] [address] Referral ID Status Reason Start Date Expiration Date V isits Requested Visits Authorized [id number] Pending Review 08/30/2023 08/29/2024 1 1 * Endoscopy (Routine) - Pending Review Specialty Diagnoses / Procedures Referred By Ty t Referred To Contact Gastroenterology Diagnoses Screening for colon cancer Procedures Colonoscopy Screening; Average Risk Patient ND COLONOSCOPY FLX DX W/COLLJ SPEC WHEN PFRMD ND COLON CA SCRN NOT HI RSK IND ND COLORECTAL SCRN; HI RISK IND ND COLONOSCOPY W/BIOPSY SINGLE/MULTIPLE ND COLSC FLX W/RMVL OF TUMOR POLYP LESION SNARE TQ ND COLSC FLX W/REMOVAL LESION BY HOT BX FORCEPS Parag Herrera PA-C [address] [facility], [place] [address] Referral ID Status Reason Start Date Expiration Date V isits Requested Visits Authorized [id number] Pending Review 08/30/2023 08/29/[address] [facility] Work Phone: reason for referral (narrative)* Consultation (Routine) - Pending Review Specialty Diagnoses / Procedures Referred By Contac t Referred To Contact Physical Therapy Diagnoses Strain of right shoulder, initial encounter Parag Herrera PA-C [address] [facility], [place] [phone] Referral ID Status Reason Start Date Expiration Date Visits Requested Visits Authorized [id number] Pending Review Specialty Services Required 01/15/[address] [facility] Work Phone: reason for referral (narrative)* Consultation (Routine) - Authorized Specialty Diagnoses / Procedures Referred By Contac t Referred To Contact Primary Care Diagnoses Morbid obesity with BMI of 40.0-44.9, adult ([facility]) Procedures Follow Up In Primary Care Parag Herrera PA-C [address] [facility], [place] [phone] Referral ID Status Reason Start Date Expiration Date V isits Requested Visits Authorized [id number] Authorized 06/19/2022 12/16/[address] [facility] Work Phone: Rekdld for referral (narrative)* Consultation (Routine) - Authorized Specialty Diagnoses / Procedures Referred By Contac t Referred To Contact Primary Care Procedures Follow Up In Primary Care - Established Parag Herrera PA-C [address] [facility], [place] [phone] Phone: tel: fax: Referral ID Status Reason Start Date Expiration Date V isits Requested Visits Authorized [id number] Authorized 05/05/2024 05/05/2025 1 1 [facility] Work Phone: Reason for referral (narrative)No reason for referral information available[facility] Work Phone: Summary Purpose Family History No Family History Records FoundUnknown Family Member Name Dates Details Family history of liver canc er: Maternal Grandmother(V16.0, Z80.0) Status:Active Family history of hypertensi on: Father(V17.49, Z82.49) Status:Active Family history of congenital heart disease: Father(V19.5, Z82.79) Status:Active Unknown Family Member Name Dates Details Family history of liver canc er: Maternal Grandmother(V16.0, Z80.0) Status:Active Family history of hypertensi on: Father(V17.49, Z82.49) Status:Active Family history of congenital heart disease: Father(V19.5, Z82.79) Status:Active Unknown Family Member Name Dates Details Family history of liver canc er: Maternal Grandmother(V16.0, Z80.0) Status:Active Family history of hypertensi on: Father(V17.49, Z82.49) Status:Active Family history of congenital heart disease: Father(V19.5, Z82.79) Status:Active Unknown Family Member Name Dates Details Family history of liver canc er: Maternal Grandmother(V16.0, Z80.0) Status:Active Family history of hypertensi on: Father(V17.49, Z82.49) Status:Active Family history of congenital heart disease: Father(V19.5, Z82.79) Status:Active Unknown Family Member Name Dates Details Family history of liver canc er: Maternal Grandmother(V16.0, Z80.0) Status:Active Family history of hypertensi on: Father(V17.49, Z82.49) Status:Active Family history of congenital heart disease: Father(V19.5, Z82.79) Status:Active Unknown Family Member Name Dates Details Family history of liver canc er: Maternal Grandmother(V16.0, Z80.0) Status:Active Family history of hypertensi on: Father(V17.49, Z82.49) Status:Active Family history of congenital heart disease: Father(V19.5, Z82.79) Status:Active Unknown Family Member Name Dates Details Family history of liver canc er: Maternal Grandmother(V16.0, Z80.0) Status:Active Family history of hypertensi on: Father(V17.49, Z82.49) Status:Active Family history of congenital heart disease: Father(V19.5, Z82.79) Status:Active Unknown Family Member Name Dates Details Family history of liver canc er: Maternal Grandmother(V16.0, Z80.0) Status:Active Family history of hypertensi on: Father(V17.49, Z82.49) Status:Active Family history of congenital heart disease: Father(V19.5, Z82.79) Status:Active Unknown Family Member Name Dates Details Family history of liver canc er: Maternal Grandmother(V16.0, Z80.0) Status:Active Family history of hypertensi on: Father(V17.49, Z82.49) Status:Active Family history of congenital heart disease: Father(V19.5, Z82.79) Status:Active Unknown Family Member Name Dates Details Family history of congenital heart disease: Father(V19.5, Z82.79) Status:Active Family history of hypertensi on: Father(V17.49, Z82.49) Status:Active Family history of liver canc er: Maternal Grandmother(V16.0, Z80.0) Status:Active Unknown Family Member Name Dates Details Family history of liver canc er: Maternal Grandmother(V16.0, Z80.0) Status:Active Family history of hypertensi on: Father(V17.49, Z82.49) Status:Active Family history of congenital heart disease: Father(V19.5, Z82.79) Status:Active Unknown Family Member Name Dates Details Family history of liver canc er: Maternal Grandmother(V16.0, Z80.0) Status:Active Family history of hypertensi on: Father(V17.49, Z82.49) Status:Active Family history of congenital heart disease: Father(V19.5, Z82.79) Status:Active Unknown Family Member Name Dates Details Family history of liver canc er: Maternal Grandmother(V16.0, Z80.0) Status:Active Family history of hypertensi on: Father(V17.49, Z82.49) Status:Active Family history of congenital heart disease: Father(V19.5, Z82.79) Status:Active Unknown Family Member Name Dates Details Family history of liver canc er: Maternal Grandmother(V16.0, Z80.0) Status:Active Family history of hypertensi on: Father(V17.49, Z82.49) Status:Active Family history of congenital heart disease: Father(V19.5, Z82.79) Status:Active Unknown Family Member Name Dates Details Family history of liver canc er: Maternal Grandmother(V16.0, Z80.0) Status:Active Family history of hypertensi on: Father(V17.49, Z82.49) Status:Active Family history of congenital heart disease: Father(V19.5, Z82.79) Status:Active Unknown Family Member Name Dates Details Family history of liver canc er: Maternal Grandmother(V16.0, Z80.0) Status:Active Family history of hypertensi on: Father(V17.49, Z82.49) Status:Active Family history of congenital heart disease: Father(V19.5, Z82.79) Status:Active Unknown Family Member Name Dates Details Family history of liver canc er: Maternal Grandmother(V16.0, Z80.0) Status:Active Family history of hypertensi on: Father(V17.49, Z82.49) Status:Active Family history of congenital heart disease: Father(V19.5, Z82.79) Status:Active Unknown Family Member Name Dates Details Family history of liver canc er: Maternal Grandmother(V16.0, Z80.0) Status:Active Family history of hypertensi on: Father(V17.49, Z82.49) Status:Active Family history of congenital heart disease: Father(V19.5, Z82.79) Status:Active Unknown Family Member Name Dates Details Family history of liver canc er: Maternal Grandmother(V16.0, Z80.0) Status:Active Family history of hypertensi on: Father(V17.49, Z82.49) Status:Active Family history of congenital heart disease: Father(V19.5, Z82.79) Status:Active Unknown Family Member Name Dates Details Family history of liver canc er: Maternal Grandmother(V16.0, Z80.0) Status:Active Family history of hypertensi on: Father(V17.49, Z82.49) Status:Active Family history of congenital heart disease: Father(V19.5, Z82.79) Status:Active Unknown Family Member Name Dates Details Family history of liver canc er: Maternal Grandmother(V16.0, Z80.0) Status:Active Family history of hypertensi on: Father(V17.49, Z82.49) Status:Active Family history of congenital heart disease: Father(V19.5, Z82.79) Status:Active Unknown Family Member Name Dates Details Family history of liver canc er: Maternal Grandmother(V16.0, Z80.0) Status:Active Family history of hypertensi on: Father(V17.49, Z82.49) Status:Active Family history of congenital heart disease: Father(V19.5, Z82.79) Status:Active Unknown Family Member Name Dates Details Family history of liver canc er: Maternal Grandmother(V16.0, Z80.0) Status:Active Family history of hypertensi on: Father(V17.49, Z82.49) Status:Active Family history of congenital heart disease: Father(V19.5, Z82.79) Status:Active Unknown Family Member Name Dates Details Family history of liver canc er: Maternal Grandmother(V16.0, Z80.0) Status:Active Family history of hypertensi on: Father(V17.49, Z82.49) Status:Active Family history of congenital heart disease: Father(V19.5, Z82.79) Status:Active Relationship Condition Age at Onset Recorded Date/T tayo Not Specified Cardiac disease Unknown Advance Directives No Advanced Directives Records FoundDocuments on File Type Date Recorded Patient Sizer Hand Expl anation Advance Directives and Living Will Instructions * Patient Instructions - Dami Dawn MD - 12/05/2017 2:38 PM EDT Formatting of this note may be different from the original. Problem List Items Addressed This Visit Other Obesity, Class III, BMI 40-49.9 (morbid obesity) (HCC) Calorie counting is the basis for all weight loss. Typically weigh or measure everything that you place in your mouth. Pay attention to those things that you think are free. Include the calories associated with anything you drink as well. Most that you can buy is required by law to have informationon it which breaks down the caloric values for serving size. Look at the serving size and then the weight or measure of that serving size is how you calculate the calories. Try to get over half of your daily calories in the first half of the day Need to find the time for exercise. Activity is great but exercise is activity with a heart rate into the target Zone. Consider calorie counting. But weight loss is minimal without exercise since thebody with turn down the BMI or thermostat over time. Exercise allows you to see the benefit of calorie control. Maximum Heart rate or MHR is defined by 220 - age. Then target heart rate or THR is 65-85% of MHR. Need to allow warmup slowly over 5- 10 minute to prevent going too fast to reach THR. Then exercise interval at THR and allow cool down until at least care home back to the pre exercise hear rate. Therefor if resting heart rate was 70 and your target heart rate was 120. You need to keep moving and work the muscles until you heart rate is below 95 beats per minute. This reduces cramping and the risk of cardiac irritability post exercise. Most weight loss can be obtained best by cycling your calories. By counting the calories and then setting your intake at the minimum needs to maintain your lean body mass you conventional body not toturn down its basal metabolic rate. 80% or more of your total caloric needs are burned due to your basic metabolic rate. So tell your body that you are are dieting and allowing it to turn down your ba randall metabolic rate sabotages your ability to lose weight. The way to do this and still lose weight his first start a diet at your minimum needs calculated by year estimated lean body mass. Then the first 4 days of every week set your caloric intake to 300-400 kami per day less. The last 3 days of the week your back to the minimum. This will stop your body from turning down the basal metabolic rate. More than 4 days below the basic minium will have your body trending down how you burn calories. 3500 kami equals 1 pound and 150 kami over 30 days below your needs will result in 1-1/2 pounds per month of weight loss or almost 20 pounds per year. Well adult exam IN addition to 150-180 minutes per week in 3-5 intervals of target heart rate we recommend review of the top 4 cause of : Heart disease, cancer, lung disease and stroke. Learning About Obesity What is obesity? Obesity means having so much body fat that your health is in danger. Having too much body fat can lead to type 2 diabetes, heart disease, high blood pressure, arthritis, sleep apnea, and stroke. Even if you don't feel bad now, think about these health risks. Do they seem like a good reason to start on a new path toward a healthier weight? Or do you have another personal, powerful reason for wanting to lose weight? Whatever it is, keep it in mind. It can be hard to change eating habits and exercise habits. But with your own reason and plan, you can do it. How do you know if your weight is in the obesity range? To know if your weight is in the obesity range, your doctor looks at your body mass index (BMI) andwaist size. Your BMI is a number that is calculated from your weight and your height. To figure your BMI for yourself, get a BMI table from your doctor or use an online tool, such as http://www.nhlbi.nih.gov/heal th/educational/lose_wt/BMI/bmicalc.htm on the National Institutes of Health website. What causes obesity? When you take in more calories than you burn off, you gain weight. How you eat, how active you are,and other things affect how your body uses calories and whether you gain weight. If you have family members who have too much body fat, you may have inherited a tendency to gain weight. And your family also helps form your eating and lifestyle habits, which can lead to obesity. Also, our busy lives make it harder to plan and cook healthy meals. For many of us, it's easier to reach for prepared foods, go out to eat, or go to the drive- through. But these foods are often high in saturated fat and calories. Portions are often too large. What can you do to reach a healthy weight? Focus on health, not diets. Diets are hard to stay on and don't work in the long run. It is very hard to stay with a diet that includes lots of big changes in your eating habits. Instead of a diet, focus on lifestyle changes that will improve your health and achieve the right balance of energy and calories. To lose weight, you need to burn more calories than you take in. You can do it by eating healthy foods in reasonable amounts and becoming more active, even a little bit every day. Making small changes over time can add up to a lot. Make a plan for change. Many people have found that naming their reasons for change and staying focused on their plan can make a big difference. Work with your doctor to create a plan that is right for you. Ask yourself: What are my personal, most powerful reasons for wanting this change? What will my life look like when I've made the change? Set your long-term goal. Make it specific, such as I will lose x pounds. Break your long-term goal into smaller, short-term goals. Make these small steps specific and within your reach, things you know you can do. These steps are what keep you going from day to day. How can you stay on your plan for change? Be ready. Choose to start during a time when there are few events that might trigger slip-ups, likeholidays, social events, and high-stress periods. Decide on your first few steps. Most people have more success when they make small changes, one step at a time. For example, you might switch a daily candy bar to a piece of fruit, walk 10 minutes more, or add more vegetables to a meal. Line up your support people. Make sure you're not going to be alone as you make this change. Connect with people who understand how important it is to you. Ask family members and friends for help in keeping with your plan. And think about who could make it harder for you, and how to handle them. Try tracking. People who keep track of what they eat, feel, and do are better at losing weight. Trywriting down things like: What and how much you eat. How you feel before and after each meal. Details about each meal (like eating out or at home, eating alone, or with friends or family). What you do to be active. Look and plan. As you track, look for patterns that you may want to change. Take note of: When you eat and whether you skip meals. How often you eat out. How many fruits and vegetables you eat. When you eat beyond feeling full. When and why you eat for reasons other than being hungry. When you stray from your plan, don't get upset. Figure out what made you slip up and how you can fix it. Can you take medicines or have surgery to lose weight? Before your doctor will prescribe medicines or surgery, he or she will probably want you to be moreactive and follow your healthy eating plan for a period of time. These habits are hernandez lifelong changes for managing your weight, with or without other medical treatment. And these changes can help you avoid weight- related health problems. Follow-up care is a hernandez part of your treatment and safety. Be sure to make and go to all appointments, and call your doctor if you are having problems. It's also a good idea to know your test resultsand keep a list of the medicines you take. Where can you learn more? Log into your personal health record on https://[employer] and enter N111 in the Education box to learn more about Learning About Obesity. Current as of: January 14, 2017 Content Version: 11.6 0568-9546 [employer]. Care instructions adapted under license by your healthcare professional. If you have questions about a medical condition or this instruction, always ask your healthcare professional. [employer] disclaims any warranty or liability for your use of this information. Well Visit, Women 50 to 65: Care Instructions Your Care Instructions Physical exams can help you stay healthy. Your doctor has checked your overall health and may have suggested ways to take good care of yourself. He or she also may have recommended tests. At home, you can help prevent illness with healthy eating, regular exercise, and other steps. Follow-up care is a hernandez part of your treatment and safety. Be sure to make and go to all appointments, and call your doctor if you are having problems. It's also a good idea to know your test resultsand keep a list of the medicines you take. How can you care for yourself at home? Reach and stay at a healthy weight. This will lower your risk for many problems, such as obesity, diabetes, heart disease, and high blood pressure. Get at least 30 minutes of exercise on most days of the week. Walking is a good choice. You also may want to do other activities, such as running, swimming, cycling, or playing tennis or team sports. Do not smoke. Smoking can make health problems worse. If you need help quitting, talk to your doctor about stop-smoking programs and medicines. These can increase your chances of quitting for good. Protect your skin from too much sun. When you're outdoors from 10 a.m. to 4 p.m., stay in the shadeor cover up with clothing and a hat with a wide brim. Wear sunglasses that block UV rays. Even whenit's cloudy, put broad-spectrum sunscreen (SPF 30 or higher) on any exposed skin. See a dentist one or two times a year for checkups and to have your teeth cleaned. Wear a seat belt in the car. Limit alcohol to 1 drink a day. Too much alcohol can cause health problems. Follow your doctor's advice about when to have certain tests. These tests can spot problems early. Cholesterol. Your doctor will tell you how often to have this done based on your age, family history, or other things that can increase your risk for heart attack and stroke. Blood pressure. Have your blood pressure checked during a routine doctor visit. Your doctor will tell you how often to check your blood pressure based on your age, your blood pressure results, and other factors. Mammogram. Ask your doctor how often you should have a mammogram, which is an X- ray of your breasts. A mammogram can spot breast cancer before it can be felt and when it is easiest to treat. Pap test and pelvic exam. Ask your doctor how often you should have a Pap test. You may not need tohave a Pap test as often as you used to. Vision. Have your eyes checked every year or two or as often as your doctor suggests. Some experts recommend that you have yearly exams for glaucoma and other age-related eye problems starting at age50. Hearing. Tell your doctor if you notice any change in your hearing. You can have tests to find out how well you hear. Diabetes. Ask your doctor whether you should have tests for diabetes. Colon cancer. You should begin tests for colon cancer at age 50. You may have one of several tests.Your doctor will tell you how often to have tests based on your age and risk. Risks include whetheryou already had a precancerous polyp removed from your colon or whether your parents, sisters and brothers, or children have had colon cancer. Thyroid disease. Talk to your doctor about whether to have your thyroid checked as part of a regular physical exam. Women have an increased chance of a thyroid problem. Osteoporosis. You should begin tests for bone density at age 65. If you are younger than 65, ask your doctor whether you have factors that may increase your risk for this disease. You may want to have this test before age 65. Heart attack and stroke risk. At least every 4 to 6 years, you should have your risk for heart attack and stroke assessed. Your doctor uses factors such as your age, blood pressure, cholesterol, and whether you smoke or have diabetes to show what your risk for a heart attack or stroke is over the next 10 years. When should you call for help? Watch closely for changes in your health, and be sure to contact your doctor if you have any problems or symptoms that concern you. Where can you learn more? Log into your personal health record on https://[employer] and enter Y074 in the Education box to learn more about Well Visit, Women 50 to 65: Care Instructions. Current as of: August 21, 2016 Content Version: 11.6 6754-9023 [employer]. Care instructions adapted under license by your healthcare professional. If you have questions about a medical condition or this instruction, always ask your healthcare professional. [employer] disclaims any warranty or liability for your use of this information. in this encounter* Patient Instructions - Gracie Montana CNP - 02/25/2018 11:35 AM EST Formatting of this note may be different from the original. Problem List Items Addressed This Visit Other Sore throat You were tested and treated for strep throat on 02/14/2018 and given 10 days of PVK. Symptoms improved but did not resolve and low grade fever returned yesterday. I recommend you take the Augmentin that was prescribed X 10 days. This will get rid of resistant strep and sinus infections. Your right ear is not infected. Use a neti pot daily to help with congestion and use some OTC Nasacort daily which will help with sinus pressure and post nasal drip. Sore Throat: Care Instructions Your Care Instructions Infection by bacteria or a virus causes most sore throats. Cigarette smoke, dry air, air pollution,allergies, and yelling can also cause a sore throat. Sore throats can be painful and annoying. Fortunately, most sore throats go away on their own. If you have a bacterial infection, your doctor may prescribe antibiotics. Follow-up care is a hernandez part of your treatment and safety. Be sure to make and go to all appointments, and call your doctor if you are having problems. It's also a good idea to know your test resultsand keep a list of the medicines you take. How can you care for yourself at home? If your doctor prescribed antibiotics, take them as directed. Do not stop taking them just because you feel better. You need to take the full course of antibiotics. Gargle with warm salt water once an hour to help reduce swelling and relieve discomfort. Use 1 teaspoon of salt mixed in 1 cup of warm water. Take an vaub-ozn-xhtpxbp pain medicine, such as acetaminophen (Tylenol), ibuprofen (Advil, Motrin),or naproxen (Aleve). Read and follow all instructions on the label. Be careful when taking ojqo-axs-efcypnb cold or flu medicines and Tylenol at the same time. Many ofthese medicines have acetaminophen, which is Tylenol. Read the labels to make sure that you are nottaking more than the recommended dose. Too much acetaminophen (Tylenol) can be harmful. Drink plenty of fluids. Fluids may help soothe an irritated throat. Hot fluids, such as tea or soup, may help decrease throat pain. Use tsvp-dsf-qasbzfj throat lozenges to soothe pain. Regular cough drops or hard candy may also help. These should not be given to young children because of the risk of choking. Do not smoke or allow others to smoke around you. If you need help quitting, talk to your doctor about stop-smoking programs and medicines. These can increase your chances of quitting for good. Use a vaporizer or humidifier to add moisture to your bedroom. Follow the directions for cleaning the machine. When should you call for help? Call your doctor now or seek immediate medical care if: ? You have new or worse trouble swallowing. ? Your sore throat gets much worse on one side. ?Watch closely for changes in your health, and be sure to contact your doctor if you do not get better as expected. Where can you learn more? Log into your personal health record on https://[employer] and enter U420 in the Education box to learn more about Sore Throat: Care Instructions. Current as of: August 17, 2016 Content Version: 11.6 0334-4751 [employer]. Care instructions adapted under license by your healthcare professional. If you have questions about a medical condition or this instruction, always ask your healthcare professional. [employer] disclaims any warranty or liability for your use of this information. in this encounter Assessments Diagnosis Well adult exam - Primary Routine general medical examination at a health care facility Obesity, Class III, BMI 40-4 9.9 (morbid obesity) ([facility]) Diagnosis Sore throat Acute pharyngitis History of Present Illness * Spring, Gracie Pedro CNP - 02/25/2018 1:14 PM EST Formatting of this note may be different from the original. Subjective Patient ID: Teddy Figueroa is a 48 y.o. female. Patient was seen at [facility] on 02/14/2018, she states she was swabbed and tested positive forstrep throat and treated with X10 days of PenVK. She states she also was diagnosed with a right earinfection. Today she went back to the [facility] because she had finished her antibiotics and her symptoms were improved but still present. She states she feels like her sore throat never went away. Today when she went to she was told she still has an ear infection and her throat needed a different swab to check for resistant bacteria. She was sent home with a script for x 10 days of Augmentin. Patient did not fill the medication because she came here wanting a throat swab. She states when she was dx with strep throat she was running a high fever. She states that resolved until yesterday when it returned low grade. Sore Throat This is a new problem. The current episode started 1 to 4 weeks ago. The problem has been waxing and waning. Maximum temperature: tactile. The pain is at a severity of 5/10. Associated symptoms include congestion, ear pain, headaches and a plugged ear sensation. Pertinent negatives include no abdominal pain, coughing, diarrhea, drooling, ear discharge, hoarse voice, neck pain, shortness of breath, stridor, swollen glands, trouble swallowing or vomiting. She has had exposure to strep. Treatmentstried: PenVK. The following portions of the patient's history were reviewed and updated as appropriate: allergies, current medications, past family history, past medical history, past social history, past surgicalhistory and problem list. Review of Systems Constitutional: Positive for fatigue and fever. Negative for activity change and appetite change. HENT: Positive for congestion, ear pain, postnasal drip, rhinorrhea and sore throat. Negative for drooling, ear discharge, hoarse voice, sinus pain, sinus pressure, sneezing and trouble swallowing. Respiratory: Negative for cough, chest tightness, shortness of breath, wheezing and stridor. Cardiovascular: Negative for chest pain and palpitations. Gastrointestinal: Negative for abdominal pain, constipation, diarrhea, nausea and vomiting. Musculoskeletal: Negative for neck pain. Skin: Negative. Negative for rash. Neurological: Positive for headaches. Negative for dizziness, weakness and light-headedness. Hematological: Negative. Objective Physical Exam Constitutional: She is oriented to person, place, and time. She appears well- developed and well-nourished. HENT: Right Ear: A middle ear effusion is present. Left Ear: A middle ear effusion is present. Nose: Mucosal edema and rhinorrhea present. Right sinus exhibits no maxillary sinus tenderness and no frontal sinus tenderness. Left sinus exhibits no maxillary sinus tenderness and no frontal sinus tenderness. Mouth/Throat: Uvula is midline and mucous membranes are normal. Posterior oropharyngeal erythema (cobblestoning) present. Cardiovascular: Normal rate, regular rhythm and normal heart sounds. Pulmonary/Chest: Effort normal and breath sounds normal. Musculoskeletal: Normal range of motion. Lymphadenopathy: Head (right side): Submandibular and tonsillar adenopathy present. Head (left side): Submandibular and tonsillar adenopathy present. Shoddy lymphadenopathy Neurological: She is alert and oriented to person, place, and time. Skin: Skin is warm and dry. Psychiatric: She has a normal mood and affect. Her behavior is normal. Vitals: 02/25/18 1113 BP: 128/83 BP Location: Left arm Patient Position: Sitting BP Cuff Size: Adult Pulse: 84 Resp: 18 Temp: 98.3 ?F (36.8 ?C) TempSrc: Oral SpO2: 94% Weight: 92.1 kg (203 lb) Height: 4' 10.27 Body mass index is 42.03 kg/m . Outpatient Prescriptions Marked as Taking for the 02/25/18 encounter (Office Visit) with Gracie Montana CNP Medication Sig Dispense Refill ACETAMINOPHEN (TYLENOL ORAL) Take 1,000 mg by mouth as needed . albuterol (VENTOLIN HFA) 90 mcg/actuation inhaler 1-2 inhalations every 4-6 hours as needed for wheezing. Dispense spacer as needed. DIPHENHYDRAMINE HCL (BENADRYL ALLERGY ORAL) as necessary multivitamin (multivitamin) per tablet Take 1 tablet by mouth daily. Allergies Allergen Reactions Adhesive Tape-Silicones blisters Nylon blisters Plasticized Ointment Base [Ointment Base No.147 (Bulk)] blisters Latex Rash Past Medical History: Diagnosis Date Chronic UTI [facility] [place]Dami Gamino MD Eczema [facility] [place]Dami Gamino MD Gross hematuria [facility] [place]/Dami Gamino MD H/O: hysterectomy 02/08/2017 Dr Caballero Kidney donor [place] [facility] [place]Dami Gamino MD Nocturia 01/2018 /Lilia Gamino Normal cystoscopy 03/12/2015 Obesity [place] [facility] [place]Dami Gamino MD Urinary, incontinence, stress female 01/2018 /Lilia Gamino Past Surgical History: Procedure Laterality Date BLADDER SURGERY 2 times CYST REMOVAL Left shoulder CYSTOCELE REPAIR 03/2017 FOOT SURGERY Bilateral 2008 HYSTERECTOMY 03/2017 Charmaine Caballero NEPHRECTOMY Left 2003 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 Symptoms improved but did not resolve and low grade fever returned yesterday. I recommend you take the Augmentin that was prescribed X 10 days. This will get rid of resistant strep and sinus infections. Your right ear is not infected. Use a neti pot daily to help with congestion and use some OTC Nasacort daily which will help with sinus pressure and post nasal drip. For any new medications prescribed today, patient was educated about indications for the medication, how to take the medication and potential side effects of the medications. * Lily Villanueva, ZEINAB - 02/25/2018 11:44 AM EST Rooming Documentation How often do you need to have someone help you when you read instructions, pamphlets or other written material from your doctor or pharmacy? Health Literacy Patient Response: Never Are you experiencing any side effects or adverse reactions to your medications? Patient response: No Do you have any problems taking your medications? Patient Response: No Patient states they do understand their medications Are you taking any nzqg-[id number]-phjzrtf medications or supplements? Patient Response: OTC Multivitamins Since last being seen in this office, have you seen another healthcare provider? Patient Response: Yes. If yes, where did you see this provider? [facility] in [facility] encounter Chief Complaint new pt c/o night sweats, hot flashes, weight gain, irritable.1 month f/u review labs.pt here for ER f/u, hand fracture and dog bites on left leg.UTI symptoms. Follow-up leg wound.med check, pt c/o cough, sneezing,fatigue 1 week.pt c/o itchy rash on shoulders and back x2 days.pt c/o left hand pain, hx of dog bite 10 months ago.* \\ * PT HERE FOR LEFT WRIST PAIN. STATES DOG BITE 10 MTHS AGO. HAS NOTICED INCREASED PAIN OVER THE PAST WEEK. NUMBNESS AND TINGLING ARE CONSTANT. DIFFICULTY GRASPING OBJECTS. SWELLING IS MAINLY ON THE OUTSIDE OF THE WRIST. CLICKING AND POPPING. XRAYS DONE. REFERRED PARAG HERRERA. * \\ * PT HERE FOR LEFT WRIST PAIN. STATES DOG BITE 10 MTHS AGO. HAS NOTICED INCREASED PAIN OVER THE PAST WEEK. NUMBNESS AND TINGLING ARE CONSTANT. DIFFICULTY GRASPING OBJECTS. SWELLING IS MAINLY ON THE OUTSIDE OF THE WRIST. CLICKING AND POPPING. XRAYS DONE. REFERRED PARAG HERRERA. 6 month med check, would like to discuss GERD sx.* pt c/o having rectal bleeding with every BM, abdominal pain, temp 100 f, sore throat. * An interactive audio and video telecommunication system which permits real time communications between the patient (at the originating site) and provider (at the distant site) was utilized to providethis telehealth service. 2 month med check, GERD.2 month med check, GERD. Reason for Referral Specialty Diagnoses / Procedures Referred By Contac t Referred To Contact Neurology Diagnoses Left hand paresthesia Right hand paresthesia Pain in both wrists Tasha Camargo, SANDY [address] [place] [phone] Binu Gray MD [address] [facility] [address] [place] [address] Referral ID Status Reason Start Date Expiration Date V isits Requested Visits Authorized [id number] Authorized 12/26/2021 12/26/2022 1 1 Specialty Diagnoses / Procedures Referred By Contac t Referred To Contact Occupational Therapist / Occupational Therapy Diagnoses Complex tear of triangular fibrocartilage of left wrist, initial encounter Sharla Dai PA-C [address] [place] [phone] Teja Jackson OT [address] [place] [phone] Referral ID Status Reason Start Date Expiration Date V isits Requested Visits Authorized [id number] New Request 04/17/2022 05/12/2023 1 1 Specialty Diagnoses / Procedures Referred By Contac t Referred To Contact Radiology Diagnoses Generalized abdominal pain Nausea and vomiting, unspecified vomiting type Diarrhea, unspecified type Procedures CT abdomen pelvis w IV contrast Parag Herrera PA-C [address] [facility], [facility] [address] [place] [address] Referral ID Status Reason Start Date Expiration Date Visits Requested Visits Authorized [id number] Authorized Perform Procedure 08/30/2023 08/29/2024 1 1 Specialty Diagnoses / Procedures Referred By Contact Referred To Contact Gastroenterology Diagnoses Nausea and vomiting, unspecified vomiting type Procedures Esophagogastroduodenoscopy (EGD) ND ESOPHAGOGASTRODUODENOSCOPY TRANSORAL DIAGNOSTIC ND EGD TRANSORAL BIOPSY SINGLE/MULTIPLE Parag Herrera PA-C [address] [facility], [facility] [address] [place] [phone] Referral ID Status Reason Start Date Expiration Date V isits Requested Visits Authorized [id number] Authorized 08/30/2023 08/29/2024 1 1 Specialty Diagnoses / Procedures Referred By Contac t Referred To Contact Gastroenterology Diagnoses Screening for colon cancer Procedures Colonoscopy Screening; Average Risk Patient ND COLONOSCOPY FLX DX W/COLLJ SPEC WHEN PFRMD ND COLON CA SCRN NOT HI RSK IND ND COLORECTAL SCRN; HI RISK IND ND COLONOSCOPY W/BIOPSY SINGLE/MULTIPLE ND COLSC FLX W/RMVL OF TUMOR POLYP LESION SNARE TQ ND COLSC FLX W/REMOVAL LESION BY HOT BX FORCEPS Parag Herrera PA-C [address] [facility], [facility] [address] [place] [phone] Referral ID Status Reason Start Date Expiration Date V isits Requested Visits Authorized [id number] Authorized 08/30/2023 08/29/2024 1 1 Specialty Diagnoses / Procedures Referred By Contac t Referred To Contact Amol Bae MD [address] [place] [id number] Referral ID Status Reason Start Date Expiration Date V isits Requested Visits Authorized [id number] Pending Review 09/18/2023 09/17/2024 1 1 Chief Complaint and Reason for Visit Chief Complaint Admit Date LUMBAR SPINE September 25, 2024 8:01 am Room 4 September 25, 2024 8:15 am Additional Source Comments INFORMATION SOURCE (unrecogn ized section and content) DATE CREATED AUTHOR 12/16/[address] [facility] DATE CREATED AUTHOR AUTHOR'S ORGANIZ ATION 12/17/2018 [facility] DATE CREATED AUTHOR AUTHOR'S ORGANIZ ATION 02/15/2022 [facility] DATE CREATED AUTHOR AUTHOR'S ORGANIZ ATION 05/26/2022 [facility] [place] DATE CREATED AUTHOR AUTHOR'S ORGANIZ ATION 05/28/2022 [employer] DATE CREATED AUTHOR AUTHOR'S ORGANIZ ATION 09/28/2022 [facility] DATE CREATED AUTHOR AUTHOR'S ORGANIZ ATION 10/23/2022 [facility] DATE CREATED AUTHOR AUTHOR'S ORGANIZ ATION 11/21/2022 [facility] DATE CREATED AUTHOR AUTHOR'S ORGANIZ ATION 02/01/2024 [facility] DATE CREATED AUTHOR AUTHOR'S ORGANIZ ATION 04/01/2024 [facility] DATE CREATED AUTHOR AUTHOR'S ORGANIZ ATION 05/08/2024 [facility] DATE CREATED AUTHOR AUTHOR'S ORGANIZ ATION 08/07/2024 [facility] DATE CREATED AUTHOR AUTHOR'S ORGANIZ ATION 09/28/2024 [facility] Assessment & Plan Note - Dami Dawn MD - 02/02/2018 7:31 AM EDTAssessment & Plan Note - Dami Dawn MD - 12/05/2017 2:32 PM EDT Miscellaneous Notes (unrecog nized section and content) Associated Problem(s): Well adult exam Reviewed again the importance of diet lifestyle modification with regards to long-term preventive health. Have reviewed the risks of a specific mortality including coronary artery disease, cancer all types and in particular cancer of the lung, breast, colon. Have discussed the risk of heart disease in addition to stroke. Have reviewed cancer screening appropriate for age as well as possibility of obtaining further immunization. Associated Problem(s): Well adult exam (Resolved 02/02/2018) IN addition to 150-180 minutes per week in 3-5 intervals of target heart rate we recommend review of the top 4 cause of : Heart disease, cancer, lung disease and stroke. Associated Problem(s): Obesity, Class III, BMI 40-49.9 (morbid obesity) (HCC) Calorie counting is the basis for all weight loss. Typically weigh or measure everything that you place in your mouth. Pay attention to those things that you think are free. Include the calories associated with anything you drink as well. Most that you can buy is required by law to have information on it which breaks down the caloric values for serving size. Look at the serving size and then the weight or measure of that serving size is how you calculate the calories. Try to get over half of your daily calories in the first half of the day Need to find the time for exercise. Activity is great but exercise is activity with a heart rate into the target Zone. Consider calorie counting. But weight loss is minimal without exercise since the body with turn down the BMI or thermostat over time. Exercise allows you to see the benefit of calorie control. Maximum Heart rate or MHR is defined by 220 - age. Then target heart rate or THR is 65-85% of MHR. Need to allow warmup slowly over 5- 10 minute to prevent going too fast to reach THR. Then exercise interval at THR and allow cool down until at least care home back to the pre exercise hear rate. Therefor if resting heart rate was 70 and your target heart rate was 120. You need to keep moving and work the muscles until you heart rate is below 95 beats per minute. This reduces cramping and the risk of cardiac irritability post exercise. Most weight loss can be obtained best by cycling your calories. By counting the calories and then setting your intake at the minimum needs to maintain your lean body mass you conventional body not to turn down its basal metabolic rate. 80% or more of your total caloric needs are burned due to your basic metabolic rate. So tell your body that you are are dieting and allowing it to turn down your basal metabolic rate sabotages your ability to lose weight. The way to do this and still lose weight his first start a diet at your minimum needs calculated by year estimated lean body mass. Then the first 4 days of every week set your caloric intake to 300-400 kami per day less. The last 3 days of the week your back to the minimum. This will stop your body from turning down the basal metabolic rate. More than 4 days below the basic minium will have your body trending down how you burn calories. 3500 kami equals 1 pound and 150 kami over 30 days below your needs will result in 1-1/2 pounds per month of weight loss or almost 20 pounds per year. in this encounter Associated Problem(s): Sore throat You were tested and treated for strep throat on 02/14/2018 and given 10 days of PVK. Symptoms improved but did not resolve and low grade fever returned yesterday. I recommend you take the Augmentin that was prescribed X 10 days. This will get rid of resistant strep and sinus infections. Your right ear is not infected. Use a neti pot daily to help with congestion and use some OTC Nasacort daily which will help with sinus pressure and post nasal drip.in this encounter Reason for Visit (unrecogniz ed section and content) Reason Comments pt here for 3 month med check Specialty Diagnoses / Procedures Referred By Ty t Referred To Contact Primary Care Procedures Follow Up In Primary Care - Established Parag Herrera PA-C [address] [facility], [place] [address] Referral ID Status Reason Start Date Expiration Date V isits Requested Visits Authorized [id number] Authorized 03/05/2023 03/04/2024 1 1 Reason Comments Sore Throat > 2weeks finished AT B Ear Pain right >2 weeks Reason Comments Pain Reason Comments Follow-up Wound Check Specialty Diagnoses / Procedures Referred By Ty wong Referred To Contact Neurology Diagnoses Left hand paresthesia Right hand paresthesia Pain in both wrists Tasha Camargo, STORE CONSULTANT [address] [place] [address] Binu Gray MD [address] [facility] [address] [place] [address] Referral ID Status Reason Start Date Expiration Date Visits Re quested Visits Authorized [id number] Closed 12/26/2021 12/26/2022 1 1 Reason Comments Consult Reason Comments Follow-up Follow Up- Left TFCC Tear/ Pain Scale: 4/10 @ rest and with activity Reason Comments 1 month med check Pt having issues wit h vertigo Specialty Diagnoses / Procedures Referred By Ty t Referred To Contact Primary Care Diagnoses Morbid obesity with BMI of 40.0-44.9, adult (CMS/HCC) Procedures Follow Up In Primary Care Parag Herrera PA-C [address] [facility], [place] [phone] Referral ID Status Reason Start Date Expiration Date Visits Re quested Visits Authorized [id number] Closed 06/19/2022 12/16/2022 1 1 Specialty Diagnoses / Procedures Referred By Contac t Referred To Contact Diagnoses Carpal tunnel syndrome on right [G56.01] Carpal tunnel syndrome on left [G56.02] Guru Gutierrez MD [address] [place] [address] Referral ID Status Reason Start Date Expiration Date Visits Re quested Visits Authorized [id number] 08/29/2022 1 1 Reason Comments Post Op Visit Reason Comments 6 month med check Specialty Diagnoses / Procedures Referred By Ty wong Referred To Contact Primary Care Procedures Follow Up In Primary Care Parag Herrera PA-C [address] [facility], [place] [phone] Referral ID Status Reason Start Date Expiration Date Visits Re quested Visits Authorized [id number] Closed 07/31/2022 01/27/2023 1 1 Reason Comments 1 month f/u discuss adipex Pt would like to discuss med for urine urgency Referral ID Status Reason Start Date Expiration Date V isits Requested Visits Authorized [id number] Authorized 01/31/2023 01/31/2024 1 1 Reason Comments Vomiting Diarrhea Patient to ED refere nce nausea/vomiting with diarrhea with lower abdominal pain and belching x 2 months. She states bread makes it worse, she stopped glutin and has has episodes of feeling better but at biscuits Saturday night and it got worse. History of MTHFR for about a year. She was on an antibiotic x 2 weeks prior for UTI Reason Comments pt here due to vomiting x 1 month, diarrhea x 6 months Pt also having painful burps, low grade fever, brain fog and all over pain and fatigue Referral ID Status Reason Start Date Expiration Date V isits Requested Visits Authorized [id number] Authorized 06/06/2023 06/05/2024 1 1 Specialty Diagnoses / Procedures Referred By Ty wong Referred To Contact Radiology Diagnoses Generalized abdominal pain Nausea and vomiting, unspecified vomiting type Diarrhea, unspecified type Procedures CT abdomen pelvis w IV contrast Parag Herrera PA-C [address] [facility], [place] [address] [place] [address] Referral ID Status Reason Start Date Expiration Date Visits Requested Visits Authorized [id number] Authorized Perform Procedure 08/30/2023 08/29/2024 1 1 Specialty Diagnoses / Procedures Referred By Contact Referred To Contact Gastroenterology Diagnoses Nausea and vomiting, unspecified vomiting type Procedures Esophagogastroduodenoscopy (EGD) ND ESOPHAGOGASTRODUODENOSCOPY TRANSORAL DIAGNOSTIC ND EGD TRANSORAL BIOPSY SINGLE/MULTIPLE Parag Herrera PA-C [address] [facility], [place] [phone] Referral ID Status Reason Start Date Expiration Date V isits Requested Visits Authorized [id number] Authorized 08/30/2023 08/29/2024 1 1 Reason Comments Shoulder Injury PT is here today for a shoulder injury (right side) that she just woke up with on Saturday with. Has tried heat and ice and reports the ice does help. OTC pain meds are helping as well. Reason Comments Sick PT is here today for a sick visit, reports fever, cough and body aches, congestion, sore throat and ear pain, denies N/V. Did take tylenol. Reports this is day 9 of sx. Reports she was given cough pearls and steroids. Also lost her voice. Denies taking COVID or flu test. Highest her fever was 101.0 reports that was at night. Reason Comments Follow-up To review endoscopy results. Specialty Diagnoses / Procedures Referred By Ty t Referred To Contact Gastroenterology Diagnoses Generalized abdominal pain Nausea and vomiting, unspecified vomiting type Diarrhea, unspecified type Parag Herrera PA-C [address] [facility], [place] [phone] Referral ID Status Reason Start Date Expiration Date Visits Requested Visits Authorized [id number] Authorized Specialty Services Required 08/30/2023 08/29/2024 1 1 Reason Comments sick Pt is here today for a sick visit. Reports she had a fever of 103 then 101 and today she reports she has not had a fever today. Reason Comments 1 month med check Reason Comments pt here for 6 month med check Reason Comments norovirus 3 weeks still not fe eling well UTI Pressure in abdomen <item><item> Privacy Markings (unrecogniz ed section and content) Section Author: Dede Carreon PROHIBITION ON REDISCLOSURE OF CONFIDENTIAL INFORMATION This notice accompanies a disclosure of information concerning a client made to you with the consent of such client. Section Author: Dede Carreon PROHIBITION ON REDISCLOSURE OF CONFIDENTIAL INFORMATION This notice accompanies a disclosure of information concerning a client made to you with the consent of such client. Care Teams (unrecognized sec tion and content) Hair Dresser Relationship Specialty Start Date End Date Inocencio Ashton CNP [address] [facility] [address] [place] [address] PCP - General Nurse Practitioner 02/06/21 Hair Dresser Relationship Specialty Start Date End Date Inocencio Ashton CNP [address] [facility] [address] [place] [address] PCP - General Nurse Practitioner 02/06/21 Hair Dresser Relationship Specialty Start Date End Date Inocencio Ashton CNP [address] [facility] [address] [place] [address] PCP - General Nurse Practitioner 02/06/21 Hair Dresser Relationship Specialty Start Date End Date [facility], Other [address] [place] [address] PCP - General Family Medicine 04/17/22 Hair Dresser Relationship Specialty Start Date End Date [facility], Other [address] [place] [address] PCP - General Family Medicine 04/17/22 Hair Dresser Relationship Specialty Start Date End Date Parag Herrera PA-C [address] [facility] [address] [place] [address] PCP - General 09/06/21 Hair Dresser Relationship Specialty Start Date End Date [facility] [facility], Other [address] [place] [address] PCP - General Family Medicine 04/17/22 Hair Dresser Relationship Specialty Start Date End Date [facility], Other [address] [place] [address] PCP - General Family Medicine 04/17/22 Hair Dresser Relationship Specialty Start Date End Date Parag Herrera PA-C [address] [facility] [address] [place] [address] PCP - General 09/06/21 Hair Dresser Relationship Specialty Start Date End Date Parag Herrera PA-C [address] [facility] [address] [place] [address] PCP - General 09/06/21 Hair Dresser Relationship Specialty Start Date End Date Parag Herrera PA-C [address] [facility] [address] [place] [address] PCP - General 09/06/21 Hair Dresser Relationship Specialty Start Date End Date Parag Herrera PA-C [address] [facility] [address] [place] [address] PCP - General 09/06/21 Hair Dresser Relationship Specialty Start Date End Date Parag Herrera PA-C [address] [facility], [address] [place] [address] PCP - General 09/06/21 Hair Dresser Relationship Specialty Start Date End Date Parag Herrera PA-C [address] [facility], [address] [place] [address] PCP - General 09/06/21 Hair Dresser Relationship Specialty Start Date End Date Parag Herrera PA-C [address] [facility], [address] [place] [address] PCP - General 09/06/21 Hair Dresser Relationship Specialty Start Date End Date Parag Herrera PA-C [address] [facility], [address] [place] [address] PCP - General 09/06/21 Deion Pelayo APRN-STORE CONSULTANT [address] [address] Referring Physician Gastroenterology 09/30/23 Hair Dresser Relationship Specialty Start Date End Date Parag Herrera PA-C [address] [facility], [address] [place] [address] PCP - General 09/06/21 Deion Pelayo APRN-STORE CONSULTANT [address] [address] Referring Physician Gastroenterology 09/30/23 Hair Dresser Relationship Specialty Start Date End Date Parag Herrera PA-C [address] [facility], [address] [place] [address] PCP - General 09/06/21 Deion Pelayo, MAINTAINER OPERATOR-STORE CONSULTANT [address] [place] [address] Referring Physician Gastroenterology 09/30/23 Hair Dresser Relationship Specialty Start Date End Date Parag Herrera PA-C [address] [facility], [address] [place] [address] PCP - General 09/06/21 Deion Pelayo, MAINTAINER OPERATOR-STORE CONSULTANT [address] [facility] [address] [place] [address] Referring Physician Gastroenterology 09/30/23 Hair Dresser Relationship Specialty Start Date End Date Parag Herrera PA-C [address] [facility], [address] [place] [address] PCP - General 09/06/21 Inocencio Ashton, MAINTAINER OPERATOR-STORE CONSULTANT [address] [place] [address] PCP Lev BABB PCP 06/06/21 Hair Dresser Relationship Specialty Start Date End Date Parag Herrera PA-C [address] [facility], [address] [place] [address] PCP - General 09/06/21 Deion Pelayo, MAINTAINER OPERATOR-STORE CONSULTANT [address] [place] [address] Referring Physician Gastroenterology 09/30/23 Hair Dresser Relationship Specialty Start Date End Date Parag Herrera PA-C [address] [facility], [address] [place] [address] PCP - General 09/06/21 Deion Pelayo, MAINTAINER OPERATOR-STORE CONSULTANT [address] [facility] [address] [place] [address] Referring Physician Gastroenterology 09/30/23 Team Status: Active Member Role Status Dates CHUCK Arnold Attending Provider Active Star t: September 25, 2024 Team Status: Inactive Member Role Status Dates Dr. Jacob Junior MD Attending Provider Active S tart: September 25, 2024 End: September 25, 2024 Team Status: Inactive Member Role Status Dates CHUCK Arnold Attending Provider Active Star t: September 25, 2024 End: September 25, 2024 Continuous Active and Recently Administ ered Medications (unrecognized section and content) Medication Order 09/25/2022 09/26/2022 09/27/2022 Sodium chloride 0.9% IV solution Intravenous, at 75 mL/hr, CONTINUOUS, Starting on Stephany 09/27/22 at 0700, Until Stephany 09/27/22 at 1038, Pre-op/Pre-Proc 0649 ($$New Bag$$ - Provider: Cyn Auguste RN)0717 (Paused - Provider: PALLAVI Figueroa - Comment: Switch to gravity)0718 (Restarted - Provider: PALLAVI Figueroa)0750 (Anesthesia Volume Adjustment - Provider: PALLAVI Figueroa)0822 (Stopped - Provider: Regine Perdomo RN) PRN Medication Order 09/25/2022 09/26/2022 09/27/2022 Bupivacaine (PF) (MARCAINE) 0.5 % injection (CANCELED) NEEDED, Starting on Stephany 09/27/22 at 0739, Until Stephany 09/27/22 at 0755, Intra-op/Intra-Proc 0739 (Given - Provid er: Guru Gutierrez MD) ceFAZolin (ANCEF) 1 g in dextrose premix IVPB (COMPLETED) 1 g, Intravenous, Administer over 15 Minutes, [employer] OPERATOR TO PROCEDURE, 1 dose, Starting on Stephany 09/27/22 at 0649, Until Stephany 09/27/22 at 0727, Other, Pre-operative antibiotic, For 15 Minutes, Pre-op/Pre-Proc 0727 (Given - Provid er: Savi Torres, MAINTAINER OPERATOR-HOUSE WORKER) Gentamicin (GARAMYCIN) injection (CANCELED) NEEDED, Starting on Stephany 09/27/22 at 0715, Until Stephany 623 at 0755, Intra-op/Intra-Proc 0715 (Given - Provid er: Guru Gutierrez MD - Comment: given to sterile field used with 0.9% sodium chloride for irrigation) Lidocaine (XYLOCAINE) 10 mg/mL injection (CANCELED) NEEDED, Starting on Stephany 09/27/22 at 0739, Until Stephany 09/27/22 at 0755, Intra-op/Intra-Proc 0739 (Given - Provid er: Guru Gutierrez MD) Sodium chloride 0.9 % irrigation (CANCELED) NEEDED, Starting on Stephany 09/27/22 at 0715, Until Stephany 09/27/22 at 0755, Intra-op/Intra-Proc 0715 (Given - Provid er: Guru Guteirrez MD - Comment: given to sterile field) Goals (unrecognized section and content) Goals may be documented in a n alternate sectionGoals may be documented in an alternate section FOR RECORDS PERTAINING TO PATIENTS WHO ARE OR HAVE BEEN ENROLLED IN A CHEMICAL DEPENDENCY/SUBSTANCEABUSE PROGRAM, SOME INFORMATION MAY BE OMITTED. This clinical summary was aggregated from multiple sources. Caution should be exercised in using it in the provision of clinical care. This summary normalizes information from multiple sources, and as a consequence, information in this document may materially change the coding, format and clinical context of patient data. In addition, data may be omitted in some cases. CLINICAL DECISIONS SHOULD BE BASED ON THE PRIMARY CLINICAL RECORDS. [employer] [facility]. provides no warranty or guarantee of the accuracy or completeness of information in this document.
--- NOTE | 2024-10-24 09:05 | MRI_ITS ---
PROCEDURE: SPINE LUMBAR (ROUTINE) 10/24/2024 REASON FOR EXAM: PAIN, RADICULOPATHY TECHNIQUE: SPINE LUMBAR (ROUTINE) FINDINGS: Normal lumbar vertebral body height. Grade 1 subtle subluxation of L4 upon L5. Modic type 1 changes at L4-5. Normal conus. No abnormal retroperitoneal findings. The left kidney is not imaged. L1-L2 and L2-L3 are within normal limits. Shallow broad-based protrusion at L3-4 with mild canal narrowing and moderate facet arthrosis. L4-5 demonstrates disc space narrowing, facet arthrosis and a right paracentral small protrusion with moderate to severe spinal stenosis. Right-sided inferior foraminal narrowing. At L5-S1, inferior foraminal narrowing on both sides from annular bulge which results in mild canal narrowing MRI/Spine Lumbar (Routine) IMPRESSION: 1. Mild canal narrowing at L3-4. 2. Moderate to severe spinal canal narrowing at L4-5 with a right-sided inferio r foraminal narrowing. Reading Location: [facility]
== END | disposition home or self-care (01) ==
PROVIDERS: PCP Physician Assistant; Referring Provider Student in an Organized Health Care Education/Training Program; Visit Provider Student in an Organized Health Care Education/Training Program
DX: M54.16 Radiculopathy, lumbar region (principal); M51.362 Other intervertebral disc degeneration, lumbar region with discogenic back pain and lower extremity pain
CPT/HCPCS: 72148